=== PATIENT | male | born 1990 | race Two or more races ===

== ENCOUNTER → 2020-11-05 07:19 | Outpatient (CLI) | payer OTHER, SELFPAY ==
[2020-10-28 08:22] VITALS: BMI 29.2
[2020-11-03 08:37] LABS: Hematocrit 44.9 % (40-54); Hemoglobin 15.2 g/dL (13.0-16.5); Mean Corp Hgb Conc 33.9 g/dL (32-36); Mean Corpuscular Hgb 29.2 pg (27.0-32.0); Mean Corpuscular Volume 86.2 fL (80-94); Mean Platelet Vol. 9.8 fl (6.2-12.0); Platelet Count 221 K/mm3 (150-450); RBC Distribution Width CV 11.9 % (11.6-14.6); RBC Distribution Width SD 37.6 fl (35.1-43.9); Red Blood Count 5.21 M/mm3 (4.6-6.2); White Blood Count 10.7 K/mm3 (4.4-11.0)
[2020-11-03 09:11] LABS: ALB/GLOB Ratio 1.2 RATIO (0.9-2.4); AST(SGOT) 20 U/L (15-37); Alanine Aminotransfer ALT/SGPT 39 U/L (16-61); Albumin, Serum 4.2 g/dL (3.2-5.0); Alkaline Phosphatase 58 U/L (45-117); Anion Gap 4 (5-15); BUN 14 mg/dL (7-18); BUN/Creat Ratio 11.4 RATIO (10-20); Calcium,Total 9.4 mg/dL (8.5-10.1); Chloride 105 mmol/L (98-107); Creatinine, Serum 1.23 mg/dL (0.70-1.30); EST Glomerular Filtration Rate 72 mL/min (>60); Est Glom Filt Rate - Afr Amer 87 mL/min (>60); Globulin 3.5 g/dL (2.2-4.2); Glucose 83 mg/dL (74-106); Protein, Total 7.7 g/dL (6.4-8.2); Sodium Level 140 mmol/L (136-145)
--- NOTE | 2020-11-05 07:23 | MRI_ITS ---
STUDY: MRI BRAIN WITH AND WITHOUT CONTRAST REASON FOR EXAM: Male, 30 years old. Migraine Headaches TEMPORAL AREA TECHNIQUE: Standardized multiplanar fat and water weighted pulse sequences were obtained. IV 17 cc dotarem was administered for the contrast portion of the examination. COMPARISON: None. FINDINGS: Normal size of the ventricles and extra-axial spaces for the patient''s age. Normal white matter tracts of the supratentorial brain. There is no evidence for recent intracranial ischemia or other cause of cytotoxic edema on diffusion weighted imaging (DWI). Normal T2* images of the brain without demonstrated susceptibility artifact. There is no demonstrated hemosiderin stain. Normal bilateral basal ganglia. Normal thalami. There is no extra-axial fluid accumulation. Normal flow voids within the major intracranial circulation suggesting patency by spin echo criteria. Normal venous enhancement. There is no enhancing intra-axial or extra-axial abnormality. Normal sella turcica, pituitary gland, infundibular stalk, optic chiasm and hypothalamus. Normal tectal plate and pineal gland. Normal midbrain, veronica and medulla. Normal cerebellum. Normal basal cisterns. Normal bilateral temporal bones. Normal bilateral internal auditory canals. No demonstrated orbital abnormality, within the constraints of a routine brain study. Normal visualized paranasal sinuses. Normal calvarium and skull base. Normal visualized soft tissue structures. Normal visualized upper cervical spine. MRI/Brain W/WO Contrast IMPRESSION: Normal unenhanced and enhanced MRI of the brain. Electronically Signed: Jesus Vila MD at 9:43 EST Tel , Service support ,
[2020-11-05 08:43] LABS: Insulin 16.9 mU/L (2.6-37.6); T3 Total - Triiodothyronine 1.06 ng/mL (0.6-1.81)
[2020-11-05 08:47] LABS: Hemoglobin A1c 4.8 % (3.8-5.6)
[2020-11-05 08:53] LABS: ALB/GLOB Ratio 1.2 RATIO (0.9-2.4); AST(SGOT) 18 U/L (15-37); Alanine Aminotransfer ALT/SGPT 36 U/L (16-61); Alkaline Phosphatase 58 U/L (45-117); Anion Gap 4 (5-15); BUN 12 mg/dL (7-18); BUN/Creat Ratio 11.5 RATIO (10-20); Calcium,Total 8.8 mg/dL (8.5-10.1); Chloride 105 mmol/L (98-107); Creatinine, Serum 1.04 mg/dL (0.70-1.30); EST Glomerular Filtration Rate 88 mL/min (>60); Est Glom Filt Rate - Afr Amer 106 mL/min (>60); Globulin 3.3 g/dL (2.2-4.2); Glucose 89 mg/dL (74-106); Potassium 3.7 mmol/L (3.5-5.1); Protein, Total 7.3 g/dL (6.4-8.2); Sodium Level 139 mmol/L (136-145); Thyroid Stim Hormone (TSH) 3.98 uIU/mL (0.358-3.74)
[2020-11-07 20:08] LABS: Thyroid Stim Immunoglob <0.10 IU/L (0.00-0.55)
[2020-11-07 22:06] LABS: Thyroid Peroxidase AB < 9 IU/mL (0-34)
== END ==
PROVIDERS: Referring Provider Psychiatry & Neurology Neurology; Visit Provider Psychiatry & Neurology Neurology
DX: G43.909 Migraine, unspecified, not intractable, without status migrainosus (principal); E07.9 Disorder of thyroid, unspecified; R63.5 Abnormal weight gain; R53.82 Chronic fatigue, unspecified
CPT/HCPCS: 36415; 70553; 80053; 83036; 83525; 84439; 84443; 84445; 84480; 85027; 86376; A9575

== ENCOUNTER 2021-12-31 13:11 | Emergency (ER) | payer BC, SELFPAY ==
[2021-12-31 13:12] VITALS: BP 109/67; PULSE 96; RESP 18; TEMP 36.1; O2SAT 98; BMI 25.1
--- NOTE | 2021-12-31 13:27 | EKG12_ITS ---
Test Reason : DIZZINESS Blood Pressure : / mmHG Vent. Rate : 088 BPM Atrial Rate : 088 BPM P-R Int : 108 ms QRS Dur : 096 ms QT Int : 356 ms P-R-T Axes : 071 062 055 degrees QTc Int : 430 ms Sinus rhythm with short NE Otherwise normal ECG Confirmed by JESUSITA BELCHER, CLINTON ([id number]), society editor SANTINO ROBERTS ([id number]) on 01/05/2022 8:47:38 AM Referred By: NARINDER Confirmed By:CLINTON MC MD
--- NOTE | 2021-12-31 13:29 | EX.ED.DYSGE1 ---
HPI History of Present Illness Chief Complaint: Dizziness Detail of Chief Complaint: Dizziness that started yesterday Informant: patient Narrative Narrative: Patient presents to the emergency department with complaint of dizziness that he noticed yesterday. Patient states that he stood up from his desk about 4 PM and felt sudden onset of dizziness that he describes more as lightheadedness. Patient states he really did not want to move his head though. He denied any nausea or vomiting. He apparently did feel chilled and subjectively felt like he might have a fever yesterday. He denies cough or sore throat or body aches. He has had the COVID-vaccine. 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 Patient denies nausea or vomiting or diarrhea. Patient throughout the day still feeling somewhat lightheaded. Patient does have history of migraines but this is different. He describes just some mild discomfort in his head. Prior similar symptoms: No PFSH PFS Medical History (Updated 12/31/21 @ 14:[address] Mateo Rascon, DO) Migraine without aura, not intractable, without status migrainosus Home Medications meclizine 25 mg PO TID PRN #14 tab 12/31/21 [Rx Last Taken Unknown] Allergy/AdvReac Type Severity Reaction Status Date / Time No Known Allergies Allergy Verified 12/31/21 13:15 Family History Grandfather Myocardial infarction, Onset Age: 55 Father Rheumatoid arthritis Surgical History History of repair of ACL Social History Smoking Status: Never smoker Electronic Cigarette Use: not used second hand exposure: No alcohol intake: never substance use type: does not use ROS ROS ED Constitutional Constitutional ED: Reports systems reviewed and no addt'l complaints, except as documented; Denies body ache(s), change in weight or chills Eyes Eyes: Denies acute decrease in peripheral vision, change in vision, double vision or loss of vision ENT ENT ED: Reports none; Denies ear pain, lip swelling, loss taste/smell, neck pain, otalgia or sore throat Cardiovascular Cardiovascular: Reports none; Denies abdominal pain, chest pain with activity, leg edema, lightheadedness, palpitations, rapid heart rate or syncope Respiratory/Chest Respiratory/Chest: Reports none; Denies change in mental status, dry cough, dyspnea, hemoptysis, shortness of breath at rest or shortness of breath with exertion Gastrointestinal Gastrointestinal: Reports none; Denies abdominal pain, change in stool character, diarrhea, hematemesis, hematochezia, melena, rectal bleeding or vomiting Genitourinary Genitourinary ED: Reports none; Denies abdominal discomfort, anuria, dysuria, genital pain or polyuria Musculoskeletal Musculoskeletal: Reports none; Denies arthralgias, back pain, difficulty walking, extremity pain, muscle weakness or myalgias Integumentary Reports none; Denies abscess or rash Neurologic Neurologic: Reports none, headache(s) and other Details: Dizziness ; Denies abnormal gait, confusion, focal weakness, frequent falls, loss of vision, numbness, paresthesias, radicular pain, vertigo or weakness Psychiatric Psychiatric: Reports systems reviewed and no addt'l complaints, except as documented and none; Denies behavioral changes, confusion, difficulty concentrating, hallucinations, suicidal ideation, tactile hallucinations or visual hallucinations Endocrine Endocrinology: Denies none, cold intolerance, excessive sweating, fatigue or heat intolerance Hematologic/Lymphatic Hematologic/Lymphatic: Reports none; Denies anemia, easy bleeding or easy bruising Allergic/Immunologic Allergic/Immunologic ED: Denies as per HPI, none, lip swelling, mouth swelling, throat swelling, tongue swelling or hives EXAM Physical Exam Const Vital Signs: 12/31/21 13:12 12/31/21 13:41 Temperature 96.9 F L Temperature Source Temporal Pulse Rate 96 Pulse Rate [Lying] 83 Pulse Rate [Sitting (for 1 minute prior to obtaining)] 87 Pulse Rate [Standing (for 1 minute prior to obtaining)] 94 Respiratory Rate 18 Blood Pressure 109/67 Blood Pressure [Lying] 109/58 L Blood Pressure [Sitting (for 1 minute prior to obtaining)] 123/68 H Blood Pressure [Standing (for 1 minute prior to obtaining)] 91/50 L Blood Pressure Mean 81 Blood Pressure Mean [Lying] 75 Blood Pressure Mean [Sitting (for 1 minute prior to obtaining)] 86 Blood Pressure Mean [Standing (for 1 minute prior to obtaining)] 63 Pulse Ox 98 Oxygen Delivery Method Room Air Positive well nourished and well developed General Appearance ED: well developed and NAD HEENT Reports TM's clear and moist mucous membranes normocephalic and atraumatic; Negative for trauma or tenderness Tympanic Membrane ED: Yes TM's clear Eyes PERRL and EOMs intact bilaterally General Eye ED: Negative for pale conjunctiva or scleral icterus Neck no lymphadenopathy, supple and no JVD General: Negative for tenderness Chest Wall inspection of chest normal and palpation of chest normal Chest: Negative for tenderness Resp normal respiratory effort and clear to auscultation bilaterally Effort and Inspection: Negative for respiratory distress or pain with movement Auscultation: Negative for rhonchi, wheezes or diminished lung sounds Cardio regular rate, regular rhythm, S1 normal heart sound, S2 normal heart sound and no murmurs Peripheral Pulses: pulses 2+ throughout GI normal to inspection, nondistended, normoactive bowel sounds, soft to palpation, non-tender, non-distended and no masses Back/Spine no CVA tenderness and no thoracic nor lumbar tenderness Extremity normal to inspection General Extremety ED: Negative for edema General Extremity: Negative for edema Neuro oriented x3, CN's II-XII intact bilaterally, no sensory deficits noted and gait normal Neuro Narrative: Finger-nose and heel penn testing within normal limits, negative Romberg, negative pronator drift, fundi benign. Hallpike maneuver performed and I could not elicit any nystagmus and he was not symptomatic with testing. Sensorium / Orientation: awake, alert, oriented to person, oriented to place and oriented to time Motor Exam: strength 5/5 throughout and strength abnormal Psych mental status grossly normal Skin no rashes or lesions noted and no wounds MDM MDM MDM Narrative Medical decision making narrative: IV line established on arrival. Patient was given a liter normal saline fluid bolus. His initial orthostatic vital signs were positive with a drop in the systolic by 30 points. Patient did receive Antivert and he thinks that may have helped his symptoms as well. COVID screen was negative. Lab work-up was normal. EKG obtained on arrival showed a sinus rhythm with a ventricular rate of 88 bpm with no acute ST segment changes. Lab Data Attestation: I reviewed the patient's lab results. Labs: Laboratory Results - last 24 hr 12/31/21 12/31/21 13:35 13:35 WBC 7.6 RBC 4.90 Hgb 14.7 Hct 42.0 MCV 85.7 MCH 30.0 MCHC 35.0 RDW Std Deviation 37.1 RDW Coeff of Jesus 11.9 Plt Count 152 MPV 10.0 Immature Gran % (Auto) 0.400 Neut % (Auto) 79.9 H Lymph % (Auto) 6.5 L Towner % (Auto) 12.8 H Eos % (Auto) 0.0 Baso % (Auto) 0.4 Absolute Neuts (auto) 6.0 Absolute Lymphs (auto) 0.49 L Nucleated RBC % 0 Platelet Estimate ADEQUATE RBC Morphology NORM C+C Sodium 138 Potassium 3.7 Chloride 104 Carbon Dioxide 30.0 Anion Gap 4 L BUN 9 Creatinine 1.15 Estim Creat Clear Calc 88.39 Est GFR (MDRD) Af Amer 94 Est GFR (MDRD) Non-Af 77 BUN/Creatinine Ratio 7.8 L Glucose 90 Calcium 8.8 EKG Initial EKG: Attestation: I personally reviewed and interpreted this EKG as follows: Comments: Sinus rhythm with a rate of 88 bpm with a short MT and otherwise no acute findings Discharge Plan Triage Chief Complaint: Dizziness ED Provider: Mateo Rascon Dx/Rx/DC Orders Clinical Impression: Dizziness, Orthostatic hypotension, Acute viral syndrome Instructions: Orthostatic Hypotension, ED Dizziness, Uncertain Cause, ED Viral Syndrome (Adult) Prescriptions: New meclizine 25 mg tablet 25 mg PO TID PRN (Reason: dizziness) Qty: 14 RF: 0 Primary Care Provider: Care Physician,No Primary Referrals: Brandon Ochoa MD [STAFF PHYSICIAN] - 3-5 Days Care Physician,No Primary [Primary Care Provider] - Disposition Disposition: Home, Self Care
[2021-12-31] MEDS: 0.9% Normal Saline 1,000 ML 150 ML IV (13:35)
[2021-12-31] MEDS: Meclizine HCl 25 MG Tablet PO (13:35)
[2021-12-31 13:41] VITALS: BP 109/58; BP 123/68; BP 91/50; PULSE 83; PULSE 87; PULSE 94
--- NOTE | 2021-12-31 13:47 | ED.RN ---
Dr. Rascon notified of patients orthostatic vitals. Verbal readback to increase fluids to 1L wide open
[2021-12-31 13:56] LABS: Absolute Lymphocyte Count 0.49 X10^3/uL (0.83-4.51); Basophil# 0.03 X10^3/uL; Basophil% 0.4 % (0-1); Hemoglobin 14.7 g/dL (13.0-16.5); Lymphocyte # 0.49 X10^3/ul (0.83-4.51); Lymphocyte % 6.5 % (19-41); Mean Corpuscular Volume 85.7 fL (80-94); Monocyte# 0.97 X10^3/uL; Monocyte% 12.8 % (0-10); NRBC Flagged by Analyzer 0 % (0-5); Neutrophil # 6.04 X10^3/uL (2.7-7.7); Neutrophil % 79.9 % (47-70); POSITIVE DIFFERENTIAL YES; Platelet Count 152 K/mm3 (150-450); RBC Distribution Width CV 11.9 % (11.6-14.6); RBC Distribution Width SD 37.1 fl (35.1-43.9); White Blood Count 7.6 K/mm3 (4.4-11.0)
[2021-12-31 14:02] LABS: Differential Indicated SCAN CRITERIA MET
[2021-12-31 14:08] LABS: Anion Gap 4 (5-15); BUN 9 mg/dL (7-18); BUN/Creat Ratio 7.8 RATIO (10-20); Calcium,Total 8.8 mg/dL (8.5-10.1); Chloride 104 mmol/L (98-107); Creatinine, Serum 1.15 mg/dL (0.70-1.30); EST Glomerular Filtration Rate 77 mL/min (>60); Est Glom Filt Rate - Afr Amer 94 mL/min (>60); Estimated Creatinine Clearance 88.39 ml/min; Glucose 90 mg/dL (74-106); Potassium 3.7 mmol/L (3.5-5.1); Sodium Level 138 mmol/L (136-145)
[2021-12-31 14:24] LABS: Platelet Estimate ADEQUATE (ADEQ); Red Cell Morphology NORM C+C NORMAL (NORM C&C)
[2021-12-31] MEDS: 0.9% Normal Saline 1,000 ML 999 ML IV (14:35)
[2021-12-31 14:45] VITALS: BP 116/62; BP 120/59; BP 127/65; PULSE 81; PULSE 86; PULSE 89
== END 2021-12-31 14:51 | disposition home or self-care (01) ==
PROVIDERS: Emergency Provider Emergency Medicine; Visit Provider Emergency Medicine
DX: I95.1 Orthostatic hypotension (principal); B34.9 Viral infection, unspecified; G43.909 Migraine, unspecified, not intractable, without status migrainosus
CPT/HCPCS: 80048; 85025; 87811; 93005; 96360; 99284; J7030; A4216

== ENCOUNTER 2022-05-29 19:50 | Emergency (ER) | payer BC, SELFPAY ==
[2022-05-29 19:50] VITALS: BP 110/75; PULSE 75; RESP 19; TEMP 36.3; O2SAT 100; BMI 26.8
--- NOTE | 2022-05-29 20:00 | CT_ITS ---
STUDY: CT BRAIN WITHOUT CONTRAST REASON FOR EXAM: Male, 32 years old. Pain RADIATION DOSAGE (If Supplied By Facility): CTDIvol = ( 44.99 ) mGy, DLP = ( 745.49 ) mGycm TECHNIQUE: Transaxial CT imaging of the brain was performed without administration of intravenous contrast material. Individualized dose optimization techniques were used for this CT. COMPARISON: No relevant priors. FINDINGS: Normal soft tissue structures. Normal calvarium. Normal size ventricles and extra-axial spaces for the patient''s age. Normal white matter tracts of the cerebral hemispheres. Normal basal ganglia and thalami. Normal brainstem. Normal cerebellum. There is no intracranial hemorrhage. There are no findings of an acute ischemic infarction. Normal visualized paranasal sinuses. CT/Brain/Head without Contrast IMPRESSION: Normal unenhanced CT scan of the brain. Electronically Signed: Jesus Vila MD at 20:43 EDT ,
--- NOTE | 2022-05-29 20:01 | EX.ED.DYSGE1 ---
HPI History of Present Illness Chief Complaint: Headache Informant: patient Onset/Context/Timing Onset: Today Current Severity: Moderate Maximum Severity: Moderate Narrative Narrative: Patient present secondary to migraine headache. He has a history of migraines and states that usually 1 dose of sumatriptan will take care of his headache. It is typically right-sided. This morning he developed left-sided headache which is quite atypical for him. He took his sumatriptan without improvement. He took another dose this afternoon as well as this evening and continues to have headache symptoms. He does have light sensitivity along with nausea and vomiting. He denies recent head injury. 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 He has not felt ill recently. [facility] Medical History Migraine without aura, not intractable, without status migrainosus Home Medications sumatriptan succinate 50 mg tablet See Rx Instructions .Route .COMPLEX #9 tabs 02/16/22 [Rx Last Taken Unknown] Allergy/AdvReac Type Severity Reaction Status Date / Time No Known Allergies Allergy Verified 02/16/22 08:36 Family History Grandfather Myocardial infarction, Onset Age: 55 Father Rheumatoid arthritis Surgical History History of repair of ACL Social History Smoking Status: Never smoker Electronic Cigarette Use: not used second hand exposure: No alcohol intake: never substance use type: does not use ROS ROS ED Constitutional Constitutional ED: Denies chills or fever(s) Eyes Eyes: Denies change in vision or discharge from eye(s) ENT ENT ED: Denies discharge from eye(s), rhinorrhea or sore throat Cardiovascular Cardiovascular: Denies chest pain or palpitations Respiratory/Chest Respiratory/Chest: Denies cough or dyspnea Gastrointestinal Gastrointestinal: Reports nausea and vomiting; Denies abdominal pain or diarrhea Genitourinary Genitourinary ED: Denies dysuria Musculoskeletal Musculoskeletal: Denies back pain or extremity pain Integumentary Denies Abrasions or rash Neurologic Neurologic: Reports headache(s); Denies weakness Psychiatric Psychiatric: Denies anxiety or depression Allergic/Immunologic Allergic/Immunologic ED: Denies lip swelling or urticaria EXAM Physical Exam Const Vital Signs: 05/29/22 19:50 Temperature 97.4 F L Temperature Source Temporal Pulse Rate 75 Respiratory Rate 19 H Blood Pressure 110/75 Blood Pressure Mean 86 Pulse Ox 100 Oxygen Delivery Method Room Air Positive well nourished and well developed General Appearance ED: well developed HEENT Reports moist mucous membranes Eyes PERRL and EOMs intact bilaterally Neck no lymphadenopathy Neck Narrative: No meningismus. Chest Wall inspection of chest normal and palpation of chest normal Resp normal respiratory effort and clear to auscultation bilaterally Cardio regular rate and regular rhythm GI normal to inspection, nondistended, normoactive bowel sounds Extremity normal to inspection Neuro oriented x3, CN's II-XII intact bilaterally and no sensory deficits noted Motor Exam: strength 5/5 throughout Psych mental status grossly normal Skin no rashes or lesions noted MDM MDM MDM Narrative Medical decision making narrative: Patient is given Toradol, Reglan, Benadryl, IV fluids. CT scan of the head obtained because this is not his typical migraine. COVID swab also obtained. Radiography Diagnostic Testing: Clinical Impression(s) from Imaging Studies Brain CT 05/29/22 20:00 IMPRESSION: Normal unenhanced CT scan of the brain. Electronically Signed: Jesus Vila MD at 20:43 EDT , Treatment and Re-Evaluation Narrative: Rapid COVID test is negative. CT scan of the head reveals no acute findings. On repeat evaluation patient states his headache is much improved. Test results discussed with patient and at bedside. He will be discharged home to continue supportive care. Discharge Plan Triage Chief Complaint: Headache ED Provider: Areli Suarez Dx/Rx/DC Orders Clinical Impression: Migraine Instructions: ED, Migraine (Classical) Prescriptions: No Action sumatriptan succinate 50 mg tablet See Rx Instructions .ROUTE .COMPLEX Qty: 9 11RF Rx Instructions: take 1 tab at onset of headache; if headache persists you may repeat 1 tab after at least 2 hrs; max 2 doses/24 hr Primary Care Provider: Care Physician,No Primary Referrals: Toy Lyons MD [Non-Staff -Ordering Privileges] - As Needed Care Physician,No Primary [Primary Care Provider] - Disposition Disposition: Home, Self Care
[2022-05-29] MEDS: DiphenhydrAMINE 50 MG/ML Syringe 25 MG IV (20:09)
[2022-05-29] MEDS: Metoclopramide 10 MG/2 ML Vial IV (20:09)
[2022-05-29] MEDS: Ketorolac 30 MG/ML Syringe IV (20:09)
[2022-05-29] MEDS: 0.9% Normal Saline 1,000 ML 999 ML IV (20:09)
[2022-05-29 21:04] VITALS: BP 105/69; PULSE 80; RESP 15; O2SAT 98
== END 2022-05-29 21:13 | disposition home or self-care (01) ==
PROVIDERS: Emergency Provider Emergency Medicine; Visit Provider Emergency Medicine
DX: G43.909 Migraine, unspecified, not intractable, without status migrainosus (principal); Z79.899 Other long term (current) drug therapy; Z20.822 Contact with and (suspected) exposure to COVID-19
CPT/HCPCS: 70450; 87811; 96361; 96374; 96375; 99282; J7030; A4216

== ENCOUNTER → 2022-10-18 | Outpatient (CLI) | payer BC, SELFPAY ==
--- NOTE | 2022-10-18 12:40 | RAD_ITS ---
EXAM: XR CERVICAL SPINE, 4 OR 5 VIEWS CLINICAL INDICATION: BACK PAIN TECHNIQUE: Frontal, lateral and bilateral oblique views of the cervical spine. This report was created using [employer] report generation technology. COMPARISON: None. FINDINGS: VERTEBRAE: Unremarkable. Preserved vertebral body height. No acute fracture. No spondylolisthesis. Preservation of the normal cervical lordosis. No significant facet arthropathy. DISC SPACES: Unremarkable. Disc spaces are maintained. SOFT TISSUES: Unremarkable. No prevertebral soft tissue widening. LUNG APICES: Clear. RAD/Cerv Spine 2 or 3 Views IMPRESSION: Normal cervical spine radiographs. Electronically Signed: Hans Owens MD at 13:30 EST ,
--- NOTE | 2022-10-18 12:40 | RAD_ITS ---
EXAM: XR LUMBOSACRAL SPINE, 2 OR 3 VIEWS CLINICAL INDICATION: BACK PAIN TECHNIQUE: Frontal and lateral views of the lumbar spine and sacrum. This report was created using [employer] report [employer] technology. COMPARISON: None. FINDINGS: VERTEBRAE: Unremarkable. Preserved vertebral body height. No fracture. No spondylolisthesis. Preservation of the normal lumbar lordosis. No significant facet arthropathy. DISC SPACES: No acute findings. Disc spaces are maintained. GASTROINTESTINAL TRACT: Unremarkable as visualized. Included bowel gas pattern is non-obstructive. RAD/Lumbar Spine 2 or 3 Views IMPRESSION: Normal lumbar spine radiographs. Electronically Signed: Hans Owens MD at 13:42 EST ,
--- NOTE | 2022-10-18 12:40 | RAD_ITS ---
EXAM: XR THORACIC SPINE, 3 VIEWS CLINICAL INDICATION: BACK pain TECHNIQUE: Frontal, lateral and swimmer''s views of the thoracic spine. This report was created using [employer] report [employer] technology. COMPARISON: None. FINDINGS: VERTEBRAE: Unremarkable. Preserved vertebral body height. No fracture. No spondylolisthesis. Preservation of the normal thoracic kyphosis. No significant facet arthropathy. DISC SPACES: Unremarkable. Disc spaces are maintained. RAD/Thoracic Spine 3 Views IMPRESSION: Normal thoracic spine radiographs. Electronically Signed: Hans Owens MD at 13:31 EST ,
== END | disposition home or self-care (01) ==
PROVIDERS: Referring Provider Anesthesiology Pain Medicine; Visit Provider Anesthesiology Pain Medicine
DX: M54.9 Dorsalgia, unspecified (principal)
CPT/HCPCS: 72040; 72072; 72100

== ENCOUNTER 2024-12-22 11:53 | Emergency (ER) | payer BC, SELFPAY ==
[2024-12-22 11:54] VITALS: BP 130/73; PULSE 90; RESP 18; TEMP 36.7; O2SAT 98
--- NOTE | 2024-12-22 12:15 | RAD_ITS ---
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 FINDINGS: Bones: Findings of prior ACL reconstruction with femoral endo-button and femoral and tibial tunnels. No acute osseous fracture. Joints: Normal alignment. Mild degenerative changes. Effusion: No effusion. Soft tissues: Soft tissues are unremarkable. RAD/Knee 4 or More Views IMPRESSION: Negative knee radiographs. Reading Location: [id number]
--- NOTE | 2024-12-22 12:18 | ED.VIS.LOWEX ---
HPI History of Present Illness HPI Narrative: Right knee pain while planning is right in the and playing soccer. Prior history of an ACL repair. Not sure if he heard a pop or not. Painful to bear weight. Just happened within the last couple hours. 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 He has had a prior ACL repair a number of years ago. Denies any hip or ankle pain. No other injuries. Prior similar symptoms: No Recent Illness/Hospitalization: No PFSH PFS Medical History Migraine without aura, not intractable, without status migrainosus Home Medications ?Medication ?Instructions ?Recorded ?Last Taken ?Type sumatriptan succinate 100 mg tablet See Rx Instructions PO .COMPLEX 12/10/24 Unknown Rx #12 tabs Allergy/AdvReac Type Severity Reaction Status Date / Time No Known Allergies Allergy Verified 12/10/24 09:28 Family History Grandfather Myocardial infarction, Onset Age: 55 Father Rheumatoid arthritis Surgical History History of repair of ACL Social History Smoking Status: Never smoker Electronic Cigarette Use: not used second hand exposure: No alcohol intake: current details: occasionally substance use type: does not use what type of physical activity do you participate in: running and weight training seatbelt use: always ROS ROS ED ROS Narrative Denies recent illness. Constitutional Constitutional ED: Denies chills or fever(s) Eyes Eyes: Denies blurry vision ENT ENT ED: Denies ear pain Cardiovascular Cardiovascular: Denies chest pain Respiratory/Chest Respiratory/Chest: Denies cough Gastrointestinal Gastrointestinal: Denies abdominal pain Genitourinary Genitourinary ED: Denies dysuria or hematuria Musculoskeletal Musculoskeletal: Denies arthralgias or back pain Integumentary Denies abscess Neurologic Neurologic: Denies headache(s) Psychiatric Psychiatric: Denies anxiety or depression Endocrine Endocrinology: Denies polydipsia Hematologic/Lymphatic Hematologic/Lymphatic: Denies easy bleeding Allergic/Immunologic Allergic/Immunologic ED: Denies mouth swelling, tongue swelling or urticaria EXAM Physical Exam Narrative Exam Narrative: Well-appearing 34-year-old male sitting upright in bed. Vital signs are stable afebrile. H EENT exam pupils round reactive light. No trauma. Neck nontender. Back nontender. Lungs clear. Heart regular rhythm rate about 90 no murmur. Chest wall ribs nontender. Abdomen soft nontender. Moving all 4 extremities. Neurovascularly intact. Normal strength. Normal sensation. Right knee he has pain. The ACL and PCL appear to be intact. There is no effusion. He can straighten the leg to 180 degrees. He can flex and extend the knee. The MCL and LCL appear to be intact. He can lift the leg off the bed. His quadriceps patella and infrapatellar tendon are intact. There is no swelling, redness or discoloration. Dorsi and plantarflexion is intact. He has a normal DP pulse. His normal touch sensation his right foot. Other extremities are nontender with normal range of motion no deformity. Const Vital Signs: 12/22/24 11:54 Temperature 98.1 F Temperature Source Oral Pulse Rate 90 Respiratory Rate 18 Blood Pressure 130/73 H Blood Pressure Mean 92 Pulse Ox 98 Oxygen Delivery Method Room Air Positive well nourished and well developed; Negative for obese, cachectic, contractures or unkempt General Appearance ED: well developed and NAD; Negative for unkempt, cachectic or contractures Nutritional Appearance: Negative for cachectic or obese HEENT Reports moist mucous membranes normocephalic and atraumatic; Negative for trauma or tenderness Eyes PERRL Neck full ROM and supple Thyroid: Negative for tender Lymph Lymphatic: Negative for other Chest Wall inspection of chest normal and palpation of chest normal Resp normal respiratory effort, no retractions and clear to auscultation bilaterally Auscultation: Negative for rales, rhonchi or wheezes Cardio regular rate, regular rhythm, S1 normal heart sound, S2 normal heart sound and no murmurs Rate: Negative for bradycardia or tachycardic Rhythm: Negative for abnormal rhythm Bruits: Negative for other GI non-tender, non-distended and no masses Auscultation: normoactive bowel sounds Palpation: soft; Negative for tender or guarding Back/Spine no CVA tenderness General Back: Negative for CVA tenderness or swelling Cervical Spine: Negative for cervical spine tenderness Thoracic Spine / Upper Back: Negative for thoracic spinal tenderness Lumbar Spine / Lower Back: Negative for lumbar spinal tenderness Extremity normal to inspection and full ROM Extremity Narrative: Right knee. No effusion. No swelling. Normal flexion extension. ACL and PCL appear to be intact as do the MCL and LCL. He has normal flexion extension and 80 degrees. Quadriceps patellar and infrapatellar tendon are intact. Right ankle nontender. Right foot neurovascularly intact. General Extremety ED: Yes edema and weight-bearing difficulty General Extremity: edema and weight-bearing difficulty Neuro oriented x3, CN's II-XII intact bilaterally and moves all extremities Sensorium / Orientation: alert, oriented to person, oriented to place and oriented to time Motor Exam: strength 5/5 throughout Psych mental status grossly normal Appearance: Negative for unkempt Mood & Affect: anxious Skin no wounds Lesions: no lesions Rashes: no rashes Trauma: Negative for abrasion or laceration MDM MDM MDM Narrative Medical decision making narrative: 34-year-old male playing soccer injury to his right knee. Prior ACL repair. X-ray being obtained. History & Record Review Discussion w/independent historian: Patient and Family Discharge Plan Triage Chief Complaint: Lower Extremity Injury ED Provider: Alexey Batista Dx/Rx/DC Orders Prescriptions: No Action sumatriptan succinate 100 mg tablet See Rx Instructions PO .COMPLEX Qty: 12 4RF Rx Instructions: Take 1 tablet PO every 1 hour as needed for headache up to 2 tablets/day Primary Care Provider: Brandon Rojas Referrals: Care Physician,No Primary [Non-Staff] - Print Language: Micronesian
[2024-12-22 12:54] VITALS: BP 120/62; PULSE 74; RESP 18; TEMP 36.6; O2SAT 99
== END 2024-12-22 12:55 | disposition home or self-care (01) ==
PROVIDERS: Emergency Provider Emergency Medicine; PCP Family Medicine; Visit Provider Emergency Medicine
DX: S89.81XA Other specified injuries of right lower leg, initial encounter (principal); X50.1XXA Overexertion from prolonged static or awkward postures, initial encounter; Y93.66 Activity, soccer; G43.009 Migraine without aura, not intractable, without status migrainosus; Z98.890 Other specified postprocedural states; Z87.828 Personal history of other (healed) physical injury and trauma; Z79.899 Other long term (current) drug therapy
CPT/HCPCS: 73564; 99282

== ENCOUNTER 2025-01-14 05:56 | Day surgery (SDC) | payer BC, SELFPAY ==
[2025-01-14] VITALS (11 sets, daily range): BP systolic 99–124; BP diastolic 61–82; PULSE 62–72; RESP 12–18; TEMP 36.1–36.7; O2SAT 95–100; BMI 27.0
[2025-01-14] MEDS: Lactated Ringers 1,000 ML 15 ML IV (06:50)
--- NOTE | 2025-01-14 07:14 | PRE.ANES_ITS ---
ASA Classification* ASA Classification ASA Classification: 2 (Hx of SEVERE PONV - We will do TIVA ) Assessment & Plan Anesthesia* Anesthesia Assessment Anesthesia Assessment: Discussed sedation and/or anesthesia options, risks, benefits, and alternatives with patient/parents/legal guardian/POA. Questions invited. The patient/parents/legal guardian/POA seems to understand and agrees to proceed with anesthesia plan. Reviewed the physical assessment, medical history, allergy history and patient home medications list prior to surgery/procedure/anesthetic and documented any changes. Performed airway and anesthesia risk assessments. Anesthesia Type Anesthesia Type: General (TIVA) History Source History Obtained from:: Patient and Chart Anesthesia Focused Assessment* Temperature: 97.7 F Pulse Rate: 71 Blood Pressure: 124/79 Respiratory Rate: 16 Pulse Ox: 100 Oxygen Delivery Method: Room Air Airway Assessment Mouth opens: >3 cm Mallampati Score: II Teeth Condition: Intact Neck Range of motion (ROM): Full ROM Focused Labs Anesthesia Preop lab: CBC WBC 7.6 K/mm3 (4.4-11.0) 12/31/21 13:35 12/31/21 RBC 4.90 M/mm3 (4.6-6.2) 12/31/21 13:35 12/31/21 Hgb 14.7 g/dL (13.0-16.5) 12/31/21 13:35 12/31/21 Hct 42.0 % (40-54) 12/31/21 13:35 12/31/21 Plt Count 152 K/mm3 (150-450) 12/31/21 13:35 12/31/21 CHEMISTRY Potassium 3.7 mmol/L (3.5-5.1) 12/31/21 13:35 12/31/21 Sodium 138 mmol/L (136-145) 12/31/21 13:35 12/31/21 BUN 9 mg/dL (7-18) 12/31/21 13:35 12/31/21 Creatinine 1.15 mg/dL (0.70-1.30) 12/31/21 13:35 12/31/21 Glucose 90 mg/dL (74-106) 12/31/21 13:35 12/31/21 TSH 3.98 uIU/mL (0.358-3.74) H 11/05/20 07:26 10/14 12/31 COAG Pre-Assessment Diagnosis/Proposed Procedure Planned Operative Procedure(s): (R) RIGHT KNEE ARTHROSCOPIC REVISION ANTERIOR CRUCIATE LIGAMENT RECONSTRUCTION WITH QUADRICEPS AUTOGRAFT AND MEDIAL MENISCAL REPAIR Anesthesia History Anesthesia History - gerentological physiotherapist: Anesthesia History - gerentological physiotherapist Hx Hospitalization No 01/11/25 08:16 Any Problems With Anesthesia Yes: severe n/v after last 01/11/25 08:16 surgery Cholinesterase deficiency No 01/11/25 08:16 You/Your Family Experience No 01/11/25 08:16 fever (hyperthermia) with Relationship Recent Exposure to Contagious No 01/14/25 06:49 Disease Does patient have nerve No 01/11/25 08:16 stimulator Patient instructed to have device shut off --Does patient have Pacemaker No 01/14/25 06:51 or ICD? When Was Last Pacemaker Check QUESTION #4 FULL TEXT: You/Your Family Experience fever (hyperthermia) with Anesthesia Last Oral Intake Last Oral intake: Last Oral Intake NPO since 00:00 01/14/25 06:51 Meds taken in AM with sips of water? Meds patient instructed to take am of surgery PONV PONV - gerentological physiotherapist: PONV - gerentological physiotherapist Female No 01/11/25 08:16 HX of Motion Sickness Yes 01/11/25 08:16 HX of N/V After Surgery Yes 01/11/25 08:16 Non-Smoker Yes 01/11/25 08:16 Duration of Surgery greater No 01/11/25 08:16 than 60 minutes Number of Risk Factors 3 01/11/25 08:16 PONV Score Moderate Risk 01/11/25 08:16 Height & Weight Height & Weight: Anesthesia: Height & Weight Height 5 ft 9 in 01/14/25 06:51 Weight: 83.1 kg 01/14/25 06:51 Body Mass Index (BMI) 27.0 01/14/25 06:51 Respiratory Assessment Respiratory Assessment - gerentological physiotherapist: Respiratory Tract Infection Hx - gerentological physiotherapist Hx Respiratory Tract Infection No 01/11/25 08:16 STOP Sleep Apnea STOP Sleep Apnea - gerentological physiotherapist: STOP Sleep Apnea - gerentological physiotherapist Hx Hypertension No 01/11/25 08:16 Hx Sleep Apnea No 01/11/25 08:16 CPAP BIPAP Do you snore loudly (louder No 01/11/25 08:16 than talking or can be heard Do you often feel tired/ No 01/11/25 08:16 fatigued/ sleepy during daytime? Has anyone observed you stop No 01/11/25 08:16 breathing during sleep? STOP Results Negative 01/11/25 08:16 QUESTION #5 FULL TEXT : Do you snore loudly (louder than talking or can be heard through closed doors)? 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 Specify any problems Hx of Preganancy in last 3 N/A 01/11/25 08:16 Months Nurse Filling Out Transfusion VLEHMAN 01/11/25 08:16 & Questions: Date: 01/11/25 01/11/25 08:16 Time: 08:23 01/11/25 08:16 Patient unable to answer at this time (ie. confused, unrespo /Reproduction History /Reproductive History - gerentological physiotherapist: /Reproductive Hx- gerentological physiotherapist Hx Now Gestational Age (in weeks): EDC: Hx Hx Para Hx Section SAB Active Medications Active Medications: Current Medications Generic Name Dose Route Start Last Admin Trade Name Freq PRN Reason Stop Dose Admin Lactated Ringer's 1,000 mls @ 15 mls/hr 01/14/25 06:15 01/14/25 06:50 IV 15 mls/hr .Q48H MONIQUE Administration Cefazolin Sodium 2 gm/ Sodium 110 mls @ 150 mls/hr 01/14/25 07:15 Chloride IV 01/14/25 07:58 INTRAOP ONE PFSH Medical History Migraine without aura, not intractable, without status migrainosus Home Medications ?Medication ?Instructions ?Recorded ?Last Taken ?Type sumatriptan succinate 100 mg tablet See Rx Instruction s PO .COMPLEX 12/10/24 01/11/25 Rx #12 tabs minoxidil 2.5 mg tablet 1.25 mg PO DAILY 01/11/25 History Allergy/AdvReac Type Severity Reaction Status Date / Time No Known Allergies Allergy Verified 01/11/25 08:14 Family History Grandfather Myocardial infarction, Onset Age: 55 Father Rheumatoid arthritis Surgical History History of repair of ACL Social History Smoking Status: Never smoker Electronic Cigarette Use: not used second hand exposure: No alcohol intake: current details: occasionally substance use type: does not use what type of physical activity do you participate in: running and weight training seatbelt use: always Review of Systems (Anesthesia) ROS Narrative System reviewed and no additional complaints, except as documented. Physical Exam Const alert, oriented x3 and average body habitus Resp normal respiratory effort, normal air movement and clear to auscultation bilaterally Cardio regular rate, regular rhythm, no murmurs and diaphoretic
[2025-01-14] MEDS: Cefazolin 2 GM in 0.9% Normal Saline (100mL Bag) 100 ML IV (07:43)
[2025-01-14] MEDS: Epinephrine (1 mg/ml) 1 MG/ML VIAL (07:59)
[2025-01-14] MEDS: Bupiv/Epi 0.25% 30 ML Vial (10:40)
--- NOTE | 2025-01-14 11:18 | OP.PCM_ITS ---
Operative Report (Standard) Operative Information Date of Procedure: 01/14/25 Pre-Operative Diagnosis: 1. 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 Right knee medial meniscus tear Post-Operative Diagnosis: 1. 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 Right knee medial meniscus tear Surgery/Procedure Performed: 1. Revision arthroscopic right knee anterior cruciate ligament reconstruction with quadriceps tendon bone autograft 2. Right knee arthroscopic medial meniscus repair transmission rebuilder: Yes Waste Handling Technician: Pau Watts Tasks completed by assistant curator: Opening & closing, Removing tissue, Hemostasis: Electrocautery and Other (Graft preparation, hardware removal and placement) Additional accounting administrative assistant?: No Type of Anesthesia: General/Regional RN Documented Start/Stop Times: Operation Date: 01/14/25 07:30 Case Time Into Pre-Op 01/14/25 06:10 Out of Pre-Op 01/14/25 07:26 Anesthesia Start 01/14/25 07:33 Into Room 01/14/25 07:33 Procedure Start 01/14/25 07:59 Procedure End 01/14/25 10:55 Anesthesia End 01/14/25 11:04 Out of Room 01/14/25 11:04 Into Recovery 01/14/25 11:09 Procedure Start Time: 07:59 Procedure Stop Time: 10:55 Select all DRAINS/GRAFTS/IMPLANTS that apply: Implanted device Implanted device details: Arthrex tight rope II with button tower erector helper 5 x 20 mm, fiber stitch implant x 1, fast thread peek interference screw 8 x 30 mm, 4.75 mm bio comp osite swivel lock anchor x 1 Estimated Blood Loss: 50 cc Specimen collected: No Description of surgery: Patient was identified in the preoperative holding area by name, medical record, and date of . The operative extremity was marked. All questions were answered to the patient's satisfaction. At time of his procedure, patient was brought to the operative suite positioned supine on a standard operating table. General anesthesia was induced and endotracheal tube placed. Exam under anesthesia revealed an unstable Eliz and positive pivot shift. A well-padded pneumatic tourniquet was applied on the right upper thigh. Circumferential arthroscopic leg marcus was placed around the patient's mid thigh. The foot the bed was dropped 90 degrees. A well leg marcus was placed under the patient's left thigh. We then prepped and draped the right lower extremity in a normal, sterile orthopedic fashion. We performed a timeout confirming the side, site, operation to be performed. No concerns were voiced and we elected to proceed with surgery. 2 g Ancef was administered IV prior to incision by ICU staff. I first established an anterior lateral arthroscopic portal in standard fashion with 11 blade scalpel. Arthroscope was introduced and the knee was filled with normal saline with epinephrine. Gutters were examined and were unremarkable. Patellofemoral cartilage was pristine. Medial compartment was entered with a valgus stress. Anterior medial portal was established. Medial compartment demonstrated focal grade III chondromalacia 2 x 1 cm with unstable chondral flap. This was debrided with the arthroscopic shaver. Probing the medial meniscus demonstrated a posterior horn longitudinal tear. I proceeded with fixation at this time. The tear was debrided with a graft. A fiber stitch implant was used to place a horizontal mattress suture across the tear. Sutures were tensioned after the anchors were deployed and there was excellent compression across the tear. Sutures were cut flush with the anchor. The meniscus was stable to probing. I then turned my attention to the intercondylar notch. Complete ACL rupture was noted. The graft was debrided. The position of the tunnels were scrutinized and appeared to be excellent. There did not appear to be any significant dilation at the apertures. I examined the lateral compartment with varus stress and this was pristine. At this time I elected to proceed with graft harvest. I then exsanguinated the right lower extremity with Esmarch bandage. Tourniquet inflated 250 mmHg range up for 2 hours. Longitudinal incision was made over the distal portion of the quadriceps tendon into the proximal pole of the patella. Full-thickness skin flaps were developed down to the peritenon. Peritenon was elevated. Underlying quadriceps tendon was identified. I used an 11 mm parallel cutting guide to harvest the central third of the quadriceps tendon 70 mm in length. I elected to harvest a bone block given the revision setting for increased bony incorporation. A 2 x 1 cm bone plug was harvested with the quadriceps tendon graft via microsagittal saw and curved osteotomes. A cigar cutting guide was used to elevate and then amputate the graft. Final length was 82 mm including her bone plug. My accounting administrative assistant prepared the graft on the back table for ACL reconstruction with tight rope suspensory femoral sided fixation and interference screw fixation on the tibia. The graft was wrapped with a moist sponge and tensioned on the back table while we completed the remainder of the case prior to graft passage. Final graft diameter was 10 mm on tibia and femoral side. I closed the defect in the quadriceps tendon with a running, locking 0 Vicryl suture. Dermis was reapproximated with buried 2-0 Vicryl suture. I then debrided the apertures of the pre-existing tunnels. Graft remnant was removed. I then opened the previous incision along the proximal tibia to identify the graft bolt screw. Old screw was removed. The outer casing was then removed via 10 mm reamer. The aperture was debrided of any soft tissue remanent. There is good bony bleeding circumferentially in the tibial tunnel. I attempted to pass a nitinol wire and subsequently a drill pin from the tibial tunnel to identify the drill site of t he femoral tunnel but was unsuccessful. It was at this time I placed a plug in the tibial tunnel and opened via a 2 cm longitudinal incision on the distal lateral thigh to identify the femoral sided button. This was identified deep to the IT band. I triangulated with our foot cutting guide and was able to pass the flip cutter plastics rolls the trajectory of the femoral tunnel. Flip cutter was deployed to 10 mm and the femoral tunnel was reamed with excellent bleeding bone and no tissue remnant remaining. The passing suture was passed through the femoral tunnel and retrieved out the tibial side after the tibial tunnel was dilated to 10 mm.. The graft was then brought to the surgical field and passed through the tibia into the femoral tunnel. The button was then retrieved out the lateral incision and a button tower erector helper was placed to ensure good bony cortical contact and distribute force in this revision setting. The button was flipped deep to the IT band engaged nicely along the lateral femoral cortex which we could visualize. The tight rope was then sequentially tightened to dock the graft into the femoral tunnel with approximately 25 mm of graft within the femoral side. I then tensioned the sutures on the tibial side of the implant with the bone plug. The knee was cycled 25 x 2 remove creep from the graft. I placed a nitinol wire along the anterior portion of the graft. 8 x 30 graftable interference screw was placed with excellent cortical chatter while my accounting administrative assistant held a posterior drawer at 30 degrees of flexion. We retention the femoral side. The graft was assessed arthroscopically and appeared to have excellent tension. The internal brace that was passed with the graft was then tensioned at full extension as well as a set of sutures from the tibial side of the graft into the eyelet of a swivel lock anchor which was drilled and tapped for 1 cm distal to his tibial tunnel. The swivel lock anchor was placed with excellent purchase for backup fixation as well as fixation of the internal brace. The knee was taken through range of motion and no evidence of impingement was noted. Eliz was stable. Tourniquet was deflated. Incisions were irrigated. Dermal layers were reapproximated with buried 2-0 Vicryl suture and skin reapproximated with interrupted [id number] 4-0 nylon suture. The quadriceps tendon harvest site was closed with 4-0 subcuticular Monocryl and Dermabond. Bulky sterile compression dressing was applied. Patient was placed in a T ROM brace locked in full extension set from 0 to 90 degrees. He was awakened from anesthesia in the operative suite and safely extubated. He tolerated the procedure well without apparent complication. He was transferred to his gurney and subsequently to PACU in stable condition. Femoral nerve blocks administered in PACU by anesthesia staff. Need for skilled accounting administrative assistant: Pau Watts PA-C was critical to the outcome of the case. During the course of the procedure the physician accounting administrative assistant played a vital role. Her intimate knowledge of my steps in the procedure aided in safe and expedient completion of the procedure. The PA played a vital role in positioning particularly in obtaining the appropriate positioning. The PA was also vital in the retraction of soft tissues during the exposure and protecting vital structures. She was able to repair the graft while I continued the surgical portion of the case to expedite the procedure reduce time under anesthesia. She was also critical in preparing bony tunnels and placing hardware. She also played a vital role in closure and brace application with my direct supervision. Surgical Findings: Complete ACL rupture. Stable final graft fixation. Longitudinal medial meniscus tear. Complications Complications: No Admit VTE Documentation VTE Present on Admission: No VTE Mechan Device Prophylaxis: SCD's and Thigh High DOM Hose VTE Pharm Prophylaxis ordered?: Yes
--- NOTE | 2025-01-14 11:56 | PCM.POST.ANE ---
Anesthesia: Postop Eval I Current Vital Signs Temperature: 96.9 F Pulse Rate: 62 Blood Pressure: 107/62 Respiratory Rate: 16 Pulse Ox: 96 Oxygen Delivery Method: Room Air Assessment Airway patent: Yes Spontaneous unlabored respirations: Yes Mental status: Awake and Calm nausea: No Vomiting: No Anesthesia Complication: No Fluid Hydration Crystalloid volume administer (ml): 1,600 Total IV fluid infused: 1,600 Progress Note Anesthesia document: Postop Eval 1 completed: Yes
[2025-01-14] MEDS: Ketorolac 15 MG/ML Vial IV (11:57)
--- NOTE | 2025-01-14 12:04 | POSTOPAN2_ITS ---
Anesthesia Postop Eval I Sum Postop Eval Completion status Anesthesia document: Postop Eval 1 completed: Yes Anesthesia Postop Eval I Summary Anesthesia Postop Eval I Summary: Anesthesia Postop Eval I: Assessment Summary Airway patent Yes 01/14/25 12:01 [email or web address] Spontaneous unlabored Yes 01/14/25 12:01 [email or web address] respirations Mental status Awake,Calm 01/14/25 12:01 [email or web address] nausea No 01/14/25 12:01 [email or web address] Vomiting No 01/14/25 12:01 [email or web address] Anesthesia Postop Eval I: Fluid Summary Crystalloid volume administer 1,600 01/14/25 12:01 [email or web address] (ml) Colloids volume administered ( ml) Blood Product volume administered (ml) Total IV fluid infused 1,600 01/14/25 12:01 [email or web address] Anesthesia Postop Eval I: Summary Notes Anesthesia Complication No 01/14/25 12:01 [email or web address] Anesthesia Complication Comment: Post-operative progress note Anesthesia: Postop Eval II Evaluation Mental status: Awake Pain Level: 0 nausea: No Vomiting: No Complications Anesthesia Complication: No
--- NOTE | 2025-01-14 12:04 | PCM.POSTANE2 ---
Anesthesia Postop Eval I Sum Postop Eval Completion status Anesthesia document: Postop Eval 1 completed: Yes Anesthesia Postop Eval I Summary Anesthesia Postop Eval I Summary: Anesthesia Postop Eval I: Assessment Summary Airway patent Yes 01/14/25 12:01 [email or web address] Spontaneous unlabored Yes 01/14/25 12:01 [email or web address] respirations Mental status Awake,Calm 01/14/25 12:01 [email or web address] nausea No 01/14/25 12:01 [email or web address] Vomiting No 01/14/25 12:01 [email or web address] Anesthesia Postop Eval I: Fluid Summary Crystalloid volume administer 1,600 01/14/25 12:01 [email or web address] (ml) Colloids volume administered ( ml) Blood Product volume administered (ml) Total IV fluid infused 1,600 01/14/25 12:01 [email or web address] Anesthesia Postop Eval I: Summary Notes Anesthesia Complication No 01/14/25 12:01 [email or web address] Anesthesia Complication Comment: Post-operative progress note Anesthesia: Postop Eval II Evaluation Mental status: Awake Pain Level: 0 nausea: No Vomiting: No Complications Anesthesia Complication: No
[2025-01-14] MEDS: Ondansetron 4 MG/2 ML Vial IV (14:26)
== END 2025-01-14 14:45 | disposition home or self-care (01) ==
LOC: SDC 06:02 → AC 06:03
PROVIDERS: PCP Family Medicine; Referring Provider Student in an Organized Health Care Education/Training Program; Visit Provider Student in an Organized Health Care Education/Training Program
PROC: (CPT 29888; principal; 2025-01-14 07:10)
DX: S83.511A Sprain of anterior cruciate ligament of right knee, initial encounter (principal); S83.241A Other tear of medial meniscus, current injury, right knee, initial encounter; M94.261 Chondromalacia, right knee; X58.XXXA Exposure to other specified factors, initial encounter; Y93.66 Activity, soccer; G43.009 Migraine without aura, not intractable, without status migrainosus; Z79.899 Other long term (current) drug therapy
CPT/HCPCS: 29888; 29882; 01400; 64447; C1713; A4216; J2405

== ENCOUNTER 2025-01-19 18:36 | Emergency (ER) | payer BC, SELFPAY ==
[2025-01-19 18:37] VITALS: BP 142/126; PULSE 88; RESP 22; TEMP 36.6; O2SAT 100; BMI 27.7
--- NOTE | 2025-01-19 20:00 | RAD_ITS ---
PROCEDURE: ABDOMEN SINGLE VIEW (PORTABLE) 01/19/2025 REASON FOR EXAM: CONSTIPATION TECHNIQUE: Single view abdomen. COMPARISON: None FINDINGS: Bowel gas: Nonobstructive bowel gas pattern. Moderate colonic stool. Calcifications: No suspicious calcifications. Bones: The bones are unremarkable. Other: Imaged lung jackman unremarkable RAD/Abdomen Single View (Portable) IMPRESSION: Nonobstructive bowel gas pattern. Moderate colonic stool. Reading Location: [facility]
[2025-01-19 20:36] VITALS: BP 121/75; PULSE 78; RESP 16; O2SAT 99
--- NOTE | 2025-01-19 21:07 | EDS_ITS ---
HPI HPI - GI History of Present Illness Chief Complaint: Abd Pain Informant: patient and spouse/S.O. Narrative Narrative: 5 days postop right ACL repair followed by Dr. Grace. Soccer injury. He took pain medicines of opiates for couple days and then using ibuprofen and Tylenol. He started getting constipated very painful bowel movement 2 days ago. He states able to have bowel movement when he strained hard. No abdominal pain. T sanna similar event trying to have a bowel movement however unable to. He has been off opiates for at least 3 days now. Positive flatus. No fevers. He states due to constipation has difficulty urinating. Typically bowel movements are nontypical and daily. Prior similar symptoms: No PFSH PFSH Medical History Alcohol use Non-smoker Migraine without aura, not intractable, without status migrainosus Home Medications ?Medication ?Instructions ?Recorded ?Last Taken ?Type sumatriptan succinate 100 mg tablet See Rx Instruction s PO .COMPLEX 12/10/24 01/11/25 Rx #12 tabs minoxidil 2.5 mg tablet 1.25 mg PO DAILY 01/11/25 History ketorolac 10 mg tablet 10 mg PO Q6H 3 days #12 tabs 01/14/25 Unknown Rx Allergy/AdvReac Type Severity Reaction Status Date / Time No Known Allergies Allergy Verified 01/19/25 18:37 Family History Grandfather Myocardial infarction, Onset Age: 55 Father Rheumatoid arthritis Surgical History History of repair of ACL Social History Smoking Status: Never smoker Electronic Cigarette Use: not used second hand exposure: No alcohol intake: current details: occasionally substance use type: does not use what type of physical activity do you participate in: running and weight training seatbelt use: always ROS ROS ED Constitutional Constitutional ED: Denies chills, fever(s) or sweats ENT ENT ED: Denies sore throat Cardiovascular Cardiovascular: Denies chest pain, leg edema, palpitations or racing heartbeat Respiratory/Chest Respiratory/Chest: Denies cough, dyspnea or dyspnea on exertion Gastrointestinal Gastrointestinal: Reports constipation; Denies abdominal pain, diarrhea, nausea or vomiting Genitourinary Genitourinary ED: Denies dysuria, hematuria or urinary frequency Musculoskeletal Musculoskeletal: Denies back pain, extremity pain or neck pain Integumentary Denies rash or wounds Neurologic Neurologic: Denies headache(s), paresthesias or weakness EXAM Physical Exam Const Vital Signs: 01/19/25 18:37 01/19/25 20:36 01/19/25 22:00 Temperature 97.8 F Temperature Source Temporal Pulse Rate 88 78 81 Respiratory Rate 22 H 16 16 Blood Pressure 142/126 H 121/75 H 115/74 Blood Pressure Mean 131 90 87 Pulse Ox 100 99 99 Oxygen Delivery Method Room Air 01/19/25 22:00 Temperature 97.8 F Temperature Source Pulse Rate 81 Respiratory Rate 16 Blood Pressure 115/74 Blood Pressure Mean 87 Pulse Ox 99 Oxygen Delivery Method Positive well nourished and well developed General Appearance ED: well developed and NAD HEENT Reports moist mucous membranes normocephalic and atraumatic Eyes General Eye ED: Yes normal appearance of both eyes Neck full ROM Chest Wall Chest: Negative for tenderness Resp normal respiratory effort and normal air movement Effort and Inspection: symmetric chest movement; Negative for respiratory distress Cardio regular rate, regular rhythm and no murmurs Peripheral Pulses: pulses 2+ throughout GI normal to inspection, nondistended, normoactive bowel sounds and non-tender GI Narrative: 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 No hemorrhoids. Digital rectal exam stools in the vault and a few hard stools were removed with extra lubrication. Palpation: Negative for guarding or rebound tenderness present Extremity normal to inspection General Extremety ED: Negative for edema or tenderness General Extremity: Negative for edema Neuro oriented x3 and no sensory deficits noted Sensorium / Orientation: awake and alert Skin no rashes or lesions noted and no wounds MDM MDM MDM Narrative Medical decision making narrative: Interventions / MDM: Differential diagnosis: Opioid-induced constipation Diagnosis considered but do not suspect: No clinical diverticulitis My EKG interpretation: N/A Imaging independently reviewed and interpreted by myself: 1 view KUB: Rectal stool impaction noted. Repeat KUB: Improvement of stool burden. Also read by radiology. External documents reviewed: N/A Test considered but not ordered:N/A ED course: Patient history of constipation no bowel movement for 2 days. No abdominal pain with concern for colitis. He has been off his opiates for least a couple days. Plan for disimpaction. Disimpacted at bedside with nursing. Few hard stools then noted soft stools unable to disimpact more. KUB ordered. KUB noted rectal stool buildup. Order for enema. 2104: Prior to enema, patient had moderate bowel movement was feeling better. He is requesting a repeat x-ray for evaluation. Discussed this will not likely change the plan as he had a moderate bowel movement. He understands this but still request this. This was ordered. Image was improvement of stool burden in the rectum. Reassuring findings. He will use daily stool softeners at this time he will increase his oral fluid intake. Outpatient follow-up with his doctors. All questions were answered. Re-evaluation: stable Disposition discussed with patient/family/significant other: Patient and significant other Case discussed with consulting clinician: N/A This note was generated with ELENZA dictation software. It may contain incorrect words, spelling, and punctuation that were not noted in checking the note before signing. Radiography Diagnostic Testing: Clinical Impression(s) from Imaging Studies KUB X-Ray 01/19/25 20:00 IMPRESSION: Nonobstructive bowel gas pattern. Moderate colonic stool. Reading Location: [facility] KUB X-Ray 01/19/25 21:45 IMPRESSION: See above Reading Location: [facility] Discharge Plan Triage Chief Complaint: Abd Pain ED Provider: [place] Dx/Rx/DC Orders Clinical Impression: Constipation, Status post arthroscopic reconstruction of anterior cruciate ligament of right knee using quadriceps tendon autograft Instructions: ED Constipation (Adult) Prescriptions: No Action sumatriptan succinate 100 mg tablet See Rx Instructions PO .COMPLEX Qty: 12 4RF Rx Instructions: Take 1 tablet PO every 1 hour as needed for headache up to 2 tablets/day minoxidil 2.5 mg tablet 1.25 mg PO DAILY ketorolac 10 mg tablet 10 mg PO Q6H 3 Days Qty: 12 0RF Rx Instructions: maximum total duration of 5 days from all oral, intranasal, or parenteral formulations Primary Care Provider: Brandon Rojas Referrals: Brandon Rojas MD [Primary Care Provider] - 1 Week Activity Restrictions/Additional Instructions: Stay hydrated with fluids. You currently not on opiate medicines. Use your stool softener once a day. Print Language: Nigerian Disposition Disposition: Home, Self Care Discharge Date/Time: 01/19/25 22:34
--- NOTE | 2025-01-19 21:45 | RAD_ITS ---
PROCEDURE: ABDOMEN SINGLE VIEW (PORTABLE) 01/19/2025 REASON FOR EXAM: CONSTIPATION TECHNIQUE: Single view abdomen. COMPARISON: 01/19/2025 FINDINGS: Bowel gas: Nonobstructive bowel gas pattern. Slight interval improvement stool burden.. Calcifications: No suspicious calcifications. Bones: The bones are unremarkable. Other: RAD/Abdomen Single View (Portable) IMPRESSION: See above Reading Location: [facility]
[2025-01-19 22:00] VITALS: BP 115/74; PULSE 81; RESP 16; TEMP 36.6; O2SAT 99
== END 2025-01-19 22:34 | disposition home or self-care (01) ==
PROVIDERS: Emergency Provider Emergency Medicine; PCP Family Medicine; Visit Provider Emergency Medicine
DX: K59.00 Constipation, unspecified (principal); G43.009 Migraine without aura, not intractable, without status migrainosus; Z98.890 Other specified postprocedural states; Z79.899 Other long term (current) drug therapy
CPT/HCPCS: 74018; 99282

== ENCOUNTER 2025-02-26 15:44 | Emergency (ER) | payer BC, SELFPAY ==
[2025-02-26 15:45] VITALS: BP 113/78; PULSE 86; RESP 19; TEMP 36; O2SAT 99; BMI 26.4
[2025-02-26] MEDS: APIXABAN 5 MG TABLET 10 MG PO (17:27)
[2025-02-26 18:24] VITALS: BP 118/78; PULSE 89; RESP 16; TEMP 36.9; O2SAT 99
--- NOTE | 2025-02-26 22:40 | EX.ED.DYSGE1 ---
HPI History of Present Illness Chief Complaint: Lower Extremity Injury Detail of Chief Complaint: Patient presents with pain and swelling of right lower extremity Informant: patient Onset/Context/Timing Onset: Days (2 days ago) Context: Sudden Onset Timing: Continuous Quality: Pain Location: Popliteal fossa to mid right calf Current Severity: Mild Maximum Severity: Moderate Worsened by: Palpation and movement Relieved by: Nothing Associated Symptoms Associated Symptoms: No associated chest pain, shortness of breath or dyspnea on exertion Narrative Narrative: Patient is a 35-year-old male who had recent surgery right knee ACL and meniscus repair. An open technique. He was seen by his orthopedist today. Because of the asymmetry of his legs and pain in the distribution deep venous system a venous duplex study was ordered. Venous duplex study reveals a acute clot popliteal vein and acute deep vein thrombus in the T?PE trunk. Patient denies chest pain, pleuritic pain, dyspnea or [place] exertion. Patient denies prior history of PE or DVT. Does have history of migraine headaches. He is presently not on ketorolac which is listed as one of his meds. He denies black or maroon-colored stool. Denies history of GI bleed. Prior similar symptoms: No Recent Illness/Hospitalization: Yes [facility] Medical History Alcohol use Non-smoker Migraine without aura, not intractable, without status migrainosus Home Medications ?Medication ?Instructions ?Recorded ?Last Taken ?Type sumatriptan succinate 100 mg tablet See Rx Instructions PO .COMPLEX 12/10/24 01/11/25 Rx #12 tabs minoxidil 2.5 mg tablet 1.25 mg PO DAILY 01/11/25 01/11/25 History ketorolac 10 mg tablet 10 mg PO Q6H 3 days #12 tabs 01/14/25 Unknown Rx apixaban 5 mg (74 tabs) tablets in 10 mg (2 x 5 mg (74 tabs)) PO BID 02/26/25 Unknown Rx a dose pack (Eliquis DVT-PE Treat #74 tabs 30D Start) Allergy/AdvReac Type Severity Reaction Status Date / Time No Known Allergies Allergy Verified 02/26/25 17:36 Family History Grandfather Myocardial infarction, Onset Age: 55 Father Rheumatoid arthritis Surgical History History of repair of ACL Social History Smoking Status: Never smoker Electronic Cigarette Use: not used second hand exposure: No alcohol intake: current details: occasionally substance use type: does not use what type of physical activity do you participate in: running and weight training seatbelt use: always ROS ROS ED Constitutional Constitutional ED: Denies chills, fever(s), subjective, sweats or weight loss Cardiovascular Cardiovascular: Denies chest pain, palpitations or racing heartbeat Respiratory/Chest Respiratory/Chest: Denies cough, dyspnea or dyspnea on exertion Gastrointestinal Gastrointestinal: Denies abdominal pain or melena Genitourinary Genitourinary ED: Denies hematuria Musculoskeletal Musculoskeletal: Denies arthralgias or myalgias Integumentary Denies rash Hematologic/Lymphatic Hematologic/Lymphatic: Denies easy bleeding or easy bruising EXAM Physical Exam Const Vital Signs: 02/26/25 15:45 02/26/25 18:24 Temperature 96.8 F L 98.4 F Temperature Source Temporal Pulse Rate 86 89 Respiratory Rate 19 H 16 Blood Pressure 113/78 118/78 Blood Pressure Mean 89 91 Pulse Ox 99 99 Oxygen Delivery Method Room Air Positive well nourished and well developed General Appearance ED: well developed and NAD; Negative for pallor HEENT Reports moist mucous membranes HEENT Narrative: Head is atraumatic and normocephalic. Eyes PERRL and EOMs intact bilaterally General Eye ED: Negative for pale conjunctiva or scleral icterus Neck no lymphadenopathy, supple and no JVD Resp normal respiratory effort and clear to auscultation bilaterally Cardio regular rate, regular rhythm, S1 normal heart sound, S2 normal heart sound and no murmurs Extremity Negative for normal to inspection Extremity Narrative: There is swelling of the right leg compared to the left. There is pain outpatient in the distribution deep venous system. There is mild leg vein distention. There is no discoloration of the leg. Neuro oriented x3, CN's II-XII intact bilaterally and no sensory deficits noted Sensorium / Orientation: alert Motor Exam: strength 5/5 throughout Psych mental status grossly normal Skin no rashes or lesions noted, no wounds and skin turgor normal General Skin Exam: elasticity normal; Negative for jaundice or pallor MDM MDM MDM Narrative Medical decision making narrative: Patient's Wells score is 3. High probability. Venous duplex study is warranted. He had an outpatient venous duplex study which revealed acute DVT. Patient was treated with Eliquis. He was explained risk benefits of anticoagulation. History & Record Review Additional record(s) reviewed:: Prior outpatient record (Dr. Grace's operative note from January 14 was reviewed.) and Prior labs Discharge Plan Triage Chief Complaint: Lower Extremity Injury ED Provider: Kavon Ravi Dx/Rx/DC Orders Clinical Impression: Acute deep vein thrombosis (DVT) of right popliteal vein Instructions: DVT Tx Prescriptions: New Eliquis DVT-PE Treat 30D Start 5 mg (74 tabs) tablets,dose pack 10 mg PO BID Qty: 74 0RF Rx Instructions: 10 mg twice daily x 7 days then 5 mg twice daily thereafter No Action sumatriptan succinate 100 mg tablet See Rx Instructions PO .COMPLEX Qty: 12 4RF Rx Instructions: Take 1 tablet PO every 1 hour as needed for headache up to 2 tablets/day minoxidil 2.5 mg tablet 1.25 mg PO DAILY ketorolac 10 mg tablet 10 mg PO Q6H 3 Days Qty: 12 0RF Rx Instructions: maximum total duration of 5 days from all oral, intranasal, or parenteral formulations Primary Care Provider: Brandon Rojas Referrals: Brandon Rojas MD [Primary Care Provider] - 1-2 Weeks Activity Restrictions/Additional Instructions: Do not take ketorolac, Advil or ibuprofen while on Eliquis Print Language: Albanian Disposition Disposition: Home, Self Care Discharge Date/Time: 02/26/25 18:25
== END 2025-02-26 18:25 | disposition home or self-care (01) ==
LOC: ED 17:53
PROVIDERS: Emergency Provider Emergency Medicine; PCP Family Medicine; Visit Provider Emergency Medicine
DX: I82.431 Acute embolism and thrombosis of right popliteal vein (principal); G43.009 Migraine without aura, not intractable, without status migrainosus; Z79.01 Long term (current) use of anticoagulants; Z79.899 Other long term (current) drug therapy
CPT/HCPCS: 99282

== ENCOUNTER → 2025-02-26 | Outpatient (CLI) | payer BC, SELFPAY ==
--- NOTE | 2025-02-26 14:59 | VDLE_ITS ---
Reason For Study Reason For Study: RLE PAIN RIGHT LEFT GSV is normal. CFV is compressible, spontaneous, phasic, competent, CFV is compressible, spontaneous, phasic, competent and demonstrates normal augmentation. and demonstrates normal augmentation. FV is compressible, spontaneous, phasic, competent and demonstrates normal augmentation. Acute deep vein thrombosis is noted in the POP V. It is dilated and NONCOMPRESSIBLE. Acute deep vein thrombosis is noted in the T/P Trunk. It is dilated and NONCOMPRESSIBLE. PTV is compressible. RT PerV is compressible. Procedure This is a venous duplex using B-mode, color flow and spectral Doppler. Exam performed in department. A preliminary report was called and/or faxed to [facility] @ 3:25pm. Told to call PCP. PCP Dr. Amadeo Rojas office notified at 3:30 pm. instructed to take patient to ED. VL/Venous Duplex US, Unilateral Interpretation Summary Acute deep vein thrombosis is noted in the right popliteal vein. Acute deep vei n thrombosis is noted in the right tibio- peroneal trunk. The remainder of the right lower extremity deep venous system i s patent and compressible. Valvular competence appears intact within the proximal deep venous system on the right . The right great saphenous vein appears patent and compressible segmentally. The left common femoral vein is patent and compressible . Ordering Physician: Shawn Grace Referring Physician: Amadeo Rojas Performed By: Laila Sánchez, RDCS, RVT
--- OUTSIDE RECORDS SUMMARY | 2025-02-27 00:20 | XMS RPT_ITS | CCD ---
Author Organization [facility] Care Team Providers Care Capital Campaign Fundraiser Name Role Phone Care Physician, No Primary Primary Care Provider Unavailable Care Physician, No Primary Referring Provider Un available Maria De Jesus BOND WRITER, BOND WRITER-C Karyn Attending Provider Angie Rojas MD Primary Care Provider Angie Rojas MD Primary Care Provider Podlogar SPIKEMAKING SUPERVISOR.Mona GONZALEZ Unavailable ANGIE ROJAS Primary Care Unavailab ANGIE Castelan Attending Unavailab ANGIE Castelan Attending Unavailab ANGIE Castelan Primary Care Unavailab ANGIE Castelan Primary Care Unavailab ANGIE Castelan Referring Unavailab ANGIE Castelan Attending Unavailab ANGIE Castelan Primary Care Unavailab NAGIE Castelan Attending Unavailab ANGIE Castelan Primary Care Unavailab le Care Physician, No Primary Primary Care Provider Unavailable Care Physician, No Primary Referring Provider Un available Dr. Toy Lyons MD Attending Provider Dr. Alexey Batista MD Emergency Provider Dr. Brandon Rojas MD Primary Care Provider Dr. Alexey Batista MD Attending Provider Dr. Shawn Grace DO Attending Provider Dr. Shawn Grace DO Referring Provider Dr. Guzman Hills DO Emergency Provider Alexey Batista Attending Unavailable Brandon Rojas Primary Care Unavailable Guzman Hills Attending Unavailable Brandon Rojas Primary Care Unavailable Care Physician, No Primary Primary Care Unava ilable Tuan Salguero Attending Unavailable Toy Lyons Attending Unavailable Care Physician, No Primary Primary Care Unava ilable Care Physician, No Primary Referring Unava ilable Shawn Grace Attending Unavailable Shawn Grace Referring Unavailable Brandon Rojas Primary Care Unavailable Dr. Guzman Hills DO Attending Provider [phone] Kavon Ravi MD Emergency Provider Medications Current Medications Medication Drug Class(es) Dates Sig (Normalized) Sig (Original) amoxicillin 875 mg / clavulanate 125 mg oral tablet (1 source) Penicillin-class Antibacterial Start: 11-05-2024 End: 11-15-2024 take 1 tablet by mouth twice daily amoxicillin-clavu lanate potassium (AUGMENTIN) 875-125 mg per tablet Take 1 tablet by mouth two times a day for 10 days. 20 tablet 11/05/2024 11/15/2024 Active Apixaban (1 source) Factor Xa Inhibitor Start: 02-26-2025 take 1 tablet by mouth twice daily, then take 5 mg by mouth twice daily Apixaban (Eliquis Dvt-Pe Treat 30d Start) 5 mg (74 tabs) tablets,dose pack Active 10 mg PO TWICE A DAY 74 February 26, 2025 12:00am 10 mg twice daily x 7 days then 5 mg twice daily thereafter dutasteride 0.5 mg oral capsule (3 sources) 5-alpha Reductase Inhibitor End: 09-29-2024 take 1 capsule by mouth once daily dutasteride (AVODART) 0.5 mg capsule Take 0.5 mg by mouth once daily. 09/29/2024 Discontinued (Course of therapy completed) fluticasone propionate 0.05 mg/actuat metered dose nasal spray (1 source) Corticosteroid Start: 11-05-2024 take 2 spray(s) nasal route once daily fluticasone (FLONASE) 50 mcg/actuation nasal spray Use 2 Sprays in each nostril once daily. 1 Each 2 11/05/2024 Active ketorolac tromethamine 10 mg oral tablet (2 sources) Nonsteroidal Anti-inflammatory Drug, Cyclooxygenase Inhibitor Start: 01-14-2025 take 1 tablet by mouth every six hours Ketorolac 10 mg tablet Active 10 mg PO EVERY 6 HOURS 12 January 14, 2025 12:00am maximum total duration of 5 days from all oral, intranasal, or parenteral formulations meclizine hydrochloride 25 mg oral tablet (1 source) Antiemetic Start: 12-31-2021 take 25 mg by mouth three times daily Meclizine Active 25 MG PO THREE TIMES A DAY December 31, 2021 2:41pm minoxidil 2.5 mg oral tablet (8 sources) Arteriolar Vasodilator Start: 01-11-2025 take 1 tablet by mouth once daily Minoxidil 2.5 mg tablet Active 1.25 mg PO DAILY January 11, 2025 12:00am Start: 09-29-2024 End: 09-29-2024 minoxidil (LONITEN) 2.5 mg t ablet Take 0.5 tablets by mouth once daily. Taking 1/2 tab 09/29/2024 Active naproxen 500 mg oral tablet (8 sources) Nonsteroidal Anti-inflammatory Drug Start: 05-10-2023 End: 09-29-2024 take 1 tablet by mouth twice daily as needed naproxen (NAPROSYN) 500 mg tablet Indications: Wrist pain, left Take 1 tablet by mouth twice daily as needed. Take with food. 60 tablet 05/10/2023 09/29/2024 Discontinued (Course of therapy completed) Comment on above: Take 1 tablet by solo th twice daily as needed. Take with food. polymyxin b 13799 unt/ml / trimethoprim 1 mg/ml ophthalmic solution (1 source) Dihydrofolate Reductase Inhibitor Antibacterial, Polymyxin-class Antibacterial Start: 09-03-2024 End: 09-13-2024 take 1 drop(s) into the eye(s) four times daily trimethoprim-polym yxin (POLYTRIM) 10,000 unit- 1 mg/mL ophthalmic solution Indications: Bacterial conjunctivitis Use 1 Drop in both eyes four times daily for 10 days. 10 mL 09/03/2024 09/13/2024 Active SUMAtriptan 100 mg oral tablet (20 sources) Serotonin-1b and Serotonin-1d Receptor Agonist Start: 12-10-2024 End: 12-10-2024 take 1 tablet by mouth every hour as needed for headache, then take 2 tablets by mouth once daily as needed for headache Sumatriptan Succinate 100 mg tablet Active 0 PO .COMPLEX December 10, 2024 9:39am Take 1 tablet PO every 1 hour as needed for headache up to 2 tablets/day Start: 01-21-2022 End: 12-10-2024 Sumatriptan Succinate 50 mg tablet Discontinued 0 .ROUTE .COMPLEX January 23, 2024 8:32am December 10, 2024 9:37am take 1 tab at onset of headache; if headache persists you may repeat 1 tab after at least 2 hrs; max 2 doses/24 hr Start: 10-28-2020 End: 01-13-2021 Sumatriptan Succinate 50 mg tablet Discontinued 0 .ROUTE .COMPLEX October 28, 2020 1:00am January 13, 2021 8:25am take 1 tab at onset of headache; if headache persists you may repeat 1 tab after at least 2 hrs; max 2 doses/24 hr Comment on above: Take 50 mg by mouth as needed for migraine headache (see administration instructions). triamcinolone acetonide 0.001 mg/mg topical ointment (5 sources) Corticosteroid Start: 05-19-2023 End: 09-29-2024 triamcinolone acetonide (KENALOG) 0.1 % ointment Indications: Patchy loss of hair Apply to affected areas on the scalp twice daily Tuesday-Tuesday. Take weekends off. Avoid use on face, armpits, and groin. 80 g 1 05/19/2023 09/29/2024 Discontinued (Course of therapy completed) Comment on above: Apply to affected ar eas on the scalp twice daily Tuesday-Tuesday. Take weekends off. Avoid use on face, armpits, and groin. Completed/Discontinued Medications Medication Drug Class(es) Dates Sig (Normalized) Sig (Original) doxycycline monohydrate 100 mg oral capsule (2 sources) Tetracycline-cla ss Drug Start: 05-19-2023 End: 06-02-2023 take 1 capsule by mouth twice daily doxycycline monohydrate (MONODOX) 100 mg capsule Indications: Subcutaneous nodules Take 1 capsule by mouth twice daily for 14 days. 28 capsule 0 05/19/2023 06/02/2023 Comment on above: Take 1 capsule by [facility] twice daily for 14 days. Problems Active Problems Problem Classification Problem Date Documented Da te Episodic/Chronic Abdominal pain (1 source) Unspecified abdominal pain; Translations: [Unspecified abdominal pain] Onset: 01-23-2025 Episodic Conditions associated with dizziness or vertigo (6 sources) Dizziness; Translations: [Dizziness and giddiness] 01-08-2022 Episodic Headache; including migraine (20 sources) Migraine without aura, not refractory ; Translations: [Migraine without aura, not intractable, without status migrainosus] Onset: 01-27-2023 Chronic Inflammation; infection of eye (except that caused by tuberculosis or sexually transmitteddisease) (2 sources) Bacterial conjunctivitis; Translations: [Unspecified conjunctivitis] Onset: 09-03-2024 09-03-2024 Episodic Other circulatory disease (6 sources) Orthostatic hypotension; Translations: [Orthostatic hypotension] 01-08-2022 Episodic Other gastrointestinal disorders (2 sources) Constipation; Translations: [Constipation, unspecified] 01-19-2025 Episodic Other injuries and conditions due to external causes (1 source) Unspecified injury of right lower leg, initial encounter; Translations: [Unspecified injury of right lower leg, initial encounter] Onset: 12-27-2024 Episodic Other non-traumatic joint disorders (1 source) Pain of left wrist; Translations: [Pain in left wrist] 05-10-2023 Episodic Other non-traumatic joint disorders (1 source) Pain in right knee; Translations: [Pain in right knee] Onset: 2025 Episodic Other skin disorders (1 source) Cyst of scalp; Translations: [Follicular cyst of the skin and subcutaneous tissue, unspecified] 05-18-2023 Episodic Other skin disorders (2 sources) Loss of hair; Translations: [Nonscarring hair loss, unspecified] 05-18-2023 Episodic Other skin disorders (1 source) Alopecia areata; Translations: [Alopecia areata, unspecified] 05-18-2023 Episodic Other skin disorders (1 source) Subcutaneous nodule; Translations: [Localized swelling, mass and lump, unspecified] 05-19-2023 Episodic Other skin disorders (1 source) Hypertrophic scar; Translations: [Hypertrophic scar] 05-19-2023 Episodic Other skin disorders (4 sources) Male pattern alopecia; Translations: [Androgenic alopecia, unspecified] 09-29-2024 Episodic Other skin disorders (1 source) Androgenic alopecia, unspecified; Translations: [Male pattern baldness] Onset: 09-29-2024 Episodic Other upper respiratory infections (1 source) Acute recurrent frontal sinusitis; Translations: [Acute frontal sinusitis] 11-05-2024 Episodic Phlebitis; thrombophlebitis and thromboembolism (1 source) Acute deep venous thrombosis of popliteal vein; Translations: [Acute embolism and thrombosis of right popliteal vein] 02-26-2025 Episodic Residual codes; unclassified (1 source) FH: Rheumatoid arthritis; Translations: [Family history of arthritis] 05-10-2023 Episodic Residual codes; unclassified (1 source) Trying to conceive; Translations: [Other specified health status] 07-04-2024 Episodic Sprains and strains (3 sources) Sprain of knee; Translations: [Sprain of unspecified site of unspecified knee, initial encounter] 12-22-2024 Episodic Viral infection (6 sources) Acute viral disease; Translations: [Viral infection, unspecified] 01-08-2022 Episodic Past or Other Problems Problem Classification Problem Date Documented Da te Episodic/Chronic Residual codes; unclassified (1 source) Other specified health status; Translations: [Attempting to conceive] Onset: 07-04-2024 Episodic Results Test Name Value Interpretation Reference Range Facil ity Abdomen Single View (Portabl e)on 01-19-2025 Abdomen Single View (Portable) [facility] Imaging Services [address] [place] [id number] Abdomen Single View (Portable) MR#: [id number] Acct: [id number] Name: BROOKE BAUGH Rep #: [id number] : 1990 M 35 From: Ash ontiveros MD PCP: Dr. Brandon Rojas MD Status: DEP ER Study: Abdomen Single View (Portable) Date of Exam: 0 01/19/25 Exam# [id number] Ordering Dr: Guzman Hills DO PROCEDURE: ABDOMEN SINGLE VIEW (PORTABLE) 01/19/2025 REASON FOR EXAM: CONSTIPATION TECHNIQUE: Single view abdomen. COMPARISON: 01/19/2025 FINDINGS: Bowel gas: Nonobstructive bowel gas pattern. Slight interval improvement stool burden.. Calcifications: No suspicious calcifications. Bones: The bones are unremarkable. Other: RAD/Abdomen Single View (Portable) IMPRESSION: See above Reading Location: COUNTS INCLUDE 234 BEDS AT THE [facility] CC: Dr. Brandon Rojas MD; Dr. Guzman Hills DO Head Shipper: Signed Normal [facility] Abdomen Single View (Portable) [facility] Imaging Services [address] [place] [address] Abdomen Single View (Portable) MR#: [id number] Acct: [id number] Name: BROOKE BAUGH Rep #: [id number] : 1990 M 35 From: Ash ontiveros MD PCP: Dr. Brandon Rojas MD Status: REG ER Study: Abdomen Single View (Portable) Date of Exam: 0 01/19/25 Exam# [id number] Ordering Dr: Guzman Hills DO PROCEDURE: ABDOMEN SINGLE VIEW (PORTABLE) 01/19/2025 REASON FOR EXAM: CONSTIPATION TECHNIQUE: Single view abdomen. COMPARISON: None FINDINGS: Bowel gas: Nonobstructive bowel gas pattern. Moderate colonic stool. Calcifications: No suspicious calcifications. Bones: The bones are unremarkable. Other: Imaged lung jackman unremarkable RAD/Abdomen Single View (Portable) IMPRESSION: Nonobstructive bowel gas pattern. Moderate colonic stool. Reading Location: COUNTS INCLUDE 234 BEDS AT THE [facility] CC: Dr. Brandon Rojas MD; Dr. Guzman Hills DO Head Shipper: Signed Normal [facility] Emergency Department Summary on 01-19-2025 Emergency Department Summary [facility] Medical Records Department [address] [place] [address] Emergency Department Summary 01/19/25 MR#: [id number] Acct: [id number] Name: BROOKE BAUGH Rep #: [id number] : 1990 35 From: Guzman Whaley PCP: Dr. Brandon Rojas MD Status:DEP ER Location: ED HPI HPI - GI History of Present Illness Chief Complaint: Abd Pain Informant: patient and spouse/S.O. Narrative Narrative: 5 days postop right ACL repair followed by Dr. Grace. Soccer injury. He took pain medicines of opiates for couple days and then using ibuprofen and Tylenol. He started getting constipated very painful bowel movement 2 days ago. He states able to have bowel movement when he strained hard. No abdominal pain. Today similar event trying to have a bowel movement however unable to. He has been off opiates for at least 3 days now. Positive flatus. No fevers. He states due to constipation has difficulty urinating. Typically bowel movements are nontypical and daily. Prior similar symptoms: No PFSH PFSH Medical History Alcohol use Non-smoker Migraine without aura, not intractable, without status migrainosus Home Medications ???Medication ???Instructions ???Recorded ???Last Taken ???Type sumatriptan succinate 100 mg tablet See Rx Instructions PO .COMPLEX 12/10/24 01/11/25 Rx #12 tabs minoxidil 2.5 mg tablet 1.25 mg PO DAILY 01/11/25 01/11/25 History ketorolac 10 mg tablet 10 mg PO Q6H 3 days #12 tabs 01/14 Unknown Rx Allergy/AdvReac Type Severity Reaction Status Date / Time No Known Allergies Allergy Verified 01/19/25 18:37 Family History Grandfather Myocardial infarction, Onset Age: 55 Father Rheumatoid arthritis Surgical History History of repair of ACL Social History Smoking Status: Never smoker Electronic Cigarette Use: not used second hand exposure: No alcohol intake: current details: occasionally substance use type: does not use what type of physical activity do you participate in: running and weight training seatbelt use: always ROS ROS ED Constitutional Constitutional ED: Denies chills, fever(s) or sweats ENT ENT ED: Denies sore throat Cardiovascular Cardiovascular: Denies chest pain, leg edema, palpitations or racing heartbeat Respiratory/Chest Respiratory/Chest: Denies cough, dyspnea or dyspnea on exertion Gastrointestinal Gastrointestinal: Reports constipation; Denies abdominal pain, diarrhea, nausea or vomiting Genitourinary Genitourinary ED: Denies dysuria, hematuria or urinary frequency Musculoskeletal Musculoskeletal: Denies back pain, extremity pain or neck pain Integumentary Denies rash or wounds Neurologic Neurologic: Denies headache(s), paresthesias or weakness EXAM Physical Exam Const Vital Signs: 01/19/25 18:37 01/19/25 20:36 01/19/25 22:00 Temperature 97.8 F Temperature Source Temporal Pulse Rate 88 78 81 Respiratory Rate 22 H 16 16 Blood Pressure 142/126 H 121/75 H 115/74 Blood Pressure Mean 131 90 87 Pulse Ox 100 99 99 Oxygen Delivery Method Room Air 01/19/25 22:00 Temperature 97.8 F Temperature Source Pulse Rate 81 Respiratory Rate 16 Blood Pressure 115/74 Blood Pressure Mean 87 Pulse Ox 99 Oxygen Delivery Method Positive well nourished and well developed General Appearance ED: well developed and NAD HEENT Reports moist mucous membranes normocephalic and atraumatic Eyes General Eye ED: Yes normal appearance of both eyes Neck full ROM Chest Wall Chest: Negative for tenderness Resp normal respiratory effort and normal air movement Effort and Inspection: symmetric chest movement; Negative for respiratory distress Cardio regular rate, regular rhythm and no murmurs Peripheral Pulses: pulses 2+ throughout GI normal to inspection, nondistended, normoactive bowel sounds and non-tender GI Narrative: Rectal exam with nursing bunker worker. No hemorrhoids. Digital rectal exam stools in the vault and a few hard stools were removed with extra lubrication. Palpation: Negative for guarding or rebound tenderness present Extremity normal to inspection General Extremety ED: Negative for edema or tenderness General Extremity: Negative for edema Neuro oriented x3 and no sensory deficits noted Sensorium / Orientation: awake and alert Skin no rashes or lesions noted and no wounds MDM MDM MDM Narrative Medical decision making narrative: Interventions / MDM: Differential diagnosis: Opioid-induced constipation Diagnosis considered but do not suspect: No clinical diverticulitis My EKG interpreta (more content not included)... Normal [facility] MR/[email or web address].Naseem 01-14-2025 MR/POSTOP.[facility] Medical Records Department [address] [place] [address] Anesthesia Postop Eval I 01/14/25 1156 MR#: [id number] Acct: [id number] Name: BROOKE BAUGH Rep #: [id number] : 1990 34 From: Shon Dumont CRNA PCP: Dr. Brandon Rojas MD Status:REG [facility] [place] Race: [facility] Location: [place] [address] Anesthesia: Postop Eval I Current Vital Signs Temperature: 96.9 F Pulse Rate: 62 Blood Pressure: 107/62 Respiratory Rate: 16 Pulse Ox: 96 Oxygen Delivery Method: Room Air Assessment Airway patent: Yes Spontaneous unlabored respirations: Yes Mental status: Awake and Calm nausea: No Vomiting: No Anesthesia Complication: No Fluid Hydration Crystalloid volume administer (ml): 1,600 Total IV fluid infused: 1,600 Progress Note Anesthesia document: Postop Eval 1 completed: Yes 01/14/25 1201 Date Shon Dumont HEEL COVERER Cosigner Signature: Date CC: Signed Normal [facility] MR/[id number] 01-14-2025 [facility] Medical Records Department [address] [place] [address] Anesthesia Postop Eval II 01/14/25 1204 MR#: [id number] Acct: [id number] Name: BROOKE BAUGH Rep #: [id number] : 1990 34 From: Fabrice Schmitt MD PCP: Dr. Brandon Rojas MD Status:REG [facility] [place] Race: [facility] Location: [facility]09-12 Anesthesia Postop Eval I Sum Postop Eval Completion status Anesthesia document: Postop Eval 1 completed: Yes Anesthesia Postop Eval I Summary Anesthesia Postop Eval I Summary: Anesthesia Postop Eval I: Assessment Summary Airway patent Yes 01/14/25 12:01 [email or web address] Spontaneous unlabored Yes 01/14/25 12:01 [email or web address] [email or web address] respirations Mental status Awake,Calm 01/14/25 12:01 [email or web address] nausea No 01/14/25 12:01 [email or web address] [email or web address] Vomiting No 01/14/25 12:01 [email or web address] [email or web address] Anesthesia Postop Eval I: Fluid Summary Crystalloid volume administer 1,600 01/14/25 12:01 [email or web address] (ml) Colloids volume administered ( ml) Blood Product volume administered (ml) Total IV fluid infused 1,600 01/14/25 12:01 [email or web address] Anesthesia Postop Eval I: Summary Notes Anesthesia Complication No 01/14/25 12:01 [email or web address] Anesthesia Complication Comment: Post-operative progress note Anesthesia: Postop Eval II Evaluation Mental status: Awake Pain Level: 0 nausea: No Vomiting: No Complications Anesthesia Complication: No 01/14/25 1204 Date Fabrice Schmitt MD Cosigner Signature: Date CC: Signed Normal [facility] Operative Reporton 5 Operative Report [facility] Medical Records Department [address] [place] [address] Operative Report 01/14/25 1118 MR#: [id number] Acct: [id number] Name: BROOKE BAUGH Rep #: [id number] : 1990 34 From: Shawn Grace DO PCP: Dr. Brandon Rojas MD Status:[facility] Location: [place] [address] Operative Report (Standard) Operative Information Date of Procedure: 01/14/25 Pre-Operative Diagnosis: 1. 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 Right knee medial meniscus tear Post-Operative Diagnosis: 1. 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 Right knee medial meniscus tear Surgery/Procedure Performed: 1. Revision arthroscopic right knee anterior cruciate ligament reconstruction with quadriceps tendon bone autograft 2. Right knee arthroscopic medial meniscus repair swimmer: Yes Utility Driver: Pau Watts Tasks completed by anesthesiologist assistant: Opening closing, Removing tissue, Hemostasis: Electrocautery and Other (Graft preparation, hardware removal and placement) Additional surgical physician assistant?: No Type of Anesthesia: General/Regional RN Documented Start/Stop Times: Operation Date: 01/14/25 07:30 Case Time Into Pre-Op 01/14/25 06:10 Out of Pre-Op 01/14/25 07:26 Anesthesia Start 01/14/25 07:33 Into Room 01/14/25 07:33 Procedure Start 01/14/25 07:59 Procedure End 01/14/25 10:55 Anesthesia End 01/14/25 11:04 Out of Room 01/14/25 11:04 Into Recovery 01/14/25 11:09 Procedure Start Time: 07:59 Procedure Stop Time: 10:55 Select all DRAINS/GRAFTS/IMPLANT S that apply: Implanted device Implanted device details: Arthrex tight rope II with button technical sales support manager 5 x 20 mm, fiber stitch implant x 1, fast thread peek interference screw 8 x 30 mm, 4.75 mm bio composite swivel lock anchor x 1 Estimated Blood Loss: 50 cc Specimen collected: No Description of surgery: Patient was identified in the preoperative holding area by name, medical record, and date of . The operative extremity was marked. All questions were answered to the patient's satisfaction. At time of his procedure, patient was brought to the operative suite positioned supine on a standard operating table. General anesthesia was induced and endotracheal tube placed. Exam under anesthesia revealed an unstable Eliz and positive pivot shift. A well-padded pneumatic tourniquet was applied on the right upper thigh. Circumferential arthroscopic leg marcus was placed around the patient's mid thigh. The foot the bed was dropped 90 degrees. A well leg marcus was placed under the patient's left thigh. We then prepped and draped the right lower extremity in a normal, sterile orthopedic fashion. We performed a timeout confirming the side, site, operation to be performed. No concerns were voiced and we elected to proceed with surgery. 2 g Ancef was administered IV prior to incision by ICU staff. I first established an anterior lateral arthroscopic portal in standard fashion with 11 blade scalpel. Arthroscope was introduced and the knee was filled with normal saline with epinephrine. Gutters were examined and were unremarkable. Patellofemoral cartilage was pristine. Medial compartment was entered with a valgus stress. Anterior medial portal was established. Medial compartment demonstrated focal grade III chondromalacia 2 x 1 cm with unstable chondral flap. This was debrided with the arthroscopic shaver. Probing the medial meniscus demonstrated a posterior horn longitudinal tear. I proceeded with fixation at this time. The tear was debrided with a graft. A fiber stitch implant was used to place a horizontal mattress suture across the tear. Sutures were tensioned after the anchors were deployed and there was excellent compression across the tear. Sutures were cut flush with the anchor. The meniscus was stable to probing. I then turned my attention to the intercondylar notch. Complete ACL rupture was noted. The graft was debrided. The position of the tunnels were scrutinized and appeared to be excellent. There did not appear to be any significant dilation at the apertures. I examined the lateral compartment with varus stress and this was pristine. At this time I elected to proceed with graft harvest. I then exsanguinated the right lower extremity with Esmarch bandage. Tourniquet inflated 250 mmHg range up for 2 hours. Longitudinal incision was made over the distal portion of the quadriceps tendon into the proximal pole of the patella. Full-thickness skin flaps were developed down to the peritenon. Peritenon was elevated. Underlying quadriceps tendon was identified. I used an 11 mm parallel cutting guide to harvest the central third of the quadriceps tendon 70 mm in length. I elected to harvest a bone block given the revision setting for increased bony incorporation. A 2 x 1 cm bone plug was harvested with the quadrice (more content not included)... Normal [facility] Emergency Department Summary on 12-22-2024 Emergency Department Summary [facility] Medical Records Department [address] [place] [address] Emergency Department Summary 12/22/24 MR#: [id number] Acct: [id number] Name: BROOKE BAUGH Rep #: [id number] : 1990 34 From: Alexey Batista MD PCP: Dr. Brandon Rojas MD Status:DEP ER Location: ED HPI History of Present Illness HPI Narrative: Right knee pain while planning is right in the and playing soccer. Prior history of an ACL repair. Not sure if he heard a pop or not. Painful to bear weight. Just happened within the last couple hours. 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 He has had a prior ACL repair a number of years ago. Denies any hip or ankle pain. No other injuries. Prior similar symptoms: No Recent Illness/Hospitalizati on: No PFSH PFSH Medical History Migraine without aura, not intractable, without status migrainosus Home Medications ???Medication ???Instructions ???Recorded ???Last Taken ???Type sumatriptan succinate 100 mg tablet See Rx Instructions PO .COMPLEX 12/10/24 Unknown Rx #12 tabs Allergy/AdvReac Type Severity Reaction Status Date / Time No Known Allergies Allergy Verified 12/10/24 09:28 Family History Grandfather Myocardial infarction, Onset Age: 55 Father Rheumatoid arthritis Surgical History History of repair of ACL Social History Smoking Status: Never smoker Electronic Cigarette Use: not used second hand exposure: No alcohol intake: current details: occasionally substance use type: does not use what type of physical activity do you participate in: running and weight training seatbelt use: always ROS ROS ED ROS Narrative Denies recent illness. Constitutional Constitutional ED: Denies chills or fever(s) Eyes Eyes: Denies blurry vision ENT ENT ED: Denies ear pain Cardiovascular Cardiovascular: Denies chest pain Respiratory/Chest Respiratory/Chest: Denies cough Gastrointestinal Gastrointestinal: Denies abdominal pain Genitourinary Genitourinary ED: Denies dysuria or hematuria Musculoskeletal Musculoskeletal: Denies arthralgias or back pain Integumentary Denies abscess Neurologic Neurologic: Denies headache(s) Psychiatric Psychiatric: Denies anxiety or depression Endocrine Endocrinology: Denies polydipsia Hematologic/Lymphatic Hematologic/Lymphatic : Denies easy bleeding Allergic/Immunologic Allergic/Immunologic ED: Denies mouth swelling, tongue swelling or urticaria EXAM Physical Exam Narrative Exam Narrative: Well-appearing 34-year-old male sitting upright in bed. Vital signs are stable afebrile. H EENT exam pupils round reactive light. No trauma. Neck nontender. Back nontender. Lungs clear. Heart regular rhythm rate about 90 no murmur. Chest wall ribs nontender. Abdomen soft nontender. Moving all 4 extremities. Neurovascularly intact. Normal strength. Normal sensation. Right knee he has pain. The ACL and PCL appear to be intact. There is no effusion. He can straighten the leg to 180 degrees. He can flex and extend the knee. The MCL and LCL appear to be intact. He can lift the leg off the bed. His quadriceps patella and infrapatellar tendon are intact. There is no swelling, redness or discoloration. Dorsi and plantarflexion is intact. He has a normal DP pulse. His normal touch sensation his right foot. Other extremities are nontender with normal range of motion no deformity. Const Vital Signs: 12/22/24 11:54 Temperature 98.1 F Temperature Source Oral Pulse Rate 90 Respiratory Rate 18 Blood Pressure 130/73 H Blood Pressure Mean 92 Pulse Ox 98 Oxygen Delivery Method Room Air Positive well nourished and well developed; Negative for obese, cachectic, contractures or unkempt General Appearance ED: well developed and NAD; Negative for unkempt, cachectic or contractures Nutritional Appearance: Negative for cachectic or obese HEENT Reports moist mucous membranes normocephalic and atraumatic; Negative for trauma or tenderness Eyes PERRL Neck full ROM and supple Thyroid: Negative for tender Lymph Lymphatic: N (more content not included)... Normal [facility] Knee 4 or More Viewson 12-22 Knee 4 or More Views [facility] Imaging Services [address] [place] [address] Knee 4 or More Views MR#: [id number] Acct: [id number] Name: BROOKE BAUGH Rep #: [id number] : 1990 M 34 From: Lani Avilez nd, MD PCP: Dr. Brandon Rojas MD Status: REG ER Study: Knee 4 or More Views Date of Exam: 12/22/24 Exam# [id number] Ordering Dr: Alexey Batista MD PROCEDURE: KNEE 4 OR MORE VIEWS 12/22/2024 REASON FOR EXAM: INJURED PLAYING SOCCER TECHNIQUE: 4 view(s) of the right knee COMPARISON: None. FINDINGS: Bones: Findings of prior ACL reconstruction with femoral endo-button and femoral and tibial tunnels. No acute osseous fracture. Joints: Normal alignment. Mild degenerative changes. Effusion: No effusion. Soft tissues: Soft tissues are unremarkable. RAD/Knee 4 or More Views IMPRESSION: Negative knee radiographs. Reading Location: [facility] CC: Dr. Brandon Rojas MD; Dr. Alexey Batista MD Head Shipper: Signed Normal [facility] Neurology Visit Reporton Neurology Visit Report [facility] [address] [place] [address], [address] [place] [address] OFFICE VISIT Date of Service: 12/10/24 MR#: [id number] Acct: [id number] Name: BROOKE BAUGH Rep #: [id number] : 1990 Provider: Dr. Toy kay MD Age/Sex: 34/M Location: [facility] Status: Signed [facility] Chief Complaint: Details: Interim History:??? Brooke returns for follow-up. He has a history of right ACL tear s/p surgical repair (2019) and migraine headaches.??? He began to have headaches around 2011.??? These then subsided for several years, however around 2016, he began to have recurrence of the headaches.??? The headaches are unilateral (right or left-sided) temporal headaches. The headaches are throbbing and he experiences associated phonophobia and photophobia.???He had experienced approximately 3 to 4 days of headache per month however since September 2024 he has had an increase in his headache frequency and now experiences headaches about 10 to 12 days/month. Individual headaches have lasted up to 3 days.??? Bright light, his work schedule, looking at a computer screen, eating cheese and exposure to smog are triggers for his headaches.???He denied having associated vision change, dizziness, or syncope. Advil was not effective for his headaches.??? Sumatriptan 50 mg has been of benefit for his headaches however he has often needed to take a second dose of the medication in a day. He has tolerated sumatriptan well. A CBC, CMP and brain MRI were unremarkable. He had a mildly elevated TSH on labs from Dr. Dow, with a normal T3 and free T4. He was not started on thyroid medication. Physical Exam: Neuro: The patient is awake and alert and responds appropriately; speech is fluent Heart: Regular rate and rhythm Supplemental Info Head MRI (11/01/2020): FINDINGS: Normal size of the ventricles and extra-axial spaces for the patient''s age.??? Normal white matter tracts of the supratentorial brain.??? There is no evidence for recent intracranial ischemia or other cause of cytotoxic edema on diffusion weighted imaging (DWI).??? Normal T2* images of the brain without demonstrated susceptibility artifact. There is no demonstrated hemosiderin stain. Normal bilateral basal ganglia.??? Normal thalami.??? There is no extra-axial fluid accumulation. Normal flow voids within the major intracranial circulation suggesting patency by spin echo criteria.??? Normal venous enhancement.??? There is no enhancing intra-axial or extra-axial abnormality. Normal sella turcica, pituitary gland, infundibular stalk, optic chiasm and hypothalamus.??? Normal tectal plate and pineal gland. Normal midbrain, veronica and medulla.??? Normal cerebellum.??? Normal basal cisterns.??? Normal bilateral temporal bones.??? Normal bilateral internal auditory canals. No demonstrated orbital abnormality, within the constraints of a routine brain study.??? Normal visualized paranasal sinuses.??? Normal calvarium and skull base.??? Normal visualized soft tissue structures.??? Normal visualized upper cervical spine. IMPRESSION: Normal unenhanced and enhanced MRI of the brain. These images were reviewed on 01/24/2023. TSH, free T4, total T3, thyroid stim immunoglobulin, thyroid peroxidase antibody, CMP (11/05/2020): TSH 3.98 (high) CBC, BMP (12/31/2021): Percent lymphocytes 6.5 (low), absolute lymphocytes 0.49 (low). EKG (12/31/2021): Sinus rhythm with short GA. Otherwise normal EKG. Head CT (05/29/2022): Normal unenhanced CT scan of the brain. These images were reviewed on 01/24/2023. Cervical spine x-rays (10/18/2022): FINDINGS: VERTEBRAE:??? Unremarkable.??? Preserved vertebral body height.??? No acute fracture.??? No spondylolisthesis.??? Preservation of the normal cervical lordosis.??? No significant facet arthropathy. DISC SPACES:??? Unremarkable.??? Disc spaces are maintained. SOFT TISSUES:??? Unremarkable.??? No prevertebral soft tissue widening. LUNG APICES:??? Clear. IMPRESSION: Normal cervical spine radiographs. Lumbar spine x-rays (10/18/2022): FINDINGS: VERTEBRAE:??? Unremarkable.??? Preserved vertebral body height.??? No fracture. No spondylolisthesis.??? Preservation of the normal lumbar lordosis.??? No significant facet arthropathy. DISC SPACES:??? No acute findings.??? Disc spaces are maintained. GASTROINTESTINAL TRACT:??? Unremarkable as visualized.??? Included bowel gas pattern is non-obstructive. IMPRESSION: Normal lumbar spine radiographs. Thoracic spine x-rays (10/18/22): FINDINGS: VERTEBRAE:??? Unremarkable.??? Preserved vertebral body height.??? No fracture. No spondylolisthesis.??? Preservation of the normal thoracic kyphosis.??? No significant facet arthropathy. DISC SPACES:??? Unremarkable.??? Disc spaces are maintained. IMPRESSION: Normal thoracic spine radiographs. Assessment and Plan Assessment and Plan (1) Migraine witho (more content not included)... [facility] BROOKE BAUGH ([id number]) 1990 M Date Time Provider Department 11/05/24 10:20 AM ANGIE ROJAS During your visit today, we recorded the following information about you: Temperature Pulse Respiration Blood pressure 97 degrees 80/minute 16/minute 118/68 Weight 85.3 kg Angie Rojas MD 11/07/2024 1:00 PM Signed Chief Complaint Patient presents with: Sinus Problem: inflammation HPI Brooke Baugh is a 34 year old male who presents here today for Above Complaints.. Patient states that about 10 days ago he developed: sore throat, nasal congestion, headache. Symptoms resolved after about 4-5 days, but then developed sinus symptoms. Complaining today of intermittent pressure on the left maxillary and frontal sinus after blowing his nose. Treating with heating pad, massage, Advil and sinus rinse x 2 without much improvement in symptoms. Denies fever/chills, cough, SOB, wheezing, ear pain/fullness, sore throat, fatigue, nasal congestion, rhinorrhea, nausea, vomiting, diarrhea. Past medical history, appointments, medications, allergies reviewed. Previous Medical History PAST MEDICAL HISTORY Diagnosis Date Bilateral bunions Male pattern baldness Migraine Right ACL tear Seasonal allergies Previous Surgical History PAST SURGICAL HISTORY Procedure Laterality Date PAST SURGICAL HISTORY OF Right 2019 ACL repair Family History FAMILY HISTORY Problem Relation Age of Onset No Known Problems Mother other (rheumatoid arthritis) Father Thyroid Father No Known Problems Brother Stroke Paternal Grandmother Patient Allergies ALLERGIES No Known Allergies Current Medications Current Outpatient Medications on File Prior to Visit Medication Sig minoxidil (LONITEN) 2.5 mg tablet Take 0.5 tablets by mouth once daily. Taking 1/2 tab SUMAtriptan (IMITREX) 50 mg tablet Take 50 mg by mouth as needed for migraine headache (see administration instructions). No current facility-administered medications on file prior to visit. Social History Social History Tobacco Use Smoking status: Former Types: Cigarettes Smokeless tobacco: Never Tobacco comments: 1 cigarette maybe once every 6 months Vaping Use Vaping status: Never Used Substance Use Topics Alcohol use: Yes Alcohol/week: 1.0 standard drink of alcohol Types: 1 Standard drinks or equivalent per week Drug use: Never Review of Symptoms REVIEW OF SYSTEMS See HPI EXAM: BP 118/68 Pulse 80 Temp 36.1 ?C (97 ?F) Resp 16 Wt 85.3 kg (188 lb) SpO2 98% BMI 27.44 kg/m? General Appearance: Well appearing, alert, in no acute distress, well-hydrated, well nourished.. Skin: Skin color, texture, turgor normal, no suspicious rashes or lesions. Head: Normocephalic, no masses, lesions, tenderness or abnormalities. Eyes: Anicteric sclera. Pupils are equally round and reactive to light. Extraocular movements are intact. . Ears: External ears normal, canals clear. Nose/Sinuses: Negative findings: no sinus tenderness, Positive findings: mucosa erythematous and swollen. Oropharynx: Lips, mucosa, and tongue normal, teeth and gums normal, oropharynx normal. Neck: Supple, no adenopathy; thyroid symmetric, normal size, no bruits. Lungs: Lungs clear to auscultation. No wheezing, rhonchi, rales.. Heart: RRR without murmur, gallop, or rubs. No ectopy. Health Maintenance List Depression Screening Never done Anxiety Screening Never done Covid-19 Vaccine(2023- season) due on 07/04/2025 Lipid Screening due on 09/29/2029 DTaP,Tdap,Td Vaccine(3 - Td or Tdap) due on 12/15/2033 Influenza Vaccine Completed Hepatitis C Screening Completed HIV Screening Completed Hepatitis B Vaccine Discontinued ASSESSMENT/PLAN: 1. Acute recurrent frontal sinusitis - ICD9: 461.1, ICD10: J01.11 - Will begin treatment with Augmentin 875 mg PO BID for 10 days along with flonase - The patient should also be given nasal saline gtts and suction prn for the first 5-7 days of treatment. - Supportive care with plenty of fluids, rest, and analgesia prn. - Follow up in one week if symptoms persist or worsen. Angie Rojas MD Allergies As of Date: 11/05/2024 (No Known Allergies) Date Reviewed: 11/05/2024 Reviewed by: Virginia Mi LPN - Fully Assessed Reason for Visit: Sinus Problem [99] Cmt: inflammation Primary Visit Diagnosis:Acute recurrent frontal sinusitis [J01.11] Order(s):amoxicillin- clavulanate potassium (AUGMENTIN) 875-125 mg per tabletTake 1 tablet by mouth two times a day for 10 days.Disp: 20 tabletRfl: 0 fluticasone (FLONASE) 50 mcg/actuation nasal sprayUse 2 Sprays in each nostril once daily.Disp: 1 EachRfl: 2 Prescriptions as of 11/07/2024 - amoxicillin-clavulana te potassium (AUGMENTIN) 875-125 mg per tablet Take 1 tablet by mouth two times a d (more content not included)... [facility]YAM [facility] (FAMPWS) BROOKE BAUGH ([id number]) 1990 M Date Time Provider Department 10/01/24 MONA LUEVANO During your visit today, we recorded the following information about you: Mona Luevano APRN.CNP 10/01/2024 2:54 PM Signed Total and and cholesterol elevated some. Recommend low saturated fat diet and aim for at least 150 minutes of exercise per week. The rest of his blood work is normal. MARIA D Mcintosh Lori, LPN 10/01/2024 2:57 PM Signed Detailed message left on secure VM. Advised patient to call in if any questions. Virginia Mi LPN Allergies As of Date: 10/01/2024 (No Known Allergies) Date Reviewed: 09/29/2024 Reviewed by: Angie Rojas MD - Fully Assessed Reason for Visit: Results [95] Prescriptions as of 10/01/2024 - minoxidil (LONITEN) 2.5 mg tablet Take 0.5 tablets by mouth once daily. Taking 1/2 tab - SUMAtriptan (IMITREX) 50 mg tablet Take 50 mg by mouth as needed for migraine headache (see administration instructions). Problem List As Of Date 10/01/2024 Noted Resolved Migraine [G43.909] 01/27/2023 Male pattern baldness [L64.9] Encounter Status:Closed by [place] on 10/01/24 Normal [facility] CBC W Auto Differential pane l (Bld)on 09-29-2024 Basophils (Bld) [#/Vol] 0.07 10*3/uL Normal <0.11 [facility] Comment on above: Order Comment: Speci men Type: BLOOD SPECIMEN Ordering Facility: [facility] Address: [address] [place] [address] Performed By: #### 5 7021-8 #### [facility] CLIA [id number] [address] [place] [address] [place] Basophils/100 WBC (Bld) 0.9 % Normal [facility] Comment on above: Order Comment: Speci men Type: BLOOD SPECIMEN Ordering Facility: [facility] Address: [address] [place] [address] Performed By: #### 5 7021-8 #### [facility] CLIA [id number] [address] [place] [address] [place] Differential cell count method Nom (Bld) Auto Normal [facility] Comment on above: Order Comment: Speci men Type: BLOOD SPECIMEN Ordering Facility: [facility] Address: [address] [place] [address] Performed By: #### 5 7021-8 #### [facility] CLIA [id number] [address] [place] [address] [place] Eosinophils (Bld) [#/Vol] 0.21 10*3/uL Normal <0.46 [facility] Comment on above: Order Comment: Speci men Type: BLOOD SPECIMEN Ordering Facility: [facility] Address: [address] [place] [address] Performed By: #### 5 7021-8 #### [facility] CLIA [id number] [address] [place] [address] [place] Eosinophils/100 WBC (Bld) 2.6 % Normal [facility] Comment on above: Order Comment: Speci men Type: BLOOD SPECIMEN Ordering Facility: [facility] Address: [address] [place] [address] Performed By: #### 5 7021-8 #### [facility] CLIA [id number] [address] [place] [address] [place] Erythrocyte distribution width (RBC) [Ratio] 12.0 % Normal 11.5-15.0 [facility] Comment on above: Order Comment: Speci men Type: BLOOD SPECIMEN Ordering Facility: [facility] Address: [address] [place] [address] Performed By: #### 5 7021-8 #### [facility] CLIA [id number] [address] [place] [address] [place] Hematocrit (Bld) [Volume fraction] 43.5 % Normal 39.0-51.0 [facility] Comment on above: Order Comment: Speci men Type: BLOOD SPECIMEN Ordering Facility: [facility] Address: [address] [place] [address] Performed By: #### 5 7021-8 #### [facility] CLIA [id number] [address] [place] [address] [place] Hemoglobin (Bld) [Mass/Vol] 14.8 g/dL Normal 13.0-17.0 [facility] Comment on above: Order Comment: Speci men Type: BLOOD SPECIMEN Ordering Facility: [facility] Address: [address] [place] [address] Performed By: #### 5 7021-8 #### [facility] CLIA [id number] [address] [place] [address] [place] Immature granulocytes (Bld) [#/Vol] 0.03 10*3/uL Normal <0.10 [facility] Comment on above: Order Comment: Speci men Type: BLOOD SPECIMEN Ordering Facility: [facility] Address: [address] [place] [address] Performed By: #### 5 7021-8 #### [facility] CLIA [id number] [address] [place] [address] [place] Immature granulocytes/100 WBC (Bld) 0.4 % Normal [facility] Comment on above: Order Comment: Speci men Type: BLOOD SPECIMEN Ordering Facility: [facility] Address: [address] [place] [address] Performed By: #### 5 7021-8 #### [facility] CLIA [id number] [address] [place] [address] [place] Lymphocytes (Bld) [#/Vol] 2.70 10*3/uL Normal 1.00-4.00 [facility] Comment on above: Order Comment: Speci men Type: BLOOD SPECIMEN Ordering Facility: [facility] Address: [address] [place] [address] Performed By: #### 5 7021-8 #### [facility] CLIA [id number] [address] [place] [address] [place] Lymphocytes/100 WBC (Bld) 33.8 % Normal [facility] Comment on above: Order Comment: Speci men Type: BLOOD SPECIMEN Ordering Facility: [facility] Address: [address] [place] [address] Performed By: #### 5 7021-8 #### [facility] CLIA [id number] [address] [place] [address] [place] MCH (RBC) [Entitic mass] 29.3 pg Normal 26.0-34.0 [facility] Comment on above: Order Comment: Speci men Type: BLOOD SPECIMEN Ordering Facility: [facility] Address: [address] [place] [address] Performed By: #### 5 7021-8 #### [facility] CLIA [id number] [address] [place] [address] [place] MCHC (RBC) [Mass/Vol] 34.0 g/dL Normal 30.5-36.0 [facility] Comment on above: Order Comment: Speci men Type: BLOOD SPECIMEN Ordering Facility: [facility] Address: [address] [place] [address] Performed By: #### 5 7021-8 #### [facility] CLIA [id number] [address] [place] [address] [place] MCV (RBC) [Entitic vol] 86.1 fL Normal 80.0-100.0 [facility] Comment on above: Order Comment: Speci men Type: BLOOD SPECIMEN Ordering Facility: [facility] Address: [address] [place] [address] Performed By: #### 5 7021-8 #### [facility] CLIA [id number] [address] [place] [address] [place] Monocytes (Bld) [#/Vol] 0.57 10*3/uL Normal <0.87 [facility] Comment on above: Order Comment: Speci men Type: BLOOD SPECIMEN Ordering Facility: [facility] Address: [address] [place] [address] Performed By: #### 5 7021-8 #### [facility] CLIA [id number] [address] [place] [address] [place] Monocytes/100 WBC (Bld) 7.1 % Normal [facility] Comment on above: Order Comment: Speci men Type: BLOOD SPECIMEN Ordering Facility: [facility] Address: [address] [place] [address] Performed By: #### 5 7021-8 #### [facility] CLIA [id number] [address] [place] [address] [place] Neutrophils (Bld) [#/Vol] 4.41 10*3/uL Normal 1.45-7.50 [facility] Comment on above: Order Comment: Speci men Type: BLOOD SPECIMEN Ordering Facility: [facility] Address: [address] [place] [address] Performed By: #### 5 7021-8 #### [facility] CLIA [id number] [address] [place] [address] [place] Neutrophils/100 WBC (Bld) 55.2 % Normal [facility] Comment on above: Order Comment: Speci men Type: BLOOD SPECIMEN Ordering Facility: [facility] Address: [address] [place] [address] Performed By: #### 5 7021-8 #### [facility] CLIA [id number] [address] [place] [address] [place] Nucleated RBC (Bld) [#/Vol] 10*3/uL Normal <0.01 [facility] Comment on above: Order Comment: Speci men Type: BLOOD SPECIMEN Ordering Facility: [facility] Address: [address] [place] [address] Performed By: #### 5 7021-8 #### [facility] CLIA [id number] [address] [place] [address] [place] Nucleated RBC/100 WBC (Bld) [Ratio] 0.0 /100 WBC Normal [facility] Comment on above: Order Comment: Speci men Type: BLOOD SPECIMEN Ordering Facility: [facility] Address: [address] [place] [address] Performed By: #### 5 7021-8 #### [facility] CLIA [id number] [address] [place] [address] [place] Platelet mean volume (Bld) [Entitic vol] 10.6 fL Normal 9.0-12.7 [facility] Comment on above: Order Comment: Speci men Type: BLOOD SPECIMEN Ordering Facility: [facility] Address: [address] [place] [address] Performed By: #### 5 7021-8 #### [facility] CLIA [id number] [address] [place] [address] [place] Platelets (Bld) [#/Vol] 214 10*3/uL Normal 150-400 [facility] Comment on above: Order Comment: Speci men Type: BLOOD SPECIMEN Ordering Facility: [facility] Address: [address] [place] [address] Performed By: #### 5 7021-8 #### [facility] CLIA [id number] [address] [place] [address] [place] RBC (Bld) [#/Vol] 5.05 10*6/uL Normal 4.20-6.00 [facility] Comment on above: Order Comment: Speci men Type: BLOOD SPECIMEN Ordering Facility: [facility] Address: [address] [place] [address] Performed By: #### 5 7021-8 #### [facility] CLIA [id number] [address] [place] [address] [place] WBC (Bld) [#/Vol] 7.99 10*3/uL Normal 3.70-11.00 [facility] Comment on above: Order Comment: Speci men Type: BLOOD SPECIMEN Ordering Facility: [facility] Address: [address] [place] [address] Performed By: #### 5 7021-8 #### [facility] CLIA [id number] [address] [place] [address] [place] CNOVon 09-29-2024 CNOV Office Visit (FAMPWS ) BROOKE BAUGH ([id number]) 1990 M Date Time Provider Department 09/29/24 8:40 AM ANGIE ROJAS During your visit today, we recorded the following information about you: Pulse Respiration Blood pressure Weight 65/minute 18/minute 124/72 84.4 kg Height 1.763 m Angie Rojas MD 09/29/2024 9:14 AM Signed Chief Complaint Patient presents with: Physical HPI Brooke Baugh is a 34 year old male who presents here today for Above Complaints. Patient has been in good health without recent hospitalizations, ER visits. No concerns today. Patient with history of migraines which is well controlled with the Imitrex PRN. Uses anywhere from 0-5 times per month. Triggered by using laptop too often and loud noises. Admits to photophobia and phonophobia. Denies nausea, vomiting, or auras. Sees [facility] Dr. Lyons once per year for his refills. 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 Working well without side effects. Has f/u in 2 weeks with their office. Used to smoke about 1 cigarette every 6 months, but has not smoked in more than 1 year. Has smoked less than 5 packs in his whole life. Past medical history, appointments, medications, allergies reviewed. Previous Medical History PAST MEDICAL HISTORY Diagnosis Date Male pattern baldness Migraine Right ACL tear Seasonal allergies Previous Surgical History PAST SURGICAL HISTORY Procedure Laterality Date PAST SURGICAL HISTORY OF Right 2019 ACL repair Family History FAMILY HISTORY Problem Relation Age of Onset No Known Problems Mother other (rheumatoid arthritis) Father Thyroid Father No Known Problems Brother Stroke Paternal Grandmother Patient Allergies ALLERGIES No Known Allergies Current Medications Current Outpatient Medications on File Prior to Visit Medication Sig minoxidil (LONITEN) 2.5 mg tablet Take 2.5 mg by mouth once daily. Taking 1/2 tab naproxen (NAPROSYN) 500 mg tablet Take 1 tablet by mouth twice daily as needed. Take with food. SUMAtriptan (IMITREX) 50 mg tablet Take 50 mg by mouth as needed for migraine headache (see administration instructions). dutasteride (AVODART) 0.5 mg capsule Take 0.5 mg by mouth once daily. (Patient not taking: Reported on 09/03/2024) triamcinolone acetonide (KENALOG) 0.1 % ointment Apply to affected areas on the scalp twice daily Tuesday-Tuesday. Take weekends off. Avoid use on face, armpits, and groin. (Patient not taking: Reported on 09/29/2024) No current facility-administered medications on file prior to visit. Social History Social History Tobacco Use Smoking status: Some Days Types: Cigarettes Smokeless tobacco: Never Tobacco comments: 1 cigarette maybe once every 6 months Substance Use Topics Alcohol use: Yes Comment: 1 drink per month Drug use: Never Review of Symptoms REVIEW OF SYSTEMS GENERAL: No weight loss, malaise or fevers HEENT: No changes in hearing or vision, no nose bleeds or other nasal problems, SEE HPI NECK: Negative for lumps, goiter, pain and significant neck swelling RESPIRATORY: Negative for cough, hemoptysis, wheezing, COPD, dyspnea or shortness of breath CARDIOVASCULAR: Negative for chest pain, leg swelling, hypertension, CHF or palpitations GI: No nausea, vomiting, or diarrhea : No history of dysuria, frequency or incontinence MUSCULOSKELETAL: Negative for joint pain or swelling, back pain or muscle pain SKIN: Negative for lesions, rash, and itching PSYCH: Negative for sleep disturbance, mood disorder and recent psychosocial stressors HEMATOLOGY/LYMPHOLOGY : Negative for prolonged bleeding, bruising easily or swollen nodes ENDOCRINE: Negative for cold or heat intolerance, polyuria, polydipsia and goiter NEURO: No history of syncope, paralysis, seizures or tremors EXAM: BP 124/72 Pulse 65 Resp 18 Ht 176.3 cm (5' 9.41) Wt 84.4 kg (186 lb) SpO2 98% BMI 27.14 kg/m? General Appearance: Well appearing, alert, in no acute distress, well-hydrated, well nourished.. Skin: Skin color, texture, turgor normal, no suspicious rashes or lesions. Head: Normocephalic, no masses, lesions, tenderness or abnormalities. Eyes: Anicteric sclera. Pupils are equally round and reactive to light. Extraocular movements are intact. . Ears: External ears normal, canals clear. Nose/Sinuses: Nares normal, septum midline, mucosa normal, no drainage or sinus tenderness. Oropharynx: Lips, mucosa, and tongue normal, teeth and gums normal, oropharynx normal. Neck: Supple, no adenopathy; thyroid symmetric, normal size, no bruits. Lungs: Lungs clear to auscultation. No wheezing, rhonchi, rales.. Heart: RRR without murmur, gallop, or rubs. No ectopy. Abdomen: Normal abdominal exam, Abdomen soft, non-tender. Bowel (more content not included)... Normal [facility] Comprehensive metabolic 2000 panelon 09-29-2024 Albumin [Mass/Vol] 4.5 g/dL Normal 3.9-4.9 [facility] Comment on above: Order Comment: Speci men Type: BLOOD SPECIMEN Ordering Facility: [facility] Address: [address] [place] [address] Performed By: #### 2 4323-8, 56174-8 #### [facility] CLIA [id number] [address] [place] [address] [place] ALP [Catalytic activity/Vol] 59 U/L Normal 38-113 [facility] Comment on above: Order Comment: Speci men Type: BLOOD SPECIMEN Ordering Facility: [facility] Address: [address] [place] [address] Performed By: #### 2 4323-8, 92804-2 #### [facility] CLIA [id number] [address] [place] [address] [place] ALT [Catalytic activity/Vol] 16 U/L Normal 10-54 [facility] Comment on above: Order Comment: Speci men Type: BLOOD SPECIMEN Ordering Facility: [facility] Address: [address] [place] [address] Performed By: #### 2 4323-8, 40772-7 #### [facility] CLIA [id number] [address] [place] [address] [place] Anion gap [Moles/Vol] 9 mmol/L Normal 8-15 [facility] Comment on above: Order Comment: Speci men Type: BLOOD SPECIMEN Ordering Facility: [facility] Address: [address] [place] [address] Performed By: #### 2 4323-8, 45089-3 #### [facility] CLIA [id number] [address] [place], [place] [address] [place] AST [Catalytic activity/Vol] 18 U/L Normal 14-40 [facility] Comment on above: Order Comment: Speci men Type: BLOOD SPECIMEN Ordering Facility: [facility] Address: [address] [place] [address] Performed By: #### 2 4323-8, 43538-6 #### [facility] CLIA [id number] [address] [place] [address] [place] Bilirubin [Mass/Vol] 0.5 mg/dL Normal 0.2-1.3 [facility] Comment on above: Order Comment: Speci men Type: BLOOD SPECIMEN Ordering Facility: [facility] Address: [address] [place] [address] Performed By: #### 2 4323-8, 14968-0 #### [facility] CLIA [id number] [address] [place] [address] [place] Calcium [Mass/Vol] 9.5 mg/dL Normal 8.5-10.2 [facility] Comment on above: Order Comment: Speci men Type: BLOOD SPECIMEN Ordering Facility: [facility] Address: [address] [place] [address] Performed By: #### 2 4323-8, 18115-5 #### [facility] CLIA [id number] [address] [place], [place] [address] [place] Chloride [Moles/Vol] 105 mmol/L Normal 98-107 [facility] Comment on above: Order Comment: Speci men Type: BLOOD SPECIMEN Ordering Facility: [facility] Address: [address] [place] [address] Performed By: #### 2 4323-8, 95548-8 #### [facility] CLIA [id number] [id number] [address] [place] CO2 [Moles/Vol] 27 mmol/L Normal 22-30 [facility] Comment on above: Order Comment: Speci men Type: BLOOD SPECIMEN Ordering Facility: [facility] Address: [address] [place] [address] Performed By: #### 2 4323-8, 03018-2 #### [facility] CLIA [id number] [address] [place] [address] [place] Creatinine [Mass/Vol] 1.01 mg/dL Normal 0.73-1.22 [facility] Comment on above: Order Comment: Speci men Type: BLOOD SPECIMEN Ordering Facility: [facility] Address: [address] [place] [address] Performed By: #### 2 4323-8, 13198-8 #### [facility] CLIA [id number] [address] [place] [address] STATES OF [facility] Creatinine and Glomerular filtration rate.predicted panel (S/P/Bld) 99 mL/min/1.73m??? Normal >=60 [facility] Comment on above: Order Comment: Speci men Type: BLOOD SPECIMEN Ordering Facility: [facility] Address: [address] [place] [address] Result Comment: Herlinda mated Glomerular Filtration Rate (eGFR) is calculated using the 2020 CKD-EPI creatinine equation. This equation utilizes serum creatinine, sex, and age as parameters. The creatinine assay has traceable calibration to isotope dilution-mass spectrometry. Refer to KDIGO guidelines for clinical interpretation. In patients with unstable renal function, e.g. those with acute kidney injury, the eGFR may not accurately reflect actual GFR. Performed By: #### 2 4323-8, 36386-8 #### [facility] CLIA [id number] [address] [place] [address] [place] Glucose [Mass/Vol] 89 mg/dL Normal 74-99 [facility] Comment on above: Order Comment: Speci men Type: BLOOD SPECIMEN Ordering Facility: [facility] Address: [address] [place] [address] Result Comment: The [place] Diabetes Association (ADA) provides guidance for cutoff values for fasting glucose and random glucose. The ADA defines fasting as no caloric intake for at least 8 hours. Fasting plasma glucose results between 100 to 125 mg/dL indicate increased risk for diabetes (prediabetes). Fasting plasma glucose results greater than or equal to 126 mg/dL meet the criteria for diagnosis of diabetes. In the absence of unequivocal hyperglycemia, results should be confirmed by repeat testing. In a patient with classic symptoms of hyperglycemia or hyperglycemic crisis, random plasma glucose results greater than or equal to 200 mg/dL meet the criteria for diagnosis of diabetes. Reference: Standards of Medical Care in Diabetes 2016, [place] [employer]. Diabetes Care. 2016.39(Suppl 1). Performed By: #### 2 4323-8, 67694-9 #### [facility] CLIA [id number] [address] [place] [address] [place] Potassium [Moles/Vol] 4.4 mmol/L Normal 3.7-5.1 [facility] Comment on above: Order Comment: Speci men Type: BLOOD SPECIMEN Ordering Facility: [facility] Address: [address] [place] [address] Performed By: #### 2 4323-8, 54171-7 #### [facility] CLIA [id number] [address] [place] [address] [place] Protein [Mass/Vol] 7.1 g/dL Normal 6.3-8.0 [facility] Comment on above: Order Comment: Speci men Type: BLOOD SPECIMEN Ordering Facility: [facility] Address: [address] [place] [address] Performed By: #### 2 4323-8, 18933-7 #### [facility] CLIA [id number] [address] [place] [address] [place] Sodium [Moles/Vol] 141 mmol/L Normal 136-144 [facility] Comment on above: Order Comment: Speci men Type: BLOOD SPECIMEN Ordering Facility: [facility] Address: [address] [place] [address] Performed By: #### 2 4323-8, 25247-7 #### [facility] CLIA [id number] [address] [place] [address] [place] Urea nitrogen [Mass/Vol] 16 mg/dL Normal 9-24 [facility] Comment on above: Order Comment: Speci men Type: BLOOD SPECIMEN Ordering Facility: [facility] Address: [address] [place] [address] Performed By: #### 2 4323-8, 20548-5 #### [facility] CLIA [id number] [address] [place] [address] [place] Lipid 1996 panelon 5 Cholesterol [Mass/Vol] 211 mg/dL High <200 [facility] Comment on above: Order Comment: Speci men Type: BLOOD SPECIMEN Ordering Facility: [facility] Address: [address] [place] [address] Result Comment: <200 mg/dL, Desirable 200-239 mg/dL, Borderline high >239 mg/dL, High Performed By: #### 2 4323-8, 80352-6 #### [facility] CLIA [id number] [address] [place] [address] [place] Cholesterol in HDL [Mass/Vol] 41 mg/dL Normal >39 [facility] Comment on above: Order Comment: Speci men Type: BLOOD SPECIMEN Ordering Facility: [facility] Address: [address] [place] [address] Result Comment: 40-5 9 mg/dL, Acceptable >59 mg/dL, High: Negative risk factor for coronary heart disease <40 mg/dL, Low: Positive risk factor for coronary heart disease Performed By: #### 2 4323-8, 64087-7 #### [facility] CLIA [id number] [address] [place] [address] [place] Cholesterol in LDL [Mass/Vol] 152 mg/dL High <100 [facility] Comment on above: Order Comment: Speci men Type: BLOOD SPECIMEN Ordering Facility: [facility] Address: [address] [place] [address] Result Comment: <100 mg/dL, Optimal 100-129 mg/dL, Near optimal/above optimal 130-159 mg/dL, Borderline high 160-189 mg/dL, High >189 mg/dL, Very high Secondary prevention optimal LDL Cholesterol levels are recommended to be < 70 mg/dL Performed By: #### 2 4323-8, 27876-5 #### [facility] CLIA [id number] [address] [place], [place] [address] [address] [place] Cholesterol in LDL/Cholesterol in HDL [Mass ratio] 3.71 {ratio} High <2.54 [facility] Comment on above: Order Comment: Tray seaman Type: BLOOD SPECIMEN Ordering Facility: [facility] Address: [address] [place] [address] Result Comment: Refe rence: 1. National Cholesterol Education Program ATP III Guideline At-A-Glance Quick Desk Reference: National Heart, Lung, and Blood [place]. National Institutes of Health. 2001: NIH Publication No. 01-3305. 2. An International Atherosclerosis Society position paper: global recommendations for the management of dyslipidemia: executive summary, Atherosclerosis. 2014: 232(2):410-413. Performed By: #### 2 4323-8, 07698-6 #### [facility] CLIA [id number] [address] [place], [place] [address] [address] [place] Cholesterol in VLDL [Mass/Vol] 18 mg/dL Normal <30 [facility] Comment on above: Order Comment: Tray seaman Type: BLOOD SPECIMEN Ordering Facility: [facility] Address: [address] [place] [address] Performed By: #### 2 4323-8, 33200-0 #### [facility] CLIA [id number] [address] [place], [place] [address] [address] [place] Cholesterol non HDL [Mass/Vol] 170 mg/dL High <130 [facility] Comment on above: Order Comment: Tray seaman Type: BLOOD SPECIMEN Ordering Facility: [facility] Address: [address] [place] [address] Result Comment: <130 mg/dL, Optimal 130-159 mg/dL, Near optimal/above optimal 160-189 mg/dL, Borderline high 190-219 mg/dL, High >219 mg/dL, Very high Secondary prevention optimal non HDL Cholesterol levels are recommended to be <100 mg/dL Performed By: #### 2 4323-8, 73491-5 #### [facility] CLIA [id number] [address] [place] [address] [place] Cholesterol.total/C holesterol in HDL [Mass ratio] 5.15 {ratio} High <5.10 [facility] Comment on above: Order Comment: Speci men Type: BLOOD SPECIMEN Ordering Facility: [facility] Address: [address] [place] [address] Performed By: #### 2 4323-8, 88654-7 #### [facility] CLIA [id number] [address] [place] [address] [place] FASTING TIME 12 hrs Normal [facility] Comment on above: Order Comment: Speci men Type: BLOOD SPECIMEN Ordering Facility: [facility] Address: [address] [place] [address] Performed By: #### 2 4323-8, 39801-7 #### [facility] CLIA [id number] [address] [place] [address] [place] Triglyceride [Mass/Vol] 88 mg/dL Normal <150 [facility] Comment on above: Order Comment: Speci men Type: BLOOD SPECIMEN Ordering Facility: [facility] Address: [address] [place] [address] Result Comment: <150 mg/dL, Normal 150-199 mg/dL, Borderline high 200-499 mg/dL, High >499 mg/dL, Very high Performed By: #### 2 4323-8, 88466-2 #### [facility] CLIA [id number] [address] [place] [address] [place] CNOVon 09-03-2024 CNOV Office Visit (FAMPWS ) BROOKE BAUGH ([id number]) 1990 M Date Time Provider Department 09/03/24 9:40 AM [facility] RO[facility]AS [facility] During your visit today, we recorded the following information about you: Temperature Pulse Respiration Blood pressure 97.2 degrees 63/minute 16/minute 106/70 Weight 85.1 kg Angie Rojas MD 09/03/2024 11:08 AM Signed Chief Complaint Patient presents with: Conjunctivitis: Bilateral eyes affected- itchy with drainage HPI Brooke Baugh is a 34 year old male who presents here today for Above Complaints. Patient complaining today of left eye itching, mild pain, redness, crusting around the eye, drainage with white discharge which started yesterday. Right eye irritated this morning. Treating with eye drops that they got in [place] x1 without improvement. Admits to nasal congestion/rhinorrhea . Denies fever/chills, vision changes, periorbital pain/swelling, pain with eye movement. Patient states that he has not had symptoms like this in the past. No exposure to pink eye. Past medical history, appointments, medications, allergies reviewed. Previous Medical History PAST MEDICAL HISTORY Diagnosis Date Migraine Right ACL tear Seasonal allergies Previous Surgical History PAST SURGICAL HISTORY Procedure Laterality Date PAST SURGICAL HISTORY OF Right 2019 ACL repair Family History FAMILY HISTORY Problem Relation Age of Onset No Known Problems Mother other (rheumatoid arthritis) Father Thyroid Father No Known Problems Brother Stroke Paternal Grandmother Patient Allergies ALLERGIES No Known Allergies Current Medications Current Outpatient Medications on File Prior to Visit Medication Sig minoxidil (LONITEN) 2.5 mg tablet Take 2.5 mg by mouth once daily. Taking 1/2 tab SUMAtriptan (IMITREX) 50 mg tablet Take 50 mg by mouth as needed for migraine headache (see administration instructions). dutasteride (AVODART) 0.5 mg capsule Take 0.5 mg by mouth once daily. (Patient not taking: Reported on 09/03/2024) triamcinolone acetonide (KENALOG) 0.1 % ointment Apply to affected areas on the scalp twice daily Tuesday-Tuesday. Take weekends off. Avoid use on face, armpits, and groin. naproxen (NAPROSYN) 500 mg tablet Take 1 tablet by mouth twice daily as needed. Take with food. No current facility-administered medications on file prior to visit. Social History Social History Tobacco Use Smoking status: Some Days Types: Cigarettes Smokeless tobacco: Never Tobacco comments: 1 cigarette maybe once every 6 months Substance Use Topics Alcohol use: Yes Comment: 1 drink per month Drug use: Never Review of Symptoms REVIEW OF SYSTEMS See HPI EXAM: BP 106/70 Pulse 63 Temp 36.2 ?C (97.2 ?F) Resp 16 Wt 85.1 kg (187 lb 9.6 oz) SpO2 99% BMI 27.70 kg/m? General Appearance: Well appearing, alert, in no acute distress, well-hydrated, well nourished.. Skin: Skin color, texture, turgor normal, no suspicious rashes or lesions. Eyes: bilateral conjunctivitis, left worse than right. No periorbital swelling/erythema. PERRLA, EOMI. No foreign body appreciated. No active discharge. Ears: External ears normal, canals clear. Health Maintenance List Depression Screening Never done Anxiety Screening Never done Hepatitis B Vaccine(1 of 3 - 19+ 3-dose series) Never done Pneumococcal Vaccine(1 of 2 - PCV) Never done Covid-19 Vaccine(2023-) due on 07/04/2025 Lipid Screening due on 01/28/2028 DTaP,Tdap,Td Vaccine(3 - Td or Tdap) due on 12/15/2033 Influenza Vaccine Completed Hepatitis C Screening Completed HIV Screening Completed HPV Vaccine Aged Out ASSESSMENT/PLAN: 1. Bacterial conjunctivitis - ICD9: 372.39, 041.9, ICD10: H10.9 Bacterial - see medication orders - course and contagiousness issues discussed, including hand washing. - Instructed to call if high fever, development of periorbital redness or swelling, eye pain, visual changes, concerns or if symptoms persist. - POLYMYXIN B SULFATE 10,000 UNIT-TRIMETHOPRIM 1 MG/ML EYE DROPS Angie Rojas MD Allergies As of Date: 09/03/2024 (No Known Allergies) Date Reviewed: 09/03/2024 Reviewed by: Virginia Mi LPN - Fully Assessed Reason for Visit: Conjunctivitis [24] Cmt: Bilateral eyes affected- itchy with drainage Primary Visit Diagnosis:Bacterial conjunctivitis [H10.9] Order(s):trimethoprim -polymyxin (POLYTRIM) 10,000 unit- 1 mg/mL ophthalmic solutionUse 1 Drop in both eyes four times daily for 10 days.Disp: 10 mLRfl: 0 Prescriptions as of 09/03/2024 - trimethoprim-polymyxi n (POLYTRIM) 10,000 unit- 1 mg/mL ophthalmic solution Use 1 Drop in both eyes four times daily for 10 days. - dutasteride (AVODART) 0.5 mg capsule Take 0.5 mg by mouth once daily. - minoxidil (LONITEN) 2.5 mg tablet Take 2.5 mg by mouth once da (more content not included)... Normal [facility] CNOVon 07-04-2024 CNOV Office Visit (FAMPWS ) BROOKE BAUGH ([id number]) 1990 M Date Time Provider Department 07/04/24 12:20 PM ANGIE ROJAS FAMPWS During your visit today, we recorded the following information about you: Pulse Respiration Blood pressure Weight 80/minute 16/minute 100/68 83.8 kg Angie Rojas MD 07/07/2024 9:34 AM Signed Chief Complaint Patient presents with: discuss conceiving children Follow Up HPI Brooke Baugh is a 34 year old male who presents here today for discussion about conceiving children. Patient states that he and his are considering having children in the next couple of months and wanted to see what he needed to do before hand. Patient is on dutasteride and minoxidil for hair loss. Worried they could lower sperm count. No family history of genetic conditions. Has been in good health. No concerns with sexual function or ejaculation. Up to date on Tdap. Past medical history, appointments, medications, allergies reviewed. Previous Medical History PAST MEDICAL HISTORY Diagnosis Date Migraine Right ACL tear Seasonal allergies Previous Surgical History PAST SURGICAL HISTORY Procedure Laterality Date PAST SURGICAL HISTORY OF Right 2019 ACL repair Family History FAMILY HISTORY Problem Relation Age of Onset No Known Problems Mother other (rheumatoid arthritis) Father Thyroid Father No Known Problems Brother Stroke Paternal Grandmother Patient Allergies ALLERGIES No Known Allergies Current Medications Current Outpatient Medications on File Prior to Visit Medication Sig dutasteride (AVODART) 0.5 mg capsule Take 0.5 mg by mouth once daily. minoxidil (LONITEN) 2.5 mg tablet Take 2.5 mg by mouth once daily. Taking 1/2 tab triamcinolone acetonide (KENALOG) 0.1 % ointment Apply to affected areas on the scalp twice daily Tuesday-Tuesday. Take weekends off. Avoid use on face, armpits, and groin. SUMAtriptan (IMITREX) 50 mg tablet Take 50 mg by mouth as needed for migraine headache (see administration instructions). naproxen (NAPROSYN) 500 mg tablet Take 1 tablet by mouth twice daily as needed. Take with food. No current facility-administered medications on file prior to visit. Social History Social History Tobacco Use Smoking status: Some Days Types: Cigarettes Smokeless tobacco: Never Tobacco comments: 1 cigarette maybe once every 6 months Substance Use Topics Alcohol use: Yes Comment: 1 drink per month Drug use: Never Review of Symptoms REVIEW OF SYSTEMS GENERAL: No weight loss, malaise or fevers RESPIRATORY: Negative for cough, hemoptysis, wheezing, COPD, dyspnea or shortness of breath CARDIOVASCULAR: Negative for chest pain, leg swelling, hypertension, CHF or palpitations GI: No nausea, vomiting, or diarrhea SKIN: Negative for lesions, rash, and itching EXAM: BP 100/68 Pulse 80 Resp 16 Wt 83.8 kg (184 lb 12.8 oz) SpO2 98% BMI 27.29 kg/m? General Appearance: Well appearing, alert, in no acute distress, well-hydrated, well nourished.. Skin: Skin color, texture, turgor normal, no suspicious rashes or lesions. Lungs: Lungs clear to auscultation. No wheezing, rhonchi, rales.. Heart: RRR without murmur, gallop, or rubs. No ectopy. Health Maintenance List Pneumococcal Vaccine(1 of 2 - PCV) Never done Depression Screening Never done Anxiety Screening Never done Hepatitis B Vaccine(1 of 3 - 19+ 3-dose series) Never done Covid-19 Vaccine( season) due on 05/13/2024 Lipid Screening due on 01/28/2028 DTaP,Tdap,Td Vaccine(3 - Td or Tdap) due on 12/15/2033 Influenza Vaccine Completed Hepatitis C Screening Completed HIV Screening Completed HPV Vaccine Aged Out Data reviewed Latest Ref Rng 05/10/2023 WBC 3.70 - 11.00 k/uL 8.83 RBC 4.20 - 6.00 m/uL 5.12 Hemoglobin 13.0 - 17.0 g/dL 15.0 Hematocrit 39.0 - 51.0 % 44.3 MCV 80.0 - 100.0 fL 86.5 MCH 26.0 - 34.0 pg 29.3 MCHC 30.5 - 36.0 g/dL 33.9 RDW-CV 11.5 - 15.0 % 11.9 Platelet Count 150 - 400 k/uL 218 MPV 9.0 - 12.7 fL 10.2 Neut% % 57.8 Abs Neut (ANC) 1.45 - 7.50 k/uL 5.10 Lymph% % 32.4 Abs Lymph 1.00 - 4.00 k/uL 2.86 [place]% % 7.0 Abs [place] <0.87 k/uL 0.62 Eosin% % 1.8 Abs Eosin <0.46 k/uL 0.16 Baso% % 0.8 Abs Baso <0.11 k/uL 0.07 Immature Gran % % 0.2 IMMATURE GRANS (ABS) <0.10 k/uL <0.03 NRBC /100 WBC 0.0 Absolute nRBC <0.01 k/uL <0.01 DTYPE Auto CCP Antibody IgG Qualitative Negative Negative CCP Antibody, IgG <20 Units <15 Uric Acid 4.0 - 8.1 mg/dL 5.1 WSR 0 - 15 mm/hr 2 CRP <0.9 mg/dL <0.3 Rheumatoid Factor <16 IU/mL <10 BREN Scr Qual Negative Negative ASSESSMENT/PLAN: 1. Attempting to conceive - ICD9: V49.89, ICD10: Z78.9 Discussed stopping Dutasteride as it can lower sperm count and speak with prescribing geriatric nurse practitioner Dr. Snider about alternative for hair loss. No further testing ne (more content not included)... Normal [facility] CBC W Auto Differential pane l (Bld)on 05-10-2023 Basophils (Bld) [#/Vol] 0.07 10*3/uL <0.11 k/uL [facility] Basophils/100 WBC (Bld) 0.8 % [facility] Differential cell count method Nom (Bld) Auto [facility] Eosinophils (Bld) [#/Vol] 0.16 10*3/uL <0.46 k/uL [facility] Eosinophils/100 WBC (Bld) 1.8 % [facility] Erythrocyte distribution width (RBC) [Ratio] 11.9 % 11.5 - 15.0 % [facility] Hematocrit (Bld) [Volume fraction] 44.3 % 39.0 - 51.0 % [facility] Hemoglobin (Bld) [Mass/Vol] 15.0 g/dL 13.0 - 17.0 g/dL [facility] Immature granulocytes (Bld) [#/Vol] <0.10 k/uL [facility] Immature granulocytes/100 WBC (Bld) 0.2 % [facility] Lymphocytes (Bld) [#/Vol] 2.86 10*3/uL 1.00 - 4.00 k/uL [facility] Lymphocytes/100 WBC (Bld) 32.4 % [facility] MCH (RBC) [Entitic mass] 29.3 pg 26.0 - 34.0 pg [facility] MCHC (RBC) [Mass/Vol] 33.9 g/dL 30.5 - 36.0 g/dL [facility] MCV (RBC) [Entitic vol] 86.5 fL 80.0 - 100.0 fL [facility] Monocytes (Bld) [#/Vol] 0.62 10*3/uL <0.87 k/uL [facility] Monocytes/100 WBC (Bld) 7.0 % [facility] Neutrophils (Bld) [#/Vol] 5.10 10*3/uL 1.45 - 7.50 k/uL [facility] Neutrophils/100 WBC (Bld) 57.8 % [facility] Nucleated RBC (Bld) [#/Vol] <0.01 k/uL [facility] Nucleated RBC/100 WBC (Bld) [Ratio] 0.0 /100 WBC [facility] Platelet mean volume (Bld) [Entitic vol] 10.2 fL 9.0 - 12.7 fL [facility] Platelets (Bld) [#/Vol] 218 10*3/uL 150 - 400 k/uL [facility] RBC (Bld) [#/Vol] 5.12 10*6/uL 4.20 - 6.0 0 m/uL [facility] WBC (Bld) [#/Vol] 8.83 10*3/uL 3.70 - 11. 00 k/uL [facility] ESR Westergren method (Bld) [Velocity]on 05-10-2023 ESR (Bld) [Velocity] 2 mm/h 0 - 15 mm/hr [facility] Absolute lymphocyte counton 12-31-2021 Lymphocytes Auto (Unsp spec) [#/Vol] 0.49 10*3/uL 0.83-4.51 [facility] Work Phone: Basophil percentageon 2021 Basophils/100 WBC (Bld) 0.4 % 0-1 [facility] Work Phone: Chloride [Moles/Vol] 104 mmol/L 98-107 [facility] Work Phone: Eosinophils/100 WBC (Bld) 0.0 % 0-5 [facility] Work Phone: Glucose [Mass/Vol] 90 mg/dL 74-106 [facility] Work Phone: Neutrophils (Bld) [#/Vol] 6.0 10*3/uL 2.0-7.7 [facility] Work Phone: Neutrophils/100 WBC (Bld) 79.9 % 47-70 [facility] Work Phone: Potassium [Moles/Vol] 3.7 mmol/L 3.5-5.1 [facility] Work Phone: Sodium [Moles/Vol] 138 mmol/L 136-145 [facility] Work Phone: WBC (Bld) [#/Vol] 7.6 10*3/uL 4.4-11.0 [facility] Work Phone: Blood erythrocytes count (nu mber/volume)on 12-31-2021 RBC (Bld) [#/Vol] 4.90 10*6/uL 4.6-6.2 [facility] Work Phone: Blood hemoglobin measurement (mass/volume)on 12-31-2021 Hemoglobin (Bld) [Mass/Vol] 14.7 g/dL 13.0-16.5 [facility] Work Phone: Blood lymphocytes/100 leukoc yteson 12-31-2021 Lymphocytes/100 WBC (Bld) 6.5 % 19-41 [facility] Work Phone: Blood monocytes/100 leukocyt eson 12-31-2021 Monocytes/100 WBC (Bld) 12.8 % 0-10 [facility] Work Phone: Blood platelet adequacy dete ction by light microscopyon 12-31-2021 Platelets LM Ql (Bld) ADEQUATE ADEQ [facility] Work Phone: Blood platelet mean volumeon 12-31-2021 Platelet mean volume (Bld) [Entitic vol] 10.0 fL 6.2-12.0 [facility] Work Phone: Determination of erythrocyte mean corpuscular volume (MCV)on 12-31-2021 MCV (RBC) [Entitic vol] 85.7 fL 80-94 [facility] Work Phone: Hematocrit Auto (Bld) [Volum e fraction]on 12-31-2021 Hematocrit (Bld) [Volume fraction] 42.0 % 40-54 [facility] Work Phone: Laboratory - Chemistry and C hemistry - challengeon 12-31-2021 CO2 [Moles/Vol] 30.0 mmol/L 21.0-32.0 [facility] Work Phone: Urea nitrogen/Creatinine [Mass ratio] 7.8 mg/mg 10-20 [facility] Work Phone: Laboratory - Hematology and Cell countson 12-31-2021 Erythrocyte distribution width (RBC) [Entitic vol] 37.1 fL 35.1-43.9 [facility] Work Phone: Erythrocyte distribution width (RBC) [Ratio] 11.9 % 11.6-14.6 [facility] Work Phone: Immature granulocytes/100 WBC (Bld) 0.400 % 0.0-0.9 [facility] Work Phone: Comment on above: IG% - Immature Granu locytes (promyelocytes, myelocytes and metamyelocytes) > 1% indicates that a LEFT SHIFT is Present. MCH (RBC) [Entitic mass] 30.0 pg 27.0-32.0 [facility] Work Phone: Nucleated RBC/100 WBC (Bld) [Ratio] 0 % 0-5 [facility] Work Phone: MCHC Auto (RBC) [Mass/Vol]on 12-31-2021 MCHC (RBC) [Mass/Vol] 35.0 g/dL 32-36 [facility] Work Phone: No Panel Informationon 12-31 Estimated Creatinine Clearance Calc 88.39 ml/min [facility] Work Phone: Estimated GFR (MDRD) Amer 94 mL/min >60 [facility] Work Phone: Comment on above: GFR Calc Estimated GFR (MDRD) Non-Af Amer 77 mL/min >60 [facility] Work Phone: Comment on above: Non- GFR Calc Platelets bldon 12-31-2021 Platelets (Bld) [#/Vol] 152 10*3/uL 150-450 [facility] Work Phone: RBC morphologyon 12-31-2021 RBC morphology finding Nom (Bld) NORM C+C NORMAL NORM C&C [facility] Work Phone: Serum or plasma calcium kristi urement (mass/volume)on 12-31-2021 Calcium [Mass/Vol] 8.8 mg/dL 8.5-10.1 [facility] Work Phone: Serum or plasma creatinine m easurement (mass/volume)on 12-31-2021 Creatinine [Mass/Vol] 1.15 mg/dL 0.70-1.30 [facility] Work Phone: Comment on above: The validity of the calculated GFR & GFRAA in patients over 70 years has not been determined. Clinical correlation is essential. Serum or plasma urea nitroge n measurement (mass/volume)on 12-31-2021 Urea nitrogen [Mass/Vol] 9 mg/dL 7-18 [facility] Work Phone: Thin prep Papanicolaou smear with manual screeningon 12-31-2021 Thin prep Papanicolaou smear with manual screening 4 5-15 [facility] Work Phone: Vital Signs Date Time Vital Sign Value Performing Clinician Faci chagoy 02-26-2025 18:24-0400 Body temperature 98.4 [degF] No Primary Care Physician [facility] 02-26-2025 18:24-0400 Diastolic blood pressure 78 mm[Hg] No Primary Care Physician [facility] 02-26-2025 18:24-0400 Heart rate 89 /min No Primary Care Physician [facility] 02-26-2025 18:24-0400 Respiratory rate 16 /min No Primary Care Physician [facility] 02-26-2025 18:24-0400 SaO2% (BldA) [Mass fraction] 99 % No Primary Care Physician [facility] 02-26-2025 18:24-0400 Systolic blood pressure 118 mm[Hg] No Primary Care Physician [facility] 02-26-2025 15:45-0400 Body height 175.26 cm No Primary Care Physician [facility] 02-26-2025 15:45-0400 Body mass index (BMI) [Ratio] 26.4 kg/m2 No Primary Care Physician [facility] 02-26-2025 15:45-0400 Body weight 81 kg No Primary Care Physician [facility] 01-19-2025 22:00-0400 Body temperature 97.8 [degF] No Primary Care Physician [facility] 01-19-2025 22:00-0400 Diastolic blood pressure 74 mm[Hg] No Primary Care Physician [facility] 01-19-2025 22:00-0400 Heart rate 81 /min No Primary Care Physician [facility] 01-19-2025 22:00-0400 Respiratory rate 16 /min No Primary Care Physician [facility] 01-19-2025 22:00-0400 SaO2% (BldA) [Mass fraction] 99 % No Primary Care Physician [facility] 01-19-2025 22:00-0400 Systolic blood pressure 115 mm[Hg] No Primary Care Physician [facility] 01-19-2025 18:37-0400 Body height 175.26 cm No Primary Care Physician [facility] 01-19-2025 18:37-0400 Body mass index (BMI) [Ratio] 27.7 kg/m2 No Primary Care Physician [facility] 01-19-2025 18:37-0400 Body weight 85.27 kg No Primary Care Physician [facility] 01-14-2025 14:14-0400 Body temperature 98.1 [degF] No Primary Care Physician [facility] 01-14-2025 14:14-0400 Diastolic blood pressure 78 mm[Hg] No Primary Care Physician [facility] 01-14-2025 14:14-0400 Heart rate 72 /min No Primary Care Physician [facility] 01-14-2025 14:14-0400 Respiratory rate 16 /min No Primary Care Physician [facility] 01-14-2025 14:14-0400 SaO2% (BldA) [Mass fraction] 100 % No Primary Care Physician [facility] 01-14-2025 14:14-0400 Systolic blood pressure 115 mm[Hg] No Primary Care Physician [facility] 01-14-2025 06:51-0400 Body mass index (BMI) [Ratio] 27 kg/m2 No Primary Care Physician [facility] 01-14-2025 06:51-0400 Body weight 83.1 kg No Primary Care Physician [facility] 12-22-2024 12:54-0400 Body temperature 97.8 [degF] No Primary Care Physician [facility] 12-22-2024 12:54-0400 Diastolic blood pressure 62 mm[Hg] No Primary Care Physician [facility] 12-22-2024 12:54-0400 Heart rate 74 /min No Primary Care Physician [facility] 12-22-2024 12:54-0400 Respiratory rate 18 /min No Primary Care Physician [facility] 12-22-2024 12:54-0400 SaO2% (BldA) [Mass fraction] 99 % No Primary Care Physician [facility] 12-22-2024 12:54-0400 Systolic blood pressure 120 mm[Hg] No Primary Care Physician [facility] 12-22-2024 11:54-0400 Body height 172.72 cm No Primary Care Physician [facility] 12-10-2024 09:25-0400 Body mass index (BMI) [Ratio] 28.8 kg/m2 No Primary Care Physician [facility] 12-10-2024 09:25-0400 Body temperature 98.2 [degF] No Primary Care Physician [facility] 12-10-2024 09:25-0400 Body weight 86.18 kg No Primary Care Physician [facility] 12-10-2024 09:25-0400 Diastolic blood pressure 72 mm[Hg] No Primary Care Physician [facility] 12-10-2024 09:25-0400 Heart rate 77 /min No Primary Care Physician [facility] 12-10-2024 09:25-0400 Respiratory rate 15 /min No Primary Care Physician [facility] 12-10-2024 09:25-0400 SaO2% (BldA) [Mass fraction] 99 % No Primary Care Physician [facility] 12-10-2024 09:25-0400 Systolic blood pressure 110 mm[Hg] No Primary Care Physician [facility] 11-05-2024 10:31-0500 Body mass index (BMI) [Ratio] 27.44 kg/m2 Angie Rojas MD Work Phone: [facility] 11-05-2024 10:31-0500 Body temperature 97 [degF] Angie Rojas MD Work Phone: [facility] 11-05-2024 10:31-0500 Body weight 85.28 kg Angie Rojas MD Work Phone: [facility] 11-05-2024 10:31-0500 Diastolic blood pressure 68 mm[Hg] Angie Rojas MD Work Phone: [facility] 11-05-2024 10:31-0500 Heart rate 80 /min Angie Rojas MD Work Phone: [facility] 11-05-2024 10:31-0500 Respiratory rate 16 /min Angie Rojas MD Work Phone: [facility] 11-05-2024 10:31-0500 SaO2% (BldA) [Mass fraction] 98 % Angie Rojas MD Work Phone: [facility] 11-05-2024 10:31-0500 Systolic blood pressure 118 mm[Hg] Angie Rojas MD Work Phone: [facility] 09-29-2024 08:24-0500 Body height 176.3 cm Angie Rojas MD Work Phone: [facility] 09-29-2024 08:24-0500 Body mass index (BMI) [Ratio] 27.14 kg/m2 Angie Rojas MD Work Phone: [facility] 09-29-2024 08:24-0500 Body weight 84.37 kg Angie Rojas MD Work Phone: [facility] 09-29-2024 08:24-0500 Diastolic blood pressure 72 mm[Hg] Angie Rojas MD Work Phone: [facility] 09-29-2024 08:24-0500 Heart rate 65 /min Angie Rojas MD Work Phone: [facility] 09-29-2024 08:24-0500 Respiratory rate 18 /min Angie Rojas MD Work Phone: [facility] 09-29-2024 08:24-0500 SaO2% (BldA) [Mass fraction] 98 % Angie Rojas MD Work Phone: [facility] 09-29-2024 08:24-0500 Systolic blood pressure 124 mm[Hg] Angie Rojas MD Work Phone: [facility] 09-03-2024 09:33-0500 Body mass index (BMI) [Ratio] 27.7 kg/m2 Angie Rojas MD Work Phone: [facility] 09-03-2024 09:33-0500 Body temperature 97.2 [degF] Angie Rojas MD Work Phone: [facility] 09-03-2024 09:33-0500 Body weight 85.09 kg Angie Rojas MD Work Phone: [facility] 09-03-2024 09:33-0500 Diastolic blood pressure 70 mm[Hg] Angie Rojas MD Work Phone: [facility] 09-03-2024 09:33-0500 Heart rate 63 /min Angie Rojas MD Work Phone: [facility] 09-03-2024 09:33-0500 Respiratory rate 16 /min Angie Rojas MD Work Phone: [facility] 09-03-2024 09:33-0500 SaO2% (BldA) [Mass fraction] 99 % Angie Rojas MD Work Phone: [facility] 09-03-2024 09:33-0500 Systolic blood pressure 106 mm[Hg] Angie Rojas MD Work Phone: [facility] 07-04-2024 12:10-0400 Body mass index (BMI) [Ratio] 27.29 kg/m2 Angie Rojas MD Work Phone: [facility] 07-04-2024 12:10-0400 Body weight 83.83 kg Angie Rojas MD Work Phone: [facility] 07-04-2024 12:10-0400 Diastolic blood pressure 68 mm[Hg] Angie Rojas MD Work Phone: [facility] 07-04-2024 12:10-0400 Heart rate 80 /min Angie Rojas MD Work Phone: [facility] 07-04-2024 12:10-0400 Respiratory rate 16 /min Angie Rojas MD Work Phone: [facility] 07-04-2024 12:10-0400 SaO2% (BldA) [Mass fraction] 98 % Angie Rojas MD Work Phone: [facility] 07-04-2024 12:10-0400 Systolic blood pressure 100 mm[Hg] Angie Rojas MD Work Phone: [facility] 05-18-2023 14:38-0400 Body height 175.3 cm Angie Rojas MD Work Phone: [facility] 05-18-2023 14:38-0400 Body weight 80.29 kg Angie Rojas MD Work Phone: [facility] 05-18-2023 14:38-0400 Diastolic blood pressure 72 mm[Hg] Angie Rojas MD Work Phone: [facility] 05-18-2023 14:38-0400 Heart rate 74 /min Angie Rojas MD Work Phone: [facility] 05-18-2023 14:38-0400 Respiratory rate 16 /min Angie Rojas MD Work Phone: [facility] 05-18-2023 14:38-0400 Systolic blood pressure 110 mm[Hg] Angie Rojas MD Work Phone: [facility] 05-10-2023 15:02-0400 Body weight 81.38 kg Angie Rojas MD Work Phone: [facility] 05-10-2023 15:02-0400 Diastolic blood pressure 64 mm[Hg] Angie Rojas MD Work Phone: [facility] 05-10-2023 15:02-0400 Heart rate 76 /min Angie Rojas MD Work Phone: [facility] 05-10-2023 15:02-0400 Respiratory rate 16 /min Angie Rojas MD Work Phone: [facility] 05-10-2023 15:02-0400 SaO2% (BldA) [Mass fraction] 96 % Angie Rojas MD Work Phone: [facility] 05-10-2023 15:02-0400 Systolic blood pressure 106 mm[Hg] Angie Rojas MD Work Phone: [facility] 05-29-2022 21:04-0400 Diastolic blood pressure 69 mm[Hg] No Primary Care Physician [facility] Work Phone: 05-29-2022 21:04-0400 Heart rate 80 /min No Primary Care Physician [facility] Work Phone: 05-29-2022 21:04-0400 Respiratory rate 15 /min No Primary Care Physician [facility] Work Phone: 05-29-2022 21:04-0400 SaO2% (BldA) [Mass fraction] 98 % No Primary Care Physician [facility] Work Phone: 05-29-2022 21:04-0400 Systolic blood pressure 105 mm[Hg] No Primary Care Physician [facility] Work Phone: 05-29-2022 19:50-0400 Body height 172.72 cm No Primary Care Physician [facility] Work Phone: 05-29-2022 19:50-0400 Body mass index (BMI) [Ratio] 26.8 kg/m2 No Primary Care Physician [facility] Work Phone: 05-29-2022 19:50-0400 Body temperature 97.4 [degF] No Primary Care Physician [facility] Work Phone: 05-29-2022 19:50-0400 Body weight 80 kg No Primary Care Physician [facility] Work Phone: 02-16-2022 08:32-0400 Body mass index (BMI) [Ratio] 26.3 kg/m2 No Primary Care Physician [facility] Work Phone: 02-16-2022 08:32-0400 Body temperature 97.7 [degF] No Primary Care Physician [facility] Work Phone: 02-16-2022 08:32-0400 Body weight 78.52 kg No Primary Care Physician [facility] Work Phone: 02-16-2022 08:32-0400 Diastolic blood pressure 88 mm[Hg] No Primary Care Physician [facility] Work Phone: 02-16-2022 08:32-0400 Heart rate 66 /min No Primary Care Physician [facility] Work Phone: 02-16-2022 08:32-0400 Respiratory rate 16 /min No Primary Care Physician [facility] Work Phone: 02-16-2022 08:32-0400 SaO2% (BldA) [Mass fraction] 99 % No Primary Care Physician [facility] Work Phone: 02-16-2022 08:32-0400 Systolic blood pressure 125 mm[Hg] No Primary Care Physician [facility] Work Phone: 12-31-2021 14:45-0400 Diastolic blood pressure 62 mm[Hg] [facility] Work Phone: 12-31-2021 14:45-0400 Heart rate 81 /min [facility] Work Phone: 12-31-2021 14:45-0400 Systolic blood pressure 116 mm[Hg] [facility] Work Phone: 12-31-2021 13:12-0400 Body height 172.[address] [facility] Work Phone: 12-31-2021 13:12-0400 Body mass index (BMI) [Ratio] 25.1 kg/m2 [facility] Work Phone: 12-31-2021 13:12-0400 Body temperature 96.9 [degF] [facility] Work Phone: 12-31-2021 13:120400 Body weight [address] [facility] Work Phone: 12-31-2021 13:120400 Respiratory rate 18 /min [facility] Work Phone: 12-31-2021 13:120400 SaO2% (BldA) [Mass fraction] 98 % [facility] Work Phone: Encounters Encounter Date Encounter Type Care Provider Facility Start: 02-26-2025 End: 02-26-2025 Emergency department patient visit No Primary Care Physician -Emergency Department Work Phone: Start: 02-26-[address] Shawn Grace DO -Cardiovascular Services Work Phone: Start: 01-19-2025 End: 01-19-2025 Emergency department patient visit No Primary Care Physician -Emergency Department Work Phone: Start: 01-14-2025 End: 01-14-2025 Admission to same day surgery center Dr. Shawn Grace DO -Surgical Day Care Start: 01-14-2025 End: 01-14-2025 ambulatory Shawn Grace Facility:[facility] Start: 12-22-2024 End: 12-22-2024 Emergency department patient visit No Primary Care Physician -Emergency Department Work Phone: Start: 12-10-2024 End: 12-10-[address] Toy Lyons MD -[facility] Work Phone: Start: 12-10-2024 End: 12-10-2024 ambulatory Toy Lyons Facility:[facility] Start: 11-05-2024 End: 11-05-2024 ambulatory ANGIE ROJAS Facility:[facility] Start: 11-05-2024 End: 11-05-2024 Patient encounter procedure Angie Rojas MD Work Phone: [facility] [place] Comment on above: Acute recurrent fron maddie sinusitis (Primary Dx) Start: 10-01-2024 End: 10-01-2024 Telephone encounter Mona Luevano APRN.CNP Work Phone: [facility] [place] Comment on above: Results Start: 09-29-2024 End: 09-29-2024 Patient encounter procedure Angie Rojas MD Work Phone: [facility] [place] Comment on above: Annual physical exam (Primary Dx); Migraine without aura and without status migrainosus, not intractable; Male pattern baldness Start: 09-29-2024 End: 09-29-2024 ambulatory ANGIE ROJAS Facility:[facility] Start: 09-03-2024 End: 09-03-2024 Patient encounter procedure Angie Rojas MD Work Phone: [facility] [place] Comment on above: Bacterial conjunctiv itis (Primary Dx) Start: 09-03-2024 End: 09-03-2024 ambulatory ANGIE ROJAS Facility:[facility] Start: 07-04-2024 End: 07-04-2024 Patient encounter procedure Angie Rojas MD Work Phone: [facility] [place] Comment on above: Attempting to concei ve (Primary Dx) Start: 07-04-2024 End: 07-04-2024 ambulatory ANGIE ROJAS Facility:[facility] Start: 05-31-2023 Telephone encounter Isa Bush MD Work Phone: [facility] [place] Comment on above: Appointment Start: 05-19-2023 End: 05-19-2023 Patient encounter procedure Isa Bush MD Work Phone: Dermatology Comment on above: Subcutaneous nodules (Primary Dx); Patchy loss of hair; Hypertrophic scar Start: 05-18-2023 End: 05-18-2023 Patient encounter procedure Angie Rojas MD Work Phone: [facility] [place] Comment on above: Scalp cyst (Primary Dx); Patchy loss of hair; Alopecia areata Start: 05-17-2023 ambulatory Angie Rojas MD Work Phone: [facility] Comment on above: Cysts and Hair Loss Start: 05-10-2023 End: 05-10-2023 Patient encounter procedure Angie Rojas MD Work Phone: [facility] Comment on above: Wrist pain, left (Pr imary Dx); Family history of rheumatoid arthritis Start: 10-18-2022 End: 10-18-2022 ambulatory [facility] Work Phone: Start: 10-18-2022 End: 10-18-2022 Patient encounter procedure [facility]-Radiology, [facility] Start: 05-29-2022 End: 05-29-2022 Emergency department patient visit No Primary Care Physician [facility]-Emergency Department Start: 02-16-2022 End: 02-16-2022 Patient encounter procedure No Primary Care Physician [facility] Start: 12-31-2021 End: 12-31-2021 Emergency department patient visit [facility]-Emergency Department Procedures Date Procedure Procedure Detail Performing Clinician Start: 01-19-2025 End: 01-19-2025 Plain X-ray abdomen No Primary Care Physician Start: 12-22-2024 X-ray of knee, four or more views No Primary Care Physician Start: 09-29-2024 Lipid 1996 panel - Serum or Plasma Mona Luevano APRN.CNP Work Phone: Start: 01-27-2023 Lipid 1996 panel - Serum or Plasma Isa Bush MD Work Phone: Start: 10-18-2022 Radiography of thoracic spine Start: 10-18-2022 X-ray of cervical spine Start: 10-18-2022 X-ray of lumbar spine, two or three views Start: 05-29-2022 CT of head without contrast No Primary Care Physician Start: 12-31-2021 End: 12-31-2021 Viral antigen assay History of reconstruction of anterior cruciate ligament tear History of repair of ACL No Primary Care Physician History of reconstruction of anterior cruciate ligament tear Status post arthroscopic reconstruction of anterior cruciate ligament of right knee using quadriceps tendon autograft No Primary Care Physician Viral antigen assay No Prima ry Care Physician Plan of Treatment Date Care Activity Detail Author Start: 12-15-2033 Urine microalbumin profile DTaP,Tdap,Td Vaccine (3 - Td or Tdap) [facility] Start: 01-27-2033 Urine microalbumin profile [facility] Start: 09-29-2029 Lipid panel Lipid Screening [facility] Start: 01-28-2028 Lipid 1996 panel - S bettie or Plasma Lipid Screening [facility] Start: 01-28-2028 Lipid panel Lipid Screening [facility] Start: 01-28-2028 LIPID SCREEN LIPID SCREEN [facility] Start: 10-04-2025 End: 10-04-2025 Patient encounter procedure 10/04/2025 8:00 AM EST Office Visit [facility] [place] [address], [place] [id number] Angie Rojas MD [address] [place], [place] [phone] Physical [facility] [place] Comment on above: Physical Start: 07-04-2025 Covid-19 Vaccine ( season) Covid-19 Vaccine () [facility] Comment on above: Postponed from 05/13 (Declined at this time) Start: 03-18-2025 ambulatory Ambulatory Facility:[facility] Start: 01-19-2025 [facility] Start: 01-19-2025 Plain X-ray abdomen Abdomen Si ngle View (Portable) [facility] Start: 01-19-2025 XR Abdomen Single view [facility] Start: 01-14-2025 Anes open/surg arthroscopic proc knee joint nos ANESTH KNEE JOINT SURGERY [facility] Start: 01-14-2025 Arthroscopy knee w/meniscus rpr medial/lateral KNEE ARTHROSCOPY/SURGERY [facility] Start: 01-14-2025 Arthrs aided ant cru ciate ligm rpr/agmntj/rcnstj KNEE ARTHROSCOPY/SURGERY [facility] Start: 01-14-2025 Injection aa&/strd femoral nerve NJX AA&/STRD FEMORAL NRV IMG [facility] Start: 01-14-2025 Application of ice collar, cap or bag [facility] Start: 01-14-2025 Catheterization of vein [facility] Start: 01-14-2025 Following clinical pathway protocol [facility] Start: 01-14-2025 Patient discharge [facility] Start: 01-14-2025 Procedure discontinued [facility] Start: 01-14-2025 Taking patient vital signs [facility] Start: 01-14-2025 Vital signs measurements [facility] Start: 01-14-2025 [facility] Start: 01-14-2025 Medication education [facility] Start: 12-22-2024 [facility] Start: 12-21-2024 End: 12-21-2024 Patient encounter procedure 12/21/2024 10:40 AM EDT Office Visit [facility] [place] [address] [facility] [place], [place] [address] Angie Rojas MD [address] [facility] [place] [phone] [facility] Comment on above: General Health Start: 09-29-2024 End: 12-29-2024 CBC W Auto Differential panel - Blood [facility] Work Phone: Comment on above: Expected: 09/29/2024 , Expires: 12/29/2024 Start: 09-29-2024 End: 12-29-2024 Comprehensive metabolic 2000 panel - Serum or Plasma [facility] Comment on above: Expected: 09/29/2024 , Expires: 12/29/2024 Start: 09-29-2024 End: 12-29-2024 Lipid 1996 panel - Serum or Plasma [facility] Comment on above: Expected: 09/29/2024 , Expires: 12/29/2024 Start: 09-29-2024 End: 09-29-2024 Patient encounter procedure 09/29/2024 8:40 AM EST Office Visit [facility] [place] [address] [facility] [place], [place] [address] Angie Rojas MD [address] [facility] [place] [phone] General Health [facility] [place] Comment on above: General Health Start: 01-28-2024 COVID-19 VACCINE (4 - Moderna series) COVID-19 VACCINE (4 - Moderna series) [facility] Comment on above: Postponed from 09/25 (Declined at this time) Start: 01-28-2024 HEPATITIS B (1 of 3 - 3-dose series) HEPATITIS B (1 of 3 - 3-dose series) [facility] Comment on above: Postponed from 01/15 (Declined at this time) Start: 01-28-2024 Hepatitis B Vaccine (1 of 3 - 3-dose series) Hepatitis B Vaccine (1 of 3 - 3-dose series) [facility] Comment on above: Postponed from 01/15 (Declined at this time) Start: 05-10-2023 End: 07-10-2023 C reactive protein [Mass/volume] in Serum or Plasma [facility] Work Phone: Comment on above: Expected: 05/10/2023 , Expires: 07/10/2023 Start: 05-10-2023 End: 07-10-2023 Cyclic citrullinated peptide IgG Ab [Units/volume] in Serum or Plasma [facility] Work Phone: Comment on above: Expected: 05/10/2023 , Expires: 07/10/2023 Start: 05-10-2023 End: 07-10-2023 Nuclear Ab [Presence] in Serum by Immunoassay [facility] Work Phone: Comment on above: Expected: 05/10/2023 , Expires: 07/10/2023 Start: 05-10-2023 End: 07-10-2023 Rheumatoid factor [Units/volume] in Serum or Plasma [facility] Work Phone: Comment on above: Expected: 05/10/2023 , Expires: 07/10/2023 Start: 05-10-2023 End: 07-10-2023 Urate [Mass/volume] in Serum or Plasma [facility] Work Phone: Comment on above: Expected: 05/10/2023 , Expires: 07/10/2023 Start: 05-06-2007 Hepatitis B Vaccine (1 of 3 - 19+ 3-dose series) Hepatitis B Vaccine (1 of 3 - 19+ 3-dose series) [facility] Start: 01-15-2007 Pneumococcal vaccination Pneum ococcal Vaccine (1 of 2 - PCV) [facility] Start: 01-15-2006 Anxiety Screening Anxiety Screening [facility] Start: 01-15-2006 Depression Screening Depression Scre ening [facility] Start: 01-15-1994 PNEUMOCOCCAL (1 - PCV) PNEUMOCOCCAL (1 - PCV) [facility] Start: 01-15-1994 Pneumococcal vaccination [facility] Patient Education [facility] Work Phone: Patient referral [facility] Work Phone: [facility] Immunizations Immunization Date Immunization Notes Care Provider Fa cility 01-27-2023 tetanus toxoid, redu dean diphtheria toxoid, and acellular pertussis vaccine, adsorbed Angie Rojas MD Work Phone: [facility] Payers Date Payer Category Payer Self-pay [id number] 2021 [employer] [facility] Subscriber Plan / Payer (Effective 2021-Present) Name: Brooke Baugh Relation to Subscriber: Self Name: Brooke Baugh Payer ID: [id number] (NAIC) Type: PPO Address: [address] [place] [id number] 2021 Unknown MICHAEL TRAYLOR ACCE SS O [id number] 2021-Present [phone] [address] [place] [address] O [id number] 2021 Unknown [id number] Private Health Insurance [id number] Unknown [id number] Unknown [id number] Unknown [id number] Unknown [id number] Unknown [id number] Social History Date Type Detail Facility Start: 12-31-2021 End: 05-29-2022 Tobacco smoking status WYIS Unknown if ever smoked [facility] Start: 1990 Sex Assigned At Male [facility] Start: 01-27-2023 [facility] Occasional tobacco smoker [facility] Work Phone: History of tobacco use Cigarette Smoker [facility] Work Phone: Start: 01-27-2023 End: 09-29-2024 Tobacco use and exposure Smokeless tobacco non-user [facility] Work Phone: Start: 05-10-2023 End: 09-29-2024 Alcohol intake Current drinker of alcohol (finding) [facility] Start: 01-20-2023 End: 01-27-2023 History of Social function [facility] Start: 01-20-2023 End: 01-27-2023 Social connection and isolation panel [facility] Do you belong to any clubs or organizations such as anglican groups, unions, fraternal or athletic groups, or school groups? No [facility] How often do you att end meetings of the clubs or organizations you belong to? Patient refused [facility] Are you now , , , , never or living with a partner? [facility] How often to you hav e a drink containing alcohol? Monthly or less [facility] How many standard dr inks containing alcohol do you have on a typical day? 1 or 2 [facility] How often do you hav e 6 or more drinks on 1 occasion? Never [facility] Do you feel stress - tense, restless, nervous, or anxious, or unable to sleep at night because your mind is troubled all the time - these days [OSQ] Not at all [facility] (I/We) worried wheth er (my/our) food would run out before (I/we) got money to buy more. Never true [facility] Start: 01-27-2023 Tobacco Comment 1 cigarette ma ybe once every 6 months [facility] Start: 01-27-2023 Alcohol Comment 1 drink per month [facility] Start: 12-19-2022 Gender identity Identifies as male gender (finding) [facility] Do you belong to any clubs or organizations such as anglican groups, unions, fraternal or athletic groups, or school groups? Yes [facility] How often to you hav e a drink containing alcohol? 2-4 times a month [facility] Start: 09-29-2024 Tobacco smoking stat us WYIS Ex-smoker [facility] History of tobacco use Current smoker [facility] Start: 12-22-2024 End: 02-26-2025 Tobacco smoking status WYIS Never smoked tobacco (finding) [facility] Start: 12-22-2024 Sex Male (finding) [facility] Medical Equipment Procedure Code Equipment Code Equipment Origin al Text Equipment Identifier Dates Arthroscopy, knee, with meniscectomy SUTURETAPE,FIBER LOOP FDA Start: 01-14-2025 Arthroscopy, knee, with meniscectomy Tendon/ligament bone anchor, non-bioabsorbable [id number] FDA Start: 01-14-2025 Arthroscopy, knee, with meniscectomy Tendon/ligament bone anchor, non-bioabsorbable ()[id number] FDA Start: 01-14-2025 Arthroscopy, knee, with meniscectomy Tendon/ligament bone anchor, bioabsorbable ()[id number] FDA Start: 01-14-2025 Arthroscopy, knee, with meniscectomy Tendon/ligament bone anchor, non-bioabsorbable ()[id number] FDA Start: 01-14-2025 Arthroscopy, knee, with meniscectomy Soft-tissue/mesh anchor, non-bioabsorbable ()[id number] FDA Start: 01-14-2025 Arthroscopy, knee, with meniscectomy SUTURETAPE,FIBER LOOP FDA Start: 01-14-2025 Goals Date Patient Goal Desired Activity /State Mental Status Date Assessment Result Facility 01-14-2025 Cognitive function Level Of Consciousness Sedated [facility] Work Phone: 01-14-2025 Cognitive function Voice/Name [facility] Work Phone: 05-29-2022 Cognitive function Level Of Cons ciousness Awake;Alert;Appropriate;Follow s Commands [facility] Work Phone: 12-31-2021 Cognitive function Level Of Cons ciousness Awake;Alert;Appropriate;Follow s Commands [facility] Work Phone: Clinical Notes 05-10-2023 to 01-19-2025 Note Date & Type Note Facility 01-19-2025 Radiology Diagnostic study note [facility] Imaging Services [address] [place], [place] [address] Abdomen Single View (Portable) MR#: [id number] Acct: [id number] Name: BROOKE BAUGH Rep #: [id number] : 1990 M 35 From: Keshia Landeros MD PCP: Dr. Brandon Rojas MD Status: REG ER Study:Abdomen Single View (Portable) Date of Exam: 01/19/25 Exam# [id number] Ordering Dr: Guzman Hills DO PROCEDURE: ABDOMEN SINGLE VIEW (PORTABLE) 01/19/2025 REASON FOR EXAM: CONSTIPATION TECHNIQUE: Single view abdomen. COMPARISON: None FINDINGS: Bowel gas: Nonobstructive bowel gas pattern. Moderate colonic stool. Calcifications: No suspicious calcifications. Bones: The bones are unremarkable. Other: Imaged lung jackman unremarkable RAD/Abdomen Single View (Portable) IMPRESSION: Nonobstructive bowel gas pattern. Moderate colonic stool. Reading Location: COUNTS INCLUDE [facility] BEDS AT THE [facility] CC: Dr. Brandon Rojas MD; Dr. Guzman Hills DO ~ Head Shipper: Signed [facility] 12-22-2024 Radiology Diagnostic study note [facility] Imaging Services [address] [place] [address] Knee 4 or More Views MR#: [id number] Acct: [id number] Name: BROOKE BAUGH Rep #: [id number] : 1990 M 34 From: Katelyn Larry MD PCP: Dr. Brandon Rojas MD Status: REG ER Study:Knee 4 or More Views Date of Exam: 12/22/24 Exam# [id number] Ordering Dr: Mandy Batista MD PROCEDURE: KNEE 4 OR MORE VIEWS 12/22/2024 REASON FOR EXAM: INJURED PLAYING SOCCER TECHNIQUE: 4 view(s) of the right knee COMPARISON: None. FINDINGS: Bones: Findings of prior ACL reconstruction with femoral endo-button and femoraland tibial tunnels. No acute osseous fracture. Joints: Normal alignment. Mild degenerative changes. Effusion: No effusion. Soft tissues: Soft tissues are unremarkable. RAD/Knee 4 or More Views IMPRESSION: Negative knee radiographs. Reading Location: [facility] CC: Dr. Brandon Rojas MD; Dr. Alexey Batista MD ~ Head Shipper: Signed [facility] 12-10-2024 Evaluation note Diagnosis Onset Date Resolution Migraine without aura, not intractable, without status migrainosus chronic December 10, 2024 9:25am [facility] Work Phone: 1(201) 356-666602-24-2025 NoteHNO ID: [id number] Author: ANGIE ROJAS MD Service: ? Author Type: Physician Type: Progress Notes Filed: 11/07/2024 13:00 Note Text: Chief Complaint Patient presents with: Sinus Problem: inflammation HPI Brooke Baugh is a 34 year old male who presents here today for Above Complaints.. Patient states that about 10 days ago he developed: sore throat, nasal congestion, headache. Symptoms resolved after about 4-5 days, but then developed sinus symptoms. Complaining today of intermittent pressure on the left maxillary and frontal sinus after blowing his nose. Treating with heating pad, massage, Advil and sinus rinse x 2 without much improvement in symptoms. Denies fever/chills, cough, SOB, wheezing, ear pain/fullness, sore throat, fatigue, nasal congestion, rhinorrhea, nausea, vomiting, diarrhea. Past medical history, appointments, medications, allergies reviewed. Previous Medical History PAST MEDICAL HISTORY Diagnosis Date Bilateral bunions Male pattern baldness Migraine Right ACL tear Seasonal allergies Previous Surgical History PAST SURGICAL HISTORY Procedure Laterality Date PAST SURGICAL HISTORY OF Right 2019 ACL repair Family History FAMILY HISTORY Problem Relation Age of Onset No Known Problems Mother other (rheumatoid arthritis) Father Thyroid Father No Known Problems Brother Stroke Paternal Grandmother Patient Allergies ALLERGIES No Known Allergies Current Medications Current Outpatient Medications on File Prior to Visit Medication Sig minoxidil (LONITEN) 2.5 mg tablet Take 0.5 tablets by mouth once daily. Taking 1/2 tab SUMAtriptan (IMITREX) 50 mg tablet Take 50 mg by mouth as needed for migraine headache (see administration instructions). No current facility-administered medications on file prior to visit. Social History Social History Tobacco Use Smoking status: Former Types: Cigarettes Smokeless tobacco: Never Tobacco comments: 1 cigarette maybe once every 6 months Vaping Use Vaping status: Never Used Substance Use Topics Alcohol use: Yes Alcohol/week: 1.0 standard drink of alcohol Types: 1 Standard drinks or equivalent per week Drug use: Never Review of Symptoms REVIEW OF SYSTEMS See HPI EXAM: BP 118/68 Pulse 80 Temp 36.1 ?C (97 ?F) Resp 16 Wt 85.3 kg (188 lb) SpO2 98% BMI 27.44 kg/m? General Appearance: Well appearing, alert, in no acute distress, well-hydrated, well nourished.. Skin: Skin color, texture, turgor normal, no suspicious rashes or lesions. Head: Normocephalic, no masses, lesions, tenderness or abnormalities. Eyes: Anicteric sclera. Pupils are equally round and reactive to light. Extraocular movements are intact. . Ears: External ears normal, canals clear. Nose/Sinuses: Negative findings: no sinus tenderness, Positive findings: mucosa erythematous and swollen. Oropharynx: Lips, mucosa, and tongue normal, teeth and gums normal, oropharynx normal. Neck: Supple, no adenopathy; thyroid symmetric, normal size, no bruits. Lungs: Lungs clear to auscultation. No wheezing, rhonchi, rales.. Heart: RRR without murmur, gallop, or rubs. No ectopy. Health Maintenance List Depression Screening Never done Anxiety Screening Never done Covid-19 Vaccine( season) due on 07/04/2025 Lipid Screening due on 09/29/2029 DTaP,Tdap,Td Vaccine(3 - Td or Tdap) due on 12/15/2033 Influenza Vaccine Completed Hepatitis C Screening Completed HIV Screening Completed Hepatitis B Vaccine Discontinued ASSESSMENT/PLAN: 1. Acute recurrent frontal sinusitis - ICD9: 461.1, ICD10: J01.11 - Will begin treatment with Augmentin 875 mg PO BID for 10 days along with flonase - The patient should also be given nasal saline gtts and suction prn for the first 5-7 days of treatment. - Supportive care with plenty of fluids, rest, and analgesia prn. - Follow up in one week if symptoms persist or worsen. Angie Rojas [facility]02-24-2025 History of Present illness Narrative* Angie Rojas MD - 11/05/2024 10:45 AM EST Chief Complaint Patient presents with: Sinus Problem: inflammation HPI Brooke Baugh is a 34 year old male who presents here today for Above Complaints.. Patient states that about 10 days ago he developed: sore throat, nasal congestion, headache. Symptoms resolved after about 4-5 days, but then developed sinus symptoms. Complaining today of intermittent pressure on the left maxillary and frontal sinus after blowing his nose. Treating with heating pad, massage, Advil and sinus rinse x 2 without much improvement in symptoms. Denies fever/chills, cough, SOB, wheezing, ear pain/fullness, sore throat, fatigue, nasal congestion, rhinorrhea, nausea, vomiting, diarrhea. Past medical history, appointments, medications, allergies reviewed. Previous Medical History PAST MEDICAL HISTORY Diagnosis Date Bilateral bunions Male pattern baldness Migraine Right ACL tear Seasonal allergies Previous Surgical History PAST SURGICAL HISTORY Procedure Laterality Date PAST SURGICAL HISTORY OF Right 2019 ACL repair Family History FAMILY HISTORY Problem Relation Age of Onset No Known Problems Mother other (rheumatoid arthritis) Father Thyroid Father No Known Problems Brother Stroke Paternal Grandmother Patient Allergies ALLERGIES No Known Allergies Current Medications Current Outpatient Medications on File Prior to Visit Medication Sig minoxidil (LONITEN) 2.5 mg tablet Take 0.5 tablets by mouth once daily. Taking 1/2 tab SUMAtriptan (IMITREX) 50 mg tablet Take 50 mg by mouth as needed for migraine headache (see administration instructions). No current facility-administered medications on file prior to visit. Social History Social History Tobacco Use Smoking status: Former Types: Cigarettes Smokeless tobacco: Never Tobacco comments: 1 cigarette maybe once every 6 months Vaping Use Vaping status: Never Used Substance Use Topics Alcohol use: Yes Alcohol/week: 1.0 standard drink of alcohol Types: 1 Standard drinks or equivalent per week Drug use: Never Review of Symptoms REVIEW OF SYSTEMS See HPI EXAM: BP 118/68 Pulse 80 Temp 36.1 C (97 F) Resp 16 Wt 85.3 kg (188 lb) SpO2 98% BMI 27.44 kg/m General Appearance: Well appearing, alert, in no acute distress, well-hydrated, well nourished.. Skin: Skin color, texture, turgor normal, no suspicious rashes or lesions. Head: Normocephalic, no masses, lesions, tenderness or abnormalities. Eyes: Anicteric sclera. Pupils are equally round and reactive to light. Extraocular movements are intact. . Ears: External ears normal, canals clear. Nose/Sinuses: Negative findings: no sinus tenderness, Positive findings: mucosa erythematous and swollen. Oropharynx: Lips, mucosa, and tongue normal, teeth and gums normal, oropharynx normal. Neck: Supple, no adenopathy; thyroid symmetric, normal size, no bruits. Lungs: Lungs clear to auscultation. No wheezing, rhonchi, rales.. Heart: RRR without murmur, gallop, or rubs. No ectopy. Health Maintenance List Depression Screening Never done Anxiety Screening Never done Covid-19 Vaccine( season) due on 07/04/2025 Lipid Screening due on 09/29/2029 DTaP,Tdap,Td Vaccine(3 - Td or Tdap) due on 12/15/2033 Influenza Vaccine Completed Hepatitis C Screening Completed HIV Screening Completed Hepatitis B Vaccine Discontinued ASSESSMENT/PLAN: 1. Acute recurrent frontal sinusitis - ICD9: 461.1, ICD10: J01.11 - Will begin treatment with Augmentin 875 mg PO BID for 10 days along with flonase - The patient should also be given nasal saline gtts and suction prn for the first 5-7 days of treatment. - Supportive care with plenty of fluids, rest, and analgesia prn. - Follow up in one week if symptoms persist or worsen. Angie Rojas [facility] encounter Note * Telephone Encounter - Virginia Mi LPN - 10/01/2024 2:57 PM EST Detailed message left on [facility]. Advised patient to call in if any questions. Virginia Mi LPN [facility]01-20-2025 Miscellaneous Notes* Telephone Encounter - Virginia Mi LPN - 10/01/2024 2:57 PM EST Detailed message left on [employer]. Advised patient to call in if any questions. Virginia Mi LPN * Telephone Encounter - Mona Luevano APRN.CNP - 10/01/2024 2:52 PM EST Total and and cholesterol elevated some. Recommend low saturated fat diet and aim for at least 150 minutes of exercise per week. The rest of his blood work is normal. Mona Luevano APRN.LISA [facility] Telephone encounter Note * Telephone Encounter - Mona Luevano APRN.CNP - 10/01/2024 2:52 PM EST Total and and cholesterol elevated some. Recommend low saturated fat diet and aim for at least 150 minutes of exercise per week. The rest of his blood work is normal. Mona Luevano APRN.CNP [facility] Work Phone: [phone] 537-255001-18-2025 NoteHNO ID: [id number] Author: ANGIE ROJAS MD Service: ? Author Type: Physician Type: Progress Notes Filed: 09/29/2024 09:14 Note Text: Chief Complaint Patient presents with: Physical HPI Brooke Baugh is a 34 year old male who presents here today for Above Complaints. Patient has been in good health without recent hospitalizations, ER visits. No concerns today. Patient with history of migraines which is well controlled with the Imitrex PRN. Uses anywhere from 0-5 times per month. Triggered by using laptop too often and loud noises. Admits to photophobia and phonophobia. Denies nausea, vomiting, or auras. Sees [facility] [facility] Dr. Lyons once per year for his refills. 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 Working well without side effects. Has f/u in 2 weeks with their office. Used to smoke about 1 cigarette every 6 months, but has not smoked in more than 1 year. Has smoked less than 5 packs in his whole life. Past medical history, appointments, medications, allergies reviewed. Previous Medical History PAST MEDICAL HISTORY Diagnosis Date Male pattern baldness Migraine Right ACL tear Seasonal allergies Previous Surgical History PAST SURGICAL HISTORY Procedure Laterality Date PAST SURGICAL HISTORY OF Right 2019 ACL repair Family History FAMILY HISTORY Problem Relation Age of Onset No Known Problems Mother other (rheumatoid arthritis) Father Thyroid Father No Known Problems Brother Stroke Paternal Grandmother Patient Allergies ALLERGIES No Known Allergies Current Medications Current Outpatient Medications on File Prior to Visit Medication Sig minoxidil (LONITEN) 2.5 mg tablet Take 2.5 mg by mouth once daily. Taking 1/2 tab naproxen (NAPROSYN) 500 mg tablet Take 1 tablet by mouth twice daily as needed. Take with food. SUMAtriptan (IMITREX) 50 mg tablet Take 50 mg by mouth as needed for migraine headache (see administration instructions). dutasteride (AVODART) 0.5 mg capsule Take 0.5 mg by mouth once daily. (Patient not taking: Reported on 09/03/2024) triamcinolone acetonide (KENALOG) 0.1 % ointment Apply to affected areas on the scalp twice daily Tuesday-Tuesday. Take weekends off. Avoid use on face, armpits, and groin. (Patient not taking: Reported on 09/29/2024) No current facility-administered medications on file prior to visit. Social History Social History Tobacco Use Smoking status: Some Days Types: Cigarettes Smokeless tobacco: Never Tobacco comments: 1 cigarette maybe once every 6 months Substance Use Topics Alcohol use: Yes Comment: 1 drink per month Drug use: Never Review of Symptoms REVIEW OF SYSTEMS GENERAL: No weight loss, malaise or fevers HEENT: No changes in hearing or vision, no nose bleeds or other nasal problems, SEE HPI NECK: Negative for lumps, goiter, pain and significant neck swelling RESPIRATORY: Negative for cough, hemoptysis, wheezing, COPD, dyspnea or shortness of breath CARDIOVASCULAR: Negative for chest pain, leg swelling, hypertension, CHF or palpitations GI: No nausea, vomiting, or diarrhea : No history of dysuria, frequency or incontinence MUSCULOSKELETAL: Negative for joint pain or swelling, back pain or muscle pain SKIN: Negative for lesions, rash, and itching PSYCH: Negative for sleep disturbance, mood disorder and recent psychosocial stressors HEMATOLOGY/LYMPHOLOGY: Negative for prolonged bleeding, bruising easily or swollen nodes ENDOCRINE: Negative for cold or heat intolerance, polyuria, polydipsia and goiter NEURO: No history of syncope, paralysis, seizures or tremors EXAM: BP 124/72 Pulse 65 Resp 18 Ht 176.3 cm (5' 9.41) Wt 84.4 kg (186 lb) SpO2 98% BMI 27.14 kg/m? General Appearance: Well appearing, alert, in no acute distress, well-hydrated, well nourished.. Skin: Skin color, texture, turgor normal, no suspicious rashes or lesions. Head: Normocephalic, no masses, lesions, tenderness or abnormalities. Eyes: Anicteric sclera. Pupils are equally round and reactive to light. Extraocular movements are intact. . Ears: External ears normal, canals clear. Nose/Sinuses: Nares normal, septum midline, mucosa normal, no drainage or sinus tenderness. Oropharynx: Lips, mucosa, and tongue normal, teeth and gums normal, oropharynx normal. Neck: Supple, no adenopathy; thyroid symmetric, normal size, no bruits. Lungs: Lungs clear to auscultation. No wheezing, rhonchi, rales.. Heart: RRR without murmur, gallop, or rubs. No ectopy. Abdomen: Normal abdominal exam, Abdomen soft, non-tender. Bowel sounds normal. No masses, organomegaly. Extremities: No deformities, edema, skin discoloration, clubbing or cyanosis. Good capillary refill. . Peripheral Pulses: Normal. Neurologic: Gait normal. Reflexes normal and symmetric. Sensation grossly intact.. Lymph Nodes: No cervical lymphadeno (more content not included)...[facility]01-18-2025 History of Present illness Narrative* Angie Rojas MD - 09/29/2024 8:36 AM EST Chief Complaint Patient presents with: Physical HPI Brooke Baugh is a 34 year old male who presents here today for Above Complaints. Patient has been in good health without recent hospitalizations, ER visits. No concerns today. Patient with history of migraines which is well controlled with the Imitrex PRN. Uses anywhere from0-5 times per month. Triggered by using laptop too often and loud noises. Admits to photophobia andphonophobia. Denies nausea, vomiting, or auras. Sees [place] [facility] Dr. Lyons once per year for his refills. 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 Working well without side effects. Has f/u in 2 weeks with their office. Used to smoke about 1 cigarette every 6 months, but has not smoked in more than 1 year. Has smoked less than 5 packs in his whole life. Past medical history, appointments, medications, allergies reviewed. Previous Medical History PAST MEDICAL HISTORY Diagnosis Date Male pattern baldness Migraine Right ACL tear Seasonal allergies Previous Surgical History PAST SURGICAL HISTORY Procedure Laterality Date PAST SURGICAL HISTORY OF Right 2019 ACL repair Family History FAMILY HISTORY Problem Relation Age of Onset No Known Problems Mother other (rheumatoid arthritis) Father Thyroid Father No Known Problems Brother Stroke Paternal Grandmother Patient Allergies ALLERGIES No Known Allergies Current Medications Current Outpatient Medications on File Prior to Visit Medication Sig minoxidil (LONITEN) 2.5 mg tablet Take 2.5 mg by mouth once daily. Taking 1/2 tab naproxen (NAPROSYN) 500 mg tablet Take 1 tablet by mouth twice daily as needed. Take with food. SUMAtriptan (IMITREX) 50 mg tablet Take 50 mg by mouth as needed for migraine headache (see administration instructions). dutasteride (AVODART) 0.5 mg capsule Take 0.5 mg by mouth once daily. (Patient not taking: Reportedon 09/03/2024) triamcinolone acetonide (KENALOG) 0.1 % ointment Apply to affected areas on the scalp twice daily Tuesday-Tuesday. Take weekends off. Avoid use on face, armpits, and groin. (Patient not taking: Reported on 09/29/2024) No current facility-administered medications on file prior to visit. Social History Social History Tobacco Use Smoking status: Some Days Types: Cigarettes Smokeless tobacco: Never Tobacco comments: 1 cigarette maybe once every 6 months Substance Use Topics Alcohol use: Yes Comment: 1 drink per month Drug use: Never Review of Symptoms REVIEW OF SYSTEMS GENERAL: No weight loss, malaise or fevers HEENT: No changes in hearing or vision, no nose bleeds or other nasal problems, SEE HPI NECK: Negative for lumps, goiter, pain and significant neck swelling RESPIRATORY: Negative for cough, hemoptysis, wheezing, COPD, dyspnea or shortness of breath CARDIOVASCULAR: Negative for chest pain, leg swelling, hypertension, CHF or palpitations GI: No nausea, vomiting, or diarrhea : No history of dysuria, frequency or incontinence MUSCULOSKELETAL: Negative for joint pain or swelling, back pain or muscle pain SKIN: Negative for lesions, rash, and itching PSYCH: Negative for sleep disturbance, mood disorder and recent psychosocial stressors HEMATOLOGY/LYMPHOLOGY: Negative for prolonged bleeding, bruising easily or swollen nodes ENDOCRINE: Negative for cold or heat intolerance, polyuria, polydipsia and goiter NEURO: No history of syncope, paralysis, seizures or tremors EXAM: BP 124/72 Pulse 65 Resp 18 Ht 176.3 cm (5' 9.41) Wt 84.4 kg (186 lb) SpO2 98% BMI 27.14 kg/m General Appearance: Well appearing, alert, in no acute distress, well-hydrated, well nourished.. Skin: Skin color, texture, turgor normal, no suspicious rashes or lesions. Head: Normocephalic, no masses, lesions, tenderness or abnormalities. Eyes: Anicteric sclera. Pupils are equally round and reactive to light. Extraocular movements are intact. . Ears: External ears normal, canals clear. Nose/Sinuses: Nares normal, septum midline, mucosa normal, no drainage or sinus tenderness. Oropharynx: Lips, mucosa, and tongue normal, teeth and gums normal, oropharynx normal. Neck: Supple, no adenopathy; thyroid symmetric, normal size, no bruits. Lungs: Lungs clear to auscultation. No wheezing, rhonchi, rales.. Heart: RRR without murmur, gallop, or rubs. No ectopy. Abdomen: Normal abdominal exam, Abdomen soft, non-tender. Bowel sounds normal. No masses, organomegaly. Extremities: No deformities, edema, skin discoloration, clubbing or cyanosis. Good capillary refill. . Peripheral Pulses: Normal. Neurologic: Gait normal. Reflexes normal and symmetric. Sensation grossly intact.. Lymph Nodes: No cervical lymphadenopathy and No supraclavicular lymphadenopathy. Health Maintenance List Depression Screening Never done Anxiety Screening Never done Hepatitis B Vaccine(1 of 3 - 19+ 3-dose series) Never done Pneumococcal Vaccine(1 of 2 - PCV) Never done Covid-19 Vaccine(2023- season) due on 07/04/2025 Lipid Screening due on 01/28/2028 DTaP,Tdap,Td Vaccine(3 - Td or Tdap) due on 12/15/2033 Influenza Vaccine Completed Hepatitis C Screening Completed HIV Screening Completed HPV Vaccine Aged Out Data reviewed Latest Ref Rng 01/27/2023 05/10/2023 WBC 3.70 - 11.00 k/uL 7.96 8.83 RBC 4.20 - 6.00 m/uL 5.12 5.12 Hemoglobin 13.0 - 17.0 g/dL 15.3 15.0 Hematocrit 39.0 - 51.0 % 45.7 44.3 MCV 80.0 - 100.0 fL 89.3 86.5 MCH 26.0 - 34.0 pg 29.9 29.3 MCHC 30.5 - 36.0 g/dL 33.5 33.9 RDW-CV 11.5 - 15.0 % 11.9 11.9 Platelet Count 150 - 400 k/uL 195 218 MPV 9.0 - 12.7 fL 10.9 10.2 Neut% % 58.9 57.8 Abs Neut (ANC) 1.45 - 7.50 k/uL 4.70 5.10 Lymph% % 30.7 32.4 Abs Lymph 1.00 - 4.00 k/uL 2.44 2.86 [place]% % 6.8 7.0 Abs [place] <0.87 k/uL 0.54 0.62 Eosin% % 2.4 1.8 Abs Eosin <0.46 k/uL 0.19 0.16 Baso% % 0.9 0.8 Abs Baso <0.11 k/uL 0.07 0.07 Immature Gran % % 0.3 0.2 IMMATURE GRANS (ABS) <0.10 k/uL <0.03 <0.03 NRBC /100 WBC 0.0 0.0 Absolute nRBC <0.01 k/uL <0.01 <0.01 DTYPE Auto Auto Protein, Total 6.3 - 8.0 g/dL 7.3 Albumin 3.9 - 4.9 g/dL 4.6 Calcium 8.5 - 10.2 mg/dL 9.7 Bilirubin, Total 0.2 - 1.3 mg/dL 0.4 Alkaline Phosphatase 38 - 113 U/L 52 AST 14 - 40 U/L 17 ALT 10 - 54 U/L 15 Glucose 74 - 99 mg/dL 97 BUN 9 - 24 mg/dL 15 Creatinine 0.73 - 1.22 mg/dL 1.01 Sodium 136 - 144 mmol/L 139 Potassium 3.7 - 5.1 mmol/L 4.8 Chloride 97 - 105 mmol/L 104 CO2 22 - 30 mmol/L 27 Anion Gap 9 - 18 mmol/L 8 (L) eGFR >=60 mL/min/1.73m 99 Cholesterol, Total <200 mg/dL 201 (H) Triglyceride <150 mg/dL 83 HDL Cholesterol >39 mg/dL 40 Non HDL Cholesterol <130 mg/dL 161 (H) Fasting Time hrs 10 VLDL Cholesterol <30 mg/dL 17 TC:HDL Ratio <5.10 5.03 LDL Cholesterol <100 mg/dL 144 (H) LDL:HDL Ratio <2.54 3.60 (H) HIV 12 Combo (Ag/Ab) Nonreactive Nonreactive HIV 1/2 Ab -- HIV Interpretation -- CCP Antibody IgG Qualitative Negative Negative CCP Antibody, IgG <20 Units <15 TSH 0.270 - 4.200 mIU/L 2.380 Hep C Antibody IA Negative Negative Uric Acid 4.0 - 8.1 mg/dL 5.1 WSR 0 - 15 mm/hr 2 CRP <0.9 mg/dL <0.3 Rheumatoid Factor <16 IU/mL <10 BREN Scr Qual Negative Negative Legend: (L) Low (H) High ASSESSMENT/PLAN: 1. Annual physical exam - ICD9: V70.0, ICD10: Z00.00 (primary diagnosis) - Counseled on healthy diet and regular exercise - Counseled on alcohol intake and health risks - Follow up for annual exam in one year - COMPLETE BLOOD COUNT AND DIFFERENTIAL - COMPREHENSIVE METABOLIC PANEL - LIPID PANEL BASIC 2. Migraine without aura and without status migrainosus, not intractable - ICD9: 346.10, ICD10: G43.009 Symptoms improved with PRN Imitrex. Discussed avoidance of triggers. Can try blue bella glasses if using computer screens regularly. Keep f/u with neurology. 3. Male pattern baldness - ICD9: 704.09, ICD10: L64.9 Improved with minoxidil. F/u with dermatology as scheduled. Angie Rojas MD [facility]24 NoteHNO ID: [id number] Author: ANGIE ROJAS MD Service: ? Author Type: Physician Type: Progress Notes Filed: 09/03/2024 11:08 Note Text: Chief Complaint Patient presents with: Conjunctivitis: Bilateral eyes affected- itchy with drainage HPI Brooke Baugh is a 34 year old male who presents here today for Above Complaints. Patient complaining today of left eye itching, mild pain, redness, crusting around the eye, drainage with white discharge which started yesterday. Right eye irritated this morning. Treating with eye drops that they got in [place] x1 without improvement. Admits to nasal congestion/rhinorrhea. Denies fever/chills, vision changes, periorbital pain/swelling, pain with eye movement. Patient states that he has not had symptoms like this in the past. No exposure to pink eye. Past medical history, appointments, medications, allergies reviewed. Previous Medical History PAST MEDICAL HISTORY Diagnosis Date Migraine Right ACL tear Seasonal allergies Previous Surgical History PAST SURGICAL HISTORY Procedure Laterality Date PAST SURGICAL HISTORY OF Right 2019 ACL repair Family History FAMILY HISTORY Problem Relation Age of Onset No Known Problems Mother other (rheumatoid arthritis) Father Thyroid Father No Known Problems Brother Stroke Paternal Grandmother Patient Allergies ALLERGIES No Known Allergies Current Medications Current Outpatient Medications on File Prior to Visit Medication Sig minoxidil (LONITEN) 2.5 mg tablet Take 2.5 mg by mouth once daily. Taking 1/2 tab SUMAtriptan (IMITREX) 50 mg tablet Take 50 mg by mouth as needed for migraine headache (see administration instructions). dutasteride (AVODART) 0.5 mg capsule Take 0.5 mg by mouth once daily. (Patient not taking: Reported on 09/03/2024) triamcinolone acetonide (KENALOG) 0.1 % ointment Apply to affected areas on the scalp twice daily Tuesday-Tuesday. Take weekends off. Avoid use on face, armpits, and groin. naproxen (NAPROSYN) 500 mg tablet Take 1 tablet by mouth twice daily as needed. Take with food. No current facility-administered medications on file prior to visit. Social History Social History Tobacco Use Smoking status: Some Days Types: Cigarettes Smokeless tobacco: Never Tobacco comments: 1 cigarette maybe once every 6 months Substance Use Topics Alcohol use: Yes Comment: 1 drink per month Drug use: Never Review of Symptoms REVIEW OF SYSTEMS See HPI EXAM: BP 106/70 Pulse 63 Temp 36.2 ?C (97.2 ?F) Resp 16 Wt 85.1 kg (187 lb 9.6 oz) SpO2 99% BMI 27.70 kg/m? General Appearance: Well appearing, alert, in no acute distress, well-hydrated, well nourished.. Skin: Skin color, texture, turgor normal, no suspicious rashes or lesions. Eyes: bilateral conjunctivitis, left worse than right. No periorbital swelling/erythema. PERRLA, EOMI. No foreign body appreciated. No active discharge. Ears: External ears normal, canals clear. Health Maintenance List Depression Screening Never done Anxiety Screening Never done Hepatitis B Vaccine(1 of 3 - 19+ 3-dose series) Never done Pneumococcal Vaccine(1 of 2 - PCV) Never done Covid-19 Vaccine( season) due on 07/04/2025 Lipid Screening due on 01/28/2028 DTaP,Tdap,Td Vaccine(3 - Td or Tdap) due on 12/15/2033 Influenza Vaccine Completed Hepatitis C Screening Completed HIV Screening Completed HPV Vaccine Aged Out ASSESSMENT/PLAN: 1. Bacterial conjunctivitis - ICD9: 372.39, 041.9, ICD10: H10.9 Bacterial - see medication orders - course and contagiousness issues discussed, including hand washing. - Instructed to call if high fever, development of periorbital redness or swelling, eye pain, visual changes, concerns or if symptoms persist. - POLYMYXIN B SULFATE 10,000 UNIT-TRIMETHOPRIM 1 MG/ML EYE DROPS Angie Rojas [facility]12-23-2024 History of Present illness Narrative* Angie Rojas MD - 09/03/2024 9:55 AM EST Chief Complaint Patient presents with: Conjunctivitis: Bilateral eyes affected- itchy with drainage HPI Brooke Baugh is a 34 year old male who presents here today for Above Complaints. Patient complaining today of left eye itching, mild pain, redness, crusting around the eye, drainage with white discharge which started yesterday. Right eye irritated this morning. Treating with eye drops that they got in [place] x1 without improvement. Admits to nasal congestion/rhinorrhea. Denies fever/chills, vision changes, periorbital pain/swelling, pain with eye movement. Patient states that he has not had symptoms like this in the past. No exposure to pink eye. Past medical history, appointments, medications, allergies reviewed. Previous Medical History PAST MEDICAL HISTORY Diagnosis Date Migraine Right ACL tear Seasonal allergies Previous Surgical History PAST SURGICAL HISTORY Procedure Laterality Date PAST SURGICAL HISTORY OF Right 2019 ACL repair Family History FAMILY HISTORY Problem Relation Age of Onset No Known Problems Mother other (rheumatoid arthritis) Father Thyroid Father No Known Problems Brother Stroke Paternal Grandmother Patient Allergies ALLERGIES No Known Allergies Current Medications Current Outpatient Medications on File Prior to Visit Medication Sig minoxidil (LONITEN) 2.5 mg tablet Take 2.5 mg by mouth once daily. Taking 1/2 tab SUMAtriptan (IMITREX) 50 mg tablet Take 50 mg by mouth as needed for migraine headache (see administration instructions). dutasteride (AVODART) 0.5 mg capsule Take 0.5 mg by mouth once daily. (Patient not taking: Reportedon 09/03/2024) triamcinolone acetonide (KENALOG) 0.1 % ointment Apply to affected areas on the scalp twice daily Tuesday-Tuesday. Take weekends off. Avoid use on face, armpits, and groin. naproxen (NAPROSYN) 500 mg tablet Take 1 tablet by mouth twice daily as needed. Take with food. No current facility-administered medications on file prior to visit. Social History Social History Tobacco Use Smoking status: Some Days Types: Cigarettes Smokeless tobacco: Never Tobacco comments: 1 cigarette maybe once every 6 months Substance Use Topics Alcohol use: Yes Comment: 1 drink per month Drug use: Never Review of Symptoms REVIEW OF SYSTEMS See HPI EXAM: BP 106/70 Pulse 63 Temp 36.2 C (97.2 F) Resp 16 Wt 85.1 kg (187 lb 9.6 oz) SpO2 99% BMI27.70 kg/m General Appearance: Well appearing, alert, in no acute distress, well-hydrated, well nourished.. Skin: Skin color, texture, turgor normal, no suspicious rashes or lesions. Eyes: bilateral conjunctivitis, left worse than right. No periorbital swelling/erythema. PERRLA, EOMI. No foreign body appreciated. No active discharge. Ears: External ears normal, canals clear. Health Maintenance List Depression Screening Never done Anxiety Screening Never done Hepatitis B Vaccine(1 of 3 - 19+ 3-dose series) Never done Pneumococcal Vaccine(1 of 2 - PCV) Never done Covid-19 Vaccine() due on 07/04/2025 Lipid Screening due on 01/28/2028 DTaP,Tdap,Td Vaccine(3 - Td or Tdap) due on 12/15/2033 Influenza Vaccine Completed Hepatitis C Screening Completed HIV Screening Completed HPV Vaccine Aged Out ASSESSMENT/PLAN: 1. Bacterial conjunctivitis - ICD9: 372.39, 041.9, ICD10: H10.9 Bacterial - see medication orders - course and contagiousness issues discussed, including hand washing. - Instructed to call if high fever, development of periorbital redness or swelling, eye pain, visual changes, concerns or if symptoms persist. - POLYMYXIN B SULFATE 10,000 UNIT-TRIMETHOPRIM 1 MG/ML EYE DROPS Angie Rojas MD documented in this encounterCos[facility]24 NoteHNO ID: [id number] Author: ANGIE ROJAS MD Service: ? Author Type: Physician Type: Progress Notes Filed: 07/07/2024 09:34 Note Text: Chief Complaint Patient presents with: discuss conceiving children Follow Up HPI Brooke Baugh is a 34 year old male who presents here today for discussion about conceiving children. Patient states that he and his are considering having children in the next couple of months and wanted to see what he needed to do before hand. Patient is on dutasteride and minoxidil for hair loss. Worried they could lower sperm count. No family history of genetic conditions. Has been in good health. No concerns with sexual function or ejaculation. Up to date on Tdap. Past medical history, appointments, medications, allergies reviewed. Previous Medical History PAST MEDICAL HISTORY Diagnosis Date Migraine Right ACL tear Seasonal allergies Previous Surgical History PAST SURGICAL HISTORY Procedure Laterality Date PAST SURGICAL HISTORY OF Right 2019 ACL repair Family History FAMILY HISTORY Problem Relation Age of Onset No Known Problems Mother other (rheumatoid arthritis) Father Thyroid Father No Known Problems Brother Stroke Paternal Grandmother Patient Allergies ALLERGIES No Known Allergies Current Medications Current Outpatient Medications on File Prior to Visit Medication Sig dutasteride (AVODART) 0.5 mg capsule Take 0.5 mg by mouth once daily. minoxidil (LONITEN) 2.5 mg tablet Take 2.5 mg by mouth once daily. Taking 1/2 tab triamcinolone acetonide (KENALOG) 0.1 % ointment Apply to affected areas on the scalp twice daily Tuesday-Tuesday. Take weekends off. Avoid use on face, armpits, and groin. SUMAtriptan (IMITREX) 50 mg tablet Take 50 mg by mouth as needed for migraine headache (see administration instructions). naproxen (NAPROSYN) 500 mg tablet Take 1 tablet by mouth twice daily as needed. Take with food. No current facility-administered medications on file prior to visit. Social History Social History Tobacco Use Smoking status: Some Days Types: Cigarettes Smokeless tobacco: Never Tobacco comments: 1 cigarette maybe once every 6 months Substance Use Topics Alcohol use: Yes Comment: 1 drink per month Drug use: Never Review of Symptoms REVIEW OF SYSTEMS GENERAL: No weight loss, malaise or fevers RESPIRATORY: Negative for cough, hemoptysis, wheezing, COPD, dyspnea or shortness of breath CARDIOVASCULAR: Negative for chest pain, leg swelling, hypertension, CHF or palpitations GI: No nausea, vomiting, or diarrhea SKIN: Negative for lesions, rash, and itching EXAM: BP 100/68 Pulse 80 Resp 16 Wt 83.8 kg (184 lb 12.8 oz) SpO2 98% BMI 27.29 kg/m? General Appearance: Well appearing, alert, in no acute distress, well-hydrated, well nourished.. Skin: Skin color, texture, turgor normal, no suspicious rashes or lesions. Lungs: Lungs clear to auscultation. No wheezing, rhonchi, rales.. Heart: RRR without murmur, gallop, or rubs. No ectopy. Health Maintenance List Pneumococcal Vaccine(1 of 2 - PCV) Never done Depression Screening Never done Anxiety Screening Never done Hepatitis B Vaccine(1 of 3 - 19+ 3-dose series) Never done Covid-19 Vaccine( season) due on 05/13/2024 Lipid Screening due on 01/28/2028 DTaP,Tdap,Td Vaccine(3 - Td or Tdap) due on 12/15/2033 Influenza Vaccine Completed Hepatitis C Screening Completed HIV Screening Completed HPV Vaccine Aged Out Data reviewed Latest Ref Rng 05/10/2023 WBC 3.70 - 11.00 k/uL 8.83 RBC 4.20 - 6.00 m/uL 5.12 Hemoglobin 13.0 - 17.0 g/dL 15.0 Hematocrit 39.0 - 51.0 % 44.3 MCV 80.0 - 100.0 fL 86.5 MCH 26.0 - 34.0 pg 29.3 MCHC 30.5 - 36.0 g/dL 33.9 RDW-CV 11.5 - 15.0 % 11.9 Platelet Count 150 - 400 k/uL 218 MPV 9.0 - 12.7 fL 10.2 Neut% % 57.8 Abs Neut (ANC) 1.45 - 7.50 k/uL 5.10 Lymph% % 32.4 Abs Lymph 1.00 - 4.00 k/uL 2.86 [place]% % 7.0 Abs [place] <0.87 k/uL 0.62 Eosin% % 1.8 Abs Eosin <0.46 k/uL 0.16 Baso% % 0.8 Abs Baso <0.11 k/uL 0.07 Immature Gran % % 0.2 IMMATURE GRANS (ABS) <0.10 k/uL <0.03 NRBC /100 WBC 0.0 Absolute nRBC <0.01 k/uL <0.01 DTYPE Auto CCP Antibody IgG Qualitative Negative Negative CCP Antibody, IgG <20 Units <15 Uric Acid 4.0 - 8.1 mg/dL 5.1 WSR 0 - 15 mm/hr 2 CRP <0.9 mg/dL <0.3 Rheumatoid Factor <16 IU/mL <10 BREN Scr Qual Negative Negative ASSESSMENT/PLAN: 1. Attempting to conceive - ICD9: V49.89, ICD10: Z78.9 Discussed stopping Dutasteride as it can lower sperm count and speak with prescribing geriatric nurse practitioner Dr. Snider about alternative for hair loss. No further testing needed at this time. No family history of cystic fibrosis or chromosomal abnormalities. Will get him set up for physical, but does not need workup otherwise today. Angie Rojas, [facility]10-23-2024 History of Present illness Narrative* Angie Rojas MD - 07/04/2024 12:18 PM EDT Chief Complaint Patient presents with: discuss conceiving children Follow Up HPI Brooke Baugh is a 34 year old male who presents here today for discussion about conceiving children. Patient states that he and his are considering having children in the next couple of months and wanted to see what he needed to do before hand. Patient is on dutasteride and minoxidil for hair loss. Worried they could lower sperm count. No family history of genetic conditions. [facility]. No concerns with sexual function or ejaculation. Up to date on Tdap. Past medical history, appointments, medications, allergies reviewed. Previous Medical History PAST MEDICAL HISTORY Diagnosis Date Migraine Right ACL tear Seasonal allergies Previous Surgical History PAST SURGICAL HISTORY Procedure Laterality Date PAST SURGICAL HISTORY OF Right 2019 ACL repair Family History FAMILY HISTORY Problem Relation Age of Onset No Known Problems Mother other (rheumatoid arthritis) Father Thyroid Father No Known Problems Brother Stroke Paternal Grandmother Patient Allergies ALLERGIES No Known Allergies Current Medications Current Outpatient Medications on File Prior to Visit Medication Sig dutasteride (AVODART) 0.5 mg capsule Take 0.5 mg by mouth once daily. minoxidil (LONITEN) 2.5 mg tablet Take 2.5 mg by mouth once daily. Taking 1/2 tab triamcinolone acetonide (KENALOG) 0.1 % ointment Apply to affected areas on the scalp twice daily Tuesday-Tuesday. Take weekends off. Avoid use on face, armpits, and groin. SUMAtriptan (IMITREX) 50 mg tablet Take 50 mg by mouth as needed for migraine headache (see administration instructions). naproxen (NAPROSYN) 500 mg tablet Take 1 tablet by mouth twice daily as needed. Take with food. No current facility-administered medications on file prior to visit. Social History Social History Tobacco Use Smoking status: Some Days Types: Cigarettes Smokeless tobacco: Never Tobacco comments: 1 cigarette maybe once every 6 months Substance Use Topics Alcohol use: Yes Comment: 1 drink per month Drug use: Never Review of Symptoms REVIEW OF SYSTEMS GENERAL: No weight loss, malaise or fevers RESPIRATORY: Negative for cough, hemoptysis, wheezing, COPD, dyspnea or shortness of breath CARDIOVASCULAR: Negative for chest pain, leg swelling, hypertension, CHF or palpitations GI: No nausea, vomiting, or diarrhea SKIN: Negative for lesions, rash, and itching EXAM: BP 100/68 Pulse 80 Resp 16 Wt 83.8 kg (184 lb 12.8 oz) SpO2 98% BMI 27.29 kg/m General Appearance: Well appearing, alert, in no acute distress, well-hydrated, well nourished.. Skin: Skin color, texture, turgor normal, no suspicious rashes or lesions. Lungs: Lungs clear to auscultation. No wheezing, rhonchi, rales.. Heart: RRR without murmur, gallop, or rubs. No ectopy. Health Maintenance List Pneumococcal Vaccine(1 of 2 - PCV) Never done Depression Screening Never done Anxiety Screening Never done Hepatitis B Vaccine(1 of 3 - 19+ 3-dose series) Never done Covid-19 Vaccine() due on 05/13/2024 Lipid Screening due on 01/28/2028 DTaP,Tdap,Td Vaccine(3 - Td or Tdap) due on 12/15/2033 Influenza Vaccine Completed Hepatitis C Screening Completed HIV Screening Completed HPV Vaccine Aged Out Data reviewed Latest Ref Rng 05/10/2023 WBC 3.70 - 11.00 k/uL 8.83 RBC 4.20 - 6.00 m/uL 5.12 Hemoglobin 13.0 - 17.0 g/dL 15.0 Hematocrit 39.0 - 51.0 % 44.3 MCV 80.0 - 100.0 fL 86.5 MCH 26.0 - 34.0 pg 29.3 MCHC 30.5 - 36.0 g/dL 33.9 RDW-CV 11.5 - 15.0 % 11.9 Platelet Count 150 - 400 k/uL 218 MPV 9.0 - 12.7 fL 10.2 Neut% % 57.8 Abs Neut (ANC) 1.45 - 7.50 k/uL 5.10 Lymph% % 32.4 Abs Lymph 1.00 - 4.00 k/uL 2.86 [place]% % 7.0 Abs [place] <0.87 k/uL 0.62 Eosin% % 1.8 Abs Eosin <0.46 k/uL 0.16 Baso% % 0.8 Abs Baso <0.11 k/uL 0.07 Immature Gran % % 0.2 IMMATURE GRANS (ABS) <0.10 k/uL <0.03 NRBC /100 WBC 0.0 Absolute nRBC <0.01 k/uL <0.01 DTYPE Auto CCP Antibody IgG Qualitative Negative Negative CCP Antibody, IgG <20 Units <15 Uric Acid 4.0 - 8.1 mg/dL 5.1 WSR 0 - 15 mm/hr 2 CRP <0.9 mg/dL <0.3 Rheumatoid Factor <16 IU/mL <10 BREN Scr Qual Negative Negative ASSESSMENT/PLAN: 1. Attempting to conceive - ICD9: V49.89, ICD10: Z78.9 Discussed stopping Dutasteride as it can lower sperm count and speak with prescribing dermatologistDr. Snider about alternative for hair loss. No further testing needed at this time. No family historyof cystic fibrosis or chromosomal abnormalities. Will get him set up for physical, but does not need workup otherwise today. Angie Rojas MD documented in this encounterCos[facility]09-19-2023 Miscellaneous Notes* Telephone Encounter - Caterina Zapata - 05/31/2023 1:17 PM EDT Left vm and sent mychart to schedule follow up with a geriatric nurse practitioner around 06/16/2023 per messages documented in this encounterCoshocton [facility]09-07-2023 Instructions* Patient Instructions* Isa Bush MD - 05/19/2023 5:44 PM EDT Start doxycycline 100 mg twice daily x 2 weeks -Please note the following instructions about doxycycline: ---Take with full glass of water and food ---Sit upright for 1 hour after taking the medication ---Doxycycline will make you more sensitive to the sun. Recommend avoiding the sun and using sun protection. ---This medication is not safe to take during or breast feeding. Please stop and notify our office if you become or are planning to become . ---If you develop blurry vision or headaches let us know ---Doxycycline will interact with calcium supplements- take separately ---Doxycycline can make control less effective - use a backup method of contraception while on doxycycline. Start triamcinolone ointment twice daily to affected area x 1 month -Discussed potential side effects of topical steroids including: atrophy, dyspigmentation, striae. Avoid use on face, groin, axillae. Scar on the chest -No treatment needed -Asymptomatic -Notify if growing, changing, symptomatic. documented in this encounterCoshocton [facility]09-07-2023 History of Present illness Narrative* Isa Bush MD - 05/19/2023 4:40 PM EDT NEW PATIENT Consultation requested by Angie Nicholson MD for an opinion regarding Scalp cyst [L72.9(ICD-10-CM)]; Patchy loss of hair [L65.9 (ICD-10-CM)]; Alopecia areata [L63.9 (ICD-10-CM)]. My final recommendations will be communicated back to the requesting physician by way of shared Medical record or letter to requesting physician via [place] mail. CHIEF COMPLAINT: Cyst/Hair loss HISTORY OF PRESENT ILLNESS: Brooke Baugh is a 33 year old male here for evaluation of a cyst and hair loss. 1) Cyst Location: posterior scalp Duration: 2 weeks Symptoms (growing, itching, bleeding, tender): hair loss overlying cyst/bump, painful Current treatment: None Past treatments: None Had a raised bump under the skin a few weeks ago that flattened with no intervention. A new raised bumped arose next to the first spot and has associated hair loss overlying the spot. Bother are tender. Has never drained. 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 Take with food. SUMAtriptan (IMITREX) 50 mg tablet Take 50 mg by mouth as needed for migraine headache (see administration instructions). No current facility-administered medications for this visit. PHYSICAL EXAM: General: awake, alert, no acute distress Neuropsych: appropriate mood and affect Skin: Skin exam was performed today including the following: head and face, scalp, neck, and chest: - Two soft, mobile subcutaneous nodules with visible punctum on the occipital scalp, associated with loss of hair overlying both lesions - Firm raised nodule on central chest ASSESSMENT & PLAN: 1. Subcutaneous nodule - Favor ruptured cyst given presence of punctum, though explained to patient that diagnosis can only be confirmed with excision and histologic examination - Prescribed doxycycline 100 mg twice daily x 2 weeks- instructions/counseling as outlined in AVS. - In reserve: referral to dermatologic surgery for excision 2. Alopecia - Focal, limited to subcutaneous nodules - Start triamcinolone 0.1% ointment to affected areas on the scalp twice daily Tuesday-Tuesday x 1 month. Take weekends off. Avoid use on face, armpits, and groin. Discussed potential SE including: atrophy, dyspigmentation, striae. 3. Hypertrophic scar, in the setting of acne scarring - Benign nature discussed with patient. Asymptomatic. - Discussed option to observe or treat. Patient elects clinical observation -Notify if growing, changing, symptomatic. Return to Dermatology clinic in 4 weeks - or sooner , if something concerning arises. The documentation for this note was completed by Nancy Paige RN acting as scribe for Isa Bush MD. May 19, 2023 5:09 PM. Resident: Osorio Lara MD Dermatology, PGY- 2 Attestation: I agree with the Chief Complaint, ROS, and Past Histories independently gathered by the clinical product support analyst, and the remaining scribed note accurately describes my personal service to the patient. I saw and evaluated Brooke Baugh, as well as developed and discussed the assessment and plan with the Resident. I have reviewed the Resident's note and agree with the history and physical examination as described, as well as the assessment and plan of care. The resident's note was annotated by me as needed to reflect my direct input. There were no procedures performed during this patient's visit. Isa Bush MD documented in this encounterCoshocton [facility]09-06-2023 History of Present illness Narrative* Angie Rojas MD - 05/18/2023 2:41 PM EDT Chief Complaint Patient presents with: Cyst HPI Brooke Baugh is a 33 year old male who presents here today for Above Complaints.. Patient states that a couple of weeks ago he could feel a mild pain and lump on back of his head when he tilts his head up. Feels like it has been increasing in size and when he got a haircut a few days ago there is no hair in this spot. Past medical history, appointments, medications, allergies reviewed. Previous Medical History PAST MEDICAL HISTORY Diagnosis Date Migraine Right ACL tear Seasonal allergies Previous Surgical History PAST SURGICAL HISTORY Procedure Laterality Date PAST SURGICAL HISTORY OF Right 2019 ACL repair Family History FAMILY HISTORY Problem Relation Age of Onset No Known Problems Mother other (rheumatoid arthritis) Father Thyroid Father No Known Problems Brother Stroke Paternal Grandmother Patient Allergies ALLERGIES No Known Allergies Current Medications Current Outpatient Medications on File Prior to Visit Medication Sig naproxen (NAPROSYN) 500 mg tablet Take 1 tablet by mouth twice daily as needed. Take with food. SUMAtriptan (IMITREX) 50 mg tablet Take 50 mg by mouth as needed for migraine headache (see administration instructions). No current facility-administered medications on file prior to visit. Social History Social History Tobacco Use Smoking status: Some Days Types: Cigarettes Smokeless tobacco: Never Tobacco comments: 1 cigarette maybe once every 6 months Substance Use Topics Alcohol use: Yes Comment: 1 drink per month Drug use: Never Review of Symptoms REVIEW OF SYSTEMS See HPI EXAM: BP 110/72 Pulse 74 Resp 16 Ht 175.3 cm (5' 9) Wt 80.3 kg (177 lb) BMI 26.14 kg/m General Appearance: Well appearing, alert, in no acute distress, well-hydrated, well nourished.. Skin: 1-2 cm and 0.5 cm area of hair loss on posterior scalp with cystic structure underlying larger area. Non tender. No drainage. No rash or flaking. Health Maintenance List PNEUMOCOCCAL(1 - PCV) Never done HEPATITIS B(1 of 3 - 3-dose series) due on 01/28/2024 COVID-19 VACCINE(4 - Moderna series) due on 01/28/2024 LIPID SCREEN due on 01/28/2028 DTAP,TDAP,TD(2 - Td or Tdap) due on 01/27/2033 INFLUENZA Completed DEPRESSION ASSESSMENT Completed HEPATITIS C SCREENING Completed HIV SCREENING Completed HPV VACCINE Aged Out Data reviewed Component Latest Ref Rng & Units 01/27/2023 05/10/2023 WBC 3.70 - 11.00 k/uL 7.96 8.83 RBC 4.20 - 6.00 m/uL 5.12 5.12 Hemoglobin 13.0 - 17.0 g/dL 15.3 15.0 Hematocrit 39.0 - 51.0 % 45.7 44.3 MCV 80.0 - 100.0 fL 89.3 86.5 MCH 26.0 - 34.0 pg 29.9 29.3 MCHC 30.5 - 36.0 g/dL 33.5 33.9 RDW-CV 11.5 - 15.0 % 11.9 11.9 Platelet Count 150 - 400 k/uL 195 218 MPV 9.0 - 12.7 fL 10.9 10.2 Neut% % 58.9 57.8 Abs Neut (ANC) 1.45 - 7.50 k/uL 4.70 5.10 Lymph% % 30.7 32.4 Abs Lymph 1.00 - 4.00 k/uL 2.44 2.86 [place]% % 6.8 7.0 Abs [place] <0.87 k/uL 0.54 0.62 Eosin% % 2.4 1.8 Abs Eosin <0.46 k/uL 0.19 0.16 Baso% % 0.9 0.8 Abs Baso <0.11 k/uL 0.07 0.07 Immature Gran % % 0.3 0.2 IMMATURE GRANS (ABS) <0.10 k/uL <0.03 <0.03 NRBC /100 WBC 0.0 0.0 Absolute nRBC <0.01 k/uL <0.01 <0.01 DTYPE Auto Auto Protein, Total 6.3 - 8.0 g/dL 7.3 Albumin 3.9 - 4.9 g/dL 4.6 Calcium 8.5 - 10.2 mg/dL 9.7 Bilirubin, Total 0.2 - 1.3 mg/dL 0.4 Alkaline Phosphatase 38 - 113 U/L 52 AST 14 - 40 U/L 17 ALT 10 - 54 U/L 15 Glucose 74 - 99 mg/dL 97 BUN 9 - 24 mg/dL 15 Creatinine 0.73 - 1.22 mg/dL 1.01 Sodium 136 - 144 mmol/L 139 Potassium 3.7 - 5.1 mmol/L 4.8 Chloride 97 - 105 mmol/L 104 CO2 22 - 30 mmol/L 27 Anion Gap 9 - 18 mmol/L 8 (L) eGFR >=60 mL/min/1.73m 99 Cholesterol, Total <200 mg/dL 201 (H) Triglyceride <150 mg/dL 83 HDL Cholesterol >39 mg/dL 40 Non HDL Cholesterol <130 mg/dL 161 (H) Fasting Time hrs 10 VLDL Cholesterol <30 mg/dL 17 TC:HDL Ratio <5.10 5.03 LDL Cholesterol <100 mg/dL 144 (H) LDL:HDL Ratio <2.54 3.60 (H) HIV 12 Combo (Ag/Ab) Nonreactive Nonreactive HIV 1/2 Ab HIV Interpretation CCP Antibody IgG Qualitative Negative Negative CCP Antibody, IgG <20 Units <15 TSH 0.270 - 4.200 mIU/L 2.380 Hep C Antibody IA Negative Negative Uric Acid 4.0 - 8.1 mg/dL 5.1 WSR 0 - 15 mm/hr 2 CRP <0.9 mg/dL <0.3 Rheumatoid Factor <16 IU/mL <10 BREN Scr Qual Negative Negative ASSESSMENT/PLAN: 1. Scalp cyst - ICD9: 706.2, ICD10: L72.9 (primary diagnosis) Refer to dermatology for cyst excision and alopecia treatment with either topical or intralesional steroids. - CONSULT TO DERMATOLOGY 2. Patchy loss of hair - ICD9: 704.00, ICD10: L65.9 - CONSULT TO DERMATOLOGY 3. Alopecia areata - ICD9: 704.01, ICD10: L63.9 - CONSULT TO DERMATOLOGY Angie Rojas MD documented in this encounterCoshoct[facility]09-05-2023 Miscellaneous Notes* Telephone Encounter - Nahomi Zayas Ma - 05/17/2023 9:21 AM EDT Pt scheduled OV on 05/18/23 at 2:40 pm. Pt to confirm appt. Nahomi Zayas Ma * Telephone Encounter - Nahomi Zayas Ma - 05/17/2023 9:12 AM EDT Notified pt he needs an OV to evaluate and discuss. Offered to assist pt in scheduling a visit. Nahomi Zayas Ma documented in this encounterCoshocton [facility] Center08-29-2023 History of Present illness Narrative* Angie Rojas MD - 05/10/2023 3:06 PM EDT Chief Complaint Patient presents with: Pain: Primarily left wrist sharp pain. HPI Brooke Baugh is a 33 year old male who presents here today for Above Complaints. Patient complaining of pain in his left wrist which started last night while lying in bed after he completed a workout. Described as intermittent sharp pain, up to 10/10, with radiation to his upper arm. Occurs every 2-3 minutes and lasts for about 5 seconds. Not treating with anything OTC for pain. Workout yesterday was focused on his triceps and was using free weights. Did not do wrist curls or pushups. No fall or injury. Patient is worried he could have RA. He states that his father had RA which started as wrist pain. Past medical history, appointments, medications, allergies reviewed. Previous Medical History PAST MEDICAL HISTORY Diagnosis Date Migraine Right ACL tear Seasonal allergies Previous Surgical History PAST SURGICAL HISTORY Procedure Laterality Date PAST SURGICAL HISTORY OF Right 2019 ACL repair Family History FAMILY HISTORY Problem Relation Age of Onset No Known Problems Mother other (rheumatoid arthritis) Father Thyroid Father No Known Problems Brother Stroke Paternal Grandmother Patient Allergies ALLERGIES No Known Allergies Current Medications Current Outpatient Medications on File Prior to Visit Medication Sig SUMAtriptan (IMITREX) 50 mg tablet Take 50 mg by mouth as needed for migraine headache (see administration instructions). No current facility-administered medications on file prior to visit. Social History Social History Tobacco Use Smoking status: Some Days Types: Cigarettes Smokeless tobacco: Never Tobacco comments: 1 cigarette maybe once every 6 months Substance Use Topics Alcohol use: Yes Comment: 1 drink per month Drug use: Never Review of Symptoms REVIEW OF SYSTEMS See HPI EXAM: BP 106/64 Pulse 76 Resp 16 Wt 81.4 kg (179 lb 6.4 oz) SpO2 96% BMI 26.15 kg/m General Appearance: Well appearing, alert, in no acute distress, well-hydrated, well nourished.. Skin: Skin color, texture, turgor normal, no suspicious rashes or lesions. Extremities: No deformities, edema, skin discoloration, clubbing or cyanosis. Good capillary refill. . Musculoskeletal: No joint swelling, deformity, or tenderness. 5/5 set up person and wrist strength on left. Health Maintenance List PNEUMOCOCCAL(1 - PCV) Never done HEPATITIS B(1 of 3 - 3-dose series) due on 01/28/2024 COVID-19 VACCINE(4 - Moderna series) due on 01/28/2024 LIPID SCREEN due on 01/28/2028 DTAP,TDAP,TD(2 - Td or Tdap) due on 01/27/2033 INFLUENZA Completed DEPRESSION ASSESSMENT Completed HEPATITIS C SCREENING Completed HIV SCREENING Completed HPV VACCINE Aged Out ASSESSMENT/PLAN: 1. Wrist pain, left - ICD9: 719.43, ICD10: M25.532 (primary diagnosis) Unknown etiology. Suspect strain vs overuse injury. Will treat with rest, ice, and NSAIDs. Will order RA workup for patient's concerns, though we discussed this would not be a typical presentation. Red flags for re-assessment reviewed with patient in detail. - NAPROXEN 500 MG TABLET - CBC + DIFF - URIC ACID BLOOD - SED RATE WESTERGREN - C-REACTIVE PROTEIN (CRP) - RHEUMATOID FACTOR BL - BREN BLOOD - CCP ANTIBODY IGG 2. Family history of rheumatoid arthritis - ICD9: V17.7, ICD10: Z82.61 - CBC + DIFF - URIC ACID BLOOD - SED RATE WESTERGREN - C-REACTIVE PROTEIN (CRP) - RHEUMATOID FACTOR BL - BREN BLOOD - CCP ANTIBODY IGG Angie Rojas MD documented in this encounter[facility] CenterEvaluation noteNo assessment information availableWKettering [facility] Work Phone: Evaluation note* Diagnosis Onset Date Resolution Status Migraine without aura, not i ntractable, without status migrainosus acute [facility] Work Phone: Evaluation note* Diagnosis Wrist pain, left- Primary Pain in joint, forearm Family history of rheumatoid arthritis Family history of arthritis [facility]* Diagnosis Scalp cyst- Primary Sebaceous cyst Patchy loss of hair Alopecia, unspecified Alopecia areata documented in this encounter [facility]* Diagnosis Subcutaneous nodules- Primary Localized superficial swelling, mass, or lump Patchy loss of hair Alopecia, unspecified Hypertrophic scar Keloid scar documented in this encounter [facility]* Diagnosis Attempting to conceive- Primary documented in this [facility]* Diagnosis Bacterial conjunctivitis- Primary Other conjunctivitis documented in this encounter [facility]* Diagnosis Annual physical exam- Primary Routine general medical examination at a health care facility Migraine without aura and without status migrainosus, not intractable Migraine without aura, without mention of intractable migraine without mention of status migrainosus Male pattern baldness Other alopecia [facility] Acute recurrent frontal sinusitis- Primary Acute frontal sinusitis [facility] Additional Instructions Ice to your right knee to decrease pain and swelling. Motrin for pain and swelling and Tylenol for pain. Increase activity as tolerated. If it hurts to walk on just do touchdown weightbearing and use your crutches. If this is not improving follow-up with the orthopedic physician for further evaluation and possible MRI. The knee x-ray looks good. But that does not show us anything about the tendons, ligaments or cartilage.[facility] Work Phone: Hospital Discharge instructions Additional Instructions Stay hydrated with fluids. You currently not on opiate medicines. Use your stool softener once a day.[facility] Work Phone: Hospital Discharge instructions Additional Instructions Do not take ketorolac, Advil or ibuprofen while on [facility]quisWK[facility] Work Phone: Reason for referral (narrative)No reason for referral information availableJoint [facility] District [facility] Work Phone: Chief Complaint and Reason for Visit Chief Complaint DIZZINESS Chief Complaint R/S FOLLOW UP migrane Reason for Visit Migraine without aur a, not intractable, without status migrainosus Chief Complaint Admit Date follow up December 10, 2024 9:2 5am LOWER EXT December 22, 2024 11: 53am Reason for Visit Admit Date Migraine without aura, not i ntractable, without status migrainosus December 10, 2024 9:25am Chief Complaint Admit Date follow up December 10, 2024 9:2 5am LOWER EXT December 22, 2024 11: 53am RIGHT KNEE ARTHROSCOPIC REVISION ANTERIO R CRUCIATE January 14, 2025 5:56am ABD PAIN January 19, 2025 6:36p m Chief Complaint Admit Date follow up December 10, 2024 9:2 5am LOWER EXT December 22, 2024 11: 53am RIGHT KNEE ARTHROSCOPIC REVISION ANTERIO R CRUCIATE January 14, 2025 5:56am ABD PAIN January 19, 2025 6:36p m RIGHT LOWER February 26, 2025 2:53 pm LOWER EXT February 26, 2025 3:44 pm Family History Relationship Condition Age at Onset Recorded Date/T rea grandfather Myocardial infarction 55 father Rheumatoid arthritis Unknown Advance Directives Advance Directive Response Recorded Date/ Time Living Will No December 31, 2021 1:38pm Power of Maintenance Plumber No December 31 1:38pm Advance Directive Response Recorded Date/ Time Living Will No May 29, 2022 8:15pm Power of Maintenance Plumber No May 8:15pm Advance Directive Response Recorded Date/ Time Living Will No May 29, 2022 7:15pm Power of Maintenance Plumber No May 7:15pm Advance Directive Response Recorded Date/ Time Living Will No December 22, 2024 12:04pm Do you have a Healthcare Power of Maintenance Plumber? No December 22, 2024 12:04pm Advance Directive Response Recorded Date/ Time Living Will No December 22, 2024 12:04pm Do you have a Healthcare Power of Maintenance Plumber? No December 22, 2024 12:04pm Do you have a Healthcare Power of Maintenance Plumber? No January 11, 2025 8:16am Do you have a Healthcare Power of Maintenance Plumber? No January 19, 2025 7:08pm Advance Directive Response Recorded Date/ Time Living Will No December 22, 2024 12:04pm Do you have a Healthcare Power of Maintenance Plumber? No December 22, 2024 12:04pm Do you have a Healthcare Power of Maintenance Plumber? No January 11, 2025 8:16am Do you have a Healthcare Power of Maintenance Plumber? No January 19, 2025 7:08pm Do you have a Healthcare Power of Maintenance Plumber? No February 26, 2025 5:35pm Reason for Referral Specialty Diagnoses / Procedures Referred By Jorge lott Referred To Contact Dermatology Diagnoses Scalp cyst Patchy loss of hair Alopecia areata Procedures CONSULT TO DERMATOLOGY Angie Rojas MD [address] [place] [address] Referral ID Status Reason Start Date Expiration Date Visits Requested Visits Authorized [id number] Ref Not Required PCP Requested Referral 05/18/2023 05/17/2024 1 1 Summary Purpose Additional Source Comments Goals (unrecognized section and content) Goals may be documented in a n alternate sectionGoals may be documented in an alternate sectionGoals may be documented in an alternate sectionGoals may be documented in an alternate section Care Teams (unrecognized sec tion and content) Team Status: Active Member Role Status Dates No Primary Care Physician Primary Care Provider Active Team Status: Inactive Member Role Status Dates No Primary Care Physician Primary Care Provider Active Dr. Jamee Cabral MD Attending Provider, Referring Pr dalton Active Capital Campaign Fundraiser Relationship Specialty Start Date End Date Agnie Rojas MD [address] [place], [place] [id number] PCP - General Family Medicine 05/10/23 Capital Campaign Fundraiser Relationship Specialty Start Date End Date Angie Rojas MD [address] [place], [place] [id number] PCP - General Family Medicine 05/10/23 Capital Campaign Fundraiser Relationship Specialty Start Date End Date Angie Rojas MD [address] [place], [place] [id number] PCP - General Family Medicine 05/10/23 Capital Campaign Fundraiser Relationship Specialty Start Date End Date Angie Rojas MD [address] [place], [place] [id number] PCP - General Family Medicine 05/10/23 Capital Campaign Fundraiser Relationship Specialty Start Date End Date Angie Rojas MD [address] [place] [address] PCP - General Family Medicine 05/10/23 Capital Campaign Fundraiser Relationship Specialty Start Date End Date Angie Rojas MD [address] [place] [address] PCP - General Family Medicine 05/10/23 Capital Campaign Fundraiser Relationship Specialty Start Date End Date Angie Rojas MD [address] [place] [address] PCP - General Family Medicine 05/10/23 Podlogar, Mona, SPIKEMAKING SUPERVISOR.PLATE FORMER [address] [place] [address] Computer Engineer Family Medicine 08/18/24 Capital Campaign Fundraiser Relationship Specialty Start Date End Date Angie Roajs MD [address] [place] [address] PCP - General Family Medicine 05/10/23 Podlogar, Mona, SPIKEMAKING SUPERVISOR.PLATE FORMER [address] [place] [address] Computer Engineer Family Medicine 08/18/24 Capital Campaign Fundraiser Relationship Specialty Start Date End Date Angie Rojas MD [address] [place] [address] PCP - General Family Medicine 05/10/23 Podlogar, Mona, SPIKEMAKING SUPERVISOR.PLATE FORMER [address] [place] [address] Computer Engineer [facility] 08/18/24 Capital Campaign Fundraiser Relationship Specialty Start Date End Date Angie Rojas MD [address] [place] [address] PCP - General Family Medicine 05/10/23 Mona Luevano APRN.PLATE FORMER [address] [place] [address] Computer Engineer [facility] 08/18/24 Team Status: Active Member Role Status Dates Dr. Brandon Rojas MD Primary Care Provider Acti ve Team Status: Inactive Member Role Status Dates No Primary Care Physician Primary Care Provider Active Start: December 10, 2024 End: December 10, 2024 No Primary Care Physician Referring Provider Active Start: December 10, 2024 End: December 10, 2024 Dr. Toy Lyons MD Attending Provider Active Start: December 10, 2024 End: December 10, 2024 Team Status: Inactive Member Role Status Dates Dr. Alexey Batista MD Emergency Provider Active S tart: December 22, 2024 End: December 22, 2024 Dr. Brandon Rojas MD Primary Care Provider Acti ve Start: December 22, 2024 End: December 22, 2024 Team Status: Inactive Member Role Status Dates Dr. Alexey Batista MD Attending Provider Active S tart: December 22, 2024 End: December 22, 2024 Dr. Alexey Batista MD Emergency Provider Active S tart: December 22, 2024 End: December 22, 2024 Dr. Brandon Rojas MD Primary Care Provider Acti ve Start: December 22, 2024 End: December 22, 2024 Team Status: Inactive Member Role Status Dates Dr. Brandon Rojas MD Primary Care Provider Acti ve Start: January 14, 2025 End: January 14, 2025 Dr. Shawn Grace DO Attending Provider Active Start: January 14, 2025 End: January 14, 2025 Dr. Shawn Grace DO Referring Provider Active Start: January 14, 2025 End: January 14, 2025 Team Status: Inactive Member Role Status Dates Dr. Brandon Rojas MD Primary Care Provider Acti ve Start: January 19, 2025 End: January 19, 2025 Dr. Guzman Hills DO Emergency Provider Active Start : January 19, 2025 End: January 19, 2025 Team Status: Inactive Member Role Status Dates Dr. Brandon Rojas MD Primary Care Provider Acti ve Start: January 19, 2025 End: January 19, 2025 Dr. Guzman Hills DO Attending Provider Active Start : January 19, 2025 End: January 19, 2025 Dr. Guzman Hills DO Emergency Provider Active Start : January 19, 2025 End: January 19, 2025 Team Status: Active Member Role Status Dates Dr. Brandon Rojas MD Primary Care Provider Acti ve Start: February 26, 2025 Dr. Shawn Grace DO Attending Provider Active Start: February 26, 2025 Dr. Shawn Grace DO Referring Provider Active Start: February 26, 2025 Team Status: Inactive Member Role Status Dates Dr. Brandon Rojas MD Primary Care Provider Acti ve Start: February 26, 2025 End: February 26, 2025 Dr. Kavon Ravi MD Emergency Provider Active Sta rt: February 26, 2025 End: February 26, 2025 Source Comments (unrecognize d section and content) In the event this informatio n is protected by the Federal Confidentiality of Alcohol and Drug Abuse Patient Records regulations: The Federal rules restrict any use of the information to criminally investigate or prosecute any alcohol or drug abuse patient.[facility] CenterIn the event this information is protected by the Federal Confidentiality of Alcohol and Drug Abuse Patient Records regulations: The Federal rules restrict any use of the information to criminally investigate or prosecute any alcohol or drug abuse patient.[facility] CenterIn the event this information is protected by the Federal Confidentiality of Alcohol and Drug Abuse Patient Records regulations: The Federal rules restrict any use of the information to criminally investigate or prosecute any alcohol or drug abuse patient.[facility] CenterIn the event this information is protected by the Federal Confidentiality of Alcohol and Drug Abuse Patient Records regulations: The Federal rules restrict any use of the information to criminally investigate or prosecute any alcohol or drug abuse patient.[facility] CenterIn the event this information is protected by the Federal Confidentiality of Alcohol and Drug Abuse Patient Records regulations: The Federal rules restrict any use of the information to criminally investigate or prosecute any alcohol or drug abuse patient.[facility] CenterIn the event this information is protected by the Federal Confidentiality of Alcohol and Drug Abuse Patient Records regulations: The Federal rules restrict any use of the information to criminally investigate or prosecute any alcohol or drug abuse patient.[facility] CenterIn the event this information is protected by the Federal Confidentiality of Alcohol and Drug Abuse Patient Records regulations: The Federal rules restrict any use of the information to criminally investigate or prosecute any alcohol or drug abuse patient.[facility] CenterIn the event this information is protected by the Federal Confidentiality of Alcohol and Drug Abuse Patient Records regulations: The Federal rules restrict any use of the information to criminally investigate or prosecute any alcohol or drug abuse patient.[facility] CenterIn the event this information is protected by the Federal Confidentiality of Alcohol and Drug Abuse Patient Records regulations: The Federal rules restrict any use of the information to criminally investigate or prosecute any alcohol or drug abuse patient.[facility] CenterIn the event this information is protected by the Federal Confidentiality of Alcohol and Drug Abuse Patient Records regulations: The Federal rules restrict any use of the information to criminally investigate or prosecute any alcohol or drug abuse patient.[facility] Reason for Visit (unrecogniz ed section and content) Reason Comments Pain Primarily left wrist sharp pain. Reason Comments Cyst Reason Comments Appointment Specialty Diagnoses / Procedures Referred By Jorge t Referred To Contact Dermatology Diagnoses Scalp cyst Patchy loss of hair Alopecia areata Procedures CONSULT TO DERMATOLOGY Angie Rojas MD [address] [place] [address] Referral ID Status Reason Start Date Expiration Date Visits Requested Visits Authorized [id number] Ref Not Required PCP Requested Referral 05/18/2023 05/17/2024 1 1 Reason Comments discuss conceiving children Follow Up Reason Comments Conjunctivitis Bilateral eyes affec yassine- itchy with drainage Reason Comments Physical Reason Comments Results Reason Comments Sinus Problem inflammation (unrecognized sect ion and content) No Status Records FoundNo Status Records Found INFORMATION SOURCE (unrecogn ized section and content) DATE CREATED AUTHOR 11/09/2024 [facility] DATE CREATED AUTHOR AUTHOR'S HERBER ATION 01/25/2025 [facility] FOR RECORDS PERTAINING TO PATIENTS WHO ARE OR HAVE BEEN ENROLLED IN A CHEMICAL DEPENDENCY/SUBSTANCEABUSE PROGRAM, SOME INFORMATION MAY BE OMITTED. This clinical summary was aggregated from multiple sources. Caution should be exercised in using it in the provision of clinical care. This summary normalizes information from multiple sources, and as a consequence, information in this document may materially change the coding, format and clinical context of patient data. In addition, data may be omitted in some cases. CLINICAL DECISIONS SHOULD BE BASED ON THE PRIMARY CLINICAL RECORDS. [facility]. provides no warranty or guarantee of the accuracy or completeness of information in this document.
== END | disposition home or self-care (01) ==
PROVIDERS: PCP Family Medicine; Referring Provider Student in an Organized Health Care Education/Training Program; Visit Provider Student in an Organized Health Care Education/Training Program
DX: M79.661 Pain in right lower leg (principal)
CPT/HCPCS: 93971

== ENCOUNTER 2025-07-07 13:44 | Emergency (ER) | payer BC, SELFPAY ==
[2025-07-07 13:44] VITALS: BP 130/84; PULSE 84; RESP 14; TEMP 37.1; O2SAT 100; BMI 27.6
--- OUTSIDE RECORDS SUMMARY | 2025-07-07 14:04 | XMS RPT_ITS | CCD ---
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 Toy Lyons MD Attending Provider Dr. Alexey Batista MD Emergency Provider Dr. Brandon Rojas MD Primary Care Provider Dr. Alexey Batista MD Attending Provider Dr. Shawn Grace DO Attending Provider Dr. Shawn Grace DO Referring Provider Dr. Guzman Hills DO Emergency Provider Dr. Guzman Hills DO Attending Provider Dr. Kavon Ravi MD Emergency Provider Aminata ORGANIC LAB WORKER.Lyla GONZALEZ Unavailable Dr. Beau Ta MD Attending Provider Dr. Kavon Ravi MD Attending Provider Care Physician, No Primary Referring Provider Un available Dr. Toy Lyons MD Attending Provider Care Physician, No Primary Primary Care Unava ilable Tuan Salguero Attending Unavailable Shawn Grace Referring Unavailable Shawn Grace Attending Unavailable Brandon Rojas Primary Care Unavailable Care Physician, No Primary Primary Care Unava ilable Toy Lyons Attending Unavailable Care Physician, No Primary Referring Unava ilable Toy Lyons Attending Unavailable Care Physician, No Primary Referring Unava ilable Brandon Rojas Primary Care Unavailable Shawn Grace Referring Unavailable Shawn Grace Attending Unavailable Brandon Rojas Primary Care Unavailable Brandon Rojas Primary Care Unavailable Alexey Batista Attending Unavailable [place] Attending Unavailable Brandon Rojas Primary Care Unavailable Kavon Ravi Attending Unavailable Brandon Rojas Primary Care Unavailable ANGIE ROJAS Referring Unavailab ANGIE Castelan Primary Care Unavailab ANGIE Castelan Primary Care Unavailab ANGIE Castelan Attending Unavailab ANGIE Castelan Primary Care Unavailab ANGIE Castelan Attending Unavailab ANGIE Castelan Referring Unavailab ANGIE Castelan Primary Care Unavailab ANGIE Castelan Primary Care Unavailab ANGIE Castelan Attending Unavailab ANGIE Castelan Primary Care Unavailab ANGIE Castelan Attending Unavailab ANGIE Castelan Primary Care Unavailab ANGIE Castelan Attending Unavailab ANGIE Castelan Primary Care Unavailab ANGIE Castelan Attending Unavailab donald Medications Current Medications Medication Drug Class(es) Dates Sig (Normalized) Sig (Original) amoxicillin 875 mg / clavulanate 125 mg oral tablet (1 source) Penicillin-class Antibacterial Start: 11-05-2024 End: 11-15-2024 take 1 tablet by mouth twice daily amoxicillin-clav ulanate potassium (AUGMENTIN) 875-125 mg per tablet Take 1 tablet by mouth two times a day for 10 days. 20 tablet 11/05/2024 11/15/2024 Active apixaban 5 mg oral tablet (10 sources) Factor Xa Inhibitor Start: 02-27-2025 End: 08-26-2025 take 1 tablet by mouth twice daily apixaban (ELIQUIS) 5 mg tab(s) Take 1 tablet by mouth two times a day. 180 tablet 05/28/2025 08/26/2025 Active Start: 02-26-2025 take 1 tablet by solo th twice daily, then take 5 mg by mouth twice daily Apixaban (Eliquis Dvt-Pe Treat 30d Start) 5 mg (74 tabs) tablets,dose pack Active 10 mg PO TWICE A DAY 74 February 26, 2025 12:00am 10 mg twice daily x 7 days then 5 mg twice daily thereafter Start: 02-26-2025 take 1 tablet by solo th twice daily, then take 5 mg by mouth twice daily Apixaban (Eliquis Dvt-Pe Treat 30d Start) 5 mg (74 tabs) tablets,dose pack Active 10 mg PO TWICE A DAY February 26, 2025 12:00am 10 mg twice daily x 7 days then 5 mg twice daily thereafter dutasteride 0.5 mg oral capsule (3 sources) 5-alpha Reductase Inhibitor End: 09-29-2024 take 1 capsule by mouth once daily dutasteride (AVODART) 0.5 mg capsule Take 0.5 mg by mouth once daily. 09/29/2024 Discontinued (Course of therapy completed) fluticasone propionate 0.05 mg/actuat metered dose nasal spray (7 sources) Corticosteroid Start: 11-05-2024 take 2 spray(s) nasal route once daily fluticasone (FLONASE) 50 mcg/actuation nasal spray Use 2 Sprays in each nostril once daily. 1 Each 2 11/05/2024 Active ketorolac tromethamine 10 mg oral tablet (4 sources) Nonsteroidal Anti-inflammatory Drug, Cyclooxygenase Inhibitor Start: 01-14-2025 take 1 tablet by mouth every six hours Ketorolac 10 mg tablet Active 10 mg PO EVERY 6 HOURS 12 3 0 January 14, 2025 12:00am maximum total duration of 5 days from all oral, intranasal, or parenteral formulations meclizine hydrochloride 25 mg oral tablet (1 source) Antiemetic Start: 12-31-2021 take 25 mg by mouth three times daily Meclizine Active 25 MG PO THREE TIMES A DAY December 31, 2021 2:41pm minoxidil 2.5 mg oral tablet (17 sources) Arteriolar Vasodilator Start: 05-24-2025 take 1 tablet by mouth once daily minoxidil (LONITEN) 2.5 mg tablet Take 1 tablet by mouth once daily. 05/24/2025 Active Start: 01-11-2025 take 1 tablet by solo th once daily Minoxidil 2.5 mg tablet Active 1.25 mg PO DAILY January 11, 2025 12:00am Start: 09-29-2024 End: 05-24-2025 minoxidil (LONITEN) 2.5 mg t ablet Take 0.5 tablets by mouth once daily. Taking 1/2 tab 09/29/2024 05/24/2025 Discontinued naproxen 500 mg oral tablet (8 sources) [...] as needed. Take with food. polymyxin b 50047 unt/ml / trimethoprim 1 mg/ml ophthalmic solution [...] 100 mg tablet Active 0 PO .COMPLEX 12 December 10, 2024 9:39am Take 1 tablet PO every 1 hour as needed for headache up to 2 tablets/day Start: 01-21-2022 End: 12-10-2024 Sumatriptan Succinate 50 mg tablet Discontinued 0 .ROUTE .COMPLEX 9 January 23, 2024 8:32am December 10, 2024 9:37am take 1 tab at onset of headache; if headache persists you may repeat 1 tab after at least 2 hrs; max 2 doses/24 hr Start: 10-28-2020 End: 01-13-2021 Sumatriptan Succinate 50 mg tablet Discontinued 0 .ROUTE .COMPLEX 9 October 28, 2020 1:00am January 13, 2021 [...] Comment on above: Take 1 capsule by mo [facility] twice daily for 14 days. Problems Active Problems Problem Classification Problem Date Documented Da te Episodic/Chronic Abdominal pain (1 source) Unspecified abdominal pain; Translations: [Unspecified abdominal pain] Onset: 01-23-2025 Episodic Conditions associated with dizziness or vertigo (8 sources) Dizziness; Translations: [Dizziness and giddiness] 01-08-2022 Episodic Headache; including migraine (20 sources) Migraine without aura, not refractory ; Translations: [Migraine without aura, not intractable, without status migrainosus] Onset: 01-27-2023 Chronic Other circulatory disease (8 sources) Orthostatic hypotension; Translations: [Orthostatic hypotension] 01-08-2022 Episodic Other connective tissue disease (1 source) Other specified soft tissue disorders; Translations: [Other specified soft tissue disorders] Onset: 03-04-2025 Episodic Other connective tissue disease (1 source) Pain in right lower leg; Translations: [Pain in right lower leg] Onset: 03-04-2025 Episodic Other gastrointestinal disorders (4 sources) Constipation; Translations: [Constipation, unspecified] 01-19-2025 Episodic Other non-traumatic joint disorders (1 source) [...] [Hypertrophic scar] 05-19-2023 Episodic Other skin disorders (10 sources) Male pattern alopecia; Translations: [Androgenic alopecia, unspecified] 09-29-2024 Episodic Other upper respiratory infections (2 sources) Chronic sinusitis; Translations: [Chronic sinusitis, unspecified] Onset: 05-24-2025 05-24-2025 Chronic Other upper respiratory infections (1 source) Acute recurrent frontal sinusitis; Translations: [Acute frontal sinusitis] 11-05-2024 Episodic Phlebitis; thrombophlebitis and thromboembolism (10 sources) Acute deep venous thrombosis of popliteal vein; Translations: [Acute embolism and thrombosis of right popliteal vein] 02-26-2025 Episodic Residual codes; unclassified (1 source) FH: Rheumatoid arthritis; Translations: [Family history of arthritis] 05-10-2023 Episodic Residual codes; unclassified (1 source) Trying to conceive; Translations: [Other specified health status] 07-04-2024 Episodic Residual codes; unclassified (4 sources) Other specified postprocedural states; Translations: [S/P ACL repair] Onset: 03-11-2025 Episodic Sprains and strains (5 sources) Sprain of knee; Translations: [Sprain of unspecified site of unspecified knee, initial encounter] 12-22-2024 Episodic Unclassified (2 sources) Acute embolism and thrombosis of right calf muscular vein; Translations: [Acute deep vein thrombosis (DVT) of calf muscle vein of right lower extremity (HCC)] Onset: 03-11-2025 Viral infection (8 sources) Acute viral disease; Translations: [Viral infection, unspecified] 01-08-2022 Episodic Past or Other Problems Problem Classification Problem Date Documented Da te Episodic/Chronic Inflammation; infection of eye (except that caused by tuberculosis or sexually transmitteddisease) (2 sources) Bacterial conjunctivitis; Translations: [Unspecified conjunctivitis] Onset: 09-03-2024 09-03-2024 Episodic Other injuries and conditions due to external causes (1 source) Unspecified injury of right lower leg, initial encounter; Translations: [Unspecified injury of right lower leg, initial encounter] Onset: 12-27-2024 Episodic Other skin disorders (1 source) Androgenic alopecia, unspecified; Translations: [Male pattern baldness] Onset: 09-29-2024 Episodic Residual codes; unclassified (1 source) Other specified health status; Translations: [Attempting to conceive] Onset: 07-04-2024 Episodic Results Test Name Value Interpretation Reference Range Facil ity US DVT LOWER RTon 05-27-2025 US DVT LOWER RT * * *Final Report* * * DATE OF EXAM: May 27 2025 2:53PM LDU 1007 - US DVT LOWER RT / PROCEDURE REASON: multiple diagnoses * * * * Physician Interpretation * * * * EXAMINATION: RIGHT LOWER EXTREMITY DEEP VENOUS ULTRASOUND WITH DOPPLER IMAGING CLINICAL HISTORY: Serial examination of patient with documented calf DVT to check for propagation of thrombus. TECHNIQUE: Grayscale with compression maneuvers, color Doppler and spectral Doppler imaging of the right proximal deep veins was performed. Grayscale with compression maneuvers of the peroneal and posterior tibial veins was performed. The right great and small saphenous veins were evaluated at their insertion to the deep system. The contralateral common femoral vein was imaged for comparison. Images were obtained and stored in a permanent archive. MQ: USLER_1 COMPARISON: Report available through [facility] for outside ultrasound of the lower extremities 02/26/2025, no images available. RESULT: RIGHT LOWER EXTREMITY PROXIMAL DEEP VEINS Distal External Iliac, Common Femoral and proximal Profunda Veins: Compression: Normal Doppler: Normal, spontaneous respirophasic flow. Normal response to augmentation. Femoral vein: Compression: Normal Doppler: Normal, spontaneous flow. Normal response to augmentation. Popliteal vein: Compression: Normal Doppler: Normal, spontaneous flow. Normal response to augmentation. CALF DEEP VEINS Peroneal veins: Abnormal compression. Posterior tibial veins: Abnormal compression. Trickle flow in some portions. Gastrocnemius and Soleal veins: Not imaged. SUPERFICIAL VEINS Great saphenous: Patent and compressible at insertion into common femoral vein; not otherwise assessed. Small Saphenous: Patent and compressible in the proximal calf, not otherwise assessed. LEFT LOWER EXTREMITY (FOR COMPARISON) Common Femoral Vein: Compression: Normal Doppler: Normal, spontaneous respirophasic flow. Normal response to augmentation. IMPRESSION: Negative study for proximal DVT in the right lower extremity. Positive calf DVT in the right lower extremity, likely chronic as described on the ultrasound report. No images available for comparison Positive study for superficial thrombophlebitis in the imaged segments of the right lower extremity. Factory Manager: KERRI Transcribe Date/Time: May 27 2025 4:42P Dictated by : CHARAN MARROQUIN MD This examination was interpreted and the report reviewed and electronically signed by: CHARAN MARROQUIN MD on May 27 2025 4:46PM EST [id number] Normal [facility] US Lower extremity vein - ri amanuel 05-27-2025 IMPRESSION: Negative study for proximal DVT in the right lower extremity. Positive calf DVT in the right lower extremity, likely chronic as described on the ultrasound report. No images available for comparison Positive study for superficial thrombophlebitis in the imaged segments of the right lower extremity. Factory Manager: KERRI Transcribe Date/Time: May 27 2025 4:42P Dictated by : CHARAN MARROQUIN MD This examination was interpreted and the report reviewed and electronically signed by: CHARAN MARROQUIN MD on May 27 2025 4:46PM [facility] [email or web address] RADIOLOGY GenieDBO * * *Final Report* * * DATE OF EXAM: May 27 2025 2:53PM LDU 1007 - US DVT LOWER RT / PROCEDURE REASON: multiple diagnoses * * * * Physician Interpretation * * * * EXAMINATION: RIGHT LOWER EXTREMITY DEEP VENOUS ULTRASOUND WITH DOPPLER IMAGING CLINICAL HISTORY: Serial examination of patient with documented calf DVT to check for propagation of thrombus. TECHNIQUE: Grayscale with compression maneuvers, color Doppler and spectral Doppler imaging of the right proximal deep veins was performed. Grayscale with compression maneuvers of the peroneal and posterior tibial veins was performed. The right great and small saphenous veins were evaluated at their insertion to the deep system. The contralateral common femoral vein was imaged for comparison. Images were obtained and stored in a permanent archive. MQ: USLER_1 COMPARISON: Report available through [facility] for outside ultrasound of the lower extremities 02/26/2025, no images available. RESULT: RIGHT LOWER EXTREMITY PROXIMAL DEEP VEINS Distal External Iliac, Common Femoral and proximal Profunda Veins: Compression: Normal Doppler: Normal, spontaneous respirophasic flow. Normal response to augmentation. Femoral vein: Compression: Normal Doppler: Normal, spontaneous flow. Normal response to augmentation. Popliteal vein: Compression: Normal Doppler: Normal, spontaneous flow. Normal response to augmentation. CALF DEEP VEINS Peroneal veins: Abnormal compression. Posterior tibial veins: Abnormal compression. Trickle flow in some portions. Gastrocnemius and Soleal veins: Not imaged. SUPERFICIAL VEINS Great saphenous: Patent and compressible at insertion into common femoral vein; not otherwise assessed. Small Saphenous: Patent and compressible in the proximal calf, not otherwise assessed. LEFT LOWER EXTREMITY (FOR COMPARISON) Common Femoral Vein: Compression: Normal Doppler: Normal, spontaneous respirophasic flow. Normal response to augmentation. [email or web address] RADIOLOGY SYNGO Provider, Zeynep Covarrubias [facility] - 05/27/2025 * * *Final Report* * * DATE OF EXAM: May 27 2025 2:53PM LDU 1007 - US DVT LOWER RT / PROCEDURE REASON: multiple diagnoses * * * * Physician Interpretation * * * * EXAMINATION: RIGHT LOWER EXTREMITY DEEP VENOUS ULTRASOUND WITH DOPPLER IMAGING CLINICAL HISTORY: Serial examination of patient with documented calf DVT to check for propagation of thrombus. TECHNIQUE: Grayscale with compression maneuvers, color Doppler and spectral Doppler imaging of the right proximal deep veins was performed. Grayscale with compression maneuvers of the peroneal and posterior tibial veins was performed. The right great and small saphenous veins were evaluated at their insertion to the deep system. The contralateral common femoral vein was imaged for comparison. Images were obtained and stored in a permanent archive. MQ: USLER_1 COMPARISON: [facility] ultrasound of the lower extremities 02/26/2025, no images available. RESULT: RIGHT LOWER EXTREMITY PROXIMAL DEEP VEINS Distal External Iliac, Common Femoral and proximal Profunda Veins: Compression: Normal Doppler: Normal, spontaneous respirophasic flow. Normal response to augmentation. Femoral vein: Compression: Normal Doppler: Normal, spontaneous flow. Normal response to augmentation. Popliteal vein: Compression: Normal Doppler: Normal, spontaneous flow. Normal response to augmentation. CALF DEEP VEINS Peroneal veins: Abnormal compression. Posterior tibial veins: Abnormal compression. Trickle flow in some portions. Gastrocnemius and Soleal veins: Not imaged. SUPERFICIAL VEINS Great saphenous: Patent and compressible at insertion into common femoral vein; not otherwise assessed. Small Saphenous: Patent and compressible in the proximal calf, not otherwise assessed. LEFT LOWER EXTREMITY (FOR COMPARISON) Common Femoral Vein: Compression: Normal Doppler: Normal, spontaneous respirophasic flow. Normal response to augmentation. IMPRESSION IMPRESSION: Negative study for proximal DVT in the right lower extremity. Positive calf DVT in the right lower extremity, likely chronic as described on the ultrasound report. No images available for comparison Positive study for superficial thrombophlebitis in the imaged segments of the right lower extremity. Factory Manager: PSCB Transcribe Date/Time: May 27 2025 4:42P Dictated by : CHARAN MARROQUIN MD This examination was interpreted and the report reviewed and electronically signed by: CHARAN MARROQUIN MD on May 27 2025 4:46PM EST [facility] Radiology Study observation (narrative) [facility] US Lower extremity vein - ri ghtOrdered By: [facility] Provider on 05-27-[address] [facility] CNOVon 05-24-2025 CNOV Office Visit (FAMPWS ) NAZ BAUGH ([id number]) 1990 M Date Time Provider Department 05/24/25 9:00 AM ANGIE ROJAS During your visit today, we recorded the following information about you: Pulse Respiration Blood pressure Weight 68/minute 16/minute 118/88 84.8 kg Angie Rojas MD 05/24/2025 9:22 AM Signed Chief Complaint Patient presents with: Recheck: Follow up Recording using [employer] software for draft documentation of the visit was discussed with the patient/authorized customer response representative; all questions welcomed and answered. Patient/authorized customer response representative agreed to proceed HPI Naz Baugh is a 35 year old male who presents here today for Above Complaints. DVT: - Naz Baugh was diagnosed with DVT in the lower leg following right ACL and meniscus repair on 01/14. - DVT identified in the ER on 02/26, initiated on Eliquis BID. - Completed 3 months of Eliquis therapy; has 5 days of medication remaining. - Initial symptoms included calf pain and swelling, resolved within 2-3 days of starting Eliquis. - Currently ambulating well, occasionally jogging. - Naz reports intermittent pain behind the knee, distinct from previous calf pain, attributed to hamstring issues by the surgeon. - No bleeding complications reported. - Denies chest pain, dyspnea, or palpitations. Sinus Congestion: - Chronic sinus congestion x15 years, exacerbated by colds and air travel. - Recent evaluation by Dr. Corcoran at [facility] recommended sinuplasty, scheduled for early June. Records not available today. - Experiences sinus pain and pressure, particularly around the eyes. Past medical history, appointments, medications, allergies reviewed. Previous Medical History PAST MEDICAL HISTORY Diagnosis Date Acute DVT (deep venous thrombosis) ([facility]) 02/2025 Right LE after surgery Bilateral bunions Male pattern baldness Migraine Right ACL tear Seasonal allergies Previous Surgical History PAST SURGICAL HISTORY Procedure Laterality Date PAST SURGICAL HISTORY OF Right 2019 ACL repair PAST SURGICAL HISTORY OF Right 01/2025 ACL and meniscus repair Family History FAMILY HISTORY Problem Relation Age of Onset No Known Problems Mother other (rheumatoid arthritis) Father Thyroid Father No Known Problems Brother Stroke Paternal Grandmother Patient Allergies ALLERGIES No Known Allergies Current Medications Current Outpatient Medications on File Prior to Visit Medication Sig ELIQUIS DVT-PE TREAT 30D START 5 mg (74 tabs) Take 5 mg by mouth two times a day. fluticasone (FLONASE) 50 mcg/actuation nasal spray Use 2 Sprays in each nostril once daily. (Patient not taking: Reported on 03/11/2025) SUMAtriptan (IMITREX) 50 mg tablet Take 50 mg by mouth as needed for migraine headache (see administration instructions). No current facility-administered medications on file prior to visit. Social History SOCIAL HISTORY[1] Review of Symptoms REVIEW OF SYSTEMS GENERAL: No weight loss, malaise or fevers RESPIRATORY: Negative for cough, hemoptysis, wheezing, COPD, dyspnea or shortness of breath CARDIOVASCULAR: Negative for chest pain, leg swelling, hypertension, CHF or palpitations SKIN: Negative for lesions, rash, and itching EXAM: BP 118/88 Pulse 68 Resp 16 Wt 84.8 kg (187 lb) SpO2 99% BMI 27.29 kg/m? General Appearance: Well appearing, alert, in no acute distress, well-hydrated, well nourished.. Skin: Skin color, texture, turgor normal, no suspicious rashes or lesions. Lungs: Lungs clear to auscultation. No wheezing, rhonchi, rales.. Heart: RRR without murmur, gallop, or rubs. No ectopy. Extremities: No deformities, edema, skin discoloration, clubbing or cyanosis. Good capillary refill. . Health Maintenance List Depression Screening Never done Anxiety Screening Never done HPV Vaccine(1 - 3-dose SCDM series) Never done Lipid Screening due on 09/29/2029 DTaP,Tdap,Td Vaccine(3 - Td or Tdap) due on 12/15/2033 Influenza Vaccine Completed Hepatitis C Screening Completed HIV Screening Completed Hepatitis B Vaccine Discontinued 1. Acute deep vein thrombosis (DVT) of calf muscle vein of right lower extremity (HCC) (I82.461) - DVT diagnosed on 02/26 following right ACL and meniscus repair on 01/14; completed 3 months of Eliquis BID with resolution of initial calf pain and swelling. - No bleeding complications reported. - Occasional posterior knee pain persists; repeat ultrasound ordered to confirm clot resolution. - Continue Eliquis BID until 05/29 or until ultrasound confirms resolution. - If ultrasound is negative, discontinue Eliquis; if clot persists, extend anticoagulation for an additional 3 months. - Educated on signs and symptoms of recurrent DVT or PE (new calf pain/swelling, redness, chest pain, hemoptysis) an (more content not included)... Normal [facility] Neurology Visit Reporton Neurology Visit Report [facility] [address], [address] [place] [address] OFFICE VISIT Date of Service: 04/11/25 MR#: [id number] Acct: [id number] Name: NAZ BAUGH Rep #: [id number] : 1990 Provider: Dr. Toy kay MD Age/Sex: 35/M [place] [facility] [place]: Signed HPI [facility] Chief Complaint: Details: Interim History:??? Naz returns for follow-up. He has a history of right ACL tear s/p surgical repair (2019) and migraine headaches.??? He began to have headaches around 2011.??? These then subsided for several years, however around 2016, he began to have recurrence of the headaches.??? The headaches are unilateral (right or left-sided) temporal headaches. The headaches are throbbing and he experiences associated phonophobia and photophobia.??? He had experienced approximately 3 to 4 days of headache per month however beginning September 2024 he has had an increase in his headache frequency and was experiencing 10 to 12 days of headache per month. Individual headaches lasted up to 3 days.??? Bright light, his work schedule, looking at a computer screen, eating cheese and exposure to smog are triggers for his headaches.???He denied having associated vision change, dizziness, or syncope. Advil was not effective for his headaches.??? Sumatriptan 50 mg was of modest benefit for his headaches however he has often needed to take a second dose of the medication in a day. His dose of sumatriptan was increased to 100 mg and this has been effective and he is tolerating sumatriptan well. Since his last visit in November 2024 he has had a reduction in his headache frequency and he now experiences headaches about 4 to 5 days/month and individual headaches typically last no more than 1 day each. A CBC, CMP and brain MRI were unremarkable. He had a mildly elevated TSH, with a normal T3 and free T4. [...] (low). EKG (12/31/2021): Sinus rhythm with short ME. Otherwise normal EKG. Head CT (05/29/2022): Normal [...] Preserved vertebral body height.??? No fracture. No spondylolisthesi (more content not included)... Normal [facility] 03-11-2025 [facility] Office Visit (FAMPWS ) NAZ BAUGH ([id number]) 1990 M Date Time Provider Department 03/11/25 9:20 AM ANGIE ROJAS During your visit today, we recorded the following information about you: Pulse Blood pressure Weight Height 76/minute 112/80 82.6 kg 1.763 m Angie Rojas MD 03/11/2025 10:10 AM Signed Chief Complaint Patient presents with: Outpatient Dvt Tx Recording using [employer] software for draft documentation of the visit was discussed with the patient/authorized customer response representative; all questions welcomed and answered. Patient/authorized customer response representative agreed to proceed HPI Naz Baugh is a 35 year old male who presents here today for Above Complaints. DVT: - Right leg DVT diagnosed approximately two weeks ago. - Initial symptoms included pain behind the calf during the fifth week post-op from ACL and meniscus repair. - Emergency ultrasound confirmed an early-stage blood clot from behind the knee to the calf. - Treated in the [facility] 02/26/25 ER with apixaban 10 mg BID for one week, followed by 5 mg BID. - Adherent to medication regimen; reports significant improvement in leg pain within two days of starting anticoagulation. - Denies current pain, swelling, or redness in the right leg. - Denies hemoptysis, epistaxis, hematuria, melena, hematochezia, chest pain, or dyspnea. Right Knee ACL and Meniscus Repair: - Underwent ACL and meniscus repair on 01/14. - Reports ongoing recovery with physical therapy; experiencing weird sounds and squeaking in the knee. - Noted swelling in the knee, attributed to normal post-op recovery and potential bleeding due to anticoagulation. - Denies new pain or swelling in the calf; no redness observed. - Engaged in physical therapy and home exercises; able to bend the knee more than 90 degrees. - Previous ACL surgery six years ago. Past medical history, appointments, medications, allergies reviewed. Previous Medical History PAST MEDICAL HISTORY Diagnosis Date Bilateral bunions Male pattern baldness Migraine Right ACL tear Seasonal allergies Previous Surgical History PAST SURGICAL HISTORY Procedure Laterality Date PAST SURGICAL HISTORY OF Right 2018 ACL repair PAST SURGICAL HISTORY OF Right 01/2025 ACL and meniscus repair Family History FAMILY HISTORY Problem Relation Age of Onset No Known Problems Mother other (rheumatoid arthritis) Father Thyroid Father No Known Problems Brother Stroke Paternal Grandmother Patient Allergies ALLERGIES No Known Allergies Current Medications Current Outpatient Medications on File Prior to Visit Medication Sig ELIQUIS DVT-PE TREAT 30D START 5 mg (74 tabs) Take 5 mg by mouth two times a day. minoxidil (LONITEN) 2.5 mg tablet Take 0.5 tablets by mouth once daily. Taking 1/2 tab SUMAtriptan (IMITREX) 50 mg tablet Take 50 mg by mouth as needed for migraine headache (see administration instructions). fluticasone (FLONASE) 50 mcg/actuation nasal spray Use 2 Sprays in each nostril once daily. (Patient not taking: Reported on 03/11/2025) No current facility-administered medications on file prior [...] palpitations GI: No nausea, vomiting, or diarrhea EXAM: BP 112/80 Pulse 76 Ht 176.3 cm (5' 9.41) Wt 82.6 kg (182 lb) SpO2 99% BMI 26.56 kg/m? GENERAL: NAD, alert and oriented. SKIN: Unremarkable, no rash or skin lesions. LUNGS: Clear to auscultation bilaterally, no wheezes/rhonchi/rales. HEART: Regular rate and rhythm, no murmurs. No ectopy. EXTREMITIES: No deformities, no skin discoloration, no edema. Calves both measuring about 37 cm, symmetrical. Health Maintenance List Depression Screening Never done Anxiety Screening Never done Covid-19 Vaccine( season) due on 07/04/2025 Lipid Screening due on 09/29/2029 DTaP,Tdap,Td Vaccine(3 - Td or Tdap) due on 12/15/2033 Influenza Vaccine Completed Hepatitis C Screening Completed HIV Screening Completed Hepatitis B Vaccine Discontinued 1. Acute deep vein thrombosis (DVT) of calf muscle vein of right lower extremity (HCC) (I82.461) - Diagnosed with a provoked DVT following ACL and meniscus repair on January 14. - Initiated on apixaban 10 mg BID for 1 wee (more content not included)... Normal [facility] Venous duplex ultrasound rep ortOrdered By: Beau Ta on 03-01-2025 [facility] Cardi[facility] Services [address] [place] [address] Venous Duplex US, Unilateral 02/26/25 1510 MR#: [id number] Acct: [id number] Name: NAZ BAUGH Rep #:[id number] : 1990 35 From: Beau Ta MD Attending Dr: Dr. Shawn Grace, Status: REG CLI Ordering Dr: Shawn Grace DO Date: 02/26/25 Location: [facility] Sex: M UTD Admitted: Reason For Study Reason For Study: RLE PAIN RIGHT LEFT GSV is normal. CFV is compressible, spontaneous, phasic, competent, CFV is compressible, spontaneous, phasic, competent and demonstrates normal augmentation. and demonstrates normal augmentation. FV is compressible, spontaneous, phasic, competent and demonstrates normal augmentation. Acute deep vein thrombosis is noted in the POP V. It is dilated and NONCOMPRESSIBLE. Acute deep vein thrombosis is noted in the T/P Trunk. It is dilated and NONCOMPRESSIBLE. PTV is compressible. RT PerV is compressible. Procedure This is a venous duplex using B-mode, color flow and spectral Doppler. Exam performed in department. A preliminary report was called and/or faxed to [facility] @ 3:25pm. Told to call PCP. PCP Dr. Angie Rojas office notified at 3:30 pm. instructed to take patient to ED. VL/Venous Duplex US, Unilateral Interpretation Summary Acute deep vein thrombosis is noted in the right popliteal vein. Acute deep veinthrombosis is noted in the right tibio- peroneal trunk. The remainder of the right lower extremity deep venous system ispatent and compressible. Valvular competence appears intact within the proximal deep venous system on the right . The right great saphenous vein appears patent and compressible segmentally. The left common femoral vein is patent and compressible . Ordering Physician: Shawn Grace Referring Physician: Angie Rojas Performed By: Laila Sánchez, RDCS, RVT 03/01/252230 Date _ Beau Ta MD CC: Dr. Brandon Rojas MD; Dr. Shawn Grace, ~ Date Dictated: 02/26/25 1510 Date Transcribed: 03/01/252230 Factory Manager: Signed [facility] Telephone (FAMPWS) NAZ BAUGH ([id number]) 1990 M Date Time Provider Department 02/26/25 ANGIE ROJAS During your visit today, we recorded the following information about you: Prema Madison LPN 02/26/2025 3:36 PM Signed Laila with [facility] Vasc Lab calls to report pt tested positive for DVT behind right knee. Pt had knee surgery six weeks ago. tr Ortho sent pt to get US. [facility]'s policy is to have pcp take care of treatment for dvt. Please review and advise. MOE Chan Lindsey, MA 02/26/2025 3:43 PM Signed Called and spoke to Laila with [facility] vas lab. Per Dr. Rojas the ordering provider needs to evaluate and treat. This is a post-op related DVT. Relayed this to Laila whom verbalized understanding. Patient sent to ER for treatment. GREG Nicole Christopher B, MD 02/27/2025 7:18 AM Signed Reviewed Allergies As of Date: 02/26/2025 (No Known Allergies) Date Reviewed: 11/05/2024 Reviewed by: Jami Mi LPN - Fully Assessed Reason for Visit: Outpatient Dvt Tx [147] Prescriptions as of 03/25/2025 - ELIQUIS DVT-PE TREAT 30D START 5 mg (74 tabs) Take 5 mg by mouth two times a day. - apixaban (ELIQUIS) 5 mg tab(s) Take 1 tablet by mouth two times a day. - fluticasone (FLONASE) 50 mcg/actuation nasal spray Use 2 Sprays in each nostril once daily. - minoxidil (LONITEN) 2.5 mg tablet Take 0.5 tablets by mouth once daily. Taking 1/2 tab - SUMAtriptan (IMITREX) 50 mg tablet Take 50 mg by mouth as needed for migraine headache (see administration instructions). Problem List As Of Date 02/26/2025 Noted Resolved Migraine [G43.909] 01/27/2023 Male pattern baldness [L64.9] Encounter Status:Closed by PREMA MADISON on 03/25/25 Normal [facility] Emergency Department Summary on 02-26-2025 Emergency Department Summary [facility] Medical Records Department [address] [place] [address] Emergency Department Summary 02/26/25 MR#: [id number] Acct: [id number] Name: NAZ BAUGH Rep #: [id number] : 1990 35 From: Kavon Ravi MD PCP: Dr. Brandon Rojas MD Status:DEP ER Location: ED HPI History of Present Illness Chief Complaint: Lower Extremity Injury Detail of Chief Complaint: Patient presents with pain and swelling of right lower extremity Informant: patient Onset/Context/Timing Onset: Days (2 days ago) Context: Sudden Onset Timing: Continuous Quality: Pain Location: Popliteal fossa to mid right calf Current Severity: Mild Maximum Severity: Moderate Worsened by: Palpation and movement Relieved by: Nothing Associated Symptoms Associated Symptoms: No associated chest pain, shortness of breath or dyspnea on exertion Narrative Narrative: Patient is a 35-year-old male who had recent surgery right knee ACL and meniscus repair. An open technique. He was seen by his orthopedist today. Because of the asymmetry of his legs and pain in the distribution deep venous system a venous duplex study was ordered. Venous duplex study reveals a acute clot popliteal vein and acute deep vein thrombus in the T???PE trunk. Patient denies chest pain, pleuritic pain, dyspnea or [place] exertion. Patient denies prior history of PE or DVT. Does have history of migraine headaches. He is presently not on ketorolac which is listed as one of his meds. He denies black or maroon-colored stool. Denies history of GI bleed. Prior similar symptoms: No Recent Illness/Hospitalizatio n: Yes PFSH PFSH Medical History Alcohol use Non-smoker [...] 3 days #12 tabs 01/14 Unknown Rx apixaban 5 mg (74 tabs) tablets in 10 mg (2 x 5 mg (74 tabs)) PO BI D 02/26/25 Unknown Rx a dose pack (Eliquis DVT-PE Treat #74 tabs 30D Start) Allergy/AdvReac Type Severity Reaction Status Date / Time No Known Allergies Allergy Verified 02/26/25 17:36 Family History Grandfather Myocardial infarction, Onset Age: [...] ROS ED Constitutional Constitutional ED: Denies chills, fever(s), subjective, sweats or weight loss Cardiovascular Cardiovascular: Denies chest pain, palpitations or racing heartbeat Respiratory/Chest Respiratory/Chest: Denies cough, dyspnea or dyspnea on exertion Gastrointestinal Gastrointestinal: Denies abdominal pain or melena Genitourinary Genitourinary ED: Denies hematuria Musculoskeletal Musculoskeletal: Denies arthralgias or myalgias Integumentary Denies rash Hematologic/Lymphatic Hematologic/Lymphatic: Denies easy bleeding or easy bruising EXAM Physical Exam Const Vital Signs: 02/26/25 15:45 02/26/25 18:24 Temperature 96.8 F L 98.4 F Temperature Source Temporal Pulse Rate 86 89 Respiratory Rate 19 H 16 Blood Pressure 113/78 118/78 Blood Pressure Mean 89 91 Pulse Ox 99 99 Oxygen Delivery Method Room Air Positive well nourished and well developed General Appearance ED: well developed and NAD; Negative for pallor HEENT Reports moist mucous membranes HEENT Narrative: Head is atraumatic and normocephalic. Eyes PERRL and EOMs intact bilaterally General Eye ED: Negative for pale conjunctiva or scleral icterus Neck no lymphadenopathy, supple and no JVD Resp normal respiratory effort and clear to auscultation bilaterally Cardio regular rate, regular rhythm, S1 normal heart sound, S2 normal heart sound and no murmurs Extremity Negative for normal to inspection Extremity Narrative: There is swelling of the right leg compared to the left. There is pain outpatient in the distribution deep venous system. There is mild leg vein distention. There is no discoloration of the leg. Neuro oriented x3, CN's II-XII intact bilaterally and no sensory deficits noted Sensorium / Orientation: alert Mo (more content not included)... Normal [facility] Venous Duplex US, Unilateral on 02-26-2025 Venous Duplex US, Unilateral [facility] Cardiovascular Services [address] [place] [address] Venous Duplex US, Unilateral 02/26/25 1510 MR#: [id number] Acct: [id number] Name: NAZ BAUGH Rep #: [id number] : 1990 35 From: Beau Ta MD Attending Dr: Dr. Shawn Grace DO Status: REG CLI Ordering Dr: Shawn Grace DO Date: 02/26/25 Location: [facility] Sex: M UTD Admitted: Reason For Study Reason For Study: RLE PAIN RIGHT LEFT GSV is normal. CFV is compressible, spontaneous, phasic, competent, CFV is compressible, spontaneous, phasic, competent and demonstrates normal augmentation. and demonstrates normal augmentation. FV is compressible, spontaneous, phasic, competent and demonstrates normal augmentation. Acute deep vein thrombosis is noted in the POP V. It is dilated and NONCOMPRESSIBLE. Acute deep vein thrombosis is noted in the T/P Trunk. It is dilated and NONCOMPRESSIBLE. PTV is compressible. RT PerV is compressible. Procedure This is a venous duplex using B-mode, color flow and spectral Doppler. Exam performed in department. A preliminary report was called and/or faxed to [facility] @ 3:25pm. Told to call PCP. PCP Dr. Angie Rojas office notified at 3:30 pm. instructed to take patient to ED. VL/Venous Duplex US, Unilateral Interpretation Summary Acute deep vein thrombosis is noted in the right popliteal vein. Acute deep vein thrombosis is noted in the right tibio- peroneal trunk. The remainder of the right lower extremity deep venous system is patent and compressible. Valvular competence appears intact within the proximal deep venous system on the right . The right great saphenous vein appears patent and compressible segmentally. The left common femoral vein is patent and compressible . Ordering Physician: Shawn Grace Referring Physician: Angie Rojas Performed By: Laila Sánchez, JEN, RVT 03/01/252230 Date Beau Ta MD CC: Dr. Brandon Rojas MD; Dr. Shawn Grace DO Date Dictated: 02/26/25 1510 Date Transcribed: 03/01/252230 Factory Manager: Signed Normal [facility] Abdomen Single View (Portabl e)on 01-19-2025 Abdomen Single View (Portable) [facility] Imaging Services [address] [place] [address] Abdomen Single View (Portable) MR#: [id number] Acct: [id number] Name: NAZ BAUGH Rep #: [id number] : 1990 M 35 From: Ash ontiveros MD PCP: Dr. Brandon Rojas MD Status: DEP ER Study: Abdomen Single View (Portable) Date of Exam: 0 01/19/25 Exam# [id number] Ordering Dr: Guzman Hills DO PROCEDURE: ABDOMEN SINGLE VIEW (PORTABLE) 01/19/2025 REASON FOR EXAM: CONSTIPATION TECHNIQUE: Single view abdomen. COMPARISON: 01/19/2025 FINDINGS: Bowel gas: Nonobstructive bowel gas pattern. Slight interval improvement stool burden.. Calcifications: No suspicious calcifications. Bones: The bones are unremarkable. Other: RAD/Abdomen Single View (Portable) IMPRESSION: See above Reading [facility] CC: Dr. Brandon Rojas MD; Dr. Guzman Hills DO Factory Manager: Signed Normal [facility] Abdomen Single View (Portable) [facility] Services [address] [place], [place] [address] Abdomen Single View (Portable) MR#: [id number] Acct: [id number] Name: NAZ BAUGH Rep #: [id number] : 1990 M 35 From: Ash ontiveros MD PCP: Dr. Brandon Rojas MD Status: REG ER Study: Abdomen Single View (Portable) Date of Exam: 0 01/19/25 Exam# [id number] Ordering Dr: Guzman Hills DO PROCEDURE: ABDOMEN SINGLE VIEW (PORTABLE) 01/19/2025 REASON FOR EXAM: CONSTIPATION TECHNIQUE: Single view abdomen. COMPARISON: None FINDINGS: Bowel gas: Nonobstructive bowel gas pattern. Moderate colonic stool. Calcifications: No suspicious calcifications. Bones: The bones are unremarkable. Other: Imaged lung jackman unremarkable RAD/Abdomen Single View (Portable) IMPRESSION: Nonobstructive bowel gas pattern. Moderate colonic stool. Reading [facility] CC: Dr. Brandon Rojas MD; Dr. Guzman Hills DO Factory Manager: Signed Normal [facility] Emergency Department Summary on 01-19-2025 Emergency Department Summary [facility] Medical Records Department [address] [place] [address] Emergency Department Summary 01/19/25 MR#: [id number] Acct: [id number] Name: NAZ BAUGH Rep #: [id number] : 1990 35 From: Guzman Whaley PCP: [...] non-tender GI Narrative: Rectal exam with nursing client support associate. No hemorrhoids. Digital rectal exam stools in [...] EKG interpreta (more content not included)... Normal [facility] Medical Records Department [address] [place] [address] Anesthesia Postop Eval I 01/14/25 1156 MR#: [id number] Acct: [id number] Name: NAZ BAUGH Rep #: [id number] : 1990 34 From: Shon Dumont CRNA PCP: Dr. Brandon Rojas MD Status:REG [facility] Y Race: [facility] Location: [place] [address] Anesthesia: Postop Eval I Current Vital Signs [...] completed: Yes 01/14/25 1201 Date Shon Dumont MANAGER BUSINESS Cosigner Signature: Date CC: Signed Normal [facility] MR/AMAITETO6tx 01-14-2025 MR/POSTOPAN2 [facility] Medical Records Department [address] [place] [address] Anesthesia Postop Eval II 01/14/25 1204 MR#: [id number] Acct: [id number] Name: NAZ BAUGH Rep #: [id number] : 1990 34 From: Fabrice Schmitt MD PCP: Dr. Brandon Rojas MD Status:REG [facility] Y Race: [facility] Location: [place] [address] Anesthesia Postop Eval I Sum Postop Eval Completion status Anesthesia document: Postop Eval 1 completed: Yes Anesthesia Postop Eval I Summary Anesthesia Postop Eval I Summary: Anesthesia Postop Eval I: Assessment Summary Airway patent Yes 01/14/25 12:01 MANAGER [email or web address] Spontaneous unlabored Yes 01/14/25 12:01 MANAGER BUSINESS.AZRALORadha respirations Mental status Awake,Calm 01/14/25 12:01 MANAGER BUSINESS.JBLOU nausea No 01/14/25 12:01 MANAGER BUSINESS.JBLOU Vomiting No 01/14/25 12:01 MANAGER BUSINESS.JBLOU Anesthesia Postop Eval I: Fluid Summary Crystalloid volume administer 1,600 01/14/25 12:01 MANAGER BUSINESS.JBLOU (ml) Colloids volume administered ( ml) Blood Product volume administered (ml) Total IV fluid infused 1,600 01/14/25 12:01 MANAGER BUSINESS.JBLOU Anesthesia Postop Eval I: Summary Notes Anesthesia Complication No 01/14/25 12:01 MANAGER BUSINESS.JBLOU Anesthesia Complication Comment: Post-operative progress note Anesthesia: Postop Eval II Evaluation Mental status: Awake Pain Level: 0 nausea: No Vomiting: No Complications Anesthesia Complication: No 01/14/25 1204 Date Fabrice Galindo Signature: Date CC: Signed Normal [facility] Operative Reporton 5 Operative Report [facility] Medical Records Department [address] [place] [address] Operative Report 01/14/25 1118 MR#: [id number] Acct: [id number] Name: NAZ BAUGH Rep #: [id number] : 1990 34 From: Shawn Grace DO PCP: Dr. Brandon Rojas MD Status:[facility] Location: [place] [address] Operative Report (Standard) Operative Information Date of [...] 2. Right knee arthroscopic medial meniscus repair advertising job titles: Yes Vice President Of Instruction: Pau Watts Tasks completed by first cook: Opening closing, Removing tissue, Hemostasis: Electrocautery and Other (Graft preparation, hardware removal and placement) Additional infertility medical assistant?: No Type of Anesthesia: General/Regional RN [...] 07:59 Procedure Stop Time: 10:55 Select all DRAINS/GRAFTS/IMPLANTS that apply: Implanted device Implanted device details: Arthrex tight rope II with button architectural technician 5 x 20 mm, fiber stitch implant [...] the quadrice (more content not included)... 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 He has had a prior ACL repair a number of years ago. Denies any hip or ankle pain. No other injuries. Prior similar symptoms: No Recent Illness/Hospitalizatio n: No PFSH PFSH Medical History Migraine without [...] or depression Endocrine Endocrinology: Denies polydipsia Hematologic/Lymphatic Hematologic/Lymphatic: Denies easy bleeding Allergic/Immunologic Allergic/Immunologic ED: Denies [...] Lymphatic: N (more content not included)... Normal [facility] Knee 4 or More Viewson 12-22 Knee 4 or More Views [facility] Imaging Services [address] [place], [place] [address] Knee 4 or More Views MR#: [id number] Acct: [id number] Name: NAZ BAUGH Rep #: [id number] : 1990 M 34 From: Lani Avilez nd, MD PCP: Dr. Brandon Rojas MD Status: REG ER Study: Knee 4 or More Views Date of Exam: 12/22/24 Exam# [id number] Ordering Dr: Alexey Batista MD PROCEDURE: KNEE [...] Views IMPRESSION: Negative knee radiographs. Reading Location: [id number] CC: Dr. Brandon Rojas MD; Dr. Alexey Batista MD Factory Manager: Signed Normal [facility] Neurology Visit Reporton Neurology Visit Report [facility] [address], [address] [place] [address] OFFICE VISIT Date of Service: 12/10/24 MR#: [id number] Acct: [id number] Name: NAZ BAUGH Rep #: [id number] : 1990 Provider: Dr. Toy kay MD Age/Sex: 34/M Location: [facility] Status: Signed HPI HPI Chief Complaint: Details: Interim History:??? Naz returns for follow-up. He has a history [...] (low). EKG (12/31/2021): Sinus rhythm with short ME. Otherwise normal EKG. Head CT (05/29/2022): Normal [...] Migraine witho (more content not included)... Normal [facility] 11-05-2024 [facility] Office Visit (FAMPWS ) NAZ BAUGH ([id number]) 1990 M Date Time Provider Department 11/05/24 10:20 AM ANGIE ROJAS During your visit today, we recorded the following information about you: Temperature Pulse Respiration Blood pressure 97 degrees 80/minute 16/minute 118/68 Weight 85.3 kg Angie Rojas MD 11/07/2024 1:00 PM Signed Chief Complaint Patient presents with: Sinus Problem: inflammation HPI Naz Baugh is a 34 year old male [...] Never done Anxiety Screening Never done Covid-19 Vaccine(4 - season) due on 07/04/2025 Lipid Screening due [...] Known Allergies) Date Reviewed: 11/05/2024 Reviewed by: Jami Mi LPN - Fully Assessed Reason for Visit: Sinus Problem [99] Cmt: inflammation Primary Visit Diagnosis:Acute recurrent frontal sinusitis [J01.11] Order(s):amoxicillin-c lavulanate potassium (AUGMENTIN) 875-125 mg per tabletTake 1 tablet by mouth two times a day for 10 days.Disp: 20 tabletRfl: 0 fluticasone (FLONASE) 50 mcg/actuation nasal sprayUse 2 Sprays in each nostril once daily.Disp: 1 EachRfl: 2 Prescriptions as of 11/07/2024 - amoxicillin-clavulanat e potassium (AUGMENTIN) 875-125 mg per tablet Take 1 tablet by mouth two times a d (more content not included)... Normal [facility] ([id number]) 1990 M Date Time Provider Department 10/01/24 MARCY LUEVANO During your visit today, we recorded the following information about you: Marcy Luevano APRN.LISA 10/01/2024 2:54 PM Signed Total and and cholesterol elevated some. Recommend low saturated fat diet and aim for at least 150 minutes of exercise per week. The rest of his blood work is normal. Marcy Luevano APRN.Jami Lovell LPN 10/01/2024 2:57 PM Signed Detailed message left on secure VM. Advised patient to call in if any questions. Jami Mi LPN Allergies As of Date: 10/01/2024 [...] Male pattern baldness [L64.9] Encounter Status:Closed by JAMI MI on 10/01/24 Normal [facility] CBC W Auto Differential pane l (Bld)on 09-29-2024 Basophils (Bld) [#/Vol] 0.07 10*3/uL Normal <0.11 [facility] Comment on above: Order Comment: Speci men Type: BLOOD SPECIMENOrdering Facility: [facility] Address: [address] [place] [address] Performed By: #### 5 7021-8 ####[facility] [id number] [place] [address] [place] Basophils/100 WBC (Bld) 0.9 % Normal [facility] Comment on above: Order Comment: Speci men Type: BLOOD SPECIMENOrdering Facility: [facility] Address: [address] [place] [address] Performed By: #### 5 7021-8 ####[facility] [id number] [place] [address] [place] Differential cell count method Nom (Bld) Auto Normal [facility] Comment on above: Order Comment: Speci men Type: BLOOD SPECIMENOrdering Facility: [facility] Address: [address] [place] [address] Performed By: #### 5 7021-8 ####[facility] [id number] [place] [address] [place] Eosinophils (Bld) [#/Vol] 0.21 10*3/uL Normal <0.46 [facility] Comment on above: Order Comment: Speci men Type: BLOOD SPECIMENOrdering Facility: [facility] Address: [address] [place] [address] Performed By: #### 5 7021-8 ####[facility] [id number] [place] [address] [place] Eosinophils/100 WBC (Bld) 2.6 % Normal [facility] Comment on above: Order Comment: Speci men Type: BLOOD SPECIMENOrdering Facility: [facility] Address: [address] [place] [address] Performed By: #### 5 7021-8 ####[facility] [id number] [place] [address] [place] Erythrocyte distribution width (RBC) [Ratio] 12.0 % Normal 11.5-15.0 [facility] Comment on above: Order Comment: Speci men Type: BLOOD SPECIMENOrdering Facility: [facility] Address: [address] [place] [address] Performed By: #### 5 7021-8 ####[facility] [id number] [place] [address] [place] Hematocrit (Bld) [Volume fraction] 43.5 % Normal 39.0-51.0 [facility] Comment on above: Order Comment: Speci men Type: BLOOD SPECIMENOrdering Facility: [facility] Address: [address] [place] [address] Performed By: #### 5 7021-8 ####[facility] [id number] [place] [address] [place] Hemoglobin (Bld) [Mass/Vol] 14.8 g/dL Normal 13.0-17.0 [facility] Comment on above: Order Comment: Speci men Type: BLOOD SPECIMENOrdering Facility: [facility] Address: [address] [place] [address] Performed By: #### 5 7021-8 ####[facility] [id number] [place] [address] [place] Immature granulocytes (Bld) [#/Vol] 0.03 10*3/uL Normal <0.10 [facility] Comment on above: Order Comment: Speci men Type: BLOOD SPECIMENOrdering Facility: [facility] Address: [address] [place] [address] Performed By: #### 5 7021-8 ####[facility] [id number] [place] [address] [place] Immature granulocytes/100 WBC (Bld) 0.4 % Normal [facility] Comment on above: Order Comment: Speci men Type: BLOOD SPECIMENOrdering Facility: [facility] Address: [address] [place] [address] Performed By: #### 5 7021-8 ####[facility] [id number] [place] [address] [place] Lymphocytes (Bld) [#/Vol] 2.70 10*3/uL Normal 1.00-4.00 [facility] Comment on above: Order Comment: Speci men Type: BLOOD SPECIMENOrdering Facility: [facility] Address: [address] [place] [address] Performed By: #### 5 7021-8 ####[facility] [id number] [place] [address] [place] Lymphocytes/100 WBC (Bld) 33.8 % Normal [facility] Comment on above: Order Comment: Speci men Type: BLOOD SPECIMENOrdering Facility: [facility] Address: [address] [place] [address] Performed By: #### 5 7021-8 ####[facility] [id number] [place] [address] [place] MCH (RBC) [Entitic mass] 29.3 pg Normal 26.0-34.0 [facility] Comment on above: Order Comment: Speci men Type: BLOOD SPECIMENOrdering Facility: [facility] Address: [address] [place] [address] Performed By: #### 5 7021-8 ####[facility] [id number] [place] [address] [place] MCHC (RBC) [Mass/Vol] 34.0 g/dL Normal 30.5-36.0 [facility] Comment on above: Order Comment: Speci men Type: BLOOD SPECIMENOrdering Facility: [facility] Address: [address] [place] [address] Performed By: #### 5 7021-8 ####[facility] [id number] [place] [address] [place] MCV (RBC) [Entitic vol] 86.1 fL Normal 80.0-100.0 [facility] Comment on above: Order Comment: Speci men Type: BLOOD SPECIMENOrdering Facility: [facility] Address: [address] [place] [address] Performed By: #### 5 7021-8 ####[facility] [id number] [place] [address] [place] Monocytes (Bld) [#/Vol] 0.57 10*3/uL Normal <0.87 [facility] Comment on above: Order Comment: Speci men Type: BLOOD SPECIMENOrdering Facility: [facility] Address: [address] [place] [address] Performed By: #### 5 7021-8 ####[facility] [id number] [place] [address] [place] Monocytes/100 WBC (Bld) 7.1 % Normal [facility] Comment on above: Order Comment: Speci men Type: BLOOD SPECIMENOrdering Facility: [facility] Address: [address] [place] [address] Performed By: #### 5 7021-8 ####[facility] [id number] [place] [address] [place] Neutrophils (Bld) [#/Vol] 4.41 10*3/uL Normal 1.45-7.50 [facility] Comment on above: Order Comment: Speci men Type: BLOOD SPECIMENOrdering Facility: [facility] Address: [address] [place] [address] Performed By: #### 5 7021-8 ####[facility] [id number] [place] [address] [place] Neutrophils/100 WBC (Bld) 55.2 % Normal [facility] Comment on above: Order Comment: Speci men Type: BLOOD SPECIMENOrdering Facility: [facility] Address: [address] [place] [address] Performed By: #### 5 7021-8 ####[facility] [id number] [place] [address] [place] Nucleated RBC (Bld) [#/Vol] 10*3/uL Normal <0.01 [facility] Comment on above: Order Comment: Speci men Type: BLOOD SPECIMENOrdering Facility: [facility] Address: [address] [place] [address] Performed By: #### 5 7021-8 ####[facility] [id number] [place] [address] [place] Nucleated RBC/100 WBC (Bld) [Ratio] 0.0 /100 WBC Normal [facility] Comment on above: Order Comment: Speci men Type: BLOOD SPECIMENOrdering Facility: [facility] Address: [address] [place] [address] Performed By: #### 5 7021-8 ####[facility] [id number] [place] [address] [place] Platelet mean volume (Bld) [Entitic vol] 10.6 fL Normal 9.0-12.7 [facility] Comment on above: Order Comment: Speci men Type: BLOOD SPECIMENOrdering Facility: [facility] Address: [address] [place] [address] Performed By: #### 5 7021-8 ####[facility] [id number] [place] [address] [place] Platelets (Bld) [#/Vol] 214 10*3/uL Normal 150-400 [facility] Comment on above: Order Comment: Speci men Type: BLOOD SPECIMENOrdering Facility: [facility] Address: [address] [place] [address] Performed By: #### 5 7021-8 ####[facility] [id number] [place] [address] [place] RBC (Bld) [#/Vol] 5.05 10*6/uL Normal 4.20-6.00 [facility] Comment on above: Order Comment: Speci men Type: BLOOD SPECIMENOrdering Facility: [facility] Address: [address] [place] [address] Performed By: #### 5 7021-8 ####[facility] [id number] [place] [address] [place] WBC (Bld) [#/Vol] 7.99 10*3/uL Normal 3.70-11.00 [facility] Comment on above: Order Comment: Speci men Type: BLOOD SPECIMENOrdering Facility: [facility] Address: [address] [place] [address] Performed By: #### 5 7021-8 ####[facility] [id number] [place] [address] [place] CNOVon 09-29-2024 CNOV Office Visit (FAMPWS ) NAZ BAUGH ([id number]) 1990 M Date Time Provider Department 09/29/24 8:40 AM ANGIE ROJAS During your visit today, we recorded the following information about you: Pulse Respiration Blood pressure Weight 65/minute 18/minute 124/72 84.4 kg Height 1.763 m Angie Rojas MD 09/29/2024 9:14 AM Signed Chief Complaint Patient presents with: Physical HPI Naz Baugh is a 34 year old male [...] phonophobia. Denies nausea, vomiting, or auras. Sees [facility] Dr. Lyons once per year for [...] non-tender. Bowel (more content not included)... Normal [facility] Comprehensive metabolic 2000 panelon 09-29-2024 Albumin [Mass/Vol] 4.5 g/dL Normal 3.9-4.9 [facility] Comment on above: Order Comment: Speci men Type: BLOOD SPECIMENOrdering Facility: [facility] Address: [address] [place] [address] Performed By: #### 2 4323-8, 38472-9 ####[facility] [id number] [place] [id number] [place] ALP [Catalytic activity/Vol] 59 U/L Normal 38-113 [facility] Comment on above: Order Comment: Speci men Type: BLOOD SPECIMENOrdering Facility: [facility] Address: [address] [place] [address] Performed By: #### 2 4323-8, 69556-4 ####[facility] [id number] [place] [address] [place] ALT [Catalytic activity/Vol] 16 U/L Normal 10-54 [facility] Comment on above: Order Comment: Speci men Type: BLOOD SPECIMENOrdering Facility: [facility] Address: [address] [place] [address] Performed By: #### 2 4323-8, 94643-8 ####[facility] [id number] [place] [address] [place] Anion gap [Moles/Vol] 9 mmol/L Normal 8-15 [facility] Comment on above: Order Comment: Speci men Type: BLOOD SPECIMENOrdering Facility: [facility] Address: [address] [place] [address] Performed By: #### 2 4323-8, 61705-9 ####[facility] [id number] [place] [address] [place] AST [Catalytic activity/Vol] 18 U/L Normal 14-40 [facility] Comment on above: Order Comment: Speci men Type: BLOOD SPECIMENOrdering Facility: [facility] Address: [address] [place] [address] Performed By: #### 2 4323-8, 99740-1 ####[facility] [id number] [place] [address] [place] Bilirubin [Mass/Vol] 0.5 mg/dL Normal 0.2-1.3 [facility] Comment on above: Order Comment: Speci men Type: BLOOD SPECIMENOrdering Facility: [facility] Address: [address] [place] [address] Performed By: #### 2 4323-8, 06446-7 ####[facility] [id number] [address] [address] [place] Calcium [Mass/Vol] 9.5 mg/dL Normal 8.5-10.2 [facility] Comment on above: Order Comment: Speci men Type: BLOOD SPECIMENOrdering Facility: [facility] Address: [address] [place], [place] [address] Performed By: #### 2 4323-8, 67938-4 ####[facility] [id number] [place] [address] [place] Chloride [Moles/Vol] 105 mmol/L Normal 98-107 [facility] Comment on above: Order Comment: Speci men Type: BLOOD SPECIMENOrdering Facility: [facility] Address: [address] [place] [id number] Performed By: #### 2 4323-8, 98551-9 ####[facility] [id number] [place] [address] [place] CO2 [Moles/Vol] 27 mmol/L Normal 22-30 [facility] Comment on above: Order Comment: Speci men Type: BLOOD SPECIMENOrdering Facility: [facility] Address: [address] [place] [id number] Performed By: #### 2 4323-8, 93049-6 ####[facility] [id number] [place] [id number] [place] Creatinine [Mass/Vol] 1.01 mg/dL Normal 0.73-1.22 [facility] Comment on above: Order Comment: Speci men Type: BLOOD SPECIMENOrdering Facility: [facility] Address: [address] [place], [place] [address] Performed By: #### 2 4323-8, 36658-3 ####[facility] [id number] [place] [address] [place] Creatinine and Glomerular filtration rate.predicted panel (S/P/Bld) 99 mL/min/1.73m??? Normal >=60 [facility] Comment on above: Order Comment: Tray seaman Type: BLOOD SPECIMENOrdering Facility: [facility] Address: [address] [place] [address] Result Comment: Herlinda mated Glomerular Filtration Rate [...] actual GFR. Performed By: #### 2 4323-8, 02511-9 ####[facility] [id number] [place] [address] [place] Glucose [Mass/Vol] 89 mg/dL Normal 74-99 [facility] Comment on above: Order Comment: Tray seaman Type: BLOOD SPECIMENOrdering Facility: [facility] Address: [address] [place] [address] Result Comment: The [place] [employer] (ADA) provides guidance for cutoff [...] Standards of Medical Care in Diabetes 2016, [place] [employer]. Diabetes Care. 2016.39(Suppl 1). Performed By: #### 2 4323-8, 08487-2 ####[facility] [id number] [place] [address] [place] Potassium [Moles/Vol] 4.4 mmol/L Normal 3.7-5.1 [facility] Comment on above: Order Comment: Speci men Type: BLOOD SPECIMENOrdering Facility: [facility] Address: [address] [place] [address] Performed By: #### 2 4323-8, 34693-1 ####[facility] [id number] [place] [address] [place] Protein [Mass/Vol] 7.1 g/dL Normal 6.3-8.0 [facility] Comment on above: Order Comment: Speci men Type: BLOOD SPECIMENOrdering Facility: [facility] Address: [address] [place] [address] Performed By: #### 2 4323-8, 09739-7 ####[facility] [id number] [place] [address] [place] Sodium [Moles/Vol] 141 mmol/L Normal 136-144 [facility] Comment on above: Order Comment: Speci men Type: BLOOD SPECIMENOrdering Facility: [facility] Address: [address] [place] [address] Performed By: #### 2 4323-8, 22156-6 ####[facility] [id number] [place] [address] [place] Urea nitrogen [Mass/Vol] 16 mg/dL Normal 9-24 [facility] Comment on above: Order Comment: Speci men Type: BLOOD SPECIMENOrdering Facility: [facility] Address: [address] [place] [address] Performed By: #### 2 4323-8, 65766-7 ####[facility] [id number] [place] [id number] [place] Lipid 1996 panelon 5 Cholesterol [Mass/Vol] 211 mg/dL High <200 [facility] Comment on above: Order Comment: Speci men Type: BLOOD SPECIMENOrdering Facility: [facility] Address: [address] [place] [address] Result Comment: <200 mg/dL, Desirable 200-239 mg/dL, Borderline high >239 mg/dL, High Performed By: #### 2 4323-8, 12097-5 ####[facility] [id number] [place] [address] [place] Cholesterol in HDL [Mass/Vol] 41 mg/dL Normal >39 [facility] Comment on above: Order Comment: Speci men Type: BLOOD SPECIMENOrdering Facility: [facility] Address: [address] [place] [address] Result Comment: 40-5 9 mg/dL, Acceptable >59 mg/dL, High: Negative risk factor for coronary heart disease <40 mg/dL, Low: Positive risk factor for coronary heart disease Performed By: #### 2 4323-8, 30017-3 ####[facility] [id number] [place] [address] [place] Cholesterol in LDL [Mass/Vol] 152 mg/dL High <100 [facility] Comment on above: Order Comment: Speci men Type: BLOOD SPECIMENOrdering Facility: [facility] Address: [address] [place] [address] Result Comment: <100 mg/dL, Optimal 100-129 mg/dL, Near optimal/above optimal 130-159 mg/dL, Borderline high 160-189 mg/dL, High >189 mg/dL, Very high Secondary prevention optimal LDL Cholesterol levels are recommended to be < 70 mg/dL Performed By: #### 2 4323-8, 34105-9 ####[facility] [id number] [place] [address] [place] Cholesterol in LDL/Cholesterol in HDL [Mass ratio] 3.71 {ratio} High <2.54 [facility] Comment on above: Order Comment: Speci men Type: BLOOD SPECIMENOrdering Facility: [facility] Address: [address] [place] [address] Result Comment: Brigido glover: 1. National Cholesterol Education Program ATP III Guideline At-A-Glance Quick Desk Reference: National Heart, Lung, and Blood [place]. National Institutes of Health. 2001: NIH Publication No. 01-3305. 2. An International Atherosclerosis Society position paper: global recommendations for the management of dyslipidemia: executive summary, Atherosclerosis. 2014: 232(2):410-413. Performed By: #### 2 4323-8, 30794-7 ####[facility] [id number] [place] [address] [place] Cholesterol in VLDL [Mass/Vol] 18 mg/dL Normal <30 [facility] Comment on above: Order Comment: Yuriyi men Type: BLOOD SPECIMENOrdering Facility: [facility] Address: [address] [place] [address] Performed By: #### 2 4323-8, 86158-5 ####[facility] [id number] [place] [address] [place] Cholesterol non HDL [Mass/Vol] 170 mg/dL High <130 [facility] Comment on above: Order Comment: Tray seaman Type: BLOOD SPECIMENOrdering Facility: [facility] Address: [address] [place] [address] Result Comment: <130 mg/dL, Optimal 130-159 mg/dL, Near optimal/above optimal 160-189 mg/dL, Borderline high 190-219 mg/dL, High >219 mg/dL, Very high Secondary prevention optimal non HDL Cholesterol levels are recommended to be <100 mg/dL Performed By: #### 2 4323-8, 43558-7 ####[facility] [id number] [place] [address] [place] Cholesterol.total/C holesterol in HDL [Mass ratio] 5.15 {ratio} High <5.10 [facility] Comment on above: Order Comment: Yuriyi men Type: BLOOD SPECIMENOrdering Facility: [facility] Address: [address] [place] [id number] Performed By: #### 2 4323-8, 06554-0 ####[facility] [id number] [place] [id number] [place] FASTING TIME 12 hrs Normal [facility] Comment on above: Order Comment: Speci men Type: BLOOD SPECIMENOrdering Facility: [facility] Address: [address] [place] [address] Performed By: #### 2 4323-8, 72624-2 ####[facility] [id number] [place] [address] [place] Triglyceride [Mass/Vol] 88 mg/dL Normal <150 [facility] Comment on above: Order Comment: Speci men Type: BLOOD SPECIMENOrdering Facility: [facility] Address: [address] [place] [address] Result Comment: <150 mg/dL, Normal 150-199 mg/dL, Borderline high 200-499 mg/dL, High >499 mg/dL, Very high Performed By: #### 2 4323-8, 00749-0 ####[facility] [id number] [place] [address] [place] CNOVon 09-03-2024 CNOV Office Visit (FAMPWS ) NAZ BAUGH ([id number]) 1990 M Date Time Provider Department 09/03/24 9:40 AM ANGIE ROJAS During your visit today, we recorded the following information about you: Temperature Pulse Respiration Blood pressure 97.2 degrees 63/minute 16/minute 106/70 Weight 85.1 kg Angie Rojas MD 09/03/2024 11:08 AM Signed Chief Complaint Patient presents with: Conjunctivitis: Bilateral eyes affected- itchy with drainage HPI Naz Baugh is a 34 year old male [...] Known Allergies) Date Reviewed: 09/03/2024 Reviewed by: Jami Mi LPN - Fully Assessed Reason for Visit: Conjunctivitis [24] Cmt: Bilateral eyes affected- itchy with drainage Primary Visit Diagnosis:Bacterial conjunctivitis [H10.9] Order(s):trimethoprim- polymyxin (POLYTRIM) 10,000 unit- 1 mg/mL ophthalmic solutionUse 1 Drop in both eyes four times daily for 10 days.Disp: 10 mLRfl: 0 Prescriptions as of 09/03/2024 - trimethoprim-polymyxin (POLYTRIM) 10,000 unit- 1 mg/mL ophthalmic solution Use 1 Drop in both eyes four times daily for 10 days. - dutasteride (AVODART) 0.5 mg capsule Take 0.5 mg by mouth once daily. - minoxidil (LONITEN) 2.5 mg tablet Take 2.5 mg by mouth once da (more content not included)... Normal [facility] CNOVon 07-04-2024 CNOV Office Visit (FAMPWS ) NAZ BAUGH ([id number]) 1990 M Date Time Provider Department 07/04/24 12:20 PM ANGIE ROJAS [facility] During your visit today, we recorded the following information about you: Pulse Respiration Blood pressure Weight 80/minute 16/minute 100/68 83.8 kg Angie Rojas MD 07/07/2024 9:34 AM Signed Chief Complaint Patient presents with: discuss conceiving children Follow Up HPI Naz Baugh is a 34 year old male [...] - 19+ 3-dose series) Never done Covid-19 Vaccine(2023- season) due on 05/13/2024 Lipid Screening due [...] Abs Lymph 1.00 - 4.00 k/uL 2.86 Hamilton% % 7.0 Abs [place] <0.87 k/uL 0.62 Eosin% % 1.8 Abs [...] lower sperm count and speak with prescribing dye operator Dr. Snider about alternative for hair loss. No further testing ne (more content not included)... Normal [facility] CBC W Auto Differential pane l (Bld)on 05-10-2023 Basophils (Bld) [#/Vol] 0.07 10*3/uL <0.11 k/uL [facility] Basophils/100 WBC (Bld) 0.8 % [facility] Differential cell count method Nom (Bld) Auto [facility] Eosinophils (Bld) [#/Vol] 0.16 10*3/uL <0.46 k/uL [facility] Eosinophils/100 WBC (Bld) 1.8 % [facility] Erythrocyte distribution width (RBC) [Ratio] 11.9 % 11.5 - 15.0 % [facility] Hematocrit (Bld) [Volume fraction] 44.3 % 39.0 - 51.0 % [facility] Hemoglobin (Bld) [Mass/Vol] 15.0 g/dL 13.0 - 17.0 g/dL [facility] Immature granulocytes (Bld) [#/Vol] <0.10 k/uL [facility] Immature granulocytes/100 WBC (Bld) 0.2 % [facility] Lymphocytes (Bld) [#/Vol] 2.86 10*3/uL 1.00 - 4.00 k/uL [facility] Lymphocytes/100 WBC (Bld) 32.4 % [facility] MCH (RBC) [Entitic mass] 29.3 pg 26.0 - 34.[address] [facility] MCHC (RBC) [Mass/Vol] 33.9 g/dL 30.5 - 36.0 g/dL [facility] MCV (RBC) [Entitic vol] 86.5 fL 80.0 - 100.[address] [facility] Monocytes (Bld) [#/Vol] 0.62 10*3/uL <0.87 k/uL [facility] Monocytes/100 WBC (Bld) 7.0 % [facility] Neutrophils (Bld) [#/Vol] 5.10 10*3/uL 1.45 - 7.50 k/uL [facility] Neutrophils/100 WBC (Bld) 57.8 % [facility] Nucleated RBC (Bld) [#/Vol] <0.01 k/uL [facility] Nucleated RBC/100 WBC (Bld) [Ratio] 0.0 /[address] [facility] Platelet mean volume (Bld) [Entitic vol] 10.2 fL 9.0 - 12.[address] [facility] Platelets (Bld) [#/Vol] 218 10*3/uL 150 - 400 k/uL [facility] RBC (Bld) [#/Vol] 5.12 10*6/uL 4.20 - 6.0 0 m/uL [facility] WBC (Bld) [#/Vol] 8.83 10*3/uL 3.70 - 11. 00 k/uL [facility] ESR Westergren method (Bld) [Velocity]on 05-10-2023 ESR (Bld) [Velocity] 2 mm/h 0 - 15 mm/hr [facility] Absolute lymphocyte counton 12-31-2021 Lymphocytes Auto (Unsp spec) [#/Vol] 0.49 10*3/uL 0.83-4.51 [facility] Work Phone: Basophil percentageon 2021 Basophils/100 WBC (Bld) 0.4 % 0-1 [facility] Work Phone: Chloride [Moles/Vol] 104 mmol/L 98-107 [facility] Work Phone: Eosinophils/100 WBC (Bld) 0.0 % 0-5 [facility] Work Phone: Glucose [Mass/Vol] 90 mg/dL 74-106 [facility] Work Phone: Neutrophils (Bld) [#/Vol] 6.0 10*3/uL 2.0-7.7 [facility] Work Phone: Neutrophils/100 WBC (Bld) 79.9 % 47-70 [facility] Work Phone: Potassium [Moles/Vol] 3.7 mmol/L 3.5-5.1 [facility] Work Phone: Sodium [Moles/Vol] 138 mmol/L 136-145 [facility] Work Phone: WBC (Bld) [#/Vol] 7.6 10*3/uL 4.4-11.0 [facility] Work Phone: Blood erythrocytes count (nu mber/volume)on 12-31-2021 RBC (Bld) [#/Vol] 4.90 10*6/uL 4.6-6.2 [facility] Work Phone: Blood hemoglobin measurement (mass/volume)on 12-31-2021 Hemoglobin (Bld) [Mass/Vol] 14.7 g/dL 13.0-16.5 [facility] Work Phone: Blood lymphocytes/100 leukoc yteson 12-31-2021 Lymphocytes/100 WBC (Bld) 6.5 % 19-41 [facility] Work Phone: Blood monocytes/100 leukocyt eson 12-31-2021 Monocytes/100 WBC (Bld) 12.8 % 0-10 [facility] Work Phone: Blood platelet adequacy dete ction by light microscopyon 12-31-2021 Platelets LM Ql (Bld) ADEQUATE ADEQ [facility] Work Phone: Blood platelet mean volumeon 12-31-2021 Platelet mean volume (Bld) [Entitic vol] 10.0 fL 6.2-12.0 [facility] Work Phone: Determination of erythrocyte mean corpuscular volume (MCV)on 12-31-2021 MCV (RBC) [Entitic vol] 85.7 fL 80-94 [facility] Work Phone: Hematocrit Auto (Bld) [Volum e fraction]on 12-31-2021 Hematocrit (Bld) [Volume fraction] 42.0 % 40-54 [facility] Work Phone: Laboratory - Chemistry and C hemistry - challengeon 12-31-2021 CO2 [Moles/Vol] 30.0 mmol/L 21.0-32.0 [facility] Work Phone: Urea nitrogen/Creatinine [Mass ratio] 7.8 mg/mg 10-20 [facility] Work Phone: Laboratory - Hematology and Cell countson 12-31-2021 Erythrocyte distribution width (RBC) [Entitic vol] 37.1 fL 35.1-43.9 [facility] Work Phone: Erythrocyte distribution width (RBC) [Ratio] 11.9 % 11.6-14.6 [facility] Work Phone: Immature granulocytes/100 WBC (Bld) 0.400 % 0.0-0.9 [facility] Work Phone: Comment on above: IG% - Immature Granu locytes (promyelocytes, myelocytes and metamyelocytes) > 1% indicates that a LEFT SHIFT is Present. MCH (RBC) [Entitic mass] 30.0 pg 27.0-32.0 [facility] Work Phone: Nucleated RBC/100 WBC (Bld) [Ratio] 0 % 0-5 [facility] Work Phone: MCHC Auto (RBC) [Mass/Vol]on 12-31-2021 MCHC (RBC) [Mass/Vol] 35.0 g/dL 32-36 [facility] Work Phone: No Panel Informationon 12-31 Estimated Creatinine Clearance Calc 88.39 ml/min [facility] Work Phone: Estimated GFR (MDRD) Amer 94 mL/min >60 [facility] Work Phone: Comment on above: GFR Calc Estimated GFR (MDRD) Non-Af Amer 77 mL/min >60 [facility] Work Phone: Comment on above: Non- GFR Calc Platelets bldon 12-31-2021 Platelets (Bld) [#/Vol] 152 10*3/uL 150-450 [facility] Work Phone: RBC morphologyon 12-31-2021 RBC morphology finding Nom (Bld) NORM C+C NORMAL NORM C&C [facility] Work Phone: Serum or plasma calcium kristi urement (mass/volume)on 12-31-2021 Calcium [Mass/Vol] 8.8 mg/dL 8.5-10.1 [facility] Work Phone: Serum or plasma creatinine m easurement (mass/volume)on 12-31-2021 Creatinine [Mass/Vol] 1.15 mg/dL 0.70-1.30 [facility] Work Phone: Comment on above: The validity of the calculated GFR & GFRAA in patients over 70 years has not been determined. Clinical correlation is essential. Serum or plasma urea nitroge n measurement (mass/volume)on 12-31-2021 Urea nitrogen [Mass/Vol] 9 mg/dL 7-18 [facility] Work Phone: Thin prep Papanicolaou smear with manual screeningon 12-31-2021 Thin prep Papanicolaou smear with manual screening 4 5-15 [facility] Work Phone: Vital Signs Date Time Vital Sign Value Performing Clinician Shericei beto 05-24-2025 08:55-0400 Body mass index (BMI) [Ratio] 27.29 kg/m2 Angie Rojas MD Work Phone: [facility] 05-24-2025 08:55-0400 Body weight 84.82 kg Angie Rojas MD Work Phone: [facility] 05-24-2025 08:55-0400 Diastolic blood pressure 88 mm[Hg] Angie Rojas MD Work Phone: [facility] 05-24-2025 08:55-0400 Heart rate 68 /min Angie Rojas MD Work Phone: [facility] 05-24-2025 08:55-0400 Respiratory rate 16 /min Angie Rojas MD Work Phone: [facility] 05-24-2025 08:55-0400 SaO2% (BldA) [Mass fraction] 99 % Angie Rojas MD Work Phone: [facility] 05-24-2025 08:55-0400 Systolic blood pressure 118 mm[Hg] Angie Rojas MD Work Phone: [facility] 04-11-2025 08:27-0400 Body height 175.[address] Alexey Batista MD Work Phone: [facility] 04-11-2025 08:27-0400 Body mass index (BMI) [Ratio] 27.3 kg/m2 Dr. Alexey Batista MD Work Phone: [facility] 04-11-2025 08:27-0400 Body temperature 98 [degF] Dr. Alexey Batista MD Work Phone: [facility] 04-11-2025 08:27-0400 Body weight 84.[address] Alexey Batista MD Work Phone: [facility] 04-11-2025 08:27-0400 Diastolic blood pressure 70 mm[Hg] Dr. Alexey Batista MD Work Phone: [facility] 04-11-2025 08:27-0400 Heart rate 61 /min Dr. Alexey Batista MD Work Phone: [facility] 04-11-2025 08:27-0400 Respiratory rate 17 /min Dr. Alexey Batista MD Work Phone: [facility] 04-11-2025 08:27-0400 SaO2% (BldA) [Mass fraction] 97 % Dr. Alexey Batista MD Work Phone: [facility] 04-11-2025 08:27-0400 Systolic blood pressure 104 mm[Hg] Dr. Alexey Batista MD Work Phone: [facility] 03-11-2025 09:51-0400 Diastolic blood pressure 80 mm[Hg] Angie Rojas MD Work Phone: [facility] 03-11-2025 09:51-0400 Systolic blood pressure 112 mm[Hg] Angie Rojas MD Work Phone: [facility] 03-11-2025 09:19-0400 Body height 176.3 cm Angie Rojas MD Work Phone: [facility] 03-11-2025 09:19-0400 Body mass index (BMI) [Ratio] 26.56 kg/m2 Angie Rojas MD Work Phone: [facility] 03-11-2025 09:19-0400 Body weight 82.56 kg Angie Rojas MD Work Phone: [facility] 03-11-2025 09:19-0400 Heart rate 76 /min Angie Rojas MD Work Phone: [facility] 03-11-2025 09:19-0400 SaO2% (BldA) [Mass fraction] 99 % Angie Rojas MD Work Phone: [facility] 02-26-2025 18:24-0400 Body temperature 98.4 [degF] No Primary Care Physician [facility] 02-26-2025 18:24-0400 Diastolic blood pressure 78 mm[Hg] No Primary Care Physician [facility] 02-26-2025 18:24-0400 Heart rate 89 /min No Primary Care Physician [facility] 02-26-2025 18:24-0400 Respiratory rate 16 /min No Primary Care Physician [facility] 02-26-2025 18:24-0400 SaO2% (BldA) [Mass fraction] 99 % No Primary Care Physician [facility] 02-26-2025 18:24-0400 Systolic blood pressure 118 mm[Hg] No Primary Care Physician [facility] 02-26-2025 15:45-0400 Body height 175.26 cm No Primary Care Physician [facility] 02-26-2025 15:45-0400 Body mass index (BMI) [Ratio] 26.4 kg/m2 No Primary Care Physician [facility] 02-26-2025 15:45-0400 Body weight 81 kg No Primary Care Physician [facility] 01-19-2025 22:00-0400 Body temperature 97.8 [degF] No Primary Care Physician [facility] 01-19-2025 22:00-0400 Diastolic blood pressure 74 mm[Hg] No Primary Care Physician [facility] 01-19-2025 22:00-0400 Heart rate 81 /min No Primary Care Physician [facility] 01-19-2025 22:00-0400 Respiratory rate 16 /min No Primary Care Physician [facility] 01-19-2025 22:00-0400 SaO2% (BldA) [Mass fraction] 99 % No Primary Care Physician [facility] 01-19-2025 22:00-0400 Systolic blood pressure 115 mm[Hg] No Primary Care Physician [facility] 01-19-2025 18:37-0400 Body height 175.26 cm No Primary Care Physician [facility] 01-19-2025 18:37-0400 Body mass index (BMI) [Ratio] 27.7 kg/m2 No Primary Care Physician [facility] 01-19-2025 18:37-0400 Body weight 85.27 kg No Primary Care Physician [facility] 01-14-2025 14:14-0400 Body temperature 98.1 [degF] No Primary Care Physician [facility] 01-14-2025 14:14-0400 Diastolic blood pressure 78 mm[Hg] No Primary Care Physician [facility] 01-14-2025 14:14-0400 Heart rate 72 /min No Primary Care Physician [facility] 01-14-2025 14:14-0400 Respiratory rate 16 /min No Primary Care Physician [facility] 01-14-2025 14:14-0400 SaO2% (BldA) [Mass fraction] 100 % No Primary Care Physician [facility] 01-14-2025 14:14-0400 Systolic blood pressure 115 mm[Hg] No Primary Care Physician [facility] 01-14-2025 06:51-0400 Body mass index (BMI) [Ratio] 27 kg/m2 No Primary Care Physician [facility] 01-14-2025 06:51-0400 Body weight 83.1 kg No Primary Care Physician [facility] 12-22-2024 12:54-0400 Body temperature 97.8 [degF] No Primary Care Physician [facility] 12-22-2024 12:54-0400 Diastolic blood pressure 62 mm[Hg] No Primary Care Physician [facility] 12-22-2024 12:54-0400 Heart rate 74 /min No Primary Care Physician [facility] 12-22-2024 12:54-0400 Respiratory rate 18 /min No Primary Care Physician [facility] 12-22-2024 12:54-0400 SaO2% (BldA) [Mass fraction] 99 % No Primary Care Physician [facility] 12-22-2024 12:54-0400 Systolic blood pressure 120 mm[Hg] No Primary Care Physician [facility] 12-22-2024 11:54-0400 Body height 172.72 cm No Primary Care Physician [facility] 12-10-2024 09:25-0400 Body mass index (BMI) [Ratio] 28.8 kg/m2 No Primary Care Physician [facility] 12-10-2024 09:25-0400 Body temperature 98.2 [degF] No Primary Care Physician [facility] 12-10-2024 09:25-0400 Body weight 86.18 kg No Primary Care Physician [facility] 12-10-2024 09:25-0400 Diastolic blood pressure 72 mm[Hg] No Primary Care Physician [facility] 12-10-2024 09:25-0400 Heart rate 77 /min No Primary Care Physician [facility] 12-10-2024 09:25-0400 Respiratory rate 15 /min No Primary Care Physician [facility] 12-10-2024 09:25-0400 SaO2% (BldA) [Mass fraction] 99 % No Primary Care Physician [facility] 12-10-2024 09:25-0400 Systolic blood pressure 110 mm[Hg] No Primary Care Physician [facility] 11-05-2024 10:31-0500 Body mass index (BMI) [Ratio] 27.44 kg/m2 Angie Rojas MD Work Phone: [facility] 11-05-2024 10:31-0500 Body temperature 97 [degF] Angie Rojas MD Work Phone: [facility] 11-05-2024 10:31-0500 Body weight 85.28 kg Angie Rojas MD Work Phone: [facility] 11-05-2024 10:31-0500 Diastolic blood pressure 68 mm[Hg] Angie Rojas MD Work Phone: [facility] 11-05-2024 10:31-0500 Heart rate 80 /min Angie Rojas MD Work Phone: [facility] 11-05-2024 10:31-0500 Respiratory rate 16 /min Angie Rojas MD Work Phone: [facility] 11-05-2024 10:31-0500 SaO2% (BldA) [Mass fraction] 98 % Angie Rojas MD Work Phone: [facility] 11-05-2024 10:31-0500 Systolic blood pressure 118 mm[Hg] Angie Rojas MD Work Phone: [facility] 09-29-2024 08:24-0500 Body height 176.3 cm Angie Rojas MD Work Phone: [facility] 09-29-2024 08:24-0500 Body mass index (BMI) [Ratio] 27.14 kg/m2 Angie Rojas MD Work Phone: [facility] 09-29-2024 08:24-0500 Body weight 84.37 kg Angie Rojas MD Work Phone: [facility] 09-29-2024 08:24-0500 Diastolic blood pressure 72 mm[Hg] Angie Rojas MD Work Phone: [facility] 09-29-2024 08:24-0500 Heart rate 65 /min Angie Rojas MD Work Phone: [facility] 09-29-2024 08:24-0500 Respiratory rate 18 /min Angie Rojas MD Work Phone: [facility] 09-29-2024 08:24-0500 SaO2% (BldA) [Mass fraction] 98 % Angie Rojas MD Work Phone: [facility] 09-29-2024 08:24-0500 Systolic blood pressure 124 mm[Hg] Angie Rojas MD Work Phone: [facility] 09-03-2024 09:33-0500 Body mass index (BMI) [Ratio] 27.7 kg/m2 Angie Rojas MD Work Phone: [facility] 09-03-2024 09:33-0500 Body temperature 97.2 [degF] Angie Rojas MD Work Phone: [facility] 09-03-2024 09:33-0500 Body weight 85.09 kg Angie Rojas MD Work Phone: [facility] 09-03-2024 09:33-0500 Diastolic blood pressure 70 mm[Hg] Angie Rojas MD Work Phone: [facility] 09-03-2024 09:33-0500 Heart rate 63 /min Angie Rojas MD Work Phone: [facility] 09-03-2024 09:33-0500 Respiratory rate 16 /min Angie Rojas MD Work Phone: [facility] 09-03-2024 09:33-0500 SaO2% (BldA) [Mass fraction] 99 % Angie Rojas MD Work Phone: [facility] 09-03-2024 09:33-0500 Systolic blood pressure 106 mm[Hg] Angie Rojas MD Work Phone: [facility] 07-04-2024 12:10-0400 Body mass index (BMI) [Ratio] 27.29 kg/m2 Angie Rojas MD Work Phone: [facility] 07-04-2024 12:10-0400 Body weight 83.83 kg Angie Rojas MD Work Phone: [facility] 07-04-2024 12:10-0400 Diastolic blood pressure 68 mm[Hg] Angie Rojas MD Work Phone: [facility] 07-04-2024 12:10-0400 Heart rate 80 /min Angie Rojas MD Work Phone: [facility] 07-04-2024 12:10-0400 Respiratory rate 16 /min Angie Rojas MD Work Phone: [facility] 07-04-2024 12:10-0400 SaO2% (BldA) [Mass fraction] 98 % Angie Rojas MD Work Phone: [facility] 07-04-2024 12:10-0400 Systolic blood pressure 100 mm[Hg] Angie Rojas MD Work Phone: [facility] 05-18-2023 14:38-0400 Body height 175.3 cm Angie Rojas MD Work Phone: [facility] 05-18-2023 14:38-0400 Body weight 80.29 kg Angie Rojas MD Work Phone: [facility] 05-18-2023 14:38-0400 Diastolic blood pressure 72 mm[Hg] Angie Rojas MD Work Phone: [facility] 05-18-2023 14:38-0400 Heart rate 74 /min Angie Rojas MD Work Phone: [facility] 05-18-2023 14:38-0400 Respiratory rate 16 /min Angie Rojas MD Work Phone: [facility] 05-18-2023 14:38-0400 Systolic blood pressure 110 mm[Hg] Angie Rojas MD Work Phone: [facility] 05-10-2023 15:02-0400 Body weight 81.38 kg Angie Rojas MD Work Phone: [facility] 05-10-2023 15:02-0400 Diastolic blood pressure 64 mm[Hg] Angie Rojas MD Work Phone: [facility] 05-10-2023 15:02-0400 Heart rate 76 /min Angie Rojas MD Work Phone: [facility] 05-10-2023 15:02-0400 Respiratory rate 16 /min Angie Rojas MD Work Phone: [facility] 05-10-2023 15:02-0400 SaO2% (BldA) [Mass fraction] 96 % Angie Rojas MD Work Phone: [facility] 05-10-2023 15:02-0400 Systolic blood pressure 106 mm[Hg] Angie Rojas MD Work Phone: [facility] 05-29-2022 21:04-0400 Diastolic blood pressure 69 mm[Hg] No Primary Care Physician [facility] Work Phone: 05-29-2022 21:04-0400 Heart rate 80 /min No Primary Care Physician [facility] Work Phone: 05-29-2022 21:04-0400 Respiratory rate 15 /min No Primary Care Physician [facility] Work Phone: 05-29-2022 21:04-0400 SaO2% (BldA) [Mass fraction] 98 % No Primary Care Physician [facility] Work Phone: 05-29-2022 21:04-0400 Systolic blood pressure 105 mm[Hg] No Primary Care Physician [facility] Work Phone: 05-29-2022 19:50-0400 Body height 172.72 cm No Primary Care Physician [facility] Work Phone: 05-29-2022 19:50-0400 Body mass index (BMI) [Ratio] 26.8 kg/m2 No Primary Care Physician [facility] Work Phone: 05-29-2022 19:50-0400 Body temperature 97.4 [degF] No Primary Care Physician [facility] Work Phone: 05-29-2022 19:50-0400 Body weight 80 kg No Primary Care Physician [facility] Work Phone: 02-16-2022 08:32-0400 Body mass index (BMI) [Ratio] 26.3 kg/m2 No Primary Care Physician [facility] Work Phone: 02-16-2022 08:32-0400 Body temperature 97.7 [degF] No Primary Care Physician [facility] Work Phone: 02-16-2022 08:32-0400 Body weight 78.52 kg No Primary Care Physician [facility] Work Phone: 02-16-2022 08:32-0400 Diastolic blood pressure 88 mm[Hg] No Primary Care Physician [facility] Work Phone: 02-16-2022 08:32-0400 Heart rate 66 /min No Primary Care Physician [facility] Work Phone: 02-16-2022 08:32-0400 Respiratory rate 16 /min No Primary Care Physician [facility] Work Phone: 02-16-2022 08:32-0400 SaO2% (BldA) [Mass fraction] 99 % No Primary Care Physician [facility] Work Phone: 02-16-2022 08:32-0400 Systolic blood pressure 125 mm[Hg] No Primary Care Physician [facility] Work Phone: 12-31-2021 14:45-0400 Diastolic blood pressure 62 mm[Hg] [facility] Work Phone: 12-31-2021 14:45-0400 Heart rate 81 /min [facility] Work Phone: 12-31-2021 14:45-0400 Systolic blood pressure 116 mm[Hg] [facility] Work Phone: 12-31-2021 13:12-0400 Body height 172.72 cm [facility] Work Phone: 12-31-2021 13:12-0400 Body mass index (BMI) [Ratio] 25.1 kg/m2 [facility] Work Phone: 12-31-2021 13:12-0400 Body temperature 96.9 [degF] [facility] Work Phone: 12-31-2021 13:12-0400 Body weight 75 kg [facility] Work Phone: 12-31-2021 13:12-0400 Respiratory rate 18 /min [facility] Work Phone: 12-31-2021 13:12-0400 SaO2% (BldA) [Mass fraction] 98 % [facility] Work Phone: Encounters Encounter Date Encounter Type Care Provider Facility Start: 05-28-2025 End: 05-28-2025 ambulatory Angie Rojas MD Work Phone: [facility] Comment on above: Question About Lemuel nucheryl Eliquis After 3-Month Course Start: 05-28-2025 End: 05-28-2025 Follow-up encounter Angie Rojas MD Work Phone: [facility] Comment on above: Results Start: 05-27-2025 ambulatory ANGIE Palacios acility:[facility] Start: 05-27-2025 End: 05-27-2025 Subsequent hospital visit by physician [facility] Comment on above: Acute deep vein thro mbosis (DVT) of calf muscle vein of right lower extremity (HCC) [I82.461] Start: 05-24-2025 End: 05-24-2025 Patient encounter procedure Angie Rojas MD Work Phone: [facility] Comment on above: Acute deep vein thro mbosis (DVT) of calf muscle vein of right lower extremity (HCC) (Primary Dx); S/P ACL repair; S/P medial meniscus repair of right knee; Chronic sinusitis, unspecified location Start: 05-24-2025 End: 05-24-2025 ambulatory ANGIE ROJAS Facility:[facility] Start: 04-11-2025 End: 04-11-[address] Toy Lyons MD -[facility] Work Phone: Start: 04-11-2025 End: 04-11-[address] Alexey Batista MD Work Phone: -[facility] Start: 03-18-2025 ambulatory No Primary Car e Physician Facility:[facility] Start: 03-11-2025 End: 03-11-2025 Patient encounter procedure Angie Rojas MD Work Phone: [facility] Comment on above: Acute deep vein thro mbosis (DVT) of calf muscle vein of right lower extremity (HCC) (Primary Dx); S/P ACL repair; S/P medial meniscus repair of right knee Start: 03-11-2025 End: 03-11-2025 ambulatory ANGIE ROJAS Facility:[facility] Start: 02-26-2025 End: 02-26-2025 Emergency department patient visit No Primary Care Physician -Emergency Department Work Phone: Start: 02-26-2025 End: 02-26-2025 ambulatory No Primary Care Physician [facility] Work Phone: Start: 02-26-2025 End: 02-26-[address] Shawn Spittle DO -[facility] Work Phone: Start: 02-26-2025 End: 03-25-2025 Telephone encounter Angie Rojas MD Work Phone: [facility] [place] Comment on above: Outpatient Dvt Tx Start: 02-26-2025 End: 02-26-2025 ambulatory Shawn Spiangie Facility:[facility] Start: 01-19-2025 End: 01-19-2025 Emergency department patient visit No Primary Care Physician -Emergency Department Work Phone: Start: 01-14-2025 End: 01-14-2025 Admission to same day surgery center Dr. Shawn Grace DO -[facility] Start: 01-14-2025 End: 01-14-2025 ambulatory Shawn Grace Facility:[facility] Start: 12-22-2024 End: 12-22-2024 Emergency department patient visit No Primary Care Physician -Emergency Department Work Phone: Start: 12-10-2024 End: 12-10-[address] Toy Lyons MD -[facility] Work Phone: Start: 12-10-2024 End: 12-10-2024 ambulatory No Primary Care Physician [facility] Start: 11-05-2024 End: 11-05-2024 ambulatory ANGIE ROJAS Facility:[facility] Start: 11-05-2024 End: 11-05-2024 Patient encounter procedure Angie Rojas MD Work Phone: [facility] [place] Comment on above: Acute recurrent fron maddie sinusitis (Primary Dx) Start: 10-01-2024 End: 10-01-2024 Telephone encounter Marcy Luevano APRN.CNP Work Phone: [facility] Comment on above: Results Start: 09-29-2024 End: 09-29-2024 ambulatory ANGIE ROJAS Facility:[facility] Start: 09-29-2024 End: 09-29-2024 Patient encounter procedure Angie Rojas MD Work Phone: [facility] Comment on above: Annual physical exam (Primary Dx); Migraine without aura and without status migrainosus, not intractable; Male pattern baldness Start: 09-03-2024 End: 09-03-2024 Patient encounter procedure Angie Rojas MD Work Phone: [facility] Comment on above: Bacterial conjunctiv itis (Primary Dx) Start: 09-03-2024 End: 09-03-2024 ambulatory ANGIE ROJAS Facility:[facility] Start: 07-04-2024 End: 07-04-2024 Patient encounter procedure Angie Rojas MD Work Phone: [facility] Comment on above: Attempting to concei ve (Primary Dx) Start: 07-04-2024 End: 07-04-2024 ambulatory ANGIE ROJAS Facility:[facility] Start: 05-31-2023 Telephone encounter Isa Bush MD Work Phone: [facility] [place] Comment on above: Appointment Start: 05-19-2023 End: 05-19-2023 Patient encounter procedure Isa Bush MD Work Phone: [facility]ology Comment on above: Subcutaneous nodules (Primary Dx); Patchy loss of hair; Hypertrophic scar Start: 05-18-2023 End: 05-18-2023 Patient encounter procedure Angie Rojas MD Work Phone: [facility] Comment on above: Scalp cyst (Primary Dx); Patchy loss of hair; Alopecia areata Start: 05-17-2023 ambulatory Angie Rojas MD Work Phone: [facility] Comment on above: Cysts and Hair Loss Start: 05-10-2023 End: 05-10-2023 Patient encounter procedure Angie Rojas MD Work Phone: [facility] Comment on above: Wrist pain, left (Pr imary Dx); Family history of rheumatoid arthritis Start: 10-18-2022 End: 10-18-2022 ambulatory [facility] Work Phone: Start: 10-18-2022 End: 10-18-2022 Patient encounter procedure [facility]-Radiology, [facility] Start: 05-29-2022 End: 05-29-2022 Emergency department patient visit No Primary Care Physician [facility]-Emergency Department Start: 02-16-2022 End: 02-16-2022 Patient encounter procedure No Primary Care Physician [facility] Start: 12-31-2021 End: 12-31-2021 Emergency department patient visit [facility]-Emergency Department Procedures Date Procedure Procedure Detail Performing Clinician Start: 05-27-2025 Dup-scan xtr veins unilateral/limited study Angie Rojas MD Work Phone: Start: 01-19-2025 End: 01-19-2025 Plain X-ray abdomen No Primary Care Physician Start: 12-22-2024 X-ray of knee, four or more views No Primary Care Physician Start: 09-29-2024 Lipid 1996 panel - Serum or Plasma Marcy Luevano APRN.CNP Work Phone: Start: 01-27-2023 Lipid 1996 panel - Serum or Plasma Isa Bush MD Work Phone: Start: 10-18-2022 Radiography of thoracic spine Start: 10-18-2022 X-ray of cervical spine Start: 10-18-2022 X-ray of lumbar spine, two or three views Start: 05-29-2022 CT of head without contrast No Primary Care Physician Start: 12-31-2021 End: 12-31-2021 Viral antigen assay History of operative procedure on knee S/P medial meniscus repair of right knee Angie Rojas MD Work Phone: History of operative procedure on knee S/P medial meniscus repair of right knee Angie Rojas MD Work Phone: History of operative procedure on knee S/P medial meniscus repair of right knee [facility] History of operative procedure on knee S/P medial meniscus repair of right knee Angie Rojas MD Work Phone: History of operative procedure on knee S/P medial meniscus repair of right knee Angie Rojas MD Work Phone: History of reconstruction of anterior cruciate ligament tear History of repair of ACL No Primary Care Physician History of reconstruction of anterior cruciate ligament tear Status post arthroscopic reconstruction of anterior cruciate ligament of right knee using quadriceps tendon autograft No Primary Care Physician History of reconstruction of anterior cruciate ligament tear S/P ACL repair Angie Rojas MD Work Phone: History of reconstruction of anterior cruciate ligament tear S/P ACL repair Angie Rojas MD Work Phone: History of reconstruction of anterior cruciate ligament tear S/P ACL repair [facility] History of reconstruction of anterior cruciate ligament tear S/P ACL repair Angie Rojas MD Work Phone: History of reconstruction of anterior cruciate ligament tear S/P ACL repair Angie Rojas MD Work Phone: Viral antigen assay No Prima ry Care Physician Plan of Treatment Date Care Activity Detail Author Start: 12-15-2033 Urine microalbumin profile DTaP,Tdap,Td Vaccine (3 - Td or Tdap) [facility] Start: 01-27-2033 Urine microalbumin profile [facility] Start: 09-29-2029 Lipid panel Lipid Screening [facility] Start: 01-28-2028 Lipid 1996 panel - S bettie or Plasma Lipid Screening [facility] Start: 01-28-2028 Lipid panel Lipid Screening [facility] Start: 01-28-2028 LIPID SCREEN LIPID SCREEN [facility] Start: 10-04-2025 End: 10-04-2025 Patient encounter procedure 10/04/2025 8:00 AM EST Office Visit Family [facility] [address] [place] [address] Angie Rojas MD [address] [place] [address] Physical [facility] Comment on above: Physical Start: 08-27-2025 End: 06-27-2026 US Lower extremity vein - right US DVT LOWER RIGHT Radiology Routine Acute deep vein thrombosis (DVT) of calf muscle vein of right lower extremity (HCC) S/P ACL repair S/P medial meniscus repair of right knee Expected: 08/27/2025, Expires: 06/27/2026 [facility] Work Phone: Comment on above: Expected: 08/27/2025 , Expires: 06/27/2026 Start: 07-04-2025 Covid-19 Vaccine ( season) Covid-19 Vaccine ( season) [facility] Comment on above: Postponed from 05/13 (Declined at this time) Start: 05-27-2025 End: 05-27-2025 Patient encounter procedure 05/27/2025 2:00 PM EDT Appointment [facility] [address] [place] [address] Acute deep vein thrombosis (DVT) of calf muscle vein of right lower extremity (HCC) [I82.461]; S/P ACL repair [Z98.890]; S/P medial meniscus repair of right knee [Z98.890] [facility] Comment on above: Acute deep vein thro mbosis (DVT) of calf muscle vein of right lower extremity (HCC) [I82.461]; S/P ACL repair [Z98.890]; S/P medial meniscus repair of right knee [Z98.890] Start: 05-24-2025 End: 05-24-2025 Patient encounter procedure 05/24/2025 9:00 AM EDT Office Visit [facility] [address] [place], [place] [phone] Angie Rojas MD [address] [place], [place] [phone] follow up [facility] Comment on above: follow up Start: 05-13-2025 Influenza vaccination Influenza Vacc ine (#1) [facility] Start: 01-19-2025 [facility] Start: 01-19-2025 Plain X-ray abdomen Abdomen Si ngle View (Portable) [facility] Start: 01-19-2025 XR Abdomen Single view [facility] Start: 01-14-2025 Anes open/surg arthroscopic proc knee joint nos ANESTH KNEE JOINT SURGERY [facility] Start: 01-14-2025 Arthroscopy knee w/meniscus rpr medial/lateral KNEE ARTHROSCOPY/SURGERY [facility] Start: 01-14-2025 Arthrs aided ant cru ciate ligm rpr/agmntj/rcnstj KNEE ARTHROSCOPY/SURGERY [facility] Start: 01-14-2025 Injection aa&/strd femoral nerve NJX AA&/STRD FEMORAL NRV IMG [facility] Start: 01-14-2025 Application of ice collar, cap or bag [facility] Start: 01-14-2025 Catheterization of vein [facility] Start: 01-14-2025 Following clinical pathway protocol [facility] Start: 01-14-2025 Patient discharge [facility] Start: 01-14-2025 Procedure discontinued [facility] Start: 01-14-2025 Taking patient vital signs [facility] Start: 01-14-2025 Vital signs measurements [facility] Start: 01-14-2025 [facility] Start: 01-14-2025 Medication education [facility] Start: 12-22-2024 [facility] Start: 12-21-2024 End: 12-21-2024 Patient encounter procedure 12/21/2024 10:40 AM EDT Office Visit [facility] [address] [place], [place] [phone] Angie Rjoas MD [address] [place] [address] [facility] Medicine [facility] Comment on above: General Health Start: 09-29-2024 End: 12-29-2024 CBC W Auto Differential panel - Blood [facility] Work Phone: Comment on above: Expected: 09/29/2024 , Expires: 12/29/2024 Start: 09-29-2024 End: 12-29-2024 Comprehensive metabolic 2000 panel - Serum or Plasma [facility] Comment on above: Expected: 09/29/2024 , Expires: 12/29/2024 Start: 09-29-2024 End: 12-29-2024 Lipid 1996 panel - Serum or Plasma [facility] Comment on above: Expected: 09/29/2024 , Expires: 12/29/2024 Start: 09-29-2024 End: 09-29-2024 Patient encounter procedure 09/29/2024 8:40 AM EST Office Visit [facility] [address] [place] [phone] Angie Rojas MD [address] [place] [id number] General Health [facility] Comment on above: General Health Start: 01-28-2024 COVID-19 VACCINE (4 - Moderna series) COVID-19 VACCINE (4 - Moderna series) [facility] Comment on above: Postponed from 09/25 (Declined at this time) Start: 01-28-2024 HEPATITIS B (1 of 3 - 3-dose series) HEPATITIS B (1 of 3 - 3-dose series) [facility] Comment on above: Postponed from 01/15 (Declined at this time) Start: 01-28-2024 Hepatitis B Vaccine (1 of 3 - 3-dose series) Hepatitis B Vaccine (1 of 3 - 3-dose series) [facility] Comment on above: Postponed from 01/15 (Declined at this time) Start: 05-10-2023 End: 07-10-2023 C reactive protein [Mass/volume] in Serum or Plasma [facility] Work Phone: Comment on above: Expected: 05/10/2023 , Expires: 07/10/2023 Start: 05-10-2023 End: 07-10-2023 Cyclic citrullinated peptide IgG Ab [Units/volume] in Serum or Plasma [facility] Work Phone: Comment on above: Expected: 05/10/2023 , Expires: 07/10/2023 Start: 05-10-2023 End: 07-10-2023 Nuclear Ab [Presence] in Serum by Immunoassay [facility] Work Phone: Comment on above: Expected: 05/10/2023 , Expires: 07/10/2023 Start: 05-10-2023 End: 07-10-2023 Rheumatoid factor [Units/volume] in Serum or Plasma [facility] Work Phone: Comment on above: Expected: 05/10/2023 , Expires: 07/10/2023 Start: 05-10-2023 End: 07-10-2023 Urate [Mass/volume] in Serum or Plasma [facility] Work Phone: Comment on above: Expected: 05/10/2023 , Expires: 07/10/2023 Start: 01-15-2015 HPV Vaccine (1 - 3-d ose SCDM series) HPV Vaccine (1 - 3-dose SCDM series) [facility] Start: 01-15-2007 Hepatitis B Vaccine (1 of 3 - 19+ 3-dose series) Hepatitis B Vaccine (1 of 3 - 19+ 3-dose series) [facility] Start: 01-15-2007 Pneumococcal vaccination Pneum ococcal Vaccine (1 of 2 - PCV) [facility] Start: 01-15-2006 Anxiety Screening Anxiety Screening [facility] Start: 01-15-2006 Depression Screening Depression Scre ening [facility] Start: 01-15-1994 PNEUMOCOCCAL (1 - PCV) PNEUMOCOCCAL (1 - PCV) [facility] Start: 01-15-1994 Pneumococcal vaccination [facility] Patient Education [facility] Work Phone: Patient referral [facility] Work Phone: End: 06-23-2026 US Lower extremity vein - right US DVT LOWER RIGHT Radiology [facility]IN[facility] Acute deep vein thrombosis (DVT) of calf muscle vein of right lower extremity (HCC) S/P ACL repair S/P medial meniscus repair of right knee 1 Occurrences starting 05/24/2025 until 06/23/2026 [facility] Work Phone: Comment on above: 1 Occurrences starti ng 05/24/2025 until 06/23/2026 [facility] Immunizations Immunization Date Immunization Notes Care Provider Fa luis fernando 06-27-2024 influenza virus vaccine, unspecified formulation Angie Rojas MD Work Phone: [facility] 01-27-2023 tetanus toxoid, redu dean diphtheria toxoid, and acellular pertussis vaccine, adsorbed Angie Rojas MD Work Phone: [facility] Payers Date Payer Category Payer Self-pay [id number] 2021 [employer] BLUE ACCE PPO [id number] 2021 Unknown MICHAEL TRAYLOR ACCE SS PPO [id number] 2021-Present [phone] [place] [address] PPO [id number] 2021 Unknown [id number] Private Health Insurance [id number] Unknown [id number] Unknown [id number] Unknown [id number] Unknown [id number] Unknown [id number] Unknown [id number] Unknown [id number] Unknown [id number] Social History Date Type Detail Facility Start: 12-31-2021 End: 05-29-2022 Tobacco smoking status NHIS Unknown if ever smoked [facility] Start: 1990 Sex Assigned At Male [facility] Start: 01-27-2023 [facility] Work Phone: History of tobacco use Cigarette Smoker [facility] Work Phone: Start: 01-27-2023 End: 09-29-2024 Tobacco use and exposure Smokeless tobacco non-user [facility] Work Phone: Start: 05-10-2023 End: 05-24-2025 Alcohol intake Current drinker of alcohol (finding) [facility] Start: 01-20-2023 End: 01-27-2023 History of Social function [facility] Start: 01-20-2023 End: 01-27-2023 Social connection and isolation panel [facility] Do you belong to any clubs or organizations such as presybeterian groups, unions, fraternal or athletic groups, or school groups? No [facility] Start: 07-09-2020 How often do you att end meetings of the clubs or organizations you belong to? Patient refused [facility] Are you now , , , , never or living with a partner? [facility] How often to you hav e a drink containing alcohol? Monthly or less [facility] How many standard dr inks containing alcohol do you have on a typical day? [address] or [address] [facility] How often do you hav e 6 or more drinks on 1 occasion? Never [facility] Do you feel stress - tense, restless, nervous, or anxious, or unable to sleep at night because your mind is troubled all the time - these days [OSQ] Not at all [facility] (I/We) worried benjy er (my/our) food would run out before (I/we) got money to buy more. Never true [facility] Start: 01-27-2023 Tobacco Comment 1 cigarette ma ybe once every [address] [facility] Start: 01-27-2023 Alcohol Comment 1 drink per month [facility] Start: 12-19-2022 Gender identity Identifies as male gender (finding) [facility] Do you belong to any clubs or organizations such as presybeterian groups, unions, fraternal or athletic groups, or school groups? Yes [facility] How often to you hav e a drink containing alcohol? 2-4 times a month [facility] Start: 09-29-2024 Tobacco smoking stat us NHIS Ex-smoker [facility] History of tobacco use Current smoker [facility] Start: 12-22-2024 End: 02-26-2025 Tobacco smoking status MEIS Never smoked tobacco (finding) [facility] Start: 12-22-2024 Sex Male (finding) [facility] Medical Equipment Procedure Code Equipment Code Equipment Origin al Text Equipment Identifier Dates Arthroscopy, knee, with meniscectomy SUTURETAPE,FIBER LOOP FDA Start: 01-14-2025 Arthroscopy, knee, with meniscectomy Tendon/ligament bone anchor, non-bioabsorbable [id number] FDA Start: 01-14-2025 Arthroscopy, knee, with meniscectomy Tendon/ligament bone anchor, non-bioabsorbable ()[id number] FDA Start: 01-14-2025 Arthroscopy, knee, with meniscectomy Tendon/ligament bone anchor, bioabsorbable [id number] FDA Start: 01-14-2025 Arthroscopy, knee, with meniscectomy Tendon/ligament bone anchor, non-bioabsorbable [id number] FDA Start: 01-14-2025 Arthroscopy, knee, with meniscectomy Soft-tissue/mesh anchor, non-bioabsorbable ()[id number] FDA Start: 01-14-2025 Arthroscopy, knee, with meniscectomy SUTURETAPE,FIBER LOOP FDA Start: 01-14-2025 Arthroscopy, knee, with meniscectomy SUTURETAPE,FIBER LOOP FDA Start: 01-14-2025 Arthroscopy, knee, with meniscectomy SUTURETAPE,FIBER LOOP FDA Start: 01-14-2025 Goals Date Patient Goal Desired Activity /State Mental Status Date Assessment Result Facility 01-14-2025 Cognitive function Level Of Consciousness Sedated [facility] Work Phone: 01-14-2025 Cognitive function Voice/Name [facility] Work Phone: 05-29-2022 Cognitive function Level Of Cons ciousness Awake;Alert;Appropriate;Follow s Commands [facility] Work Phone: 12-31-2021 Cognitive function Level Of Cons ciousness Awake;Alert;Appropriate;Follow s Commands [facility] Work Phone: Clinical Notes 05-10-2023 to 05-28-2025 Telephone Encounter - Corin Flor MA - 05/28/2025 1:31 PM EDTTelephone Encounter - Corin Flor MA - 05/28/2025 1:31 PM EDTBernadine Triana RT(R) - 05/27/2025 2:00 PM EDT Note Date & Type Note Facility 05-28-2025 Telephone encounter Note Patient called. Corin Flor MA [facility] 05-28-2025 Miscellaneous Notes Patient called. Corin Flor MA See results note/TE regarding his DVT. documented in this encounter [facility] 05-28-2025 Telephone encounter Note Patient informed and verbalized understanding. Corin Flor MA [facility] 05-28-2025 Miscellaneous Notes Patient informed and verbalized understanding. Corin Flor MA ----- Message from Angie Rojas MD sent at 05/28/2025 8:47 AM EDT ----- Patient's US shows he still has a DVT in the right peroneal and posterior tibial veins. This is not a new clot, but chronic appearing. Recommend he continue anticoagulation for additional 3 months with repeat US order at that time. Refill sent for additional 90 days of Eliquis to [facility] pharmacy. Please let me know if he has any questions. ----- Message ----- From: Arturo Kaiser In Sent: 05/27/2025 4:48 PM EDT To: Angie Rojas MD documented in this encounter [facility] 05-28-2025 Telephone encounter Note ----- Message from Angie Rojas MD sent at 05/28/2025 8:47 AM EDT ----- Patient's US shows he still has a DVT in the right peroneal and posterior tibial veins. This is not a new clot, but chronic appearing. Recommend he continue anticoagulation for additional 3 months with repeat US order at that time. Refill sent for additional 90 days of Eliquis to [facility] pharmacy. Please let me know if he has any questions. ----- Message ----- From: Awilda Orradha In Sent: 05/27/2025 4:48 PM EDT To: Angie Rojas MD [facility] 05-28-2025 Telephone encounter Note See results note/TE regarding his DVT. [facility] 05-27-2025 History of Presen t illness Narrative Radiology Service Progress Note PATIENT NAME: Naz Baugh DATE OF SERVICE: May 27, 2025 TIME: 2:49 PM PATIENT IDENTITY VERIFICATION COMPLETED USING TWO (2) IDENTIFIERS: Name and Date of confirmed by patient verbally. FALL SCREENING: Has the patient had 2 falls in the last year or 1 fall with injury or currently using an Ambulatory Assistive Device (Walker, Cane, Wheelchair, Crutches, etc.)? No PATIENT GENDER DATA: Assigned male at PATIENT RELEVANT IMPLANT DATA REVIEWED: Yes PATIENT PRESENTS WITH AN IMPLANTABLE OR ATTACHED AIRCRAFT SYSTEMS REPAIRER: No RADIOLOGY DEPARTMENT: Ultrasound PERIPHERAL IV DATA: Not applicable SIGNED BY: Bernadine Triana RDMS, RVT May 27, 2025 2:49 PM documented in this encounter [facility] 05-27-2025 Note HNO ID: [id number] Author: BERNADINE TRIANA RT(Davina) Service: ? Author Type: Technologist Type: Progress Notes Filed: 05/27/2025 14:49 Note Text: Radiology Service Progress Note PATIENT NAME: Naz Baugh DATE OF SERVICE: May 27, 2025 TIME: 2:49 PM PATIENT IDENTITY VERIFICATION COMPLETED USING TWO (2) IDENTIFIERS: Name and Date of confirmed by patient verbally. FALL SCREENING: Has the patient had 2 falls in the last year or 1 fall with injury or currently using an Ambulatory Assistive Device (Walker, Cane, Wheelchair, Crutches, etc.)? No PATIENT GENDER DATA: Assigned male at PATIENT RELEVANT IMPLANT DATA REVIEWED: Yes PATIENT PRESENTS WITH AN IMPLANTABLE OR ATTACHED AIRCRAFT SYSTEMS REPAIRER: No RADIOLOGY DEPARTMENT: Ultrasound PERIPHERAL IV DATA: Not applicable SIGNED BY: Bernadine Triana RDMS, RVT May 27, 2025 2:49 PM [facility] 05-24-2025 Instructions Angie Rojas MD - 05/24/2025 9:22 AM EDT - Continue taking Eliquis twice a day through May 29 to complete your 3-month blood-thinner course. - Schedule a venous ultrasound of your right leg for next week before you leave today--stop by the supervisor front to book it at the specialty building. - After the ultrasound report is in: if no clot is seen, you may stop Eliquis; if clot remains, continue Eliquis for another 3 months. - Call our office right away for any new calf pain, swelling, or redness. For sudden chest pain, shortness of breath, or coughing up blood, go to the ER. - Once you ve finished Eliquis and your clot is cleared, proceed with your planned sinuplasty with Dr. Corcoran in early June. If the ENT team asks for pre-op clearance (EKG or labs), schedule that with us. - Keep your annual physical appointment with our office in September. documented in this encounter [facility] 05-24-2025 Note HNO ID: [id number] Author: ANGIE ROJAS MD Service: ? Author Type: Physician Type: Progress Notes Filed: 05/24/2025 09:22 Note Text: Chief Complaint Patient presents with: Recheck: Follow up Recording using [employer] software for draft documentation of the visit was discussed with the patient/authorized customer response representative; all questions welcomed and answered. Patient/authorized customer response representative agreed to proceed HPI Naz Baugh is a 35 year old male who presents here today for Above Complaints. DVT: - Naz Baugh was diagnosed with DVT in the lower leg following right ACL and meniscus repair on 01/14. - DVT identified in the ER on 02/26, initiated on Eliquis BID. - Completed 3 months of Eliquis therapy; has 5 days of medication remaining. - Initial symptoms included calf pain and swelling, resolved within 2-3 days of starting Eliquis. - Currently ambulating well, occasionally jogging. - Naz reports intermittent pain behind the knee, distinct from previous calf pain, attributed to hamstring issues by the surgeon. - No bleeding complications reported. - Denies chest pain, dyspnea, or palpitations. Sinus Congestion: - Chronic sinus congestion x15 years, exacerbated by colds and air travel. - Recent evaluation by Dr. Corcoran at [facility] recommended sinuplasty, scheduled for early June. Records not available today. - Experiences sinus pain and pressure, particularly around the eyes. Past medical history, appointments, medications, allergies reviewed. Previous Medical History PAST MEDICAL HISTORY Diagnosis Date Acute DVT (deep venous thrombosis) (HCC) 02/2025 Right LE after surgery Bilateral bunions Male pattern baldness Migraine Right ACL tear Seasonal allergies Previous Surgical History PAST SURGICAL HISTORY Procedure Laterality Date PAST SURGICAL HISTORY OF Right 2018 ACL repair PAST SURGICAL HISTORY OF Right 01/2025 ACL and meniscus repair Family History FAMILY HISTORY Problem Relation Age of Onset No Known Problems Mother other (rheumatoid arthritis) Father Thyroid Father No Known Problems Brother Stroke Paternal Grandmother Patient Allergies ALLERGIES No Known Allergies Current Medications Current Outpatient Medications on File Prior to Visit Medication Sig ELIQUIS DVT-PE TREAT 30D START 5 mg (74 tabs) Take 5 mg by mouth two times a day. fluticasone (FLONASE) 50 mcg/actuation nasal spray Use 2 Sprays in each nostril once daily. (Patient not taking: Reported on 03/11/2025) SUMAtriptan (IMITREX) 50 mg tablet Take 50 mg by mouth as needed for migraine headache (see administration instructions). No current facility-administered medications on file prior to visit. Social History SOCIAL HISTORY[1] Review of Symptoms REVIEW OF SYSTEMS GENERAL: No weight loss, malaise or fevers RESPIRATORY: Negative for cough, hemoptysis, wheezing, COPD, dyspnea or shortness of breath CARDIOVASCULAR: Negative for chest pain, leg swelling, hypertension, CHF or palpitations SKIN: Negative for lesions, rash, and itching EXAM: BP 118/88 Pulse 68 Resp 16 Wt 84.8 kg (187 lb) SpO2 99% BMI 27.29 kg/m? General Appearance: Well appearing, alert, in no acute distress, well-hydrated, well nourished.. Skin: Skin color, texture, turgor normal, no suspicious rashes or lesions. Lungs: Lungs clear to auscultation. No wheezing, rhonchi, rales.. Heart: RRR without murmur, gallop, or rubs. No ectopy. Extremities: No deformities, edema, skin discoloration, clubbing or cyanosis. Good capillary refill. . Health Maintenance List Depression Screening Never done Anxiety Screening Never done HPV Vaccine(1 - 3-dose SCDM series) Never done Lipid Screening due on 09/29/2029 DTaP,Tdap,Td Vaccine(3 - Td or Tdap) due on 12/15/2033 Influenza Vaccine Completed Hepatitis C Screening Completed HIV Screening Completed Hepatitis B Vaccine Discontinued 1. Acute deep vein thrombosis (DVT) of calf muscle vein of right lower extremity (HCC) (I82.461) - DVT diagnosed on 02/26 following right ACL and meniscus repair on 01/14; completed 3 months of Eliquis BID with resolution of initial calf pain and swelling. - No bleeding complications reported. - Occasional posterior knee pain persists; repeat ultrasound ordered to confirm clot resolution. - Continue Eliquis BID until 05/29 or until ultrasound confirms resolution. - If ultrasound is negative, discontinue Eliquis; if clot persists, extend anticoagulation for an additional 3 months. - Educated on signs and symptoms of recurrent DVT or PE (new calf pain/swelling, redness, chest pain, hemoptysis) and advised to seek immediate medical attention if these occur. 2. S/P ACL repair (Z98.890) 3. S/P medial meniscus repair of right knee (Z98.890) - Right ACL and meniscus repair performed on 01/14; physical therapy nearing completion with ongoing home exercise program. - (more content not included)... [facility] 05-24-2025 History of Presen t illness Narrative Chief Complaint Patient presents with: Recheck: Follow up Recording using [employer] software for draft documentation of the visit was discussed with the patient/authorized customer response representative; all questions welcomed and answered. Patient/authorized customer response representative agreed to proceed HPI Naz Baugh is a 35 year old male who presents here today for Above Complaints. DVT: - Naz Baugh was diagnosed with DVT in the lower leg following right ACL and meniscus repair on 01/14. - DVT identified in the ER on 02/26, initiated on Eliquis BID. - Completed 3 months of Eliquis therapy; has 5 days of medication remaining. - Initial symptoms included calf pain and swelling, resolved within 2-3 days of starting Eliquis. - Currently ambulating well, occasionally jogging. - Naz reports intermittent pain behind the knee, distinct from previous calf pain, attributed to hamstring issues by the surgeon. - No bleeding complications reported. - Denies chest pain, dyspnea, or palpitations. Sinus Congestion: - Chronic sinus congestion x15 years, exacerbated by colds and air travel. - Recent evaluation by Dr. Corcoran at [facility] recommended sinuplasty, scheduled for early June. Records not available today. - Experiences sinus pain and pressure, particularly around the eyes. Past medical history, appointments, medications, allergies reviewed. Previous Medical History PAST MEDICAL HISTORY Diagnosis Date Acute DVT (deep venous thrombosis) (HCC) 02/2025 Right LE after surgery Bilateral bunions Male pattern baldness Migraine Right ACL tear Seasonal allergies Previous Surgical History PAST SURGICAL HISTORY Procedure Laterality Date PAST SURGICAL HISTORY OF Right 2018 ACL repair PAST SURGICAL HISTORY OF Right 01/2025 ACL and meniscus repair Family History FAMILY HISTORY Problem Relation Age of Onset No Known Problems Mother other (rheumatoid arthritis) Father Thyroid Father No Known Problems Brother Stroke Paternal Grandmother Patient Allergies ALLERGIES No Known Allergies Current Medications Current Outpatient Medications on File Prior to Visit Medication Sig ELIQUIS DVT-PE TREAT 30D START 5 mg (74 tabs) Take 5 mg by mouth two times a day. fluticasone (FLONASE) 50 mcg/actuation nasal spray Use 2 Sprays in each nostril once daily. (Patient not taking: Reported on 03/11/2025) SUMAtriptan (IMITREX) 50 mg tablet Take 50 mg by mouth as needed for migraine headache (see administration instructions). No current facility-administered medications on file prior to visit. Social History SOCIAL HISTORY[1] Review of Symptoms REVIEW OF SYSTEMS GENERAL: No weight loss, malaise or fevers RESPIRATORY: Negative for cough, hemoptysis, wheezing, COPD, dyspnea or shortness of breath CARDIOVASCULAR: Negative for chest pain, leg swelling, hypertension, CHF or palpitations SKIN: Negative for lesions, rash, and itching EXAM: BP 118/88 Pulse 68 Resp 16 Wt 84.8 kg (187 lb) SpO2 99% BMI 27.29 kg/m General Appearance: Well appearing, alert, in no acute distress, well-hydrated, well nourished.. Skin: Skin color, texture, turgor normal, no suspicious rashes or lesions. Lungs: Lungs clear to auscultation. No wheezing, rhonchi, rales.. Heart: RRR without murmur, gallop, or rubs. No ectopy. Extremities: No deformities, edema, skin discoloration, clubbing or cyanosis. Good capillary refill. . Health Maintenance List Depression Screening Never done Anxiety Screening Never done HPV Vaccine(1 - 3-dose SCDM series) Never done Lipid Screening due on 09/29/2029 DTaP,Tdap,Td Vaccine(3 - Td or Tdap) due on 12/15/2033 Influenza Vaccine Completed Hepatitis C Screening Completed HIV Screening Completed Hepatitis B Vaccine Discontinued 1. Acute deep vein thrombosis (DVT) of calf muscle vein of right lower extremity (HCC) (I82.461) - DVT diagnosed on 02/26 following right ACL and meniscus repair on 01/14; completed 3 months of Eliquis BID with resolution of initial calf pain and swelling. - No bleeding complications reported. - Occasional posterior knee pain persists; repeat ultrasound ordered to confirm clot resolution. - Continue Eliquis BID until 05/29 or until ultrasound confirms resolution. - If ultrasound is negative, discontinue Eliquis; if clot persists, extend anticoagulation for an additional 3 months. - Educated on signs and symptoms of recurrent DVT or PE (new calf pain/swelling, redness, chest pain, hemoptysis) and advised to seek immediate medical attention if these occur. 2. S/P ACL repair (Z98.890) 3. S/P medial meniscus repair of right knee (Z98.890) - Right ACL and meniscus repair performed on 01/14; physical therapy nearing completion with ongoing home exercise program. - Occasional posterior knee pain likely related to hamstring, as per surgeon. - Follow-up with orthopedic surgeon in approximately 45 days. 4. Chronic sinusitis, unspecified location (J32.9) - Chronic sinus congestion for 15 years; evaluated by ENT Dr. Corcoran, who recommended sinuplasty. - Sinuplasty scheduled for early June, pending completion of Eliquis therapy. - Will obtain records from Dr. Corcoran. - Advised to inform ENT if anticoagulation is extended, as this may necessitate rescheduling the procedure. Angie Rojas MD [1] Social History Tobacco Use Smoking status: Former Types: Cigarettes Smokeless tobacco: Never Tobacco comments: 1 cigarette maybe once every 6 months Vaping Use Vaping status: Never Used Substance Use Topics Alcohol use: Yes Alcohol/week: 1.0 standard drink of alcohol Types: 1 Standard drinks or equivalent per week Drug use: Never documented in this encounter [facility] 03-11-2025 Instructions Angie Rojas MD - 03/11/2025 9:54 AM EDT - Continue taking apixaban (Eliquis) 5 mg twice daily: finish your current one-month supply, then start the new 60-day prescription your provider sent. Do not double up doses. 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 - Follow your surgeon and physical therapist s instructions for knee rehabilitation: continue home exercises, attend physical therapy, and use ice or heat as directed. - Monitor for any signs of abnormal bleeding--such as blood in your stool or urine, frequent nosebleeds, or unexplained bruising--and call the office right away if these occur. - If you develop sudden chest pain, shortness of breath, or cough up blood, go to the nearest emergency department immediately. - Avoid activities that risk falls or head injury while on blood thinners; seek prompt medical care if you sustain a significant injury. - You have a follow-up appointment scheduled for mid-May to check your leg, consider repeating an ultrasound if needed, and decide whether to stop apixaban. documented in this encounter [facility] 03-11-2025 Note HNO ID: [id number] Author: ANGIE ROJAS MD Service: ? Author Type: Physician Type: Progress Notes Filed: 03/11/2025 10:10 Note Text: Chief Complaint Patient presents with: Outpatient Dvt Tx Recording using [employer] software for draft documentation of the visit was discussed with the patient/authorized customer response representative; all questions welcomed and answered. Patient/authorized customer response representative agreed to proceed HPI Naz Baugh is a 35 year old male who presents here today for Above Complaints. DVT: - Right leg DVT diagnosed approximately two weeks ago. - Initial symptoms included pain behind the calf during the fifth week post-op from ACL and meniscus repair. - Emergency ultrasound confirmed an early-stage blood clot from behind the knee to the calf. - Treated in the [facility] 02/26/25 ER with apixaban 10 mg BID for one week, followed by 5 mg BID. - Adherent to medication regimen; reports significant improvement in leg pain within two days of starting anticoagulation. - Denies current pain, swelling, or redness in the right leg. - Denies hemoptysis, epistaxis, hematuria, melena, hematochezia, chest pain, or dyspnea. Right Knee ACL and Meniscus Repair: - Underwent ACL and meniscus repair on 01/14. - Reports ongoing recovery with physical therapy; experiencing weird sounds and squeaking in the knee. - Noted swelling in the knee, attributed to normal post-op recovery and potential bleeding due to anticoagulation. - Denies new pain or swelling in the calf; no redness observed. - Engaged in physical therapy and home exercises; able to bend the knee more than 90 degrees. - Previous ACL surgery six years ago. Past medical history, appointments, medications, allergies reviewed. Previous Medical History PAST MEDICAL HISTORY Diagnosis Date Bilateral bunions Male pattern baldness Migraine Right ACL tear Seasonal allergies Previous Surgical History PAST SURGICAL HISTORY Procedure Laterality Date PAST SURGICAL HISTORY OF Right 2018 ACL repair PAST SURGICAL HISTORY OF Right 01/2025 ACL and meniscus repair Family History FAMILY HISTORY Problem Relation Age of Onset No Known Problems Mother other (rheumatoid arthritis) Father Thyroid Father No Known Problems Brother Stroke Paternal Grandmother Patient Allergies ALLERGIES No Known Allergies Current Medications Current Outpatient Medications on File Prior to Visit Medication Sig ELIQUIS DVT-PE TREAT 30D START 5 mg (74 tabs) Take 5 mg by mouth two times a day. minoxidil (LONITEN) 2.5 mg tablet Take 0.5 tablets by mouth once daily. Taking 1/2 tab SUMAtriptan (IMITREX) 50 mg tablet Take 50 mg by mouth as needed for migraine headache (see administration instructions). fluticasone (FLONASE) 50 mcg/actuation nasal spray Use 2 Sprays in each nostril once daily. (Patient not taking: Reported on 03/11/2025) No current facility-administered medications on file prior [...] palpitations GI: No nausea, vomiting, or diarrhea EXAM: BP 112/80 Pulse 76 Ht 176.3 cm (5' 9.41) Wt 82.6 kg (182 lb) SpO2 99% BMI 26.56 kg/m? GENERAL: NAD, alert and oriented. SKIN: Unremarkable, no rash or skin lesions. LUNGS: Clear to auscultation bilaterally, no wheezes/rhonchi/rales. HEART: Regular rate and rhythm, no murmurs. No ectopy. EXTREMITIES: No deformities, no skin discoloration, no edema. Calves both measuring about 37 cm, symmetrical. Health Maintenance List Depression Screening Never done Anxiety Screening Never done Covid-19 Vaccine( season) due on 07/04/2025 Lipid Screening due on 09/29/2029 DTaP,Tdap,Td Vaccine(3 - Td or Tdap) due on 12/15/2033 Influenza Vaccine Completed Hepatitis C Screening Completed HIV Screening Completed Hepatitis B Vaccine Discontinued 1. Acute deep vein thrombosis (DVT) of calf muscle vein of right lower extremity (HCC) (I82.461) - Diagnosed with a provoked DVT following ACL and meniscus repair on January 14. - Initiated on apixaban 10 mg BID for 1 week, followed by 5 mg BID; patient has been compliant with medication. - Significant improvement in leg pain; no current swelling, redness, or new bleeding/bruising symptoms. - Lungs clear on auscultation; no signs of edema in the right leg, and calf measurements are (more content not included)... [facility] 03-11-2025 History of Presen t illness Narrative Chief Complaint Patient presents with: Outpatient Dvt Tx Recording using [employer] software for draft documentation of the visit was discussed with the patient/authorized customer response representative; all questions welcomed and answered. Patient/authorized customer response representative agreed to proceed HPI Naz Baugh is a 35 year old male who presents here today for Above Complaints. DVT: - Right leg DVT diagnosed approximately two weeks ago. - Initial symptoms included pain behind the calf during the fifth week post-op from ACL and meniscus repair. - Emergency ultrasound confirmed an early-stage blood clot from behind the knee to the calf. - Treated in the [facility] 02/26/25 ER with apixaban 10 mg BID for one week, followed by 5 mg BID. - Adherent to medication regimen; reports significant improvement in leg pain within two days of starting anticoagulation. - Denies current pain, swelling, or redness in the right leg. - Denies hemoptysis, epistaxis, hematuria, melena, hematochezia, chest pain, or dyspnea. Right Knee ACL and Meniscus Repair: - Underwent ACL and meniscus repair on 01/14. - Reports ongoing recovery with physical therapy; experiencing weird sounds and squeaking in the knee. - Noted swelling in the knee, attributed to normal post-op recovery and potential bleeding due to anticoagulation. - Denies new pain or swelling in the calf; no redness observed. - Engaged in physical therapy and home exercises; able to bend the knee more than 90 degrees. - Previous ACL surgery six years ago. Past medical history, appointments, medications, allergies reviewed. Previous Medical History PAST MEDICAL HISTORY Diagnosis Date Bilateral bunions Male pattern baldness Migraine Right ACL tear Seasonal allergies Previous Surgical History PAST SURGICAL HISTORY Procedure Laterality Date PAST SURGICAL HISTORY OF Right 2018 ACL repair PAST SURGICAL HISTORY OF Right 01/2025 ACL and meniscus repair Family History FAMILY HISTORY Problem Relation Age of Onset No Known Problems Mother other (rheumatoid arthritis) Father Thyroid Father No Known Problems Brother Stroke Paternal Grandmother Patient Allergies ALLERGIES No Known Allergies Current Medications Current Outpatient Medications on File Prior to Visit Medication Sig ELIQUIS DVT-PE TREAT 30D START 5 mg (74 tabs) Take 5 mg by mouth two times a day. minoxidil (LONITEN) 2.5 mg tablet Take 0.5 tablets by mouth once daily. Taking 1/2 tab SUMAtriptan (IMITREX) 50 mg tablet Take 50 mg by mouth as needed for migraine headache (see administration instructions). fluticasone (FLONASE) 50 mcg/actuation nasal spray Use 2 Sprays in each nostril once daily. (Patient not taking: Reported on 03/11/2025) No current facility-administered medications on file prior [...] palpitations GI: No nausea, vomiting, or diarrhea EXAM: BP 112/80 Pulse 76 Ht 176.3 cm (5' 9.41) Wt 82.6 kg (182 lb) SpO2 99% BMI 26.56 kg/m GENERAL: NAD, alert and oriented. SKIN: Unremarkable, no rash or skin lesions. LUNGS: Clear to auscultation bilaterally, no wheezes/rhonchi/rales. HEART: Regular rate and rhythm, no murmurs. No ectopy. EXTREMITIES: No deformities, no skin discoloration, no edema. Calves both measuring about 37 cm, symmetrical. Health Maintenance List Depression Screening Never done Anxiety Screening Never done Covid-19 Vaccine(2023- season) due on 07/04/2025 Lipid Screening due on 09/29/2029 DTaP,Tdap,Td Vaccine(3 - Td or Tdap) due on 12/15/2033 Influenza Vaccine Completed Hepatitis C Screening Completed HIV Screening Completed Hepatitis B Vaccine Discontinued 1. Acute deep vein thrombosis (DVT) of calf muscle vein of right lower extremity (HCC) (I82.461) - Diagnosed with a provoked DVT following ACL and meniscus repair on January 14. - Initiated on apixaban 10 mg BID for 1 week, followed by 5 mg BID; patient has been compliant with medication. - Significant improvement in leg pain; no current swelling, redness, or new bleeding/bruising symptoms. - Lungs clear on auscultation; no signs of edema in the right leg, and calf measurements are symmetrical at 37 cm. - Blood pressure rechecked and stable at 112/80 mmHg. - Continue apixaban for a total duration of 3 months; provided 2 additional refills. - Educated on potential side effects of anticoagulation, including increased risk of bleeding and signs of pulmonary embolism. - Follow-up scheduled for mid-May to assess resolution; potential repeat ultrasound if symptoms persist. 2. S/P ACL repair (Z98.890) 3. S/P medial meniscus repair of right knee (Z98.890) - Post-operative course complicated by DVT; currently in the 8th week of recovery. - Continuing physical therapy with noted progress; no current pain. - Advised to follow surgeon's recommendations and continue home exercises, physical therapy, and use of ice and heat as needed. - Discussed potential for increased bleeding risk due to anticoagulation; advised to avoid high-impact activities that may cause injury. - Monitor for any changes or concerns and report immediately. Angie Rojas MD documented in this encounter [facility] 02-27-2025 Telephone encounter Note Reviewed [facility] 02-27-2025 Miscellaneous Notes Reviewed Called and spoke to Laila with [facility] vas lab. Per Dr. Rojas the ordering provider needs to evaluate and treat. This is a post-op related DVT. Relayed this to Laila whom verbalized understanding. Patient sent to ER for treatment. Corin Flor MA Laila with [facility] Vasc Lab calls to report pt tested positive for DVT behind right knee. Pt had knee surgery six weeks ago. [facility] sent pt to get US. [facility] policy is to have pcp take care of treatment for dvt. Please review and advise. Prema Madison LPN documented in this encounter [facility] 02-26-2025 Telephone encounter Note Called and spoke to Laila with [facility] vas lab. Per Dr. Rojas the ordering provider needs to evaluate and treat. This is a post-op related DVT. Relayed this to Laila whom verbalized understanding. Patient sent to ER for treatment. Corin Flor MA [facility] 02-26-2025 Telephone encounter Note Laila with [facility] V[facility] Lab calls to report pt tested positive for DVT behind right knee. Pt had knee surgery six weeks ago. [facility] sent pt to get US. [facility]'s policy is to have pcp take care of treatment for dvt. Please review and advise. Prema Madison LPN [facility] 01-19-2025 Radiology Diagnostic study note [facility] [address], [place] [address] Abdomen Single View (Portable) MR#: [id number] Acct: [id number] Name: NAZ BAUGH Rep #: [id number] : 1990 M 35 From: Keshia Landeros MD PCP: Dr. Brandon Rojas MD Status: REG ER Study:Abdomen Single View (Portable) Date of Exam: 01/19/25 Exam# [id number] Ordering Dr: Guzman Hills DO PROCEDURE: ABDOMEN SINGLE VIEW (PORTABLE) 01/19/2025 REASON FOR EXAM: CONSTIPATION TECHNIQUE: Single view abdomen. COMPARISON: None FINDINGS: Bowel gas: Nonobstructive bowel gas pattern. Moderate colonic stool. Calcifications: No suspicious calcifications. Bones: The bones are unremarkable. Other: Imaged lung jackman unremarkable RAD/Abdomen Single View (Portable) IMPRESSION: Nonobstructive bowel gas pattern. Moderate colonic stool. Reading Location: [facility] CC: Dr. Brandon Rojas MD; Dr. Guzman Le, DO ~ Factory Manager: Signed [facility] 12-22-2024 Radiology Diagnostic study note [facility] [address] [place] [address] Knee 4 or More Views MR#: [id number] Acct: [id number] Name: NAZ BAUGH Rep #: [id number] : 1990 M 34 From: Katelyn Larry MD PCP: Dr. Brandon Rojas MD Status: REG ER Study:Knee 4 or More Views Date of Exam: 12/22/24 Exam# [id number] Ordering Dr: Mandy Batista MD PROCEDURE: KNEE [...] Views IMPRESSION: Negative knee radiographs. Reading Location: [facility] CC: Dr. Brandon Rojas MD; Dr. Alexey Batista MD ~ Factory Manager: Signed [facility] 12-10-2024 Evaluation note Diagnosis Onset Date Resolution Migraine without aura, not intractable, without status migrainosus chronic December 10, 2024 9:25am [facility] Work Phone: 1(855) 874-800902-24-2025 NoteHNO ID: [id number] Author: ANGIE ROJAS MD Service: ? Author Type: Physician Type: Progress Notes Filed: 11/07/2024 13:00 Note Text: Chief Complaint Patient presents with: Sinus Problem: inflammation HPI Naz Baugh is a 34 year old male [...] if symptoms persist or worsen. Angie Rojas [facility]02-24-2025 History of Present illness Narrative* Angie Rojas MD - 11/05/2024 10:45 AM EST Chief Complaint Patient presents with: Sinus Problem: inflammation HPI Naz Baugh is a 34 year old male [...] worsen. Angie [facility] encounter Note * Telephone Encounter - Jami iM LPN - 10/01/2024 2:57 PM EST Detailed message left on secure [employer]. Advised patient to call in if any questions. Jami Mi LPN [facility]01-20-2025 Miscellaneous Notes* Telephone Encounter - Jami Mi LPN - 10/01/2024 2:57 PM EST Detailed message left on [employer] . Advised patient to call in if any questions. Jami Mi LPN * Telephone Encounter - Marcy Luevano APRN.CNP - 10/01/2024 2:52 PM EST Total and and cholesterol elevated some. Recommend low saturated fat diet and aim for at least 150 minutes of exercise per week. The rest of his blood work is normal. Marcy Luevano APRN.CNP [facility] Tele[facility] encounter Note * Telephone Encounter - Marcy Luevano APRN.CNP - 10/01/2024 2:52 PM EST Total and and cholesterol elevated some. Recommend low saturated fat diet and aim for at least 150 minutes of exercise per week. The rest of his blood work is normal. Marcy Luevano APRN.DIGITAL MEDIA INTERN [facility] Work Phone: 1(381) 574-962701-18-2025 NoteHNO ID: [id number] Author: ANGIE ROJAS MD Service: ? Author Type: Physician Type: Progress Notes Filed: 09/29/2024 09:14 Note Text: Chief Complaint Patient presents with: Physical HPI Naz Baugh is a 34 year old male [...] phonophobia. Denies nausea, vomiting, or auras. Sees [facility] Dr. Lyons once per year for [...] Nodes: No cervical lymphadeno (more content not included)...[facility]01-18-[facility]25 History of Present illness Narrative* Angie Rojas MD - 09/29/2024 8:36 AM EST Chief Complaint Patient presents with: Physical HPI Naz Baugh is a 34 year old male [...] andphonophobia. Denies nausea, vomiting, or auras. Sees [facility] Dr. Lyons once per year for [...] Lymph 1.00 - 4.00 k/uL 2.44 2.86 Hamilton% % 6.8 7.0 Abs Hamilton <0.87 k/uL 0.54 0.62 Eosin% % 2.4 [...] scheduled. Angie Rojas MD [facility] NoteHNO ID: [id number] Author: ANGIE ROJAS MD Service: ? Author Type: Physician Type: Progress Notes Filed: 09/03/2024 11:08 Note Text: Chief Complaint Patient presents with: Conjunctivitis: Bilateral eyes affected- itchy with drainage HPI Naz Baugh is a 34 year old male [...] 2 - PCV) Never done Covid-19 Vaccine( - season) due on 07/04/2025 Lipid Screening due [...] UNIT-TRIMETHOPRIM 1 MG/ML EYE DROPS Angie Rojas [facility]12-23-2024 History of Present illness Narrative* Angie Rojas MD - 09/03/2024 9:55 AM EST Chief Complaint Patient presents with: Conjunctivitis: Bilateral eyes affected- itchy with drainage HPI Nza Baugh is a 34 year old male [...] DROPS Angie Rojas MD [facility] NoteHNO ID: [id number] Author: ANGIE ROJAS MD Service: ? Author Type: Physician Type: Progress Notes Filed: 07/07/2024 09:34 Note Text: Chief Complaint Patient presents with: discuss conceiving children Follow Up HPI Naz Baugh is a 34 year old male [...] - 19+ 3-dose series) Never done Covid-19 Vaccine(2023- season) due on 05/13/2024 Lipid Screening due on 01/28/2028 DTaP,Tdap,Td Vaccine(3 - Td or Tdap) due on 12/15/2033 Influenza Vaccine Completed Hepatitis C Screening Completed HIV Screening Completed HPV Vaccine Aged Out Data reviewed Latest Ref [facility] 05/10/2023 WBC 3.70 - 11.00 k/uL 8.83 [...] Abs Lymph 1.00 - 4.00 k/uL 2.86 Hamilton% % 7.0 Abs Hamilton <0.87 k/uL 0.62 Eosin% % 1.8 Abs [...] lower sperm count and speak with prescribing dye operator Dr. Snider about alternative for hair loss. No further testing needed at this time. No family history of cystic fibrosis or chromosomal abnormalities. Will get him set up for physical, but does not need workup otherwise today. Angie Rojas, [facility]10-23-2024 History of Present illness Narrative* Angie Rojas MD - 07/04/2024 12:18 PM EDT Chief Complaint Patient presents with: discuss conceiving children Follow Up HPI Naz Baugh is a 34 year old male [...] - 19+ 3-dose series) Never done Covid-19 Vaccine(4 - 2024-25 season) due on 05/13/2024 Lipid Screening due [...] Abs Lymph 1.00 - 4.00 k/uL 2.86 Hamilton% % 7.0 Abs Hamilton <0.87 k/uL 0.62 Eosin% % 1.8 Abs [...] today. Angie Rojas MD [facility] Miscellaneous Notes* Telephone Encounter - Caterina Zapata - 05/31/2023 1:17 PM EDT Left vm and sent mychart to schedule follow up with a dye operator around 06/16/2023 per messages [facility] Instructions* Patient Instructions* Isa Bush MD - [...] if growing, changing, symptomatic. [facility] History of Present illness Narrative* Isa Bush [...] COMPLAINT: Cyst/Hair loss HISTORY OF PRESENT ILLNESS: Naz Baugh is a 33 year old male [...] Past Histories independently gathered by the clinical legal support manager, and the remaining scribed note accurately describes my personal service to the patient. I saw and evaluated Naz Baugh, as well as developed and discussed [...] visit. Isa Bush MD documented in [facility] History of Present illness Narrative* Angie Rojas MD - 05/18/2023 2:41 PM EDT Chief Complaint Patient presents with: Cyst HPI Naz Baugh is a 33 year old male [...] Lymph 1.00 - 4.00 k/uL 2.44 2.86 Hamilton% % 6.8 7.0 Abs Hamilton <0.87 k/uL 0.54 0.62 Eosin% % 2.4 [...] DERMATOLOGY Angie Rojas MD documented [facility]09-[facility]23 Miscellaneous Notes* Telephone Encounter - Nahomi Zayas [...] visit. Nahomi Zayas Ma documented in [facility]08-29-2023 History of Present illness Narrative* Angie Rojas MD - 05/10/2023 3:06 PM EDT Chief Complaint Patient presents with: Pain: Primarily left wrist sharp pain. HPI Naz Baugh is a 33 year old male [...] No joint swelling, deformity, or tenderness. 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 Health Maintenance [...] IGG Angie Rojas MD [facility] noteNo assessment information availableWACMC Healthcare System Work Phone: Evaluation note* Diagnosis Onset Date Resolution Status Migraine without aura, not i ntractable, without status migrainosus acute [facility] Work Phone: Evaluation note* Diagnosis Wrist pain, left- Primary Pain in joint, forearm Family history of rheumatoid arthritis Family history of arthritis [facility]* Diagnosis Scalp cyst- Primary Sebaceous cyst Patchy loss of hair Alopecia, unspecified Alopecia areata documented in this encounter [facility] note* Diagnosis Subcutaneous nodules- Primary Localized superficial swelling, mass, or lump Patchy loss of hair Alopecia, unspecified Hypertrophic scar Keloid scar [facility] Attempting to conceive- Primary [facility]* Diagnosis Bacterial conjunctivitis- Primary Other conjunctivitis [facility]* Diagnosis Annual physical exam- Primary Routine general medical examination at a health care facility Migraine without aura and without status migrainosus, not intractable Migraine without aura, without mention of intractable migraine without mention of status migrainosus Male pattern baldness Other alopecia [facility]* Diagnosis Acute recurrent frontal sinusitis- Primary Acute frontal sinusitis [facility] encounter [facility] Diagnosis Acute deep vein thrombosis (DVT) of calf muscle vein of right lower extremity (HCC)- Primary S/P ACL repair Other postprocedural status S/P medial meniscus repair of right knee [facility] Diagnosis Acute deep vein thrombosis (DVT) of calf muscle vein of right lower extremity (HCC)- Primary S/P ACL repair Other postprocedural status S/P medial meniscus repair of right knee Chronic sinusitis, unspecified location [facility] Diagnosis Acute deep vein thrombosis (DVT) of calf muscle vein of right lower extremity (HCC) S/P ACL repair Other postprocedural status S/P medial meniscus repair of right knee [facility] Diagnosis Acute deep vein thrombosis (DVT) of calf muscle vein of right lower extremity (HCC)- Primary S/P ACL repair Other postprocedural status S/P medial meniscus repair of right knee [facility] Additional Instructions Ice to your [...] us anything about the tendons, ligaments or cartilage.[facility] Work Phone: Hospital Discharge instructions Additional Instructions Stay hydrated with fluids. You currently not on opiate medicines. Use your stool softener once a day.[facility] Work Phone: Hospital Discharge instructions Additional Instructions Do not take ketorolac, Advil or ibuprofen while on EliquisWACMC Healthcare System Work Phone: Reason for referral (narrative)No reason for referral information availableMartin Memorial Hospital Work Phone: Reason for visit Narrative* Diagnostic Procedure Only (Urgent) - Closed Specialty Diagnoses / Procedures Referred By Contac t Referred To Contact [facility] Diagnoses Acute deep vein thrombosis (DVT) of calf muscle vein of right lower extremity (HCC) S/P ACL repair S/P medial meniscus repair of right knee Procedures US DVT LOWER RIGHT DUP-SCAN XTR VEINS UNILATERAL/LIMITED STUDY Angie Rojas MD [address] [place] [address] Phone: tel: fax: [place] [address] Referral ID Status Reason Start Date Expiration Date V isits Requested Visits Authorized [id number] Closed Auto-Generate d Referral 05/24/2025 06/23/[address] [facility] [address] [facility] Chief Complaint and Reason for Visit Chief [...] LOWER EXT February 26, 2025 3:44 pm Chief Complaint Admit Date LOWER EXT December 22, 2024 11: 53am RIGHT KNEE ARTHROSCOPIC REVISION ANTERIO R CRUCIATE January 14, 2025 5:56am ABD PAIN January 19, 2025 6:36p m RIGHT LOWER February 26, 2025 2:53 pm RLE PAIN February 26, 2025 3:10 pm LOWER EXT February 26, 2025 3:44 pm 4 M FU April 11, 2025 8:26 am Family History No Family History Records Found Relationship Condition Age at Onset Recorded Date/T rea grandfather Myocardial infarction 55 father Rheumatoid arthritis Unknown Advance Directives No Advanced Directives Records Found Advance Directive Response Recorded Date/ Time Living Will No December 31, 2021 1:38pm Power of Extruder Operator Horizontal No December 31 1:38pm Advance Directive Response Recorded Date/ Time Living Will No May 29, 2022 8:15pm Power of Extruder Operator Horizontal No May 8:15pm Advance Directive Response Recorded Date/ Time Living Will No May 29, 2022 7:15pm Power of Extruder Operator Horizontal No May 7:15pm Advance Directive Response Recorded Date/ Time Living Will No December 22, 2024 12:04pm Do you have a Healthcare Power of Extruder Operator Horizontal? No December 22, 2024 12:04pm Advance Directive Response Recorded Date/ Time Living Will No December 22, 2024 12:04pm Do you have a Healthcare Power of Extruder Operator Horizontal? No December 22, 2024 12:04pm Do you have a Healthcare Power of Extruder Operator Horizontal? No January 11, 2025 8:16am Do you have a Healthcare Power of Extruder Operator Horizontal? No January 19, 2025 7:08pm Advance Directive Response Recorded Date/ Time Living Will No December 22, 2024 12:04pm Do you have a Healthcare Power of Extruder Operator Horizontal? No December 22, 2024 12:04pm Do you have a Healthcare Power of Extruder Operator Horizontal? No January 11, 2025 8:16am Do you have a Healthcare Power of Extruder Operator Horizontal? No January 19, 2025 7:08pm Do you have a Healthcare Power of Extruder Operator Horizontal? No February 26, 2025 5:35pm Reason for Referral Specialty Diagnoses / Procedures Referred By Jorge t Referred To Contact Dermatology Diagnoses Scalp cyst Patchy loss of hair Alopecia areata Procedures [place] [address] [id number] Referral ID Status Reason Start Date Expiration Date Visits Requested Visits Authorized [id number] Ref Not Required PCP Requested Referral 05/18/2023 [...] Jamee Cabral MD Attending Provider, Referring Pr ovider Active Mosaic Layer Relationship Specialty Start Date End Date Angie Rojas MD [address] [place], [place] [address] PCP - General Family Medicine 05/10/23 Mosaic Layer Relationship Specialty Start Date End Date Angie Rojas MD [address] [place], [place] [id number] PCP - General Family Medicine 05/10/23 Mosaic Layer Relationship Specialty Start Date End Date Angie Rojas MD [address] [place], [place] [id number] PCP - General Family Medicine 05/10/23 Mosaic Layer Relationship Specialty Start Date End Date Angie Rojas MD [address] [place], [place] [id number] PCP - General Family Medicine 05/10/23 Mosaic Layer Relationship Specialty Start Date End Date Angie Rojas MD [address] [place], [place] [id number] PCP - General Family Medicine 05/10/23 Mosaic Layer Relationship Specialty Start Date End Date Angie Rojas MD [address] [place] [address] PCP - General Family Medicine 05/10/23 Mosaic Layer Relationship Specialty Start Date End Date Angie Rojas MD [address] [place] [address] PCP - General Family Medicine 05/10/23 Podlogar, Marcy, ORGANIC LAB WORKER.DIGITAL MEDIA INTERN [address] [place] [address] Sanitation Worker [employer] Family Medicine 08/18/24 Mosaic Layer Relationship Specialty Start Date End Date Angie Rojas MD [address] [place] [address] PCP - General Family Medicine 05/10/23 Podlogar, Marcy, ORGANIC LAB WORKER.DIGITAL MEDIA INTERN [address] [place] [address] Sanitation Worker [employer] Family Medicine 08/18/24 Mosaic Layer Relationship Specialty Start Date End Date Angie Rojas MD [address] [place] [address] PCP - General Family Medicine 05/10/23 Podlogar, Marcy, ORGANIC LAB WORKER.DIGITAL MEDIA INTERN [address] [place] [address] Sanitation Worker [employer] Family Medicine 08/18/24 Mosaic Layer Relationship Specialty Start Date End Date Angie Rojas MD [address] [place] [address] PCP - General Family Medicine 05/10/23 Podlogar, Marcy, ORGANIC LAB WORKER.DIGITAL MEDIA INTERN [address] [place] [address] Sanitation Worker [employer] Family [facility] 08/18/24 Team Status: Active Member Role Status [...] February 26, 2025 End: February 26, 2025 Team Status: Inactive Member Role Status Dates Dr. Brandon Rojas MD Primary Care Provider Acti ve Start: February 26, 2025 End: February 26, 2025 Dr. Shawn Grace DO Attending Provider Active Start: February 26, 2025 End: February 26, 2025 Dr. Shawn Grace DO Referring Provider Active Start: February 26, 2025 End: February 26, 2025 Mosaic Layer Relationship Specialty Start Date End Date Angie Rojas MD [address] [place] [address] PCP - General Family Medicine 05/10/23 Marcy Luevano APRN.DIGITAL MEDIA INTERN [address] [place] [address] [facility] Family Medicine 08/18/24 Lyla Coates APRN.DIGITAL MEDIA INTERN [address] [place], [place] [id number] [facility] Family [facility] 02/21/25 Mosaic Layer Relationship Specialty Start Date End Date Angie Rojas MD [address] [place], [place] [id number] PCP - General Family Medicine 05/10/23 Marcy Luevano APRN.DIGITAL MEDIA INTERN [address] [place], [place] [address] Sanitation Worker [employer] [facility] 08/18/24 Lyla Coates, ORGANIC LAB WORKER.DIGITAL MEDIA INTERN [address] [place], [place] [address] [facility] 02/21/25 Team Status: Active Member Role/Relationship Status Dates Dr. Brandon Rojas MD Primary Care Provider Acti ve Team Status: Inactive Member Role/Relationship Status Dates Dr. Alexey Batista MD Attending Provider Active S tart: December 22, 2024 End: December 22, 2024 Dr. Alexey Batista MD Emergency Provider Active S tart: December 22, 2024 End: December 22, 2024 Dr. Brandon Rojas MD Primary Care Provider Acti ve Start: December 22, 2024 End: December 22, 2024 Team Status: Inactive Member Role/Relationship Status Dates Dr. Brandon Rojas MD Primary Care Provider Acti ve Start: January 14, 2025 End: January 14, 2025 Dr. Shawn Grace DO Attending Provider Active Start: January 14, 2025 End: January 14, 2025 Dr. Shawn Grace DO Referring Provider Active Start: January 14, 2025 End: January 14, 2025 Team Status: Inactive Member Role/Relationship Status Dates Dr. Brandon Rojas MD Primary Care Provider Acti ve Start: January 19, 2025 End: January 19, 2025 Dr. Guzman Hills DO Attending Provider Active Start : January 19, 2025 End: January 19, 2025 Dr. Guzman Hilsl DO Emergency Provider Active Start : January 19, 2025 End: January 19, 2025 Team Status: Inactive Member Role/Relationship Status Dates Dr. Brandon Rojas MD Primary Care Provider Acti ve Start: February 26, 2025 End: February 26, 2025 Dr. Shawn Grace DO Attending Provider Active Start: February 26, 2025 End: February 26, 2025 Dr. Shawn Grace DO Referring Provider Active Start: February 26, 2025 End: February 26, 2025 Team Status: Active Member Role/Relationship Status Dates Dr. Beau Ta MD Attending Provider Active Start: February 26, 2025 Dr. Shawn Grace DO Referring Provider Active Start: February 26, 2025 Team Status: Inactive Member Role/Relationship Status Dates Dr. Brandon Rojas MD Primary Care Provider Acti ve Start: February 26, 2025 End: February 26, 2025 Dr. Kavon Ravi MD Attending Provider Active Sta rt: February 26, 2025 End: February 26, 2025 Dr. Kavon Ravi MD Emergency Provider Active Sta rt: February 26, 2025 End: February 26, 2025 Team Status: Inactive Member Role/Relationship Status Dates No Primary Care Physician Referring Provider Active Start: April 11, 2025 End: April 11, 2025 Dr. Toy Lyons MD Attending Provider Active Start: April 11, 2025 End: April 11, 2025 Dr. Brandon Rojas MD Primary Care Provider Acti ve Start: April 11, 2025 End: April 11, 2025 Mosaic Layer Relationship Specialty Start Date End Date Angie Rojas MD [address] [place], [place] [address] PCP - General Family Medicine 05/10/23 Marcy Luevano ORGANIC LAB WORKER.DIGITAL MEDIA INTERN [address] [place], [place] [id number] [facility] Family Medicine 08/18/24 Lyla Coates ORGANIC LAB WORKER.DIGITAL MEDIA INTERN [address] [place], [place] [phone] [facility] Family [facility] 02/21/25 Mosaic Layer Relationship Specialty Start Date End Date Angie Rojas MD [address] [place], [place] [id number] PCP - General Family Medicine 05/10/23 PodlogarMarcy APRN.DIGITAL MEDIA INTERN [address] [place], [place] [address] [phone] Sanitation Worker [employer] Family [facility] 08/18/24 Lyla Coates APRN.DIGITAL MEDIA INTERN [address] [place], [place] [address] [phone] [facility] 02/21/25 Mosaic Layer Relationship Specialty Start Date End Date Angie Rojas MD [address] [place], [place] [address] [phone] PCP - General Family Medicine 05/10/23 PodlogarMarcy APRN.DIGITAL MEDIA INTERN [address] [place] [address] [facility] Medicine 08/18/24 Lyla Coates ORGANIC LAB WORKER.DIGITAL MEDIA INTERN [address] [place] [address] [facility] 02/21/25 Mosaic Layer Relationship Specialty Start Date End Date Angie Rojas MD [address] [place] [address] PCP - General Family Medicine 05/10/23 PodlogarMarcy ORGANIC LAB WORKER.DIGITAL MEDIA INTERN [address] [place] [address] [facility] Family Medicine 08/18/24 Lyla Coates APRN.DIGITAL MEDIA INTERN [address] [place] [address] [facility] 02/21/25 Source Comments (unrecognize d section and content) In the event this informatio n is protected by the Federal Confidentiality of Alcohol and Drug Abuse Patient Records regulations: The Federal rules restrict any use of the information to criminally investigate or prosecute any alcohol or drug abuse patient.[facility] HospitalIn the event this information is protected by the Federal Confidentiality of Alcohol and Drug Abuse Patient Records regulations: The Federal rules restrict any use of the information to criminally investigate or prosecute any alcohol or drug abuse patient.[facility] HospitalIn the event this information is protected by the Federal Confidentiality of Alcohol and Drug Abuse Patient Records regulations: The Federal rules restrict any use of the information to criminally investigate or prosecute any alcohol or drug abuse patient.[facility] HospitalIn the event this information is protected by the Federal Confidentiality of Alcohol and Drug Abuse Patient Records regulations: The Federal rules restrict any use of the information to criminally investigate or prosecute any alcohol or drug abuse patient.[facility] HospitalIn the event this information is protected by the Federal Confidentiality of Alcohol and Drug Abuse Patient Records regulations: The Federal rules restrict any use of the information to criminally investigate or prosecute any alcohol or drug abuse patient.[facility] HospitalIn the event this information is protected by the Federal Confidentiality of Alcohol and Drug Abuse Patient Records regulations: The Federal rules restrict any use of the information to criminally investigate or prosecute any alcohol or drug abuse patient.[facility] HospitalIn the event this information is protected by the Federal Confidentiality of Alcohol and Drug Abuse Patient Records regulations: The Federal rules restrict any use of the information to criminally investigate or prosecute any alcohol or drug abuse patient.[facility] HospitalIn the event this information is protected by the Federal Confidentiality of Alcohol and Drug Abuse Patient Records regulations: The Federal rules restrict any use of the information to criminally investigate or prosecute any alcohol or drug abuse patient.[facility] HospitalIn the event this information is protected by the Federal Confidentiality of Alcohol and Drug Abuse Patient Records regulations: The Federal rules restrict any use of the information to criminally investigate or prosecute any alcohol or drug abuse patient.[facility] HospitalIn the event this information is protected by the Federal Confidentiality of Alcohol and Drug Abuse Patient Records regulations: The Federal rules restrict any use of the information to criminally investigate or prosecute any alcohol or drug abuse patient.[facility] HospitalIn the event this information is protected by the Federal Confidentiality of Alcohol and Drug Abuse Patient Records regulations: The Federal rules restrict any use of the information to criminally investigate or prosecute any alcohol or drug abuse patient.[facility] HospitalIn the event this information is protected by the Federal Confidentiality of Alcohol and Drug Abuse Patient Records regulations: The Federal rules restrict any use of the information to criminally investigate or prosecute any alcohol or drug abuse patient.[facility] HospitalIn the event this information is protected by the Federal Confidentiality of Alcohol and Drug Abuse Patient Records regulations: The Federal rules restrict any use of the information to criminally investigate or prosecute any alcohol or drug abuse patient.[facility] HospitalIn the event this information is protected by the Federal Confidentiality of Alcohol and Drug Abuse Patient Records regulations: The Federal rules restrict any use of the information to criminally investigate or prosecute any alcohol or drug abuse patient.[facility] HospitalIn the event this information is protected by the Federal Confidentiality of Alcohol and Drug Abuse Patient Records regulations: The Federal rules restrict any use of the information to criminally investigate or prosecute any alcohol or drug abuse patient.[facility] HospitalIn the event this information is protected by the Federal Confidentiality of Alcohol and Drug Abuse Patient Records regulations: The Federal rules restrict any use of the information to criminally investigate or prosecute any alcohol or drug abuse patient.[facility] Reason for Visit (unrecogniz ed section and content) Reason Comments Pain Primarily left wrist sharp pain. Reason Comments Cyst Reason Comments Appointment Specialty Diagnoses / Procedures Referred By Jorge t Referred To Contact Dermatology Diagnoses Scalp cyst Patchy loss of hair Alopecia areata Procedures CONSULT TO DERMATOLOGY Angie Rojas MD [address] [place] [address] Referral ID Status Reason Start Date Expiration Date Visits Requested Visits Authorized [id number] Ref Not Required PCP Requested Referral 05/18/2023 05/17/2024 1 1 Reason Comments discuss conceiving children Follow Up Reason Comments Conjunctivitis Bilateral eyes affec yassine- itchy with drainage Reason Comments Physical Reason Comments Results Reason Comments Sinus Problem inflammation Reason Comments Outpatient Dvt Tx Reason Comments Recheck Follow up Reason Onset Date Comments Results 05/28/2025 (unrecognized sect ion and content) No Status Records FoundNo Status Records FoundNo Status Records Found INFORMATION SOURCE (unrecogn ized section and content) DATE CREATED AUTHOR 04/13/2025 [facility] DATE CREATED AUTHOR AUTHOR'S ORGANIZ ATION 05/28/2025 [facility] DATE CREATED AUTHOR AUTHOR'S ORGANIZ ATION 05/29/2025 [facility] FOR RECORDS PERTAINING TO PATIENTS WHO ARE [...] BE BASED ON THE PRIMARY CLINICAL RECORDS. [facility] [employer] [facility]. provides no warranty or guarantee of the accuracy or completeness of information in this document.
[2025-07-07 14:10] LABS: Hematocrit 43.3 % (40-54); Hemoglobin 14.8 g/dL (13.0-16.5); Mean Corp Hgb Conc 34.2 g/dL (32-36); Mean Corpuscular Volume 83.6 fL (80-94); Mean Platelet Vol. 9.9 fl (6.2-12.0); Platelet Count 227 K/mm3 (150-450); RBC Distribution Width CV 12.3 % (11.6-14.6); RBC Distribution Width SD 37.4 fl (35.1-43.9); Red Blood Count 5.18 M/mm3 (4.6-6.2); White Blood Count 12.3 K/mm3 (4.4-11.0)
[2025-07-07 14:44] VITALS: BP 128/82; PULSE 73; RESP 16; O2SAT 100
[2025-07-07 14:57] LABS: Anion Gap 10 (5-15); BUN 15 mg/dL (4-19); BUN/Creat Ratio 14.5 RATIO (10-20); Calcium,Total 9.6 mg/dL (7.6-11.0); Carbon Dioxide 27.5 mmol/L (21.0-32.0); Chloride 103 mmol/L (98-108); Estimated Creatinine Clearance 97.25 ml/min (50-250); Glucose 86 mg/dL (70-99); Potassium 3.9 mmol/L (3.3-5.1); Troponin T High Sensitivity < 6 ng/L (<=22)
[2025-07-07 15:00] VITALS: BP 126/78; PULSE 77; RESP 16; O2SAT 99
--- NOTE | 2025-07-07 15:31 | ED.VIS.CHEST ---
HPI History of Present Illness Chief Complaint: Chest Pain Detail of Chief Complaint: Left-sided chest pain and bilateral mid back pain Informant: patient Onset/Context/Timing Onset: Days (Onset July 05.) Activity at onset: sudden and rest Timing: Intermittent and Lasts (1 to 3 hours) Quality: Positive for Pain and Sharp; Negative for Aching, Burning, Dull, Heaviness, Indigestion, Pressure or Stabbing Location: Left Chest Current Severity: Mild Maximum Severity: Moderate Worsened By: Nothing Relieved By: Nothing Associated Symptoms: Positive for - (History of DVT, on anticoagulant, recent ultrasound revealed improvement of DVT); Negative for Nausea, Vomiting, Diaphoresis, Dyspnea, Cough, Fever, Lightheadedness, Acid Reflux or Palpitations Narrative Narrative: Patient is a 35-year-old male. He was diagnosed with DVT February 26, 2025. He was placed on apixaban. He had a follow-up ultrasound revealed improvement. His pain is sharp and left side as well as bilateral mid back. The back pain occurs in the morning. Chest pain is not a associated when he has the back pain. He denies pain with breathing. He denies dyspnea, [place] exertion, orthopnea or PND. The pain does not awaken him from sleep. He denies cough or shortness of breath. He denies history of hiatal hernia, reflux, peptic ulcer disease. Denies black or maroon-colored stool. Prior Similar Symptoms: No Recent Illness/Hospitalization: Yes (DVT right popliteal vein) CVD Risk Factors: Negative for Hypertension, Diabetes, Hypercholesterolemia, Family History 1' </=55 or Smoking PE Risk Factors: Negative for Recent Travel/Surgery, Recent Immobilization, Prior DVT or PE, Cancer or OCP + Smoking + >/=35 TAD Risk Factors: Negative for Marfan's Syndrome, Hypertension or Family History [facility] Medical History Alcohol use Non-smoker Migraine without aura, not intractable, without status migrainosus Home Medications ?Medication ?Instructions ?Recorded ?Last Taken ?Type minoxidil 2.5 mg tablet 1.25 mg PO DAILY 01/11/25 01/11/25 History ketorolac 10 mg tablet 10 mg PO Q6H 3 days #12 tabs 01/14/25 Unknown Rx apixaban 5 mg (74 tabs) tablets in 10 mg (2 x 5 mg (74 tabs)) PO BID 02/26/25 Unknown Rx a dose pack (Eliquis DVT-PE Treat #74 tabs 30D Start) sumatriptan succinate 100 mg tablet See Rx Instructions PO .COMPLEX 04/11/25 Unknown Rx #12 tabs Allergy/AdvReac Type Severity Reaction Status Date / Time No Known Allergies Allergy Verified 07/07/25 13:45 Family History Grandfather Myocardial infarction, Onset Age: 55 Father Rheumatoid arthritis Surgical History History of repair of ACL Social History household members: spouse housing: house Smoking Status: Never smoker Electronic Cigarette Use: not used second hand exposure: No alcohol intake: current details: occasionally substance use type: does not use what type of physical activity do you participate in: running and weight training seatbelt use: always ROS ROS ED Constitutional Constitutional ED: Denies chills, fever(s), subjective, sweats or weight loss Eyes Eyes: Reports none ENT ENT ED: Denies ear pain or rhinorrhea Cardiovascular Cardiovascular: Reports as per HPI and orthopnea; Denies palpitations, paroxysmal nocturnal dyspnea or racing heartbeat Respiratory/Chest Respiratory/Chest: Reports dyspnea and orthopnea; Denies cough, paroxysmal nocturnal dyspnea or sputum Gastrointestinal Gastrointestinal: Denies abdominal pain, melena, nausea or vomiting Genitourinary Genitourinary ED: Denies dysuria, hematuria or urinary frequency Musculoskeletal Musculoskeletal: Denies arthralgias, back pain or myalgias Integumentary Denies rash Neurologic Neurologic: Denies headache(s) or paresthesias Endocrine Endocrinology: Denies cold intolerance or heat intolerance Hematologic/Lymphatic Hematologic/Lymphatic: Denies easy bleeding or easy bruising EXAM Physical Exam Const Vital Signs: 07/07/25 13:44 07/07/25 14:01 07/07/25 14:44 Temperature 98.8 F Temperature Source Oral Pulse Rate 84 73 Respiratory Rate 14 16 Respiratory Effort Normal Non-Labored Blood Pressure 130/84 H 128/82 H Blood Pressure Mean 99 97 Pulse Ox 100 100 Oxygen Delivery Method Room Air 07/07/25 15:00 Temperature Temperature Source Pulse Rate 77 Respiratory Rate 16 Respiratory Effort Blood Pressure 126/78 H Blood Pressure Mean 94 Pulse Ox 99 Oxygen Delivery Method Positive well nourished and well developed; Negative for obese General Appearance ED: well developed and NAD; Negative for pallor Nutritional Appearance: Negative for obese HEENT Reports moist mucous membranes normocephalic and atraumatic Eyes PERRL and EOMs intact bilaterally General Eye ED: Negative for pale conjunctiva or scleral icterus Resp normal respiratory effort and clear to auscultation bilaterally Effort and Inspection: Negative for respiratory distress or pain with movement Cardio regular rate, regular rhythm, S1 normal heart sound, S2 normal heart sound and no murmurs Peripheral Pulses: pulses 2+ throughout GI normal to inspection, nondistended, normoactive bowel sounds, soft to palpation, non-tender, non-distended and no masses; Negative for hepatosplenomegaly Back/Spine no CVA tenderness and no thoracic nor lumbar tenderness Extremity normal to inspection Extremity Narrative: There is no asymmetry, swelling, discoloration, leg vein distention, palpable cords or tenderness along the distribution of the deep venous system. General Extremety ED: Negative for edema General Extremity: Negative for edema Neuro oriented x3, CN's II-XII intact bilaterally and no sensory deficits noted Sensorium / Orientation: awake and alert Psych mental status grossly normal Skin no rashes or lesions noted and no wounds General Skin Exam: Negative for jaundice or pallor MDM MDM MDM Narrative Medical decision making narrative: Patient's history and physical is not consistent with PE, thoracic aortic dissection, myocardial ischemia, pneumothorax or pneumonia. Patient reports compliance with apixaban. Furthermore, patient had follow-up ultrasound which revealed improvement of the clot. He was prescribed additional 3 months of apixaban since the clot did not resolve. Will obtain CBC to assess H&H and white count. Troponin. If first 1 is negative this would rule out cardiac etiology since has been present since the . BMP was obtained assess renal function. History & Record Review Additional record(s) reviewed:: Prior ED visit (Documented HPI narrative) and Prior labs Lab Data Attestation: I reviewed the patient's lab results. Lab results narrative: White count is slightly elevated. This is nonspecific. H&H is normal. CBC was obtained to assess for anemia. BMP is normal. Troponin is less than 6. Labs: Laboratory Results - last 24 hr 07/07/25 13:53 WBC 12.3 H RBC 5.18 Hgb 14.8 Hct 43.3 MCV 83.6 MCH 28.6 MCHC 34.2 RDW Std Deviation 37.4 RDW Coeff of Jesus 12.3 Plt Count 227 MPV 9.9 Sodium 140 Potassium 3.9 Chloride 103 Carbon Dioxide 27.5 Anion Gap 10 BUN 15 Creatinine 1.04 Estim Creat Clear Calc 97.25 Est GFR (MDRD) Non-Af 95 BUN/Creatinine Ratio 14.5 Glucose 86 Calcium 9.6 Troponin T High Sens < 6 EKG Initial EKG: Attestation: I personally reviewed and interpreted this EKG as follows: Interpretation: Sinus Rhythm (Rate is 86. The EKG is normal. NC interval is 160 ms. Cures duration 90 ms. QT duration Carlos 74 ms. [place] is normal.) Treatment and Re-Evaluation :: Patient was informed the cause of his chest pain is unknown known. He was told life-threatening conditions were ruled out. 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 Instructions: ED Chest Pain, Noncardiac, ED Chest Pain, Uncertain Cause Prescriptions: No Action sumatriptan succinate 100 mg tablet See Rx Instructions PO .COMPLEX Qty: 12 10RF Rx Instructions: Take 1 tablet PO every 1 hour as needed for headache up to 2 tablets/day minoxidil 2.5 mg tablet 1.25 mg PO DAILY ketorolac 10 mg tablet 10 mg PO Q6H 3 Days Qty: 12 0RF Rx Instructions: maximum total duration of 5 days from all oral, intranasal, or parenteral formulations Eliquis DVT-PE Treat 30D Start 5 mg (74 tabs) tablets,dose pack 10 mg PO BID Qty: 74 0RF Rx Instructions: 10 mg twice daily x 7 days then 5 mg twice daily thereafter Primary Care Provider: Brandon Rojas Referrals: Brandon Rojas MD [Primary Care Provider, Family Practice] - 3-5 Days if not improving Print Language: Mongolian Disposition Disposition: Home, Self Care
[2025-07-07 15:46] VITALS: BP 126/78; PULSE 77; RESP 16; TEMP 36.8; O2SAT 99
== END 2025-07-07 15:49 | disposition home or self-care (01) ==
PROVIDERS: Emergency Provider Emergency Medicine; PCP Family Medicine; Visit Provider Emergency Medicine
DX: R07.89 Other chest pain (principal); I82.531 Chronic embolism and thrombosis of right popliteal vein; Z79.01 Long term (current) use of anticoagulants; M54.9 Dorsalgia, unspecified; R03.0 Elevated blood-pressure reading, without diagnosis of hypertension
CPT/HCPCS: 80048; 84484; 85027; 93005; 99283; A4216